=== PATIENT | female | born 1950 | race Caucasian/White ===

== ENCOUNTER → 2018-08-25 11:15 | Outpatient (CLI) | payer MEDICARE, MEDICAID, SELFPAY ==
--- NOTE | 2018-08-25 11:25 | US_ITS ---
STUDY: RENAL ULTRASOUND - COMPLETE REASON FOR EXAM: Female, 67 years old. UTI TECHNIQUE: Ultrasound evaluation of the kidneys was performed with real-time and static king-scale imaging. COMPARISON: None. FINDINGS: RIGHT KIDNEY: Normal location of the right kidney, which is normal in size. The right kidney measures 10.0 x 5.4 x 5.1 cm. There is thinning cortex of the right kidney. The renal cortex measures 1.0 cm. Multiple cysts are noted up to 3.6 cm with one possibly septated. There are no right renal calculi. There is right hydronephrosis which resolved after voiding. DISTAL RIGHT URETER: There is non-visualization of the distal right ureter. There is no demonstrated right ureterovesical junction calculus. There is a visualized right ureteral jet. LEFT KIDNEY: Normal location of the left kidney, which is normal in size. The left kidney measures 11.7 x 4.5 x 4.9 cm. There is a normal cortex of the left kidney. The renal cortex measures 1.6 cm. There is no left renal mass or cyst. There are no left renal calculi. There is left hydronephrosis which resolved after voiding. DISTAL LEFT URETER: There is non-visualization of the distal left ureter. There is no demonstrated left ureterovesical junction calculus. There is a visualized left ureteral jet. BLADDER: The distended urinary bladder has a volume of 5:30 ml. The post void urinary bladder has a volume of 286 ml. Wall thickness is 4 mm.. There is no demonstrated mass within the urinary bladder. There are no demonstrated bladder calculi. US/Kidney and Bladder IMPRESSION: Hydronephrosis of the kidneys which resolved after voiding. Significant residual after voiding is noted of the urinary bladder. Minimally thickened wall of the urinary bladder. Multiple right renal cystic lesions. Electronically Signed: Morris Leon DO at 23:57 EDT Tel [phone], Service support ,
== END ==
PROVIDERS: Family Provider Family Medicine; PCP Family Medicine; Referring Provider Urology; Visit Provider Urology
DX: N39.0 Urinary tract infection, site not specified (principal)
CPT/HCPCS: 76770

== ENCOUNTER 2018-11-14 05:54 | Day surgery (SDC) | payer MEDICARE, MEDICAID, SELFPAY ==
[2017-01-18 14:58] VITALS: BMI 43.7
[2018-11-14] VITALS (7 sets, daily range): BP systolic 97–173; BP diastolic 58–83; PULSE 65–88; RESP 16–18; TEMP 36.3–36.6; O2SAT 92–98; BMI 42.8
[2018-11-14] MEDS: Vancomycin IV 1,000 MG/200 ML BAG 200 MG IV (06:35)
--- NOTE | 2018-11-14 07:30 | RAD_ITS ---
STUDY: X-RAY - PELVIS REASON FOR EXAM: Female, 68 years old. InterStim therapy. TECHNIQUE: One view of the pelvis was obtained. COMPARISON: None. FINDINGS: Intraoperative fluoroscopic services provided for InterStim therapy. RAD/Pelvis 1 or 2 Views IMPRESSION: Fluoroscopic services provided for InterStim therapy. Electronically Signed: Jose Soto MD at 13:06 EST Tel [phone], Service support ,
--- NOTE | 2018-11-14 09:02 | OP.PCM_ITS ---
Problem List (1) Urinary retention Status: Acute (2) Neurogenic bladder Status: Acute (3) Urinary tract infection Status: Resolved Report of Operation Date of Procedure: 11/14/18 Pre-Operative Diagnosis: urinary retention, neurogenic bladder, recurrent urinary tract infections Post-Operative Diagnosis: same Surgery/Procedure Performed:: Interstim Stage 1 Description of Surgical Findings:: good samuel response on all 4 leads. Unit placed on her right side. fixture repairer fabricator: Sylvia Olson Type of Anesthesia:: MAC Estimated Blood Loss (mL): 5cc Description of Procedure: The patient is a 68-year-old female having recurrent urinary tract infections. On further evaluation it was determined that she was not emptying her bladder well. She underwent urodynamics which revealed hypoactive detrusor contractions with no evidence of detrusor sphincter dyssynergia. After discussing all risk benefits and alternatives, she agreed to proceed with a stage I InterStim trial. The patient was taken to the operating room and placed in a prone position on the operating room table. All dependent portions of her body were appropriately padded and she was secured to the table. Anesthesia monitored the head, neck, airway, IV access, vital signs throughout the case. Once anesthesia was appropriately administered and the patient was comfortable, she was prepped and draped in usual sterile fashion. Using fluoroscopic visualization the sacrum was identified and mapped onto the patient's skin. The area of insertion over the right S3 foramen was identified and injected with lidocaine for appropriate pain control. At this time the needle was inserted through the S3 foramen and on testing had good samuel response without toe. The obturator was removed and the guidewire was passed. The skin was incised and the dilator was inserted and visualized under fluoroscopy. At this time the obturator was removed and the lead was inserted in a turning fashion. Upon testing there was samuel response in all 4 leads. The sheath was removed and a site for the boot was determined. This area was anesthetized with lidocaine. An incision was made. Cautery and pressure were used to obtain hemostasis. At this time the lead was tunneled into the pocket site. The lead was cleaned and dried and the boot was applied. At this time the lead extension was connected and the boot was tied into lo cation using Prolene. The lead extension was brought out in a cephalad position. The incision was closed with 3-0 Vicryl interrupted suture. Skin was closed with 4-0 subcuticular closure. This time an OpSite was placed with the temporary battery secured in position to the patient's back. Cloth tape was used to secure everything in position. The patient was awakened and taken to the recovery room in good condition. There were no complications during this procedure Grafts/Implants Used: Interstim - Complications none - Admit VTE Documentation VTE Present on Admission: No VTE Mechan Device Prophylaxis: None VTE Pharm Prophylaxis ordered?: No Reason prophylaxis not ordered:: Treatment Not Indicated
--- NOTE | 2018-11-14 09:03 | PCM.DC.URO ---
Discharge Diet: No Restrictions Discharge Activity: May not drive while taking narcotic pain medications., May Not Shower Call your doctor if your incision/area has: Continuous Slow Oozing, Sudden Increased Bleeding, Increased Redness, Foul Smelling Discharge Call your doctor if you observe: Fever of 101 or Higher, Inability to urinate, Inability to have a bowel movement, Shortness of breath, Chest pain, Calf discomfort, Uncontrolled pain Allergies/Adverse Reactions: Allergies adhesive tape Adverse Reaction (Verified 11/07/18 11:52) Rash Medications to take at Discharge Aspirin [Daniels Aspirin] 81 mg PO DAILY 12/28/13 Ca/D3/Mag Ox/Zinc/Drilling Superintendent/Asad/Bor [Calcium 600-D3 Plus Caplet] 1 each PO DAILY 12/28/13 Lactobacillus Acidophilus [Acidophilus] 1 each PO DAILY 12/28/13 Lisinopril [Zestril] 5 mg PO DAILY 12/28/13 Loratadine [Claritin] 10 mg PO DAILY PRN 12/28/13 Naproxen [Naprosyn] 500 mg PO DAILY PRN PRN 12/28/13 Potassium Chloride [Klor-Con 10] 10 meq PO DAILY 12/28/13 Ranitidine [Zantac] 300 mg PO QHS 12/28/13 Sertraline HCl [Zoloft] 100 mg PO BID 12/28/13 Timolol Maleate 1 drop EACH EYE BID 01/18/17 Ascorbic Acid [Vitamin C] 240 mg PO DAILY 11/07/18 Cephalexin [Keflex] 250 mg PO DAILY 11/07/18 Cholecalciferol (Vitamin D3) [Vitamin D3] 2,000 unit PO DAILY 11/07/18 Cranberry 500 mg PO DAILY 11/07/18 Hydrochlorothiazide [Hctz] 37.5 mg PO DAILY 11/07/18 Inulin [Fiber Gummies] 1 gm PO DAILY 11/07/18 Latanoprost 0.005% [Xalatan Opthalmic] 1 drop EACH EYE QHS 11/07/18 Cephalexin [Keflex] 500 mg PO Q12 3 Days #6 cap 11/14/18 Hydrocodone Bitart/Apap 5-325 [[place] 5MG-325MG] 1 tab PO Q4H PRN PRN 7 Days #20 tab 11/14/18 The following prescriptions were given: Hydrocodone Bitart/Apap 5-325 [[place] 5MG-325MG] 1 tab PO Q4H PRN PRN 7 Days #20 tab PRN Reason: Pain Cephalexin [Keflex] 500 mg PO Q12 3 Days #6 cap Primary Care Physician: Frank Ratliff MD [Primary Care Provider] - Test Results: Test results from this visit will be discussed in further detail at your follow-up appointment, if applicable. Please Follow Up With: Sylvia Olson MD When: 1 week, call for appt. Proposed Discharge Date: 11/14/18
--- OUTSIDE RECORDS SUMMARY | 2019-01-16 06:44 | XMS RPT_ITS ---
:1950 Author Organization OHIP Care Team Providers Name Role Phone ELLIOT ARCHIBALD (BEATA) Referring Unavailable ZAHRAA JACOBSON Referring Unavailable ZAHRAA JACOBSON Attending Unavailable ZAHRAA JACOBSON Referring Unavailable COOPERRIDER BRUCE, JACOBY Cordero Attending Unavailable COOPERRIDER BRUCE, JACOBY Cordero Attending Unavailable ZAHRAA JACOBSON Attending Unavailable ZAHRAA JACOBSON Referring Unavailable ZAHRAA JACOBSON Referring Unavailable COOPERRIDER II, JACOBY H Attending Unavailable KEY ESTES (TRAIN CLERK) Attending Unavailable KEY ESTES (TRAIN CLERK) Referring Unavailable ELLIOT ARCHIBALD (TRAIN CLERK) Referring Unavailable ELLIOT ARCHIBALD (TRAIN CLERK) Attending Unavailable ZAHRAA JACOBSON Referring Unavailable COOPERRIDER II, JACOBY Gil Attending Unavailable TERI FLOWER (PA) Attending Unavailable ELLIOT ARCHIBALD (TRAIN CLERK) Referring Unavailable ELLIOT ARCHIBALD (TRAIN CLERK) Referring Unavailable CAMILLE CARTAGENA Admitting Unavailable CMAILLE CARTAGENA Attending Unavailable DOLORES SOLIS Referring Unavailable ZAHRAA JACOBSON Referring Unavailable ELLIOT ARCHIBALD (TRAIN CLERK) Attending Unavailable Sylvia Olson Attending Unavailable Sylvia Olson Referring Unavailable Zahraa Jacobson Primary Care Unavailable Sylvia Olson Attending Unavailable Sylvia Olson Referring Unavailable Zahraa Jacobson Primary Care Unavailable PROBLEMS PROBLEMS DATE TYPE CONDITION / CODE ATTENDING STATUS SOURCE 11/14/2018 Unknown R33.9 - Retention Sylvia Olson Active [place] of urine, Community unspecified / Hospital R33.9(ICD-10) Repository 09/15/2018 Active Personal history CAMILLE CARTAGENA Active [facility] of colonic polyps [facility] / Z86.010(ICD-10) Repository 08/22/2018 Active Biliuria / NA Active [facility] R82.2(ICD-10) [facility] [place] Repository 08/18/2018 Active Urinary tract NA Active [facility] infection, site [facility] [place] not specified / Repository N39.0(ICD-10) 08/18/2018 Active Hematuria, NA Active [facility] unspecified / [facility] [place] R31.9(ICD-10) Repository 08/18/2018 Active Gross hematuria / NA Active [facility] R31.0(ICD-10) [facility] [place] Repository 08/11/2018 Active Unknown / MEERA KEY Active [facility] UNK(Unknown) (TRAIN CLERK) [facility] [place] Repository 12/13/2017 Active Hyperlipidemia, NA Active [facility] unspecified / [facility] [place] E78.5(ICD-10) Repository 08/29/2006 Active Essential NA Active [facility] (primary) [facility] [place] hypertension / Repository I10(ICD-10) 12/07/2017 Active Other chcf NA Active [facility] (current) drug [facility] [place] therapy / Repository Z79.899(ICD-10) 11/29/2017 Active Encounter for NA Active [facility] screening [facility] [place] mammogram for Repository malignant neoplasm of breast / Z12.31(ICD-10) PROCEDURES PROCEDURES No Procedure Records FoundRESULTS RESULTS DISCHARGE INSTRUCTION Observed: 11/14/2018 Status: F Source: [place] 9:04 AM [facility] REPOSITORY [facility] Medical Records Department [address] [place] [address] Instructions for Home/Discharge Instructions 11/14/18 0903 MR#: [id number] Acct: [id number] Name: VIANCA PEREZ Rep #: [id number] : 1950 68 From: Sylvia Olson MD PCP: Zahraa Jacobson MD Status: REG SDC Discharge Diet: No Restrictions Discharge Activity: May not drive while taking narcotic pain medications., May Not Shower Call your doctor if your incision/area has: Continuous Slow Oozing, Sudden Increased Bleeding, Increased Redness, Foul Smelling Discharge Call your doctor if you observe: Fever of 101 or Higher, Inability to urinate, Inability to have a bowel movement, Shortness of breath, Chest pain, Calf discomfort, Uncontrolled pain Allergies/Adverse Reactions: Allergies adhesive tape Adverse Reaction (Verified 11/07/18 11:52) Rash Medications to take at Discharge Aspirin [Mora Aspirin] 81 mg PO DAILY 12/28/13 Ca/D3/Mag Ox/Zinc/Operations Manager/Coordinator/Asad/Bor [Calcium 600-D3 Plus Caplet] 1 each PO DAILY 12/28/13 Lactobacillus Acidophilus [Acidophilus] 1 each PO DAILY 12/28/13 Lisinopril [Zestril] 5 mg PO DAILY 12/28/13 Loratadine [Claritin] 10 mg PO DAILY PRN 12/28/13 Naproxen [Naprosyn] 500 mg PO DAILY PRN PRN 12/28/13 Potassium Chloride [Klor-Con 10] 10 meq PO DAILY 12/28/13 Ranitidine [Zantac] 300 mg PO QHS 12/28/13 Sertraline HCl [Zoloft] 100 mg PO BID 12/28/13 Timolol Maleate 1 drop EACH EYE BID 01/18/17 Ascorbic Acid [Vitamin C] 240 mg PO DAILY 11/07/18 Cephalexin [Keflex] 250 mg PO DAILY 11/07/18 Cholecalciferol (Vitamin D3) [Vitamin D3] 2,000 unit PO DAILY 11/07/18 Cranberry 500 mg PO DAILY 11/07/18 Hydrochlorothiazide [Hctz] 37.5 mg PO DAILY 11/07/18 Inulin [Fiber Gummies] 1 gm PO DAILY 11/07/18 Latanoprost 0.005% [Xalatan Opthalmic] 1 drop EACH EYE QHS 11/07/18 Cephalexin [Keflex] 500 mg PO Q12 3 Days #6 cap 11/14/18 Hydrocodone Bitart/Apap 5-325 [[place] 5MG-325MG] 1 tab PO Q4H PRN PRN 7 Days #20 tab 11/14/18 The following prescriptions were given: Hydrocodone Bitart/Apap 5-325 [[place] 5MG-325MG] 1 tab PO Q4H PRN PRN 7 Days #20 tab PRN Reason: Pain Cephalexin [Keflex] 500 mg PO Q12 3 Days #6 cap Primary Care Physician: Zahraa Jacobson MD [Primary Care Provider] - Test Results: Test results from this visit will be discussed in further detail at your follow-up appointment, if applicable. Please Follow Up With: Sylvia Olson MD When: 1 week, call for appt. Proposed Discharge Date: 11/14/18 11/14/18903 <Electronically signed by Sylvia Olson MD> Date Sylvia Olson MD CC: Zahraa Jacobson MD Signed OPERATIVE REPORT Observed: 11/14/2018 Status: F Source: [place] 9:03 AM [facility] REPOSITORY [facility] Medical Records Department [address] [place] [address] Operative Report 11/14/18 0856 MR#: [id number] Acct: [id number] Name: VIANCA PEREZ Rep #: [id number] : 1950 68 From: Sylvia Olson MD PCP: Zahraa Jacobson MD Status: [facility] Y Location: [place] [address] Problem List (1) Urinary retention Status: Acute (2) Neurogenic bladder Status: Acute (3) Urinary tract infection Status: Resolved Report of Operation Date of Procedure: 11/14/18 Pre-Operative Diagnosis: urinary retention, neurogenic bladder, recurrent urinary tract infections Post-Operative Diagnosis: same Surgery/Procedure Performed:: Interstim Stage 1 Description of Surgical Findings:: good samuel response on all 4 leads. Unit placed on her right side. sports teacher: Sylvia Olson Type of Anesthesia:: MAC Estimated Blood Loss (mL): 5cc Description of Procedure: The patient is a 68-year-old female having recurrent urinary tract infections. On further evaluation it was determined that she was not emptying her bladder well. She underwent urodynamics which revealed hypoactive detrusor contractions with no evidence of detrusor sphincter dyssynergia. After discussing all risk benefits and alternatives, she agreed to proceed with a stage I InterStim trial. The patient was taken to the operating room and placed in a prone position on the operating room table. All dependent portions of her body were appropriately padded and she was secured to the table. Anesthesia monitored the head, neck, airway, IV access, vital signs throughout the case. Once anesthesia was appropriately administered and the patient was comfortable, she was prepped and draped in usual sterile fashion. Using fluoroscopic visualization the sacrum was identified and mapped onto the patient's skin. The area of insertion over the right S3 foramen was identified and injected with lidocaine for appropriate pain control. At this time the needle was inserted through the S3 foramen and on testing had good samuel response without toe. The obturator was removed and the guidewire was passed. The skin was incised and the dilator was inserted and visualized under fluoroscopy. At this time the obturator was removed and the lead was inserted in a turning fashion. Upon testing there was samuel response in all 4 leads. The sheath was removed and a site for the boot was determined. This area was anesthetized with lidocaine. An incision was made. Cautery and pressure were used to obtain hemostasis. At this time the lead was tunneled into the pocket site. The lead was cleaned and dried and the boot was applied. At this time the lead extension was connected and the boot was tied into location using Prolene. The lead extension was brought out in a cephalad position. The incision was closed with 3-0 Vicryl interrupted suture. Skin was closed with 4-0 subcuticular closure. This time an OpSite was placed with the temporary battery secured in position to the patient's back. Cloth tape was used to secure everything in position. The patient was awakened and taken to the recovery room in good condition. There were no complications during this procedure Grafts/Implants Used: Interstim - Complications none - Admit VTE Documentation VTE Present on Admission: No VTE Mechan Device Prophylaxis: None VTE Pharm Prophylaxis ordered?: No Reason prophylaxis not ordered:: Treatment Not Indicated 11/14/18902 <Electronically signed by Sylvia Olson MD> Date Sylvia Olson MD CC: Sylvia Olson MD; Zahraa Jacobson MD Signed PELVIS 1 OR 2 VIEWS Observed: 11/14/2018 Status: F Source: [place] 12:08 AM [facility] REPOSITORY [facility] Imaging Services [address] [place] [address] Pelvis 1 or 2 Views MR#: [id number] Acct: [id number] Name: VIANCA PEREZ Rep #: [id number] : 1950 F 68 From: Jose Soto MD PCP: Zahraa Jacobson MD Status: [facility] Study: Pelvis 1 or 2 Views Date of Exam: 11/14/18 Exam# [id number] Ordering Dr: Sylvia Olson MD STUDY: X-RAY - PELVIS REASON FOR EXAM: Female, 68 years old. InterStim therapy. TECHNIQUE: One view of the pelvis was obtained. COMPARISON: None. FINDINGS: Intraoperative fluoroscopic services provided for InterStim therapy. RAD/Pelvis 1 or 2 Views IMPRESSION: Fluoroscopic services provided for InterStim therapy. Electronically Signed: Jose Soto MD at 13:06 EST Tel [phone], Service support , CC: Sylvia Olson MD; Zahraa Jacobson MD Leaf Sorter: Signed PROGRESS Observed: 10/20/2018 Status: COMPLETED Source: [place] 1:03 PM [facility] REPOSITORY HNO ID: [id number] Author: Elliot Archibald Service: (none) Author Type: Nurse Practitioner Type: Progress Notes Filed: 10/20/2018 1:32 PM Note Text: Chief Complaint Patient presents with: Pre-Op Exam HPI Vianca Perez is a 68 year old female who presents here today for Above Complaints. Patient presents today for urological surgical clearance. She will be having a a placement of a InterStim for bladder clearance. She has been having post-void residual. She has had a recent cystoscopy. Scheduled with Dr. Codey Olson in October. Does have updated labs within the last month. Recently had a colonoscopy outpatient without any problems. She denies any current unintended weight loss, fevers, dyspnea, wheezing, edema, chest pain, claudication. She denies any history of FL, atrial fibrillation, COPD, thyroid disorder, recurrent bronchitis, anemia, arrhythmia, diabetes, artificial heart valve, sickle cell disease, coronary artery disease, DVT, PE, asthma, PE, cirrhosis, or CVA. No previous problems with anesthesia. No personal or family history of blood clotting disorders. She does have a stage 3 kidney disease. Last GFR was 44. She is on currently 81 mg of aspirin daily. Does have hypertension. She is requesting a referral to nephrology to discuss her CKD. Is able to walk up her stairs without having shortness of breath, chest pain or lightheadedness (5.5 METS). Past medical history, appointments, medications, allergies reviewed. Previous Medical History PAST MEDICAL HISTORY Diagnosis Date - Acute gastritis without mention of hemorrhage - Benign neoplasm of colon - Depressive disorder, not elsewhere classified - Essential hypertension, benign - Glaucoma - Iron deficiency anemia, unspecified - Malignant neoplasm of colon, unspecified site - Obesity, unspecified - Skin rash - Snoring - Stress headaches - Tobacco use disorder - Unspecified glaucoma(365.9) Glaucoma - UTI (urinary tract infection) Previous Surgical History PAST SURGICAL HISTORY Procedure Laterality Date - APPENDECTOMY 1962 - DELIVERY ONLY , low cervical - COLONOS W/REM POLYP SNARE 01/22/09 - COLONOSCOP W/ OR W/O [facility] SPEC 09/27/2018 Colonoscopy - COLONOSCOPY 09/12/15 Repeat 3-5 years - EGD 01/22/09 - LAP COLECTMY W/ILEUM/ILEOCOL 02/19/09 RIGHT - LASER SURGERY OF EYE 2004 Glaucoma both eyes - REMOVAL GALLBLADDER 1977 Cholecystectomy - REMOVAL OF OMENTUM 03-08-09 - REMOVAL OF OVARY/TUBE(S) 1998 Salpingo-oophorectomy, bilat. - REMOVE TONSILS/ADENOIDS,<12 Y/O 1955 T/A (under age 11 years) - REVISE MEDIAN N/CARPAL TUNNEL SURG 1982 Carpal tunnel decomp Right - SELECTIVE LASER TRABECULOPLASTY (SLT) OS (LEFT EYE) 05/30/2017 - SPINAL FUSION,ANT,EA ADNL LEVEL 1983 C1-C2 - TOTAL ABDOM HYSTERECTOMY 1998 Hysterectomy, EMILY Family History FAMILY HISTORY Problem Relation Age of Onset - Diabetes Father - Diabetes Brother CABG 12/27 - Diabetes Maternal Grandmother - Diabetes Other cousin - Coronary Artery Disease Maternal Grandfather Patient Allergies ALLERGIES Allergen Reactions - Bee Sting Swelling Very red and swollen Current Medications Current Outpatient Prescriptions on File Prior to Visit: aspirin(ECOTRIN LOW STRENGTH 81 MG TAB) Take one(1) tablet daily. calcium carbonate 600 mg-cholecalciferol 200 units (CALCIUM 600 WITH VITAMIN D3) 600 mg(1,500mg) -200 unit tab Take 1 tablet by mouth once daily. cephalexin (KEFLEX ORAL) Take by mouth. Chlorhexidine Gluconate (PERIDEX) 0.12 % solution Use 15 mL as instructed twice daily. COMPOUNDED PRESCRIPTION vitamin D3 1,000mg tab take one daily dorzolamide-timolol (COSOPT) 22.3-6.8 mg/mL ophthalmic solution Use 1 Drop in both eyes twice daily. lactobacillus acidophilus (ACIDOPHILUS) ORAL Cap Take one(1) tablet daily. latanoprost (XALATAN) 0.005 % ophthalmic solution Use 1 Drop in both eyes daily at bedtime. lisinopril (PRINIVIL) 5 mg tablet Take 1 tablet by mouth once daily. loratadine(CLARITIN 10 MG TAB) TAKE PRESCRIBED naproxen (NAPROSYN) 500 mg tablet Take 1 tablet by mouth twice daily as needed (pain/inflammation, take with food.). potassium chloride ER (K-DUR, KLOR-CON) 10 mEq tablet Take 1 tablet by mouth once daily. Ranitidine HCl (ZANTAC) 300 mg tablet Take 1 tablet by mouth daily at bedtime. sertraline (ZOLOFT) 100 mg tablet Take 1 tablet by mouth twice daily. triamcinolone acetonide (KENALOG) 0.1 % ointment Apply 1 application to affected area twice daily. triamterene-hydrochlorothiazide (MAXZIDE-25) 37.5-25 mg per tablet Take 1 tablet by mouth once daily. No current facility-administered medications on file prior to visit. Social History Social History Marital status: Single Spouse name: Years of education: HS + MANAGING PARTNER Number of children: Occupational History Occupation Employer Comment nursing supervisor painting* [employer] * Social History Main Topics Smoking status: Former Smoker Packs/day: 1.00 Years: 30.00 Types: Cigarettes, Pipe, Cigars Quit date: 05/24/2008 Smokeless tobacco: Never Used Alcohol use: Yes Comment: socially Drug use: No Sexual activity: No Comment: Not asked Review of Symptoms REVIEW OF SYSTEMS PAIN ASSESSMENT: Negative for pain, history of chronic pain, or current treatment for a chronic pain condition. GENERAL: No weight loss, malaise or fevers HEENT: Negative for frequent or significant headaches, No changes in hearing or vision, no nose bleeds or other nasal problems NECK: Negative for lumps, goiter, pain and significant neck swelling RESPIRATORY: Negative for cough, hemoptysis, wheezing, COPD, dyspnea or shortness of breath CARDIOVASCULAR: Negative for chest pain, leg swelling, hypertension, CHF or palpitations GI: No nausea, vomiting, or diarrhea : See HPI MUSCULOSKELETAL: Negative for joint pain or swelling, back pain or muscle pain HEMATOLOGY/LYMPHOLOGY: Negative for prolonged bleeding, bruising easily or swollen nodes ENDOCRINE: Negative for cold or heat intolerance, polyuria, polydipsia and goiter NEURO: No history of headaches, syncope, paralysis, seizures or tremors EXAM: BP 131/84 (BP Site: Left Arm) Pulse 72 Temp 36.8 ?C (98.3 ?F) (Tympanic) Wt 106.6 kg (235 lb) BMI 41.63 kg/m? General Appearance: Well appearing, alert, in no acute distress, well-hydrated, well nourished. and Obese. Head: Normocephalic, no masses, lesions, tenderness or abnormalities. Eyes: Anicteric sclera. Pupils are equally round and reactive to light. Extraocular movements are intact. . Ears: External ears normal, canals clear. Nose/Sinuses: Nares normal, septum midline, mucosa normal, no drainage or sinus tenderness. Oropharynx: Lips, mucosa, and tongue normal, teeth and gums normal, oropharynx normal. Neck: Supple, no adenopathy; thyroid symmetric, normal size, no bruits. Lungs: lungs clear to auscultation. No wheezing, rhonchi, rales. Heart: RRR without murmur, gallop, or rubs. No ectopy. Abdomen: Normal abdominal exam, Abdomen soft, non-tender. Bowel sounds normal. No masses, organomegaly. Extremities: No deformities, edema. Neurologic: Gait normal. +2/4 patellar reflexes normal and symmetric. Sensation grossly intact.. Lymph Nodes: No cervical lymphadenopathy, No supraclavicular lymphadenopathy. Health Maintenance List BP CONTROLLED (<130/80) due on 1967 HEPATITIS C SCREENING due on 1993 LUNG CANCER SCREENING due on 2004 INFLUENZA(1) due on 06/24/2018 MAMMOGRAM due on 11/29/2018 ANNUAL PCP TEAM CHRONIC DISEASE VISIT due on 09/06/2019 DIABETES SCREEN due on 10/18/2021 LIPID SCREEN due on 09/18/2023 COLORECTAL CANCER SCREENING,SEE MODIFIER due on 09/27/2023 DTAP,TDAP,TD(2 - Td) due on 09/08/2026 BONE DENSITY Completed ADULT PREVNAR-13 Completed PNEUMOVAX AGE 65 AND OVER WITH 5YR LOOKBACK Completed Data reviewed Component Latest Ref Rng AND Units 09/18/2018 10/18/2018 Glucose 74 - 99 mg/dL 84 BUN 7 - 21 mg/dL 23 (H) Creatinine 0.58 - 0.96 mg/dL 1.21 (H) Sodium 136 - 144 mmol/L 142 Potassium 3.7 - 5.1 mmol/L 4.2 Chloride 97 - 105 mmol/L 101 CO2 22 - 30 mmol/L 28 Anion Gap 9 - 18 mmol/L 13 Calcium 8.5 - 10.2 mg/dL 9.8 eGFR- 53 eGFR-All Other Races . 44 Cholesterol, Total <200 mg/dL 193 Triglyceride <150 mg/dL 185 (H) HDL Cholesterol >39 mg/dL 29 (L) LDL Cholesterol <100 mg/dL 127 (H) Non HDL Cholesterol <130 mg/dL 164 (H) Fasting Time hrs 10 VLDL Cholesterol <30 mg/dL 37 (H) TC:HDL Ratio <5.10 6.66 (H) LDL:HDL Ratio <2.54 4.38 (H) Hemoglobin A1C 4.3 - 5.6 % 5.3 Estimated Average Glucose mg/dL 105 ASSESSMENT/PLAN: 1. Pre-op examination - ICD9: V72.84, ICD10: Z01.818 (primary diagnosis) - Patient is cleared for surgery/procedure. We will send a letter and labs to urology. - considered a low risk for seizure/surgery by the ACC/AHA classification. Patient has functional capacity of greater than 5.5 METS 2. CKD (chronic kidney disease) stage 3, GFR 30-59 ml/min ([facility]) - ICD9: 585.3, ICD10: N18.3 - kidney function is stable when compared to the past 2 years. She will continue her NICOLAS inhibitor as prescribed. She is requesting a referral to nephrology for further evaluation. - CONSULT TO NEPHROLOGY 3. Essential hypertension, benign - ICD9: 401.1, ICD10: I10 - good control - Continue current medication(s) - Recommended regular aerobic exercise. - Recommend home blood pressure monitoring, to bring results in on next visit - Goal of BP <130/80 Elliot Archibald APRN.CNP CNOV Observed: 10/20/2018 Status: COMPLETED Source: [place] 1:00 PM [facility] REPOSITORY Office Visit (FAMPWS) VIANCA PEREZ ([id number]) 1950 F NFR Date Time Provider Department 10/20/18 1:00 PM ELLIOT ARCHIBALD (BEATA) FAMPWS During your visit today, we recorded the following information about you: Temperature Pulse Blood pressure Weight 98.3 degrees 72/minute 131/84 106.6 kg Elliot Archibald APRN.CNP 10/20/2018 1:32 PM Signed Chief Complaint Patient presents with: Pre-Op Exam HPI Vianca Perez is a 68 year old female who presents here today for Above Complaints. Patient presents today for urological surgical clearance. She will be having a a placement of a InterStim for bladder clearance. She has been having post-void residual. She has had a recent cystoscopy. Scheduled with Dr. Codey Olson in October. Does have updated labs within the last month. Recently had a colonoscopy outpatient without any problems. She denies any current unintended weight loss, fevers, dyspnea, wheezing, edema, chest pain, claudication. She denies any history of FL, atrial fibrillation, COPD, thyroid disorder, recurrent bronchitis, anemia, arrhythmia, diabetes, artificial heart valve, sickle cell disease, coronary artery disease, DVT, PE, asthma, PE, cirrhosis, or CVA. No previous problems with anesthesia. No personal or family history of blood clotting disorders. She does have a stage 3 kidney disease. Last GFR was 44. She is on currently 81 mg of aspirin daily. Does have hypertension. She is requesting a referral to nephrology to discuss her CKD. Is able to walk up her stairs without having shortness of breath, chest pain or lightheadedness (5.5 METS). Past medical history, appointments, medications, allergies reviewed. Previous Medical History PAST MEDICAL HISTORY Diagnosis Date - Acute gastritis without mention of hemorrhage - Benign neoplasm of colon - Depressive disorder, not elsewhere classified - Essential hypertension, benign - Glaucoma - Iron deficiency anemia, unspecified - Malignant neoplasm of colon, unspecified site - Obesity, unspecified - Skin rash - Snoring - Stress headaches - Tobacco use disorder - Unspecified glaucoma(365.9) Glaucoma - UTI (urinary tract infection) Previous Surgical History PAST SURGICAL HISTORY Procedure Laterality Date - APPENDECTOMY 1962 - DELIVERY ONLY , low cervical - COLONOS W/REM POLYP SNARE 01/22/09 - COLONOSCOP W/ OR W/O [facility] SPEC 09/27/2018 Colonoscopy - COLONOSCOPY 09/12/15 Repeat 3-5 years - EGD 01/22/09 - LAP COLECTMY W/ILEUM/ILEOCOL 02/19/09 RIGHT - LASER SURGERY OF EYE 2004 Glaucoma both eyes - REMOVAL GALLBLADDER 1977 Cholecystectomy - REMOVAL OF OMENTUM 03-08-09 - REMOVAL OF OVARY/TUBE(S) 1998 Salpingo-oophorectomy, bilat. - REMOVE TONSILS/ADENOIDS,<12 Y/O 1955 T/A (under age 11 years) - REVISE MEDIAN N/CARPAL TUNNEL SURG 1982 Carpal tunnel decomp Right - SELECTIVE LASER TRABECULOPLASTY (SLT) OS (LEFT EYE) 05/30/2017 - SPINAL FUSION,ANT,EA ADNL LEVEL 1982 C1-C2 - TOTAL ABDOM HYSTERECTOMY 1998 Hysterectomy, EMILY Family History FAMILY HISTORY Problem Relation Age of Onset - Diabetes Father - Diabetes Brother CABG 12/27 - Diabetes Maternal Grandmother - Diabetes Other cousin - Coronary Artery Disease Maternal Grandfather Patient Allergies ALLERGIES Allergen Reactions - Bee Sting Swelling Very red and swollen Current Medications Current Outpatient Prescriptions on File Prior to Visit: aspirin(ECOTRIN LOW STRENGTH 81 MG TAB) Take one(1) tablet daily. calcium carbonate 600 mg-cholecalciferol 200 units (CALCIUM 600 WITH VITAMIN D3) 600 mg(1,500mg) -200 unit tab Take 1 tablet by mouth once daily. cephalexin (KEFLEX ORAL) Take by mouth. Chlorhexidine Gluconate (PERIDEX) 0.12 % solution Use 15 mL as instructed twice daily. COMPOUNDED PRESCRIPTION vitamin D3 1,000mg tab take one daily dorzolamide-timolol (COSOPT) 22.3-6.8 mg/mL ophthalmic solution Use 1 Drop in both eyes twice daily. lactobacillus acidophilus (ACIDOPHILUS) ORAL Cap Take one(1) tablet daily. latanoprost (XALATAN) 0.005 % ophthalmic solution Use 1 Drop in both eyes daily at bedtime. lisinopril (PRINIVIL) 5 mg tablet Take 1 tablet by mouth once daily. loratadine(CLARITIN 10 MG TAB) TAKE PRESCRIBED naproxen (NAPROSYN) 500 mg tablet Take 1 tablet by mouth twice daily as needed (pain/inflammation, take with food.). potassium chloride ER (K-DUR, KLOR-CON) 10 mEq tablet Take 1 tablet by mouth once daily. Ranitidine HCl (ZANTAC) 300 mg tablet Take 1 tablet by mouth daily at bedtime. sertraline (ZOLOFT) 100 mg tablet Take 1 tablet by mouth twice daily. triamcinolone acetonide (KENALOG) 0.1 % ointment Apply 1 application to affected area twice daily. triamterene-hydrochlorothiazide (MAXZIDE-25) 37.5-25 mg per tablet Take 1 tablet by mouth once daily. No current facility-administered medications on file prior to visit. Social History Social History Marital status: Single Spouse name: Years of education: HS + MANAGING PARTNER Number of children: Occupational History Occupation Employer Comment nursing supervisor painting* [employer] * Social History Main Topics Smoking status: Former Smoker Packs/day: 1.00 Years: 30.00 Types: Cigarettes, Pipe, Cigars Quit date: 05/24/2008 Smokeless tobacco: Never Used Alcohol use: Yes Comment: socially Drug use: No Sexual activity: No Comment: Not asked Review of Symptoms REVIEW OF SYSTEMS PAIN ASSESSMENT: Negative for pain, history of chronic pain, or current treatment for a chronic pain condition. GENERAL: No weight loss, malaise or fevers HEENT: Negative for frequent or significant headaches, No changes in hearing or vision, no nose bleeds or other nasal problems NECK: Negative for lumps, goiter, pain and significant neck swelling RESPIRATORY: Negative for cough, hemoptysis, wheezing, COPD, dyspnea or shortness of breath CARDIOVASCULAR: Negative for chest pain, leg swelling, hypertension, CHF or palpitations GI: No nausea, vomiting, or diarrhea : See HPI MUSCULOSKELETAL: Negative for joint pain or swelling, back pain or muscle pain HEMATOLOGY/LYMPHOLOGY: Negative for prolonged bleeding, bruising easily or swollen nodes ENDOCRINE: Negative for cold or heat intolerance, polyuria, polydipsia and goiter NEURO: No history of headaches, syncope, paralysis, seizures or tremors EXAM: BP 131/84 (BP Site: Left Arm) Pulse 72 Temp 36.8 ?C (98.3 ?F) (Tympanic) Wt 106.6 kg (235 lb) BMI 41.63 kg/m? General Appearance: Well appearing, alert, in no acute distress, well-hydrated, well nourished. and Obese. Head: Normocephalic, no masses, lesions, tenderness or abnormalities. Eyes: Anicteric sclera. Pupils are equally round and reactive to light. Extraocular movements are intact. . Ears: External ears normal, canals clear. Nose/Sinuses: Nares normal, septum midline, mucosa normal, no drainage or sinus tenderness. Oropharynx: Lips, mucosa, and tongue normal, teeth and gums normal, oropharynx normal. Neck: Supple, no adenopathy; thyroid symmetric, normal size, no bruits. Lungs: lungs clear to auscultation. No wheezing, rhonchi, rales. Heart: RRR without murmur, gallop, or rubs. No ectopy. Abdomen: Normal abdominal exam, Abdomen soft, non-tender. Bowel sounds normal. No masses, organomegaly. Extremities: No deformities, edema. Neurologic: Gait normal. +2/4 patellar reflexes normal and symmetric. Sensation grossly intact.. Lymph Nodes: No cervical lymphadenopathy, No supraclavicular lymphadenopathy. Health Maintenance List BP CONTROLLED (<130/80) due on 1967 HEPATITIS C SCREENING due on 1993 LUNG CANCER SCREENING due on 2004 INFLUENZA(1) due on 06/24/2018 MAMMOGRAM due on 11/29/2018 ANNUAL PCP TEAM CHRONIC DISEASE VISIT due on 09/06/2019 DIABETES SCREEN due on 10/18/2021 LIPID SCREEN due on 09/18/2023 COLORECTAL CANCER SCREENING,SEE MODIFIER due on 09/27/2023 DTAP,TDAP,TD(2 - Td) due on 09/08/2026 BONE DENSITY Completed ADULT PREVNAR-13 Completed PNEUMOVAX AGE 65 AND OVER WITH 5YR LOOKBACK Completed Data reviewed Component Latest Ref Rng AND Units 09/18/2018 10/18/2018 Glucose 74 - 99 mg/dL 84 BUN 7 - 21 mg/dL 23 (H) Creatinine 0.58 - 0.96 mg/dL 1.21 (H) Sodium 136 - 144 mmol/L 142 Potassium 3.7 - 5.1 mmol/L 4.2 Chloride 97 - 105 mmol/L 101 CO2 22 - 30 mmol/L 28 Anion Gap 9 - 18 mmol/L 13 Calcium 8.5 - 10.2 mg/dL 9.8 eGFR- 53 eGFR-All Other Races . 44 Cholesterol, Total <200 mg/dL 193 Triglyceride <150 mg/dL 185 (H) HDL Cholesterol >39 mg/dL 29 (L) LDL Cholesterol <100 mg/dL 127 (H) Non HDL Cholesterol <130 mg/dL 164 (H) Fasting Time hrs 10 VLDL Cholesterol <30 mg/dL 37 (H) TC:HDL Ratio <5.10 6.66 (H) LDL:HDL Ratio <2.54 4.38 (H) Hemoglobin A1C 4.3 - 5.6 % 5.3 Estimated Average Glucose mg/dL 105 ASSESSMENT/PLAN: 1. Pre-op examination - ICD9: V72.84, ICD10: Z01.818 (primary diagnosis) - Patient is cleared for surgery/procedure. We will send a letter and labs to urology. - considered a low risk for seizure/surgery by the ACC/AHA classification. Patient has functional capacity of greater than 5.5 METS 2. CKD (chronic kidney disease) stage 3, GFR 30-59 ml/min (HCC) - ICD9: 585.3, ICD10: N18.3 - kidney function is stable when compared to the past 2 years. She will continue her NICOLAS inhibitor as prescribed. She is requesting a referral to nephrology for further evaluation. - CONSULT TO NEPHROLOGY 3. Essential hypertension, benign - ICD9: 401.1, ICD10: I10 - good control - Continue current medication(s) - Recommended regular aerobic exercise. - Recommend home blood pressure monitoring, to bring results in on next visit - Goal of BP <130/80 Elliot Archibald APRN.TRAIN CLERK Referring Provider: SELF [[id number]] Allergies As of Date: 10/20/2018 Noted Allergy Reaction BEE STING 07/01/2014 7 - Swelling Comments: Very red and swollen Date Reviewed: 10/20/2018 Reviewed by: Mai [employer] Analyst - Fully Assessed Reason for Visit: Pre-Op Exam [87] Primary Visit Diagnosis:Pre-op examination [Z01.818] Other Visit Diagnoses:CKD (chronic kidney disease) stage 3, GFR 30-59 ml/min (HCC) [N18.3] Essential hypertension, benign [I10] Order(s):CONSULT TO NEPHROLOGY [9018] Order #: [id number]: 1 Prescriptions as of 10/20/2018 Sig: * ECOTRIN LOW STRENGTH 81 MG TA* Take one(1) tablet daily. CALCIUM CARBONATE 600 MG (1,5* Take 1 tablet by mouth once d* KEFLEX ORAL Take by mouth. CHLORHEXIDINE GLUCONATE 0.12 * Use 15 mL as instructed twice* * COMPOUNDED PRESCRIPTION vitamin D3 1,000mg tab take o* DORZOLAMIDE 22.3 MG-TIMOLOL 6* Use 1 Drop in both eyes twice* * LACTOBACILLUS ACIDOPHILUS CAP* Take one(1) tablet daily. LATANOPROST 0.005 % EYE DROPS Use 1 Drop in both eyes daily* LISINOPRIL 5 MG TABLET Take 1 tablet by mouth once d* * CLARITIN 10 MG TABLET TAKE PRESCRIBED NAPROXEN 500 MG TABLET Take 1 tablet by mouth twice * POTASSIUM CHLORIDE ER 10 MEQ * Take 1 tablet by mouth once d* RANITIDINE 300 MG TABLET Take 1 tablet by mouth daily * SERTRALINE 100 MG TABLET Take 1 tablet by mouth twice * TRIAMCINOLONE ACETONIDE 0.1 %* Apply 1 application to affect* TRIAMTERENE 37.5 MG-HYDROCHLO* Take 1 tablet by mouth once d* Problem List As Of Date 10/20/2018 Noted Resolved BENIGN HYPERTENSION [I10] INVALID FOR* Morbid (severe) obesity due to excess calories *INVALID FOR* More... TOBACCO USE DISORDER [F17.200] INVALID FOR* Recurrent major depressive disorder (HCC) [F33.*INVALID FOR* SKIN LESION [L98.9] INVALID FOR*04/03/2007 HYPOPOTASSEMIA [E87.6] INVALID FOR* More... IRON DEFIC ANEMIA NOS [D50.9] INVALID FOR* Malignant neoplasm of colon (HCC) [C18.9] INVALID FOR* Benign neoplasm of colon [D12.6] INVALID FOR*10/13/2010 Vitamin D Deficiency [E55.9] INVALID FOR* Rectal bleeding [K62.5] INVALID FOR* Benign neoplasm of rectum and anal canal [D12.8*INVALID FOR* Benign neoplasm of colon [D12.6] INVALID FOR*06/09/2017 History of malignant neoplasm of large intestin*INVALID FOR* Psoriasis [L40.9] INVALID FOR* Personal history of colon cancer [Z85.038] INVALID FOR* History of colonic polyps [Z86.010] INVALID FOR* Age-related nuclear cataract, bilateral [H25.13]INVALID FOR* Vitreous floaters of both eyes [H43.393] INVALID FOR* Presbyopia [H52.4] INVALID FOR* Myopia [H52.10] INVALID FOR* Regular astigmatism [H52.229] INVALID FOR* Dermatochalasis of both upper eyelids [H02.831,*INVALID FOR* Primary open-angle glaucoma, bilateral, mild st*INVALID FOR* Optic disc cupping [H47.239] INVALID FOR* Hyperlipidemia [E78.5] INVALID FOR* History of colon polyps [Z86.010] INVALID FOR* More... CKD (chronic kidney disease) stage 3, GFR 30-59*INVALID FOR* Disposition: Return if symptoms worsen or fail to improve. Follow-up and Disposition History Recorded Letter Text Elliot Archibald APRN.TRAIN CLERK [address] [place], [place] [address] 10/20/2018 TO WHOM IT MAY CONCERN: This is to confirm that Vianca Perez had an appointment and was seen at the [facility] in the Department of Family Medicine by Elliot Archibald CNP on 10/20/2018 or preop clearance. Based on my exam and most recent lab results, the patient is cleared for surgery/procedure of placement of InterStim and other procedures related. Please do not hesitate to contact me if you have any questions or concerns at Sincerely yours, Elliot BEATA Archibald Encounter Status:Closed by ELLIOT ARCHIBALD CNP on 10/20/18 HEMOGLOBIN A1C Collected: 10/18/2018 Status: F Source: [place] 12:14 PM [facility] REPOSITORY TYPE CODE TESTS RESULT OUT OF REFERENCE UNITS RANGE LAB HGBA1C 4.3-5.6 % Hemoglobin A1c 5.3 Result Comment: [place] [employer] guidelines indicate that patients with HgbA1c in the range 5.7-6.4% are at increased risk for development of diabetes, and intervention by lifestyle modification may be beneficial. HgbA1c greater or equal to 6.5% is considered diagnostic of diabetes. LAB HBA0 mg/dL Est. Average Glucose 105 Result Comment: eAG: (Estimated average glucose) is a calculated value from HgbA1c and is customer service representative of the average blood glucose level in the last 2-3 month period. Performed By: #### HBA1C #### [facility] [address] [place] [id number] RAVINDRAUTRNIRMAL Observed: 10/03/2018 Status: COMPLETED Source: [place] 12:00 AM [facility] REPOSITORY Patient Outreach (FAMPST) VIANCA PEREZ ([id number]) 1950 F NFR Date Time Provider Department 10/03/18 ZAHRAA JACOBSON FAMPST During your visit today, we recorded the following information about you: Allergies As of Date: 10/03/2018 Noted Allergy Reaction BEE STING 07/01/2014 7 - Swelling Comments: Very red and swollen Date Reviewed: 09/27/2018 Reviewed by: Lisy (RnFloyd Quintana RN - Fully Assessed Visit Diagnosis:Medication management [Z79.899] Order(s):HGB A1C [DQBWX8L] Order #: [id number] FUTURE Prescriptions as of 10/03/2018 Sig: * ECOTRIN LOW STRENGTH 81 MG TA* Take one(1) tablet daily. CALCIUM CARBONATE 600 MG (1,5* Take 1 tablet by mouth once d* KEFLEX ORAL Take by mouth. CHLORHEXIDINE GLUCONATE 0.12 * Use 15 mL as instructed twice* * COMPOUNDED PRESCRIPTION vitamin D3 1,000mg tab take o* DORZOLAMIDE 22.3 MG-TIMOLOL 6* Use 1 Drop in both eyes twice* * LACTOBACILLUS ACIDOPHILUS CAP* Take one(1) tablet daily. LATANOPROST 0.005 % EYE DROPS Use 1 Drop in both eyes daily* LISINOPRIL 5 MG TABLET Take 1 tablet by mouth once d* * CLARITIN 10 MG TABLET TAKE PRESCRIBED NAPROXEN 500 MG TABLET Take 1 tablet by mouth twice * POTASSIUM CHLORIDE ER 10 MEQ * Take 1 tablet by mouth once d* RANITIDINE 300 MG TABLET Take 1 tablet by mouth daily * SERTRALINE 100 MG TABLET Take 1 tablet by mouth twice * TRIAMCINOLONE ACETONIDE 0.1 %* Apply 1 application to affect* TRIAMTERENE 37.5 MG-HYDROCHLO* Take 1 tablet by mouth once d* Problem List As Of Date 10/03/2018 Noted Resolved BENIGN HYPERTENSION [I10] INVALID FOR* Morbid (severe) obesity due to excess calories *INVALID FOR* More... TOBACCO USE DISORDER [F17.200] INVALID FOR* Recurrent major depressive disorder (HCC) [F33.*INVALID FOR* SKIN LESION [L98.9] INVALID FOR*04/03/2007 HYPOPOTASSEMIA [E87.6] INVALID FOR* More... IRON DEFIC ANEMIA NOS [D50.9] INVALID FOR* Malignant neoplasm of colon (HCC) [C18.9] INVALID FOR* Benign neoplasm of colon [D12.6] INVALID FOR*10/13/2010 Vitamin D Deficiency [E55.9] INVALID FOR* Rectal bleeding [K62.5] INVALID FOR* Benign neoplasm of rectum and anal canal [D12.8*INVALID FOR* Benign neoplasm of colon [D12.6] INVALID FOR*06/09/2017 History of malignant neoplasm of large intestin*INVALID FOR* Psoriasis [L40.9] INVALID FOR* Personal history of colon cancer [Z85.038] INVALID FOR* History of colonic polyps [Z86.010] INVALID FOR* Age-related nuclear cataract, bilateral [H25.13]INVALID FOR* Vitreous floaters of both eyes [H43.393] INVALID FOR* Presbyopia [H52.4] INVALID FOR* Myopia [H52.10] INVALID FOR* Regular astigmatism [H52.229] INVALID FOR* Dermatochalasis of both upper eyelids [H02.831,*INVALID FOR* Primary open-angle glaucoma, bilateral, mild st*INVALID FOR* Optic disc cupping [H47.239] INVALID FOR* Hyperlipidemia [E78.5] INVALID FOR* History of colon polyps [Z86.010] INVALID FOR* More... Encounter Status:Closed by MIKE PRODUSER on 10/19/18 NURSING PROG Observed: 09/27/2018 Status: COMPLETED Source: [place] 12:45 PM [facility] REPOSITORY HNO ID: [id number] Author: Lisy Quintana RN Service: (none) Author Type: Registered Nurse Type: Nursing Progress Note Filed: 09/27/2018 1:02 PM Note Text: Patient did not experience a fall prior to discharge. Patient did not experience a burn prior to discharge. Lisy Quintana RN PT ED Observed: 09/27/2018 Status: COMPLETED Source: [place] 12:30 PM [facility] REPOSITORY HNO ID: [id number] Author: Lisy Quintana RN Service: (none) Author Type: Registered Nurse Type: Patient Education Filed: 09/27/2018 1:08 PM Note Text: POST OP LEARNING RESPONSE INSTRUCTION PROVIDED TO: Patient and friend/other METHOD OF INSTRUCTION: Individual instruction Written instruction - handouts Verbal instruction PATIENT / FAMILY RESPONSE: Verbalizes understanding of: MEDICAL REGIMEN-Importance of following prescribed medical regimen POST-PROCEDURE INSTRUCTIONS-Correct actions to take to reduce post procedure complications WORSENING CONDITION-Signs and symptoms of a worsening condition that warrant a call to the physician FOLLOW-UP PLAN: Patient instructed to call with any further issues Follow up phone call. Contact information given. SUPPLEMENTAL MATERIAL: Procedure discharge instructions REFERRAL (RECOMMENDATION): None Electronically Signed By: Lisy Quintana RN In Department: AMBULATORY SURGERY NURSING PROG Observed: 09/27/2018 Status: COMPLETED Source: [place] 12:25 PM [facility] REPOSITORY HNO ID: [id number] Author: Lisy SparksRnFloyd Quintana RN Service: (none) Author Type: Registered Nurse Type: Nursing Progress Note Filed: 09/27/2018 1:03 PM Note Text: Pt sitting up in bed tolerating snack and drink. Denies pain or nausea. Abd soft and nondistended. No complaints. Pt told that colonoscopy was negative and to return in 5 years. Lisy Quintana RN NURSING PROG Observed: 09/27/2018 Status: COMPLETED Source: [place] 11:37 AM [facility] REPOSITORY HNO ID: [id number] Author: Lisy Quintana RN Service: (none) Author Type: Registered Nurse Type: Nursing Progress Note Filed: 09/27/2018 11:38 AM Note Text: Dr. Cartagena stopped by. Prior to going back to procedure, pt stated she only wanted Kunal to come back when she was ready to go. She did not want her to speak with Dr. Cartagena. Dr. Cartagena states found nothing and pt to return in 5 years. Lisy Quintana RN NURSING PROG Observed: 09/27/2018 Status: COMPLETED Source: [place] 11:23 AM [facility] REPOSITORY HNO ID: [id number] Author: Ijeoma Krishnamurthy RN Service: Nursing Author Type: Registered Nurse Type: Nursing Progress Note Filed: 09/27/2018 11:23 AM Note Text: Patient did not experience a fall within the Intraoperative area. Patient did not experience a burn within the Intraoperative area. Ijeoma Krishnamurthy RN NURSING PROG Observed: 09/27/2018 Status: COMPLETED Source: [place] 11:00 AM [facility] REPOSITORY HNO ID: [id number] Author: Lisy Quintana RN Service: (none) Author Type: Registered Nurse Type: Nursing Progress Note Filed: 09/27/2018 11:33 AM Note Text: [facility] PRE-OP NURSING HAND OFF NOTE SBAR Hand off given to Ijeoma Krishnamurthy RN. Hand off was communicated verbally and at the patient's bedside and all questions were answered. FALLS/ADKINS Patient did not experience a fall within the Preoperative area. Patient did not experience a burn within the Preoperative area. Lisy Quintana RN PT ED Observed: 09/27/2018 Status: COMPLETED Source: [place] 10:19 AM [facility] REPOSITORY HNO ID: [id number] Author: Lisy SparksRnFloyd Quintana RN Service: (none) Author Type: Registered Nurse Type: Patient Education Filed: 09/27/2018 10:20 AM Note Text: PRE OP LEARNING ASSESSMENT PROCEDURE/SURGERY: GI PROCEDURES: Colonoscopy READINESS TO LEARN COGNITIVE ABILITY: Alert and oriented MOTIVATION TO LEARN: Eager FAMILY SUPPORT: High - Very involved in pt care PATIENT LEARNS BEST BY: Multiple Methods FACTORS AFFECTING LEARNING: None PHYSICAL LIMITATIONS AFFECTING LEARNING: None Electronically Signed By: Lisy Quintana RN In Department: AMBULATORY SURGERY HISTORY PHYSICAL Observed: 09/26/2018 Status: COMPLETED Source: [place] 5:47 PM [facility] REPOSITORY HNO ID: [id number] Author: Camille Cartagena Service: (none) Author Type: Physician Type: HANDP Filed: 09/26/2018 5:49 PM Note Text: HISTORY AND PHYSICAL Vianca Toussaint Abelino 1950 REFERRING PHYSICIAN: Elliot Archibald ([facility]), APR* CHIEF COMPLAINT: Consult (Consult Colonoscopy) HPI: The patient is a 68 year old female referred for endoscopy. Vianca notes a personal history of colon cancer diagnosed in 2008 for which she underwent surgical resection. She has had colon polyps removed during subsequent endoscopies. Most recent colonoscopy was 09/12/[address] Gold Mares, that note has been reviewed. She returns for 3-year follow-up. She denies any change in bowel habits, weight changes, blood in stools, black tarry stools or abdominal pain. The patient notes no upper GI complaints currently. Patient's past medical history in addition to the history of colon cancer is significant for hypertension, hyperlipidemia, recurrent urinary tract infections, obesity and glaucoma. She denies any cardiac or pulmonary issues. Denies chest pain, shortness of breath or recent hospitalizations. Denies problems with sedation in the past. PAST MEDICAL HISTORY - Acute gastritis without mention of hemorrhage - Benign neoplasm of colon - Depressive disorder, not elsewhere classified - Essential hypertension, benign - Glaucoma - Iron deficiency anemia, unspecified - Malignant neoplasm of colon, unspecified site - Obesity, unspecified - Skin rash - Snoring - Stress headaches - Tobacco use disorder - Unspecified glaucoma(365.9) Glaucoma - UTI (urinary tract infection) PAST SURGICAL HISTORY - APPENDECTOMY 1962 - DELIVERY ONLY , low cervical - COLONOS W/REM POLYP SNARE 01/22/09 - COLONOSCOPY 09/12/15 Repeat 3-5 years - EGD 01/22/09 - LAP COLECTMY W/ILEUM/ILEOCOL 02/19/09 RIGHT - LASER SURGERY OF EYE 2004 Glaucoma both eyes - REMOVAL GALLBLADDER 1977 Cholecystectomy - REMOVAL OF OMENTUM 03-08-09 - REMOVAL OF OVARY/TUBE(S) 1998 Salpingo-oophorectomy, bilat. - REMOVE TONSILS/ADENOIDS,<12 Y/O 1955 T/A (under age 11 years) - REVISE MEDIAN N/CARPAL TUNNEL SURG 1982 Carpal tunnel decomp Right - SELECTIVE LASER TRABECULOPLASTY (SLT) OS (LEFT EYE) 05/30/2017 - SPINAL FUSION,ANT,EA ADNL LEVEL 1982 C1-C2 - TOTAL ABDOM HYSTERECTOMY 1998 Hysterectomy, EMILY CURRENT MEDICATIONS cephalexin (KEFLEX ORAL) Take by mouth. latanoprost (XALATAN) 0.005 % ophthalmic solution Use 1 Drop in both eyes daily at bedtime. dorzolamide-timolol (COSOPT) 22.3-6.8 mg/mL ophthalmic solution Use 1 Drop in both eyes twice daily. potassium chloride ER (K-DUR, KLOR-CON) 10 mEq tablet Take 1 tablet by mouth once daily. Ranitidine HCl (ZANTAC) 300 mg tablet Take 1 tablet by mouth daily at bedtime. lisinopril (PRINIVIL) 5 mg tablet Take 1 tablet by mouth once daily. triamterene-hydrochlorothiazide (MAXZIDE-25) 37.5-25 mg per tablet Take 1 tablet by mouth once daily. calcium carbonate 600 mg-cholecalciferol 200 units (CALCIUM 600 WITH VITAMIN D3) 600 mg(1,500mg) -200 unit tab Take 1 tablet by mouth once daily. sertraline (ZOLOFT) 100 mg tablet Take 1 tablet by mouth twice daily. triamcinolone acetonide (KENALOG) 0.1 % ointment Apply 1 application to affected area twice daily. Chlorhexidine Gluconate (PERIDEX) 0.12 % solution Use 15 mL as instructed twice daily. naproxen (NAPROSYN) 500 mg tablet Take 1 tablet by mouth twice daily as needed (pain/inflammation, take with food.). lactobacillus acidophilus (ACIDOPHILUS) ORAL Cap Take one(1) tablet daily. COMPOUNDED PRESCRIPTION vitamin D3 1,000mg tab take one daily aspirin(ECOTRIN LOW STRENGTH 81 MG TAB) Take one(1) tablet daily. loratadine(CLARITIN 10 MG TAB) TAKE PRESCRIBED ALLERGIES: Bee Sting SOCIAL HISTORY Social History Marital status: Single Spouse name: Years of education: HS + MANAGING PARTNER Number of children: Occupational History Occupation Employer Comment nursing supervisor painting* [employer] * Social History Main Topics Smoking status: Former Smoker Packs/day: 1.00 Years: 30.00 Types: Cigarettes, Pipe, Cigars Quit date: 05/24/2008 Smokeless tobacco: Never Used Alcohol use: Yes Comment: socially Drug use: No Sexual activity: No Comment: Not asked FAMILY HISTORY - Diabetes Father - Diabetes Brother CABG 12/27 - Diabetes Maternal Grandmother - Diabetes Other cousin - Coronary Artery Disease Maternal Grandfather REVIEW OF SYSTEMS: General: The patient denies fatigue, denies weight loss, denies weight gain, denies feeling hot, and denies feelings of cold. Eyes: The patient NOTES glaucoma, NOTES eye injury/surgery, wears glasses or contacts. Ear/Nose/Throat: The patient NOTES allergies, denies hayfever, denies ear infections, and denies bloody noses. Cardiovascular: The patient denies chest pain, denies heart disease, NOTES high blood pressure,denies cardiac stent, denies prior heart attack, denies irregular heart beat, NOTES high cholesterol, denies poor circulation, denies heart failure, other cardiac issues, denies claudication, denies cold feet, denies peripheral arterial stent. Respiratory: The patient NOTES tuberculosis, denies pneumonia, denies frequent cough, denies pulmonary embolism, denies shortness of breath, and denies coughing up blood. Gastrointestinal: The patient denies difficulty swallowing, NOTES acid reflux, denies ulcers, denies vomiting, NOTES jaundice/hepatitis, NOTES gallbladder problems, denies black or tarry stools, NOTES hemorrhoids, denies bleeding from rectum, NOTES diverticulitis, NOTES constipation, NOTES diarrhea, denies loss of stool control, and denies hernias. Kidney/Bladder: The patient denies kidney stones, NOTES urine infections, and NOTES bloody urine. Skin: The patient denies a history of skin cancer, denies bleeding/changing moles, and denies a history of skin rash. Neurologic: The patient denies a history of epilepsy/convulsions, NOTES headaches, NOTES head/spinal injuries, and denies stroke/TIA. Psychiatric: The patient denies psychiatric medications, NOTES depression, and denies voices, denies substance abuse. Endocrine: The patient denies thyroid disorders, denies diabetes, and NOTES hormonal problems. Hematologic: The patient denies a history of bruising, NOTES bleeding, and NOTES anemia, denies blood clots. Infections: The patient NOTES a history of measles and mumps, denies rheumatic fever, and denies sexually transmitted diseases. Musculoskeletal: The patient NOTES back pain/injury, NOTES back problems, NOTES sciatica, denies knee/foot trouble, denies arthritis, or denies gout. PHYSICAL EXAMINATION: General: The patient is 68 year old female, well nourished, well hydrated in no acute distress. The patient is oriented to time, place, and person. VITALS: Blood pressure 138/82, pulse 68. There is no height or weight on file to calculate BMI. HEENT: Normal cephalic, ataumatic, pupils are equally round, sclera are anicteric, mucous membranes are moist, oropharynx is clear. Neck has no masses, asymmetry or lymphadenopathy. Respiratory: Clear to auscultation and percussion. Normal respiratory excursion and pattern. Cardiac: Examination is regular rate and rhythm. Abdominal exam: Soft, nontender, with no palpable masses. No hepatosplenomegaly. No palpable hernias. Rectal exam: exam deferred Extremities: no clubbing, cyanosis or edema. No adenopathy. IMPRESSION: encounter for high-risk surveillance colonoscopy, personal history of colon cancer and colonic polyps PLAN: We will plan for colonoscopy. We discussed the risks and benefits of the planned endoscopy. I have informed the patient that complications can occur including failure to complete the endoscopy and perforation. The patient had the opportunity to ask questions concerning the planned endoscopy. My staff has also explained the procedure to the patient in understandable terms and has given the patient printed material concerning the procedure. The patient freely consents to surgery. I plan to use Miralax bowel preparation for endoscopy in addition to 2 full days of clear liquid diet Patient will continue her routine medications for the procedure Diagnoses: (Z85.038) Personal history of colon cancer (primary encounter diagnosis) (Z12.11) Encounter for screening for malignant neoplasm of colon (Z86.010) Personal history of colonic polyps My findings have been communicated to Dr. Archibald via shared medical record. This note will be forwarded to Dr. Zahraa Jacobson MD. Patient verbalized understanding of all above and agreed with the plan Teri Flower PA-C BASIC METABOLIC PANL Collected: 09/18/2018 Status: F Source: [place] 10:28 AM [facility] REPOSITORY TYPE CODE TESTS RESULT OUT OF REFERENCE UNITS RANGE LAB GLU 74-99 mg/dL Glucose 84 Result Comment: The [place] Diabetes Association (ADA) provides guidance for cutoff values for fasting glucose and random glucose. The ADA defines fasting as no caloric intake for at least 8 hours. Fas ting plasma glucose results between 100 to 125 mg/dL indicate increased risk for diabetes (prediabetes). Fasting plasma glucose results greater than or equal to 126 mg/dL meet the criteria for diagnosis of diabetes. In the absence of unequivocal hyperglycemia, results should be confirmed by repeat testing. In a patient with classic symptoms of hyperglycemia or hyperglycemic crisis, random plasma glucose results greater than or equal to 200 mg/dL meet the criteria for diagnosis of diabetes. Reference: Standards of Medical Care in Diabetes 2016, [place] [employer] Association. Diabetes Care. 2016.39(Suppl 1). LAB BUN 7-21 mg/dL BUN High 23 LAB CRET 0.58-0.96 mg/dL Creatinine High 1.21 LAB NA 136-144 mmol/L Sodium 142 LAB K 3.7-5.1 mmol/L Potassium 4.2 LAB CL 97-105 mmol/L Chloride 101 LAB CO2 22-30 mmol/L CO2 28 LAB AGAP 9-18 mmol/L Anion Gap 13 LAB CA 8.5-10.2 mg/dL Calcium, Total 9.8 LAB GFRAA eGFR- Amer. 53 LAB GFRNAA . eGFR-All Other Races 44 Result Comment: eGFR (Estimated GFR) Units of measure: mL/min/1.73 meters squared eGFR is derived from the reexpressed MDRD Study equation using the following parameters: serum creatinine, age, gender and race. The creatinine assay has been calibrated to be traceable to IDMS. An eGFR <60 mL/min/1.73m2 for >3 months is consistent with chronic kidney disease. Refer to KDOQI guidelines for clinical interpretation. In patients with unstable renal function, e.g. those with acute kidney injury, the eGFR may not accurately reflect actual GFR. Performed By: #### BMP, LIPB #### [facility] [address] [place], [place] [address] LIPID PANEL, BASIC Collected: 09/18/2018 Status: F Source: [place] 10:28 AM [facility] REPOSITORY TYPE CODE TESTS RESULT OUT OF REFERENCE UNITS RANGE LAB CHOL <200 mg/dL Cholesterol 193 Result Comment: <200 mg/dL, Desirable 200-239 mg/dL, Borderline high >239 mg/dL, High LAB TRIGLY <150 mg/dL Triglyceride High 185 Result Comment: <150 mg/dL, Normal 150-199 mg/dL, Borderline high 200-499 mg/dL, High >499 mg/dL, Very high LAB HDL >39 mg/dL HDL-Cholesterol Low 29 Result Comment: 40-59 mg/dL, Acceptable >59 mg/dL, High: Negative risk factor for coronary heart disease <40 mg/dL, Low: Positive risk factor for coronary heart disease LAB LDL <100 mg/dL LDL-Cholesterol High 127 Result Comment: <100 mg/dL, Optimal 100-129 mg/dL, Near optimal/above optimal 130-159 mg/dL, Borderline high 160-189 mg/dL, High >189 mg/dL, Very high Secondary prevention optimal LDL Cholesterol levels are recommended to be < 70 mg/dL LAB NONHDL <130 mg/dL Non HDL High Cholesterol 164 Result Comment: <130 mg/dL, Optimal 130-159 mg/dL, Near optimal/above optimal 160-189 mg/dL, Borderline high 190-219 mg/dL, High >219 mg/dL, Very high Secondary prevention optimal non HDL Cholesterol levels are recommended to be < 100 mg/dL LAB FT hrs Fasting Time 10 LAB VLDL <30 mg/dL High VLDL Cholesterol 37 LAB TCHDL <5.10 High TC:HDL Ratio 6.66 LAB LDLHDL <2.54 High LDL:HDL Ratio 4.38 Result Comment: Reference: 1. National Cholesterol Education Program ATP III Guideline At-A-Glance Quick Desk Reference: National Heart, Lung, and Blood [place]. National Institutes of Health. 2001: NIH Publication No. 01-3305. 2. An International Atherosclerosis Society position paper: global recommendations for the management of dyslipidemia: executive summary, Atherosclerosis. 2014: 232(2):410-413. Performed By: #### BMP, LIPB #### [facility] [address] [place], [place] [address] PROGRESS Observed: 09/15/2018 Status: COMPLETED Source: [place] 9:24 AM [facility] REPOSITORY HNO ID: [id number] Author: Teri Flower (Pa) Service: (none) Author Type: Physician Banquet Cook Type: Progress Notes Filed: 09/20/2018 5:54 PM Note Text: HISTORY AND PHYSICAL Vianca Toussaint Abelino 1950 REFERRING PHYSICIAN: Elliot Archibald ([facility]), APR* CHIEF COMPLAINT: Consult (Consult Colonoscopy) HPI: The patient is a 68 year old female referred for endoscopy. Vianca notes a personal history of colon cancer diagnosed in 2008 for which she underwent surgical resection. She has had colon polyps removed during subsequent endoscopies. Most recent colonoscopy was 09/12/[address] Gold Mares, that note has been reviewed. She returns for 3-year follow-up. She denies any change in bowel habits, weight changes, blood in stools, black tarry stools or abdominal pain. The patient notes no upper GI complaints currently. Patient's past medical history in addition to the history of colon cancer is significant for hypertension, hyperlipidemia, recurrent urinary tract infections, obesity and glaucoma. She denies any cardiac or pulmonary issues. Denies chest pain, shortness of breath or recent hospitalizations. Denies problems with sedation in the past. PAST MEDICAL HISTORY Diagnosis Date - Acute gastritis without mention of hemorrhage - Benign neoplasm of colon - Depressive disorder, not elsewhere classified - Essential hypertension, benign - Glaucoma - Iron deficiency anemia, unspecified - Malignant neoplasm of colon, unspecified site - Obesity, unspecified - Skin rash - Snoring - Stress headaches - Tobacco use disorder - Unspecified glaucoma(365.9) Glaucoma - UTI (urinary tract infection) PAST SURGICAL HISTORY Procedure Laterality Date - APPENDECTOMY 1962 - DELIVERY ONLY , low cervical - COLONOS W/REM POLYP SNARE 01/22/09 - COLONOSCOPY 09/12/15 Repeat 3-5 years - EGD 01/22/09 - LAP COLECTMY W/ILEUM/ILEOCOL 02/19/09 RIGHT - LASER SURGERY OF EYE 2004 Glaucoma both eyes - REMOVAL GALLBLADDER 1977 Cholecystectomy - REMOVAL OF OMENTUM 03-08-09 - REMOVAL OF OVARY/TUBE(S) 1998 Salpingo-oophorectomy, bilat. - REMOVE TONSILS/ADENOIDS,<12 Y/O 1955 T/A (under age 11 years) - REVISE MEDIAN N/CARPAL TUNNEL SURG 1982 Carpal tunnel decomp Right - SELECTIVE LASER TRABECULOPLASTY (SLT) OS (LEFT EYE) 05/30/2017 - SPINAL FUSION,ANT,EA ADNL LEVEL 1982 C1-C2 - TOTAL ABDOM HYSTERECTOMY 1998 Hysterectomy, EMILY Current Outpatient Prescriptions: cephalexin (KEFLEX ORAL) Take by mouth. latanoprost (XALATAN) 0.005 % ophthalmic solution Use 1 Drop in both eyes daily at bedtime. dorzolamide-timolol (COSOPT) 22.3-6.8 mg/mL ophthalmic solution Use 1 Drop in both eyes twice daily. potassium chloride ER (K-DUR, KLOR-CON) 10 mEq tablet Take 1 tablet by mouth once daily. Ranitidine HCl (ZANTAC) 300 mg tablet Take 1 tablet by mouth daily at bedtime. lisinopril (PRINIVIL) 5 mg tablet Take 1 tablet by mouth once daily. triamterene-hydrochlorothiazide (MAXZIDE-25) 37.5-25 mg per tablet Take 1 tablet by mouth once daily. calcium carbonate 600 mg-cholecalciferol 200 units (CALCIUM 600 WITH VITAMIN D3) 600 mg(1,500mg) -200 unit tab Take 1 tablet by mouth once daily. sertraline (ZOLOFT) 100 mg tablet Take 1 tablet by mouth twice daily. triamcinolone acetonide (KENALOG) 0.1 % ointment Apply 1 application to affected area twice daily. Chlorhexidine Gluconate (PERIDEX) 0.12 % solution Use 15 mL as instructed twice daily. naproxen (NAPROSYN) 500 mg tablet Take 1 tablet by mouth twice daily as needed (pain/inflammation, take with food.). lactobacillus acidophilus (ACIDOPHILUS) ORAL Cap Take one(1) tablet daily. COMPOUNDED PRESCRIPTION vitamin D3 1,000mg tab take one daily aspirin(ECOTRIN LOW STRENGTH 81 MG TAB) Take one(1) tablet daily. loratadine(CLARITIN 10 MG TAB) TAKE PRESCRIBED No current facility-administered medications for this visit. ALLERGIES: Bee Sting PERSONAL HISTORY: Social History Marital status: Single Spouse name: Years of education: HS + MANAGING PARTNER Number of children: Occupational History Occupation Employer Comment nursing supervisor painting* [employer] * Social History Main Topics Smoking status: Former Smoker Packs/day: 1.00 Years: 30.00 Types: Cigarettes, Pipe, Cigars Quit date: 05/24/2008 Smokeless tobacco: Never Used Alcohol use: Yes Comment: socially Drug use: No Sexual activity: No Comment: Not asked FAMILY HISTORY: FAMILY HISTORY Problem Relation Age of Onset - Diabetes Father - Diabetes Brother CABG 12/27 - Diabetes Maternal Grandmother - Diabetes Other cousin - Coronary Artery Disease Maternal Grandfather REVIEW OF SYMPTOMS: The review of systems data was entered by the nurse and reviewed by [place] Nursing Notes: Mikey Kay LPN 09/15/2018 9:31 AM Signed REVIEW OF SYSTEMS: General: The patient denies fatigue, denies weight loss, denies weight gain, denies feeling hot, and denies feelings of cold. Eyes: The patient NOTES glaucoma, NOTES eye injury/surgery, wears glasses or contacts. Ear/Nose/Throat: The patient NOTES allergies, denies hayfever, denies ear infections, and denies bloody noses. Cardiovascular: The patient denies chest pain, denies heart disease, NOTES high blood pressure,denies cardiac stent, denies prior heart attack, denies irregular heart beat, NOTES high cholesterol, denies poor circulation, denies heart failure, other cardiac issues, denies claudication, denies cold feet, denies peripheral arterial stent. Respiratory: The patient NOTES tuberculosis, denies pneumonia, denies frequent cough, denies pulmonary embolism, denies shortness of breath, and denies coughing up blood. Gastrointestinal: The patient denies difficulty swallowing, NOTES acid reflux, denies ulcers, denies vomiting, NOTES jaundice/hepatitis, NOTES gallbladder problems, denies black or tarry stools, NOTES hemorrhoids, denies bleeding from rectum, NOTES diverticulitis, NOTES constipation, NOTES diarrhea, denies loss of stool control, and denies hernias. Kidney/Bladder: The patient denies kidney stones, NOTES urine infections, and NOTES bloody urine. Skin: The patient denies a history of skin cancer, denies bleeding/changing moles, and denies a history of skin rash. Neurologic: The patient denies a history of epilepsy/convulsions, NOTES headaches, NOTES head/spinal injuries, and denies stroke/TIA. Psychiatric: The patient denies psychiatric medications, NOTES depression, and denies voices, denies substance abuse. Endocrine: The patient denies thyroid disorders, denies diabetes, and NOTES hormonal problems. Hematologic: The patient denies a history of bruising, NOTES bleeding, and NOTES anemia, denies blood clots. Infections: The patient NOTES a history of measles and mumps, denies rheumatic fever, and denies sexually transmitted diseases. Musculoskeletal: The patient NOTES back pain/injury, NOTES back problems, NOTES sciatica, denies knee/foot trouble, denies arthritis, or denies gout. When was patient's last Mammogram screening? 2017 Last Colonoscopy: 2014 Mikey Kay LPN I have confirmed and edited as necessary, the PFSH and ROS obtained by others. PHYSICAL EXAMINATION: General: The patient is 68 year old female, well nourished, well hydrated in no acute distress. The patient is oriented to time, place, and person. VITALS: Blood pressure 138/82, pulse 68. There is no height or weight on file to calculate BMI. HEENT: Normal cephalic, ataumatic, pupils are equally round, sclera are anicteric, mucous membranes are moist, oropharynx is clear. Neck has no masses, asymmetry or lymphadenopathy. Respiratory: Clear to auscultation and percussion. Normal respiratory excursion and pattern. Cardiac: Examination is regular rate and rhythm. Abdominal exam: Soft, nontender, with no palpable masses. No hepatosplenomegaly. No palpable hernias. Rectal exam: exam deferred Extremities: no clubbing, cyanosis or edema. No adenopathy. Other: LABORATORY VALUES: As Noted RADIOLOGIC STUDIES: As Noted Assessment IMPRESSION: encounter for high-risk surveillance colonoscopy, personal history of colon cancer and colonic polyps PLAN: We will plan for colonoscopy. We discussed the risks and benefits of the planned endoscopy. I have informed the patient that complications can occur including failure to complete the endoscopy and perforation. The patient had the opportunity to ask questions concerning the planned endoscopy. My staff has also explained the procedure to the patient in understandable terms and has given the patient printed material concerning the procedure. The patient freely consents to surgery. I plan to use Miralax bowel preparation for endoscopy in addition to 2 full days of clear liquid diet Patient will continue her routine medications for the procedure Diagnoses: (Z85.038) Personal history of colon cancer (primary encounter diagnosis) (Z12.11) Encounter for screening for malignant neoplasm of colon (Z86.010) Personal history of colonic polyps My findings have been communicated to Dr. Archibald via shared medical record. This note will be forwarded to Dr. Zahraa Jacobson MD. Patient verbalized understanding of all above and agreed with the plan Teri Flower PA-C CNOV Observed: 09/15/2018 Status: COMPLETED Source: [place] 9:00 AM [facility] REPOSITORY Office Visit (GENSWS) VIANCA PEREZ ([id number]) 1950 F NFR Date Time Provider Department 09/15/18 9:00 AM TERI FLOWER (PA) During your visit today, we recorded the following information about you: Pulse Blood pressure 68/minute 138/82 Teri Flower PA-C 09/20/2018 5:54 PM Signed HISTORY AND PHYSICAL Vianca Norbert Perez 1950 REFERRING PHYSICIAN: Elliot Archibald ([facility]), APR* CHIEF COMPLAINT: Consult (Consult Colonoscopy) HPI: The patient is a 68 year old female referred for endoscopy. Vianca notes a personal history of colon cancer diagnosed in 2008 for which she underwent surgical resection. She has had colon polyps removed during subsequent endoscopies. Most recent colonoscopy was 09/12/[address] Gold Mares, that note has been reviewed. She returns for 3-year follow-up. She denies any change in bowel habits, weight changes, blood in stools, black tarry stools or abdominal pain. The patient notes no upper GI complaints currently. Patient's past medical history in addition to the history of colon cancer is significant for hypertension, hyperlipidemia, recurrent urinary tract infections, obesity and glaucoma. She denies any cardiac or pulmonary issues. Denies chest pain, shortness of breath or recent hospitalizations. Denies problems with sedation in the past. PAST MEDICAL HISTORY Diagnosis Date - Acute gastritis without mention of hemorrhage - Benign neoplasm of colon - Depressive disorder, not elsewhere classified - Essential hypertension, benign - Glaucoma - Iron deficiency anemia, unspecified - Malignant neoplasm of colon, unspecified site - Obesity, unspecified - Skin rash - Snoring - Stress headaches - Tobacco use disorder - Unspecified glaucoma(365.9) Glaucoma - UTI (urinary tract infection) PAST SURGICAL HISTORY Procedure Laterality Date - APPENDECTOMY 1962 - DELIVERY ONLY , low cervical - COLONOS W/REM POLYP SNARE 01/22/09 - COLONOSCOPY 09/12/15 Repeat 3-5 years - EGD 01/22/09 - LAP COLECTMY W/ILEUM/ILEOCOL 02/19/09 RIGHT - LASER SURGERY OF EYE 2004 Glaucoma both eyes - REMOVAL GALLBLADDER 1977 Cholecystectomy - REMOVAL OF OMENTUM 03-08-09 - REMOVAL OF OVARY/TUBE(S) 1998 Salpingo-oophorectomy, bilat. - REMOVE TONSILS/ADENOIDS,<12 Y/O 1955 T/A (under age 11 years) - REVISE MEDIAN N/CARPAL TUNNEL SURG 1982 Carpal tunnel decomp Right - SELECTIVE LASER TRABECULOPLASTY (SLT) OS (LEFT EYE) 05/30/2017 - SPINAL FUSION,ANT,EA ADNL LEVEL 1982 C1-C2 - TOTAL ABDOM HYSTERECTOMY 1998 Hysterectomy, EMILY Current Outpatient Prescriptions: cephalexin (KEFLEX ORAL) Take by mouth. latanoprost (XALATAN) 0.005 % ophthalmic solution Use 1 Drop in both eyes daily at bedtime. dorzolamide-timolol (COSOPT) 22.3-6.8 mg/mL ophthalmic solution Use 1 Drop in both eyes twice daily. potassium chloride ER (K-DUR, KLOR-CON) 10 mEq tablet Take 1 tablet by mouth once daily. Ranitidine HCl (ZANTAC) 300 mg tablet Take 1 tablet by mouth daily at bedtime. lisinopril (PRINIVIL) 5 mg tablet Take 1 tablet by mouth once daily. triamterene-hydrochlorothiazide (MAXZIDE-25) 37.5-25 mg per tablet Take 1 tablet by mouth once daily. calcium carbonate 600 mg-cholecalciferol 200 units (CALCIUM 600 WITH VITAMIN D3) 600 mg(1,500mg) -200 unit tab Take 1 tablet by mouth once daily. sertraline (ZOLOFT) 100 mg tablet Take 1 tablet by mouth twice daily. triamcinolone acetonide (KENALOG) 0.1 % ointment Apply 1 application to affected area twice daily. Chlorhexidine Gluconate (PERIDEX) 0.12 % solution Use 15 mL as instructed twice daily. naproxen (NAPROSYN) 500 mg tablet Take 1 tablet by mouth twice daily as needed (pain/inflammation, take with food.). lactobacillus acidophilus (ACIDOPHILUS) ORAL Cap Take one(1) tablet daily. COMPOUNDED PRESCRIPTION vitamin D3 1,000mg tab take one daily aspirin(ECOTRIN LOW STRENGTH 81 MG TAB) Take one(1) tablet daily. loratadine(CLARITIN 10 MG TAB) TAKE PRESCRIBED No current facility-administered medications for this visit. ALLERGIES: Bee Sting PERSONAL HISTORY: Social History Marital status: Single Spouse name: Years of education: HS + MANAGING PARTNER Number of children: Occupational History Occupation Employer Comment nursing supervisor painting* [employer] * Social History Main Topics Smoking status: Former Smoker Packs/day: 1.00 Years: 30.00 Types: Cigarettes, Pipe, Cigars Quit date: 05/24/2008 Smokeless tobacco: Never Used Alcohol use: Yes Comment: socially Drug use: No Sexual activity: No Comment: Not asked FAMILY HISTORY: FAMILY HISTORY Problem Relation Age of Onset - Diabetes Father - Diabetes Brother CABG 12/27 - Diabetes Maternal Grandmother - Diabetes Other cousin - Coronary Artery Disease Maternal Grandfather REVIEW OF SYMPTOMS: The review of systems data was entered by the nurse and reviewed by [place] Nursing Notes: Mikey Kay LPN 09/15/2018 9:31 AM Signed REVIEW OF SYSTEMS: General: The patient denies fatigue, denies weight loss, denies weight gain, denies feeling hot, and denies feelings of cold. Eyes: The patient NOTES glaucoma, NOTES eye injury/surgery, wears glasses or contacts. Ear/Nose/Throat: The patient NOTES allergies, denies hayfever, denies ear infections, and denies bloody noses. Cardiovascular: The patient denies chest pain, denies heart disease, NOTES high blood pressure,denies cardiac stent, denies prior heart attack, denies irregular heart beat, NOTES high cholesterol, denies poor circulation, denies heart failure, other cardiac issues, denies claudication, denies cold feet, denies peripheral arterial stent. Respiratory: The patient NOTES tuberculosis, denies pneumonia, denies frequent cough, denies pulmonary embolism, denies shortness of breath, and denies coughing up blood. Gastrointestinal: The patient denies difficulty swallowing, NOTES acid reflux, denies ulcers, denies vomiting, NOTES jaundice/hepatitis, NOTES gallbladder problems, denies black or tarry stools, NOTES hemorrhoids, denies bleeding from rectum, NOTES diverticulitis, NOTES constipation, NOTES diarrhea, denies loss of stool control, and denies hernias. Kidney/Bladder: The patient denies kidney stones, NOTES urine infections, and NOTES bloody urine. Skin: The patient denies a history of skin cancer, denies bleeding/changing moles, and denies a history of skin rash. Neurologic: The patient denies a history of epilepsy/convulsions, NOTES headaches, NOTES head/spinal injuries, and denies stroke/TIA. Psychiatric: The patient denies psychiatric medications, NOTES depression, and denies voices, denies substance abuse. Endocrine: The patient denies thyroid disorders, denies diabetes, and NOTES hormonal problems. Hematologic: The patient denies a history of bruising, NOTES bleeding, and NOTES anemia, denies blood clots. Infections: The patient NOTES a history of measles and mumps, denies rheumatic fever, and denies sexually transmitted diseases. Musculoskeletal: The patient NOTES back pain/injury, NOTES back problems, NOTES sciatica, denies knee/foot trouble, denies arthritis, or denies gout. When was patient's last Mammogram screening? 2017 Last Colonoscopy: 2014 Mikey Kay LPN I have confirmed and edited as necessary, the PFSH and ROS obtained by others. PHYSICAL EXAMINATION: General: The patient is 68 year old female, well nourished, well hydrated in no acute distress. The patient is oriented to time, place, and person. VITALS: Blood pressure 138/82, pulse 68. There is no height or weight on file to calculate BMI. HEENT: Normal cephalic, ataumatic, pupils are equally round, sclera are anicteric, mucous membranes are moist, oropharynx is clear. Neck has no masses, asymmetry or lymphadenopathy. Respiratory: Clear to auscultation and percussion. Normal respiratory excursion and pattern. Cardiac: Examination is regular rate and rhythm. Abdominal exam: Soft, nontender, with no palpable masses. No hepatosplenomegaly. No palpable hernias. Rectal exam: exam deferred Extremities: no clubbing, cyanosis or edema. No adenopathy. Other: LABORATORY VALUES: As Noted RADIOLOGIC STUDIES: As Noted Assessment IMPRESSION: encounter for high-risk surveillance colonoscopy, personal history of colon cancer and colonic polyps PLAN: We will plan for colonoscopy. We discussed the risks and benefits of the planned endoscopy. I have informed the patient that complications can occur including failure to complete the endoscopy and perforation. The patient had the opportunity to ask questions concerning the planned endoscopy. My staff has also explained the procedure to the patient in understandable terms and has given the patient printed material concerning the procedure. The patient freely consents to surgery. I plan to use Miralax bowel preparation for endoscopy in addition to 2 full days of clear liquid diet Patient will continue her routine medications for the procedure Diagnoses: (Z85.038) Personal history of colon cancer (primary encounter diagnosis) (Z12.11) Encounter for screening for malignant neoplasm of colon (Z86.010) Personal history of colonic polyps My findings have been communicated to Dr. Archibald via shared medical record. This note will be forwarded to Dr. Zahraa Jacobson MD. Patient verbalized understanding of all above and agreed with the plan RAINE Craven LPN 09/15/2018 9:31 AM Signed REVIEW OF SYSTEMS: General: The patient denies fatigue, denies weight loss, denies weight gain, denies feeling hot, and denies feelings of cold. Eyes: The patient NOTES glaucoma, NOTES eye injury/surgery, wears glasses or contacts. Ear/Nose/Throat: The patient NOTES allergies, denies hayfever, denies ear infections, and denies bloody noses. Cardiovascular: The patient denies chest pain, denies heart disease, NOTES high blood pressure,denies cardiac stent, denies prior heart attack, denies irregular heart beat, NOTES high cholesterol, denies poor circulation, denies heart failure, other cardiac issues, denies claudication, denies cold feet, denies peripheral arterial stent. Respiratory: The patient NOTES tuberculosis, denies pneumonia, denies frequent cough, denies pulmonary embolism, denies shortness of breath, and denies coughing up blood. Gastrointestinal: The patient denies difficulty swallowing, NOTES acid reflux, denies ulcers, denies vomiting, NOTES jaundice/hepatitis, NOTES gallbladder problems, denies black or tarry stools, NOTES hemorrhoids, denies bleeding from rectum, NOTES diverticulitis, NOTES constipation, NOTES diarrhea, denies loss of stool control, and denies hernias. Kidney/Bladder: The patient denies kidney stones, NOTES urine infections, and NOTES bloody urine. Skin: The patient denies a history of skin cancer, denies bleeding/changing moles, and denies a history of skin rash. Neurologic: The patient denies a history of epilepsy/convulsions, NOTES headaches, NOTES head/spinal injuries, and denies stroke/TIA. Psychiatric: The patient denies psychiatric medications, NOTES depression, and denies voices, denies substance abuse. Endocrine: The patient denies thyroid disorders, denies diabetes, and NOTES hormonal problems. Hematologic: The patient denies a history of bruising, NOTES bleeding, and NOTES anemia, denies blood clots. Infections: The patient NOTES a history of measles and mumps, denies rheumatic fever, and denies sexually transmitted diseases. Musculoskeletal: The patient NOTES back pain/injury, NOTES back problems, NOTES sciatica, denies knee/foot trouble, denies arthritis, or denies gout. When was patient's last Mammogram screening? 2017 Last Colonoscopy: 2014 Mikey Kay LPN Referring Provider: ELLIOT ARCHIBALD ([facility]) [[id number]] Allergies As of Date: 09/15/2018 Noted Allergy Reaction BEE STING 07/01/2014 7 - Swelling Comments: Very red and swollen Date Reviewed: 09/15/2018 Reviewed by: Teri Beal) - Fully Assessed Reason for Visit: Consult [173] Cmt: Consult Colonoscopy Primary Visit Diagnosis:Personal history of colon cancer [Z85.038] Other Visit Diagnoses:Encounter for screening for malignant neoplasm of colon [Z12.11] Personal history of colonic polyps [Z86.010] Order(s):SURGICAL REQUEST - ELECTIVE [[id number]] Order #: [id number]: 1 Prescriptions as of 09/15/2018 Sig: KEFLEX ORAL Take by mouth. LATANOPROST 0.005 % EYE DROPS Use 1 Drop in both eyes daily* DORZOLAMIDE 22.3 MG-TIMOLOL 6* Use 1 Drop in both eyes twice* POTASSIUM CHLORIDE ER 10 MEQ * Take 1 tablet by mouth once d* RANITIDINE 300 MG TABLET Take 1 tablet by mouth daily * LISINOPRIL 5 MG TABLET Take 1 tablet by mouth once d* TRIAMTERENE 37.5 MG-HYDROCHLO* Take 1 tablet by mouth once d* CALCIUM CARBONATE 600 MG (1,5* Take 1 tablet by mouth once d* SERTRALINE 100 MG TABLET Take 1 tablet by mouth twice * TRIAMCINOLONE ACETONIDE 0.1 %* Apply 1 application to affect* CHLORHEXIDINE GLUCONATE 0.12 * Use 15 mL as instructed twice* NAPROXEN 500 MG TABLET Take 1 tablet by mouth twice * * LACTOBACILLUS ACIDOPHILUS CAP* Take one(1) tablet daily. * COMPOUNDED PRESCRIPTION vitamin D3 1,000mg tab take o* * ECOTRIN LOW STRENGTH 81 MG TA* Take one(1) tablet daily. * CLARITIN 10 MG TABLET TAKE PRESCRIBED Problem List As Of Date 09/15/2018 Noted Resolved BENIGN HYPERTENSION [I10] INVALID FOR* Morbid (severe) obesity due to excess calories *INVALID FOR* More... TOBACCO USE DISORDER [F17.200] INVALID FOR* Recurrent major depressive disorder (HCC) [F33.*INVALID FOR* SKIN LESION [L98.9] INVALID FOR*04/03/2007 HYPOPOTASSEMIA [E87.6] INVALID FOR* More... IRON DEFIC ANEMIA NOS [D50.9] INVALID FOR* Malignant neoplasm of colon (HCC) [C18.9] INVALID FOR* Benign neoplasm of colon [D12.6] INVALID FOR*10/13/2010 Vitamin D Deficiency [E55.9] INVALID FOR* Rectal bleeding [K62.5] INVALID FOR* Benign neoplasm of rectum and anal canal [D12.8*INVALID FOR* Benign neoplasm of colon [D12.6] INVALID FOR*06/09/2017 History of malignant neoplasm of large intestin*INVALID FOR* Psoriasis [L40.9] INVALID FOR* Personal history of colon cancer [Z85.038] INVALID FOR* History of colonic polyps [Z86.010] INVALID FOR* Age-related nuclear cataract, bilateral [H25.13]INVALID FOR* Vitreous floaters of both eyes [H43.393] INVALID FOR* Presbyopia [H52.4] INVALID FOR* Myopia [H52.10] INVALID FOR* Regular astigmatism [H52.229] INVALID FOR* Dermatochalasis of both upper eyelids [H02.831,*INVALID FOR* Primary open-angle glaucoma, bilateral, mild st*INVALID FOR* Optic disc cupping [H47.239] INVALID FOR* Hyperlipidemia [E78.5] INVALID FOR* History of colon polyps [Z86.010] INVALID FOR* More... Visit Notes: >> Mikey Eliza CARRILLO TueSep 15, 2018 9:28 AM Status: Signed REVIEW OF SYSTEMS: General: The patient denies fatigue, denies weight loss, denies weight gain, denies feeling hot, and denies feelings of cold. Eyes: The patient NOTES glaucoma, NOTES eye injury/surgery, wears glasses or contacts. Ear/Nose/Throat: The patient NOTES allergies, denies hayfever, denies ear infections, and denies bloody noses. Cardiovascular: The patient denies chest pain, denies heart disease, NOTES high blood pressure,denies cardiac stent, denies prior heart attack, denies irregular heart beat, NOTES high cholesterol, denies poor circulation, denies heart failure, other cardiac issues, denies claudication, denies cold feet, denies peripheral arterial stent. Respiratory: The patient NOTES tuberculosis, denies pneumonia, denies frequent cough, denies pulmonary embolism, denies shortness of breath, and denies coughing up blood. Gastrointestinal: The patient denies difficulty swallowing, NOTES acid reflux, denies ulcers, denies vomiting, NOTES jaundice/hepatitis, NOTES gallbladder problems, denies black or tarry stools, NOTES hemorrhoids, denies bleeding from rectum, NOTES diverticulitis, NOTES constipation, NOTES diarrhea, denies loss of stool control, and denies hernias. Kidney/Bladder: The patient denies kidney stones, NOTES urine infections, and NOTES bloody urine. Skin: The patient denies a history of skin cancer, denies bleeding/changing moles, and denies a history of skin rash. Neurologic: The patient denies a history of epilepsy/convulsions, NOTES headaches, NOTES head/spinal injuries, and denies stroke/TIA. Psychiatric: The patient denies psychiatric medications, NOTES depression, and denies voices, denies substance abuse. Endocrine: The patient denies thyroid disorders, denies diabetes, and NOTES hormonal problems. Hematologic: The patient denies a history of bruising, NOTES bleeding, and NOTES anemia, denies blood clots. Infections: The patient NOTES a history of measles and mumps, denies rheumatic fever, and denies sexually transmitted diseases. Musculoskeletal: The patient NOTES back pain/injury, NOTES back problems, NOTES sciatica, denies knee/foot trouble, denies arthritis, or denies gout. When was patient's last Mammogram screening? 2017 Last Colonoscopy: 2014 Mikey Kay LPN Follow-up and Disposition History Recorded Encounter Status:Closed by TERI FLOWER PA-C on 09/20/18 HOSP Observed: 09/15/2018 Status: COMPLETED Source: [place] 12:00 AM [facility] REPOSITORY Patient:Vianca Perez MRN: <[id number]> Height:5' 3(1.6 m) Weight:No patient weight recorded within the last 30 days. Outpatient Medications as of 09/27/18: cephalexin (KEFLEX ORAL) latanoprost (XALATAN) 0.005 % ophthalmic solution dorzolamide-timolol (COSOPT) 22.3-6.8 mg/mL ophthalmic solution potassium chloride ER (K-DUR, KLOR-CON) 10 mEq tablet Ranitidine HCl (ZANTAC) 300 mg tablet lisinopril (PRINIVIL) 5 mg tablet triamterene-hydrochlorothiazide (MAXZIDE-25) 37.5-25 mg per tablet calcium carbonate 600 mg-cholecalciferol 200 units (CALCIUM 600 WITH VITAMIN D3) 600 mg(1,500mg) -200 unit tab sertraline (ZOLOFT) 100 mg tablet triamcinolone acetonide (KENALOG) 0.1 % ointment Chlorhexidine Gluconate (PERIDEX) 0.12 % solution naproxen (NAPROSYN) 500 mg tablet lactobacillus acidophilus (ACIDOPHILUS) ORAL Cap COMPOUNDED PRESCRIPTION aspirin(ECOTRIN LOW STRENGTH 81 MG TAB) loratadine(CLARITIN 10 MG TAB) Admission/Clinic Administered Medications as of 09/27/18: lactated ringers infusion Problem List: Essential hypertension, benign [I10] Morbid (severe) obesity due to excess calories (HCC) [E66.01] Tobacco use disorder [F17.200] Recurrent major depressive disorder (HCC) [F33.9] Hypopotassemia [E87.6] Iron deficiency anemia, unspecified [D50.9] Malignant neoplasm of colon (HCC) [C18.9] Vitamin D deficiency [E55.9] Rectal bleeding [K62.5] Benign neoplasm of rectum and anal canal [D12.8, D12.9] History of malignant neoplasm of large intestine [Z85.038] Psoriasis [L40.9] Personal history of colon cancer [Z85.038] History of colonic polyps [Z86.010] Age-related nuclear cataract, bilateral [H25.13] Vitreous floaters of both eyes [H43.393] Presbyopia [H52.4] Myopia [H52.10] Regular astigmatism [H52.229] Dermatochalasis of both upper eyelids [H02.831, H02.834] Primary open-angle glaucoma, bilateral, mild stage [H40.1131] Optic disc cupping [H47.239] Hyperlipidemia [E78.5] History of colon polyps [Z86.010] Allergies: Bee Sting Date Verified: 09/27/18 Lab Values Lab Value Units Date High Low POTA* 4.2 mmol/L 09/18/2018 5.1 3.7 Progress Notes ([facility]): Lupillo Harvey RN 09/18/2018 10:[address] Codey Olson, urology office, phoned and scheduled appt for patient for a surgery clearance. Scheduled 10-20-18. Hoping to do the surgery (Interstim surgery of bladder) in Oct. They do not have a form for provider to fill out, hoping provider can fax a clearance letter to fax # [phone] Elliot Archibald APRN.CNP 09/18/2018 10:37 AM Signed Noted, will send a clearance letter to Dr. Olson after 10/20/2018 appt. Elliot Archibald APRN.CNP Progress Notes ([facility]): Teri Flower PA-C 09/20/2018 5:54 PM Signed HISTORY AND PHYSICAL Vianca Ortegab 1950 REFERRING PHYSICIAN: Elliot Archibald ([facility]), APR* CHIEF COMPLAINT: Consult (Consult Colonoscopy) HPI: The patient is a 68 year old female referred for endoscopy. Vianca notes a personal history of colon cancer diagnosed in 2008 for which she underwent surgical resection. She has had colon polyps removed during subsequent endoscopies. Most recent colonoscopy was 09/12/[address] Gold Mares, that note has been reviewed. She returns for 3-year follow-up. She denies any change in bowel habits, weight changes, blood in stools, black tarry stools or abdominal pain. The patient notes no upper GI complaints currently. Patient's past medical history in addition to the history of colon cancer is significant for hypertension, hyperlipidemia, recurrent urinary tract infections, obesity and glaucoma. She denies any cardiac or pulmonary issues. Denies chest pain, shortness of breath or recent hospitalizations. Denies problems with sedation in the past. PAST MEDICAL HISTORY Diagnosis Date - Acute gastritis without mention of hemorrhage - Benign neoplasm of colon - Depressive disorder, not elsewhere classified - Essential hypertension, benign - Glaucoma - Iron deficiency anemia, unspecified - Malignant neoplasm of colon, unspecified site - Obesity, unspecified - Skin rash - Snoring - Stress headaches - Tobacco use disorder - Unspecified glaucoma(365.9) Glaucoma - UTI (urinary tract infection) PAST SURGICAL HISTORY Procedure Laterality Date - APPENDECTOMY 1962 - DELIVERY ONLY , low cervical - COLONOS W/REM POLYP SNARE 01/22/09 - COLONOSCOPY 09/12/15 Repeat 3-5 years - EGD 01/22/09 - LAP COLECTMY W/ILEUM/ILEOCOL 02/19/09 RIGHT - LASER SURGERY OF EYE 2004 Glaucoma both eyes - REMOVAL GALLBLADDER 1977 Cholecystectomy - REMOVAL OF OMENTUM 03-08-09 - REMOVAL OF OVARY/TUBE(S) 1998 Salpingo-oophorectomy, bilat. - REMOVE TONSILS/ADENOIDS,<12 Y/O 1955 T/A (under age 11 years) - REVISE MEDIAN N/CARPAL TUNNEL SURG 1982 Carpal tunnel decomp Right - SELECTIVE LASER TRABECULOPLASTY (SLT) OS (LEFT EYE) 05/30/2017 - SPINAL FUSION,ANT,EA ADNL LEVEL 1982 C1-C2 - TOTAL ABDOM HYSTERECTOMY 1998 Hysterectomy, EMILY Current Outpatient Prescriptions: cephalexin (KEFLEX ORAL) Take by mouth. latanoprost (XALATAN) 0.005 % ophthalmic solution Use 1 Drop in both eyes daily at bedtime. dorzolamide-timolol (COSOPT) 22.3-6.8 mg/mL ophthalmic solution Use 1 Drop in both eyes twice daily. potassium chloride ER (K-DUR, KLOR-CON) 10 mEq tablet Take 1 tablet by mouth once daily. Ranitidine HCl (ZANTAC) 300 mg tablet Take 1 tablet by mouth daily at bedtime. lisinopril (PRINIVIL) 5 mg tablet Take 1 tablet by mouth once daily. triamterene-hydrochlorothiazide (MAXZIDE-25) 37.5-25 mg per tablet Take 1 tablet by mouth once daily. calcium carbonate 600 mg-cholecalciferol 200 units (CALCIUM 600 WITH VITAMIN D3) 600 mg(1,500mg) -200 unit tab Take 1 tablet by mouth once daily. sertraline (ZOLOFT) 100 mg tablet Take 1 tablet by mouth twice daily. triamcinolone acetonide (KENALOG) 0.1 % ointment Apply 1 application to affected area twice daily. Chlorhexidine Gluconate (PERIDEX) 0.12 % solution Use 15 mL as instructed twice daily. naproxen (NAPROSYN) 500 mg tablet Take 1 tablet by mouth twice daily as needed (pain/inflammation, take with food.). lactobacillus acidophilus (ACIDOPHILUS) ORAL Cap Take one(1) tablet daily. COMPOUNDED PRESCRIPTION vitamin D3 1,000mg tab take one daily aspirin(ECOTRIN LOW STRENGTH 81 MG TAB) Take one(1) tablet daily. loratadine(CLARITIN 10 MG TAB) TAKE PRESCRIBED No current facility-administered medications for this visit. ALLERGIES: Bee Sting PERSONAL HISTORY: Social History Marital status: Single Spouse name: Years of education: HS + MANAGING PARTNER Number of children: Occupational History Occupation Employer Comment nursing supervisor painting* [employer] * Social History Main Topics Smoking status: Former Smoker Packs/day: 1.00 Years: 30.00 Types: Cigarettes, Pipe, Cigars Quit date: 05/24/2008 Smokeless tobacco: Never Used Alcohol use: Yes Comment: socially Drug use: No Sexual activity: No Comment: Not asked FAMILY HISTORY: FAMILY HISTORY Problem Relation Age of Onset - Diabetes Father - Diabetes Brother CABG 12/27 - Diabetes Maternal Grandmother - Diabetes Other cousin - Coronary Artery Disease Maternal Grandfather REVIEW OF SYMPTOMS: The review of systems data was entered by the nurse and reviewed by me Nursing Notes: Mikey Kay GERARDO 09/15/2018 9:31 AM Signed REVIEW OF SYSTEMS: General: The patient denies fatigue, denies weight loss, denies weight gain, denies feeling hot, and denies feelings of cold. Eyes: The patient NOTES glaucoma, NOTES eye injury/surgery, wears glasses or contacts. Ear/Nose/Throat: The patient NOTES allergies, denies hayfever, denies ear infections, and denies bloody noses. Cardiovascular: The patient denies chest pain, denies heart disease, NOTES high blood pressure,denies cardiac stent, denies prior heart attack, denies irregular heart beat, NOTES high cholesterol, denies poor circulation, denies heart failure, other cardiac issues, denies claudication, denies cold feet, denies peripheral arterial stent. Respiratory: The patient NOTES tuberculosis, denies pneumonia, denies frequent cough, denies pulmonary embolism, denies shortness of breath, and denies coughing up blood. Gastrointestinal: The patient denies difficulty swallowing, NOTES acid reflux, denies ulcers, denies vomiting, NOTES jaundice/hepatitis, NOTES gallbladder problems, denies black or tarry stools, NOTES hemorrhoids, denies bleeding from rectum, NOTES diverticulitis, NOTES constipation, NOTES diarrhea, denies loss of stool control, and denies hernias. Kidney/Bladder: The patient denies kidney stones, NOTES urine infections, and NOTES bloody urine. Skin: The patient denies a history of skin cancer, denies bleeding/changing moles, and denies a history of skin rash. Neurologic: The patient denies a history of epilepsy/convulsions, NOTES headaches, NOTES head/spinal injuries, and denies stroke/TIA. Psychiatric: The patient denies psychiatric medications, NOTES depression, and denies voices, denies substance abuse. Endocrine: The patient denies thyroid disorders, denies diabetes, and NOTES hormonal problems. Hematologic: The patient denies a history of bruising, NOTES bleeding, and NOTES anemia, denies blood clots. Infections: The patient NOTES a history of measles and mumps, denies rheumatic fever, and denies sexually transmitted diseases. Musculoskeletal: The patient NOTES back pain/injury, NOTES back problems, NOTES sciatica, denies knee/foot trouble, denies arthritis, or denies gout. When was patient's last Mammogram screening? 2017 Last Colonoscopy: 2014 Mikey Kay LPN I have confirmed and edited as necessary, the PFSH and ROS obtained by others. PHYSICAL EXAMINATION: General: The patient is 68 year old female, well nourished, well hydrated in no acute distress. The patient is oriented to time, place, and person. VITALS: Blood pressure 138/82, pulse 68. There is no height or weight on file to calculate BMI. HEENT: Normal cephalic, ataumatic, pupils are equally round, sclera are anicteric, mucous membranes are moist, oropharynx is clear. Neck has no masses, asymmetry or lymphadenopathy. Respiratory: Clear to auscultation and percussion. Normal respiratory excursion and pattern. Cardiac: Examination is regular rate and rhythm. Abdominal exam: Soft, nontender, with no palpable masses. No hepatosplenomegaly. No palpable hernias. Rectal exam: exam deferred Extremities: no clubbing, cyanosis or edema. No adenopathy. Other: LABORATORY VALUES: As Noted RADIOLOGIC STUDIES: As Noted Assessment IMPRESSION: encounter for high-risk surveillance colonoscopy, personal history of colon cancer and colonic polyps PLAN: We will plan for colonoscopy. We discussed the risks and benefits of the planned endoscopy. I have informed the patient that complications can occur including failure to complete the endoscopy and perforation. The patient had the opportunity to ask questions concerning the planned endoscopy. My staff has also explained the procedure to the patient in understandable terms and has given the patient printed material concerning the procedure. The patient freely consents to surgery. I plan to use Miralax bowel preparation for endoscopy in addition to 2 full days of clear liquid diet Patient will continue her routine medications for the procedure Diagnoses: (Z85.038) Personal history of colon cancer (primary encounter diagnosis) (Z12.11) Encounter for screening for malignant neoplasm of colon (Z86.010) Personal history of colonic polyps My findings have been communicated to Dr. Archibald via shared medical record. This note will be forwarded to Dr. Zahraa Jacobson MD. Patient verbalized understanding of all above and agreed with the plan RAINE Craven LPN 09/15/2018 9:31 AM Signed REVIEW OF SYSTEMS: General: The patient denies fatigue, denies weight loss, denies weight gain, denies feeling hot, and denies feelings of cold. Eyes: The patient NOTES glaucoma, NOTES eye injury/surgery, wears glasses or contacts. Ear/Nose/Throat: The patient NOTES allergies, denies hayfever, denies ear infections, and denies bloody noses. Cardiovascular: The patient denies chest pain, denies heart disease, NOTES high blood pressure,denies cardiac stent, denies prior heart attack, denies irregular heart beat, NOTES high cholesterol, denies poor circulation, denies heart failure, other cardiac issues, denies claudication, denies cold feet, denies peripheral arterial stent. Respiratory: The patient NOTES tuberculosis, denies pneumonia, denies frequent cough, denies pulmonary embolism, denies shortness of breath, and denies coughing up blood. Gastrointestinal: The patient denies difficulty swallowing, NOTES acid reflux, denies ulcers, denies vomiting, NOTES jaundice/hepatitis, NOTES gallbladder problems, denies black or tarry stools, NOTES hemorrhoids, denies bleeding from rectum, NOTES diverticulitis, NOTES constipation, NOTES diarrhea, denies loss of stool control, and denies hernias. Kidney/Bladder: The patient denies kidney stones, NOTES urine infections, and NOTES bloody urine. Skin: The patient denies a history of skin cancer, denies bleeding/changing moles, and denies a history of skin rash. Neurologic: The patient denies a history of epilepsy/convulsions, NOTES headaches, NOTES head/spinal injuries, and denies stroke/TIA. Psychiatric: The patient denies psychiatric medications, NOTES depression, and denies voices, denies substance abuse. Endocrine: The patient denies thyroid disorders, denies diabetes, and NOTES hormonal problems. Hematologic: The patient denies a history of bruising, NOTES bleeding, and NOTES anemia, denies blood clots. Infections: The patient NOTES a history of measles and mumps, denies rheumatic fever, and denies sexually transmitted diseases. Musculoskeletal: The patient NOTES back pain/injury, NOTES back problems, NOTES sciatica, denies knee/foot trouble, denies arthritis, or denies gout. When was patient's last Mammogram screening? 2017 Last Colonoscopy: 2014 Mikey Kay LPN PROGRESS Observed: 09/12/2018 Status: COMPLETED Source: [place] 4:45 PM [facility] REPOSITORY HNO ID: [id number] Author: Jacoby Taveras II Service: (none) Author Type: COLLEGE RECRUITER Type: Progress Notes Filed: 09/12/2018 5:14 PM Note Text: Assessment and Plan H40.1131 Primary open-angle glaucoma, bilateral, mild stage (primary encounter diagnosis) Comment: Intraocular pressures appear stable with current treatment. Advise patient as to the risks of blindness with glaucoma. Advise patient as to status of condition and necessity of close monitoring as directed. Continue use of Latanoprost 0.005% 1 gt both eyes qhs. Return to use of Cosopt 1 gt both eyes twice a day. Discontinue use of Brimonidine and Timolol drops. Recheck glaucoma control in 4 months. H02.831, H02.834 Dermatochalasis of both upper eyelids Comment: Patient to tolerate for now. Monitor for progression. H25.13 Age-related nuclear cataract, bilateral Comment: Mild cataract in both eyes. Well tolerated at this time. Discussed possible future affect on daily activities to watch for. Monitor as instructed. H43.393 Vitreous floaters of both eyes Comment: Vitreal floaters stable both eyes. Retinas flat and intact with no apparent retinal tear or traction. Monitor yearly. H52.13 Myopia of both eyes H52.4 Presbyopia H52.223 Regular astigmatism of both eyes Comment: Improved glasses power demonstrated to patient. Update glasses as desired. I have confirmed and edited as necessary the relevant ophthalmic history, ROS, and the neuro exam findings as obtained by others. I have seen and examined Vianca Norbert Perez. I have discussed the case and the management of this patient's care with the Resident/Fellow, if applicable. I also have reviewed and agree with the assessment and plan as stated above and agree with all of its relevant components. Jacoby Taveras II, OD CNCO Observed: 09/11/2018 Status: COMPLETED Source: [place] 12:00 AM [facility] REPOSITORY Letter Text Vianca Perez [address] [id number] 09/11/2018 [facility] #: [id number] Dear , Due to a change in the provider's schedule it has been necessary to reschedule your Appointment. Your original appointment was scheduled for 03/06/19 with Zahraa Jacobson MD. Please contact our office at [phone]. Thank you for choosing the [facility] as your Healthcare Provider . Sincerely, Family Medicine Appointment Office PROGRESS Observed: 09/06/2018 Status: COMPLETED Source: [place] 12:31 PM [facility] REPOSITORY HNO ID: [id number] Author: Elliot (Beata) Billy Service: (none) Author Type: Nurse Practitioner Type: Progress Notes Filed: 09/06/2018 1:16 PM Note Text: Vianca Perez is a 68 year old female who presents in follow up of HTN and was last seen 6 months ago. Also following with urology for finding of recurrent UTI, hematuria. Scheduled for a cystoscopy. Did have voiding testing, showing that she is not voiding entirely. GERD: Prescribed 300 mg daily. Denies any breakthrough. Depression: Prescribe Zoloft 100 mg twice daily. Doing okay at this time. States that she does not have depression at this time. Some times will get anxiety. HTN: Ms. Perez indicates that she is feeling well and denies any symptoms referable to elevated blood pressure. Specifically denies headache, chest pain, palpitations, dyspnea and peripheral edema. Patient denies any side effects of her medication(s) and is compliant with their regimen. She does check BP's away from this office with average BP's in the 112/60 range. Vianca denies regular aerobic exercise. She watches her diet for sodium, low fat and low cholesterol most of the time. Last 3 Encounter BP Readings: Date: BP: 09/06/2018 128/70 08/11/2018 122/76 08/08/2018 110/80 05/15/2018 130/80 Past Medical, Surgical, Family and Social Histories reviewed and updated today in the History tab of [facility]. Current Medications and allergies reviewed. PAST MEDICAL HISTORY Diagnosis Date - Acute gastritis without mention of hemorrhage - Benign neoplasm of colon - Depressive disorder, not elsewhere classified - Essential hypertension, benign - Glaucoma - Iron deficiency anemia, unspecified - Malignant neoplasm of colon, unspecified site - Obesity, unspecified - Skin rash - Snoring - Stress headaches - Tobacco use disorder - Unspecified glaucoma(365.9) Glaucoma PAST SURGICAL HISTORY Procedure Laterality Date - APPENDECTOMY 1962 - DELIVERY ONLY , low cervical - COLONOS W/REM POLYP SNARE 01/22/09 - COLONOSCOPY 09/12/15 Repeat 3-5 years - EGD 01/22/09 - LAP COLECTMY W/ILEUM/ILEOCOL 02/19/09 RIGHT - LASER SURGERY OF EYE 2005 Glaucoma both eyes - REMOVAL GALLBLADDER 1977 Cholecystectomy - REMOVAL OF OMENTUM 03-08-09 - REMOVAL OF OVARY/TUBE(S) 1998 Salpingo-oophorectomy, bilat. 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 Ranitidine HCl (ZANTAC) 300 mg tablet Take 1 tablet by mouth daily at bedtime. lisinopril (PRINIVIL) 5 mg tablet Take 1 tablet by mouth once daily. triamterene-hydrochlorothiazide (MAXZIDE-25) 37.5-25 mg per tablet Take 1 tablet by mouth once daily. calcium carbonate 600 mg-cholecalciferol 200 units (CALCIUM 600 WITH VITAMIN D3) 600 mg(1,500mg) -200 unit tab Take 1 tablet by mouth once daily. timolol maleate (TIMOPTIC) 0.5 % ophthalmic solution Use 1 Drop in both eyes twice daily. brimonidine (ALPHAGAN) 0.2 % ophthalmic solution Use 1 Drop in both eyes twice daily. latanoprost (XALATAN) 0.005 % ophthalmic solution Use 1 Drop in both eyes daily at bedtime. sertraline (ZOLOFT) 100 mg tablet Take 1 tablet by mouth twice daily. triamcinolone acetonide (KENALOG) 0.1 % ointment Apply 1 application to affected area twice daily. Chlorhexidine Gluconate (PERIDEX) 0.12 % solution Use 15 mL as instructed twice daily. naproxen (NAPROSYN) 500 mg tablet Take 1 tablet by mouth twice daily as needed (pain/inflammation, take with food.). lactobacillus acidophilus (ACIDOPHILUS) ORAL Cap Take one(1) tablet daily. COMPOUNDED PRESCRIPTION vitamin D3 1,000mg tab take one daily aspirin(ECOTRIN LOW STRENGTH 81 MG TAB) Take one(1) tablet daily. loratadine(CLARITIN 10 MG TAB) TAKE PRESCRIBED No current facility-administered medications for this visit. FAMILY HISTORY Problem Relation Age of Onset - Diabetes Father - Diabetes Brother CABG 12/27 - Diabetes Maternal Grandmother - Diabetes Other cousin - Coronary Artery Disease Maternal Grandfather Social History Marital status: Single Spouse name: Years of education: HS + MANAGING PARTNER Number of children: Occupational History Occupation Employer Comment nursing supervisor painting* [employer] * Social History Main Topics Smoking status: Former Smoker Packs/day: 1.00 Years: 30.00 Types: Cigarettes, Pipe, Cigars Quit date: 05/24/2008 Smokeless tobacco: Never Used Alcohol use: Yes Comment: socially Drug use: No Sexual activity: No PHYSICAL EXAM: BP 128/70 Pulse 68 General appearance: Alert, cooperative, pleasant, in no acute distress, obese Head: Normocephalic, atraumatic Eyes: normal, conjunctiva/corneas normal, PERRL Oropharynx: moist without lesions, teeth in good repair Neck: supple and no JVD Heart: regular rate and rhythm, without murmur Lungs: clear to auscultation, without rales or wheeze, good air exchange Abdomen:soft, nondistended, nontender, no hepatosplenomegaly or masses Ext: no edema in LE bilaterally, good distal pulses Component Latest Ref Rng AND Units 03/15/2018 08/18/2018 08/22/2018 Color Yellow Kimmy (A) Clarity Clear Cloudy (A) Glucose, Urine Negative mg/dL Negative Bilirubin, Urine Negative 2+ (A) Ketones, Urine Negative Negative Specific [place], Ur 1.005 - 1.030 1.014 Hemoglobin/Blood,Ur Negative Negative pH, Urine 4.5 - 8.0 8.0 Protein, Urine Negative mg/dL >=300 (A) Urobilinogen Normal Normal Nitrites Negative Negative Leukest Negative 2+ (A) Comments SEE COMMENT U[place] Comment SEE COMMENT WBC, Urine 0 - 5 /HPF 6-10 (A) RBC, Urine 0 - 3 /HPF 0-3 Epithelial Cells /HPF SEE COMMENT Crystal 0 /HPF SEE COMMENT (A) Protein, Total 6.3 - 8.0 g/dL 7.1 Albumin 3.9 - 4.9 g/dL 4.4 Calcium 8.5 - 10.2 mg/dL 9.6 Bilirubin, Total 0.2 - 1.3 mg/dL 0.3 Alkaline Phosphatase 34 - 123 U/L 71 AST 13 - 35 U/L 16 Glucose 74 - 99 mg/dL 86 BUN 7 - 21 mg/dL 25 (H) Creatinine 0.58 - 0.96 mg/dL 1.26 (H) Sodium 136 - 144 mmol/L 141 Potassium 3.7 - 5.1 mmol/L 4.1 Chloride 97 - 105 mmol/L 99 CO2 22 - 30 mmol/L 28 Anion Gap 9 - 18 mmol/L 14 ALT 7 - 38 U/L 13 eGFR- 51 eGFR-All Other Races . 42 Cholesterol, Total <200 mg/dL 196 Triglyceride <150 mg/dL 193 (H) HDL Cholesterol >39 mg/dL 28 (L) LDL Cholesterol <100 mg/dL 129 (H) Non HDL Cholesterol <130 mg/dL 168 (H) Fasting Time hrs 8 VLDL Cholesterol <30 mg/dL 39 (H) TC:HDL Ratio <5.10 7.00 (H) LDL:HDL Ratio <2.54 4.61 (H) Specimen Request Best Practice Alert: To ensure optimal transport conditions and accurate culture . . . Culture >=100,000 CFU/ml (A) . . . ASSESSMENT/PLAN: 1. Essential hypertension, benign - ICD9: 401.1, ICD10: I10 (primary diagnosis) - good control - Continue current medication(s) - Recommended regular aerobic exercise. - Recommend home blood pressure monitoring, to bring results in on next visit - Goal of BP <130/80 - BASIC METABOLIC PNL 2. Morbid (severe) obesity due to excess calories (HCC) - ICD9: 278.01, ICD10: E66.01 - LIPID PANEL, NONFASTING 3. Recurrent major depressive disorder, in full remission (HCC) - ICD9: 296.36, ICD10: F33.42 - Stable, continue with Zoloft as prescribed. 4. Hyperlipidemia, unspecified hyperlipidemia type - ICD9: 272.4, ICD10: E78.5 - LIPID PANEL, NONFASTING 5. Screening for colon cancer - ICD9: V76.51, ICD10: Z12.11 - CONSULT TO GENERAL SURGERY Get labs completed, follow up in 6 months. Elliot Archibald APRN.CNP CNOV Observed: 09/06/2018 Status: COMPLETED Source: [place] 12:20 PM [facility] REPOSITORY Office Visit (FAMPWS) VIANCA PEREZ ([id number]) 1950 F NFR Date Time Provider Department 09/06/18 12:20 PM ELLIOT ARCHIBALD (BEATA) FAMPWS During your visit today, we recorded the following information about you: Pulse Blood pressure 68/minute 128/70 Elliot Archibald APRN.CNP 09/06/2018 1:16 PM Signed Viancaaman Perez is a 68 year old female who presents in follow up of HTN and was last seen 6 months ago. Also following with urology for finding of recurrent UTI, hematuria. Scheduled for a cystoscopy. Did have voiding testing, showing that she is not voiding entirely. GERD: Prescribed 300 mg daily. Denies any breakthrough. Depression: Prescribe Zoloft 100 mg twice daily. Doing okay at this time. States that she does not have depression at this time. Some times will get anxiety. HTN: Ms. Perez indicates that she is feeling well and denies any symptoms referable to elevated blood pressure. Specifically denies headache, chest pain, palpitations, dyspnea and peripheral edema. Patient denies any side effects of her medication(s) and is compliant with their regimen. She does check BP's away from this office with average BP's in the 112/60 range. Vianca denies regular aerobic exercise. She watches her diet for sodium, low fat and low cholesterol most of the time. Last 3 Encounter BP Readings: Date: BP: 09/06/2018 128/70 08/11/2018 122/76 08/08/2018 110/80 05/15/2018 130/80 Past Medical, Surgical, Family and Social Histories reviewed and updated today in the History tab of Nour[facility]. Current Medications and allergies reviewed. PAST MEDICAL HISTORY Diagnosis Date - Acute gastritis without mention of hemorrhage - Benign neoplasm of colon - Depressive disorder, not elsewhere classified - Essential hypertension, benign - Glaucoma - Iron deficiency anemia, unspecified - Malignant neoplasm of colon, unspecified site - Obesity, unspecified - Skin rash - Snoring - Stress headaches - Tobacco use disorder - Unspecified glaucoma(365.9) Glaucoma PAST SURGICAL HISTORY Procedure Laterality Date - APPENDECTOMY 1962 - DELIVERY ONLY , low cervical - COLONOS W/REM POLYP SNARE 01/22/09 - COLONOSCOPY 09/12/15 Repeat 3-5 years - EGD 01/22/09 - LAP COLECTMY W/ILEUM/ILEOCOL 02/19/09 RIGHT - LASER SURGERY OF EYE 2004 Glaucoma both eyes - REMOVAL GALLBLADDER 1977 Cholecystectomy - REMOVAL OF OMENTUM 03-08-09 - REMOVAL OF OVARY/TUBE(S) 1998 Salpingo-oophorectomy, bilat. 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 Ranitidine HCl (ZANTAC) 300 mg tablet Take 1 tablet by mouth daily at bedtime. lisinopril (PRINIVIL) 5 mg tablet Take 1 tablet by mouth once daily. triamterene-hydrochlorothiazide (MAXZIDE-25) 37.5-25 mg per tablet Take 1 tablet by mouth once daily. calcium carbonate 600 mg-cholecalciferol 200 units (CALCIUM 600 WITH VITAMIN D3) 600 mg(1,500mg) -200 unit tab Take 1 tablet by mouth once daily. timolol maleate (TIMOPTIC) 0.5 % ophthalmic solution Use 1 Drop in both eyes twice daily. brimonidine (ALPHAGAN) 0.2 % ophthalmic solution Use 1 Drop in both eyes twice daily. latanoprost (XALATAN) 0.005 % ophthalmic solution Use 1 Drop in both eyes daily at bedtime. sertraline (ZOLOFT) 100 mg tablet Take 1 tablet by mouth twice daily. triamcinolone acetonide (KENALOG) 0.1 % ointment Apply 1 application to affected area twice daily. Chlorhexidine Gluconate (PERIDEX) 0.12 % solution Use 15 mL as instructed twice daily. naproxen (NAPROSYN) 500 mg tablet Take 1 tablet by mouth twice daily as needed (pain/inflammation, take with food.). lactobacillus acidophilus (ACIDOPHILUS) ORAL Cap Take one(1) tablet daily. COMPOUNDED PRESCRIPTION vitamin D3 1,000mg tab take one daily aspirin(ECOTRIN LOW STRENGTH 81 MG TAB) Take one(1) tablet daily. loratadine(CLARITIN 10 MG TAB) TAKE PRESCRIBED No current facility-administered medications for this visit. FAMILY HISTORY Problem Relation Age of Onset - Diabetes Father - Diabetes Brother CABG 12/27 - Diabetes Maternal Grandmother - Diabetes Other cousin - Coronary Artery Disease Maternal Grandfather Social History Marital status: Single Spouse name: Years of education: HS + MANAGING PARTNER Number of children: Occupational History Occupation Employer Comment nursing supervisor painting* [employer] * Social History Main Topics Smoking status: Former Smoker Packs/day: 1.00 Years: 30.00 Types: Cigarettes, Pipe, Cigars Quit date: 05/24/2008 Smokeless tobacco: Never Used Alcohol use: Yes Comment: socially Drug use: No Sexual activity: No PHYSICAL EXAM: BP 128/70 Pulse 68 General appearance: Alert, cooperative, pleasant, in no acute distress, obese Head: Normocephalic, atraumatic Eyes: normal, conjunctiva/corneas normal, PERRL Oropharynx: moist without lesions, teeth in good repair Neck: supple and no JVD Heart: regular rate and rhythm, without murmur Lungs: clear to auscultation, without rales or wheeze, good air exchange Abdomen:soft, nondistended, nontender, no hepatosplenomegaly or masses Ext: no edema in LE bilaterally, good distal pulses Component Latest Ref Rng AND Units 03/15/2018 08/18/2018 08/22/2018 Color Yellow Kimmy (A) Clarity Clear Cloudy (A) Glucose, Urine Negative mg/dL Negative Bilirubin, Urine Negative 2+ (A) Ketones, Urine Negative Negative Specific [place], Ur 1.005 - 1.030 1.014 Hemoglobin/Blood,Ur Negative Negative pH, Urine 4.5 - 8.0 8.0 Protein, Urine Negative mg/dL >=300 (A) Urobilinogen Normal Normal Nitrites Negative Negative Leukest Negative 2+ (A) Comments SEE COMMENT U[place] Comment SEE COMMENT WBC, Urine 0 - 5 /HPF 6-10 (A) RBC, Urine 0 - 3 /HPF 0-3 Epithelial Cells /HPF SEE COMMENT Crystal 0 /HPF SEE COMMENT (A) Protein, Total 6.3 - 8.0 g/dL 7.1 Albumin 3.9 - 4.9 g/dL 4.4 Calcium 8.5 - 10.2 mg/dL 9.6 Bilirubin, Total 0.2 - 1.3 mg/dL 0.3 Alkaline Phosphatase 34 - 123 U/L 71 AST 13 - 35 U/L 16 Glucose 74 - 99 mg/dL 86 BUN 7 - 21 mg/dL 25 (H) Creatinine 0.58 - 0.96 mg/dL 1.26 (H) Sodium 136 - 144 mmol/L 141 Potassium 3.7 - 5.1 mmol/L 4.1 Chloride 97 - 105 mmol/L 99 CO2 22 - 30 mmol/L 28 Anion Gap 9 - 18 mmol/L 14 ALT 7 - 38 U/L 13 eGFR- 51 eGFR-All Other Races . 42 Cholesterol, Total <200 mg/dL 196 Triglyceride <150 mg/dL 193 (H) HDL Cholesterol >39 mg/dL 28 (L) LDL Cholesterol <100 mg/dL 129 (H) Non HDL Cholesterol <130 mg/dL 168 (H) Fasting Time hrs 8 VLDL Cholesterol <30 mg/dL 39 (H) TC:HDL Ratio <5.10 7.00 (H) LDL:HDL Ratio <2.54 4.61 (H) Specimen Request Best Practice Alert: To ensure optimal transport conditions and accurate culture . . . Culture >=100,000 CFU/ml (A) . . . ASSESSMENT/PLAN: 1. Essential hypertension, benign - ICD9: 401.1, ICD10: I10 (primary diagnosis) - good control - Continue current medication(s) - Recommended regular aerobic exercise. - Recommend home blood pressure monitoring, to bring results in on next visit - Goal of BP <130/80 - BASIC METABOLIC PNL 2. Morbid (severe) obesity due to excess calories (HCC) - ICD9: 278.01, ICD10: E66.01 - LIPID PANEL, NONFASTING 3. Recurrent major depressive disorder, in full remission (HCC) - ICD9: 296.36, ICD10: F33.42 - Stable, continue with Zoloft as prescribed. 4. Hyperlipidemia, unspecified hyperlipidemia type - ICD9: 272.4, ICD10: E78.5 - LIPID PANEL, NONFASTING 5. Screening for colon cancer - ICD9: V76.51, ICD10: Z12.11 - CONSULT TO GENERAL SURGERY Get labs completed, follow up in 6 months. Elliot Archibald APRN.TRAIN CLERK Referring Provider: ZAHRAA JACOBSON [[id number]] Allergies As of Date: 09/06/2018 Noted Allergy Reaction BEE STING 07/01/2014 7 - Swelling Comments: Very red and swollen Date Reviewed: 09/06/2018 Reviewed by: Mai Wolf [facility] - Fully Assessed Reason for Visit: F/U 6 months [9597] Primary Visit Diagnosis:Essential hypertension, benign [I10] Other Visit Diagnoses:Morbid (severe) obesity due to excess calories (HCC) [E66.01] Recurrent major depressive disorder, in full remission (HCC) [F33.42] Hyperlipidemia, unspecified hyperlipidemia type [E78.5] Screening for colon cancer [Z12.11] Order(s):BASIC METABOLIC PNL [SQBMP] Order #: [id number] FUTURE LIPID PANEL, NONFASTING [SQLIPNF] Order #: [id number] FUTURE CONSULT TO GENERAL SURGERY [9011] Order #: [id number]: 1 Prescriptions as of 09/06/2018 Sig: POTASSIUM CHLORIDE ER 10 MEQ * Take 1 tablet by mouth once d* RANITIDINE 300 MG TABLET Take 1 tablet by mouth daily * LISINOPRIL 5 MG TABLET Take 1 tablet by mouth once d* TRIAMTERENE 37.5 MG-HYDROCHLO* Take 1 tablet by mouth once d* CALCIUM CARBONATE 600 MG (1,5* Take 1 tablet by mouth once d* TIMOLOL MALEATE 0.5 % EYE DONITA* Use 1 Drop in both eyes twice* BRIMONIDINE 0.2 % EYE DROPS Use 1 Drop in both eyes twice* LATANOPROST 0.005 % EYE DROPS Use 1 Drop in both eyes daily* SERTRALINE 100 MG TABLET Take 1 tablet by mouth twice * TRIAMCINOLONE ACETONIDE 0.1 %* Apply 1 application to affect* CHLORHEXIDINE GLUCONATE 0.12 * Use 15 mL as instructed twice* NAPROXEN 500 MG TABLET Take 1 tablet by mouth twice * * LACTOBACILLUS ACIDOPHILUS CAP* Take one(1) tablet daily. * COMPOUNDED PRESCRIPTION vitamin D3 1,000mg tab take o* * ECOTRIN LOW STRENGTH 81 MG TA* Take one(1) tablet daily. * CLARITIN 10 MG TABLET TAKE PRESCRIBED Problem List As Of Date 09/06/2018 Noted Resolved BENIGN HYPERTENSION [I10] INVALID FOR* Morbid (severe) obesity due to excess calories *INVALID FOR* More... TOBACCO USE DISORDER [F17.200] INVALID FOR* Recurrent major depressive disorder (HCC) [F33.*INVALID FOR* SKIN LESION [L98.9] INVALID FOR*04/03/2007 HYPOPOTASSEMIA [E87.6] INVALID FOR* More... IRON DEFIC ANEMIA NOS [D50.9] INVALID FOR* Malignant neoplasm of colon (HCC) [C18.9] INVALID FOR* Benign neoplasm of colon [D12.6] INVALID FOR*10/13/2010 Vitamin D Deficiency [E55.9] INVALID FOR* Rectal bleeding [K62.5] INVALID FOR* Benign neoplasm of rectum and anal canal [D12.8*INVALID FOR* Benign neoplasm of colon [D12.6] INVALID FOR*06/09/2017 History of malignant neoplasm of large intestin*INVALID FOR* Psoriasis [L40.9] INVALID FOR* Personal history of colon cancer [Z85.038] INVALID FOR* History of colonic polyps [Z86.010] INVALID FOR* Age-related nuclear cataract, bilateral [H25.13]INVALID FOR* Vitreous floaters of both eyes [H43.393] INVALID FOR* Presbyopia [H52.4] INVALID FOR* Myopia [H52.10] INVALID FOR* Regular astigmatism [H52.229] INVALID FOR* Dermatochalasis of both upper eyelids [H02.831,*INVALID FOR* Primary open-angle glaucoma, bilateral, mild st*INVALID FOR* Optic disc cupping [H47.239] INVALID FOR* Hyperlipidemia [E78.5] INVALID FOR* Disposition: Return in about 6 months (around 03/06/2019) for HTN, Depression, GERD f/u. Follow-up and Disposition History Recorded Encounter Status:Closed by ELLIOT ARCHIBALD CNP on 09/06/18 KIDNEY AND BLADDER Observed: 08/25/2018 Status: F Source: [place] 11:25 AM [facility] REPOSITORY [facility] Imaging Services [address] [place] [id number] Kidney and Bladder MR#: [id number] Acct: [id number] Name: VIANCA PEREZ Rep #: [id number] : 1950 F 67 From: Morris Leon DO PCP: Evy VANESSA,Zahraa Status: REG CLI Study: Kidney and Bladder Date of Exam: 08/25/18 Exam# [id number] Ordering Dr: Sylvia Olson MD STUDY: RENAL ULTRASOUND - COMPLETE REASON FOR EXAM: Female, 67 years old. UTI TECHNIQUE: Ultrasound evaluation of the kidneys was performed with real-time and static king-scale imaging. COMPARISON: None. FINDINGS: RIGHT KIDNEY: Normal location of the right kidney, which is normal in size. The right kidney measures 10.0 x 5.4 x 5.1 cm. There is thinning cortex of the right kidney. The renal cortex measures 1.0 cm. Multiple cysts are noted up to 3.6 cm with one possibly septated. There are no right renal calculi. There is right hydronephrosis which resolved after voiding. DISTAL RIGHT URETER: There is non-visualization of the distal right ureter. There is no demonstrated right ureterovesical junction calculus. There is a visualized right ureteral jet. LEFT KIDNEY: Normal location of the left kidney, which is normal in size. The left kidney measures 11.7 x 4.5 x 4.9 cm. There is a normal cortex of the left kidney. The renal cortex measures 1.6 cm. There is no left renal mass or cyst. There are no left renal calculi. There is left hydronephrosis which resolved after voiding. DISTAL LEFT URETER: There is non-visualization of the distal left ureter. There is no demonstrated left ureterovesical junction calculus. There is a visualized left ureteral jet. BLADDER: The distended urinary bladder has a volume of 5:30 ml. The post void urinary bladder has a volume of 286 ml. Wall thickness is 4 mm.. There is no demonstrated mass within the urinary bladder. There are no demonstrated bladder calculi. US/Kidney and Bladder IMPRESSION: Hydronephrosis of the kidneys which resolved after voiding. Significant residual after voiding is noted of the urinary bladder. Minimally thickened wall of the urinary bladder. Multiple right renal cystic lesions. Electronically Signed: Morris Leon DO at 23:57 EDT Tel [phone], Service support , CC: Sylvia Olson MD; Zahraa Jacobson MD Leaf Sorter: Signed COMP METABOLIC PANEL Collected: 08/22/2018 Status: F Source: [place] 3:25 PM [facility] REPOSITORY TYPE CODE TESTS RESULT OUT OF REFERENCE UNITS RANGE LAB TP 6.3-8.0 g/dL Protein, Total 7.1 LAB ALB 3.9-4.9 g/dL Albumin 4.4 LAB CA 8.5-10.2 mg/dL Calcium, Total 9.6 LAB TBIL 0.2-1.3 mg/dL Bilirubin, Total 0.3 LAB ALKP 34-123 U/L Alkaline Phosphatase 71 LAB AST 13-35 U/L AST 16 LAB GLU 74-99 mg/dL Glucose 86 Result Comment: The [place] [employer] (ADA) provides guidance for cutoff values for fasting glucose and random glucose. The ADA defines fasting as no caloric intake for at least 8 hours. Fas ting plasma glucose results between 100 to 125 mg/dL indicate increased risk for diabetes (prediabetes). Fasting plasma glucose results greater than or equal to 126 mg/dL meet the criteria for diagnosis of diabetes. In the absence of unequivocal hyperglycemia, results should be confirmed by repeat testing. In a patient with classic symptoms of hyperglycemia or hyperglycemic crisis, random plasma glucose results greater than or equal to 200 mg/dL meet the criteria for diagnosis of diabetes. Reference: Standards of Medical Care in Diabetes 2016, [place] [employer]. Diabetes Care. 2016.39(Suppl 1). LAB BUN 7-21 mg/dL BUN High 25 LAB CRET 0.58-0.96 mg/dL Creatinine High 1.26 LAB NA 136-144 mmol/L Sodium 141 LAB K 3.7-5.1 mmol/L Potassium 4.1 LAB CL 97-105 mmol/L Chloride 99 LAB CO2 22-30 mmol/L CO2 28 LAB AGAP 9-18 mmol/L Anion Gap 14 LAB ALT 7-38 U/L ALT 13 LAB GFRAA eGFR- Amer. 51 LAB GFRNAA . eGFR-All Other Races 42 Result Comment: eGFR (Estimated GFR) Units of measure: mL/min/1.73 meters squared eGFR is derived from the reexpressed MDRD Study equation using the following parameters: serum creatinine, age, gender and race. The creatinine assay has been calibrated to be traceable to IDMS. An eGFR <60 mL/min/1.73m2 for >3 months is consistent with chronic kidney disease. Refer to KDOQI guidelines for clinical interpretation. In patients with unstable renal function, e.g. those with acute kidney injury, the eGFR may not accurately reflect actual GFR. Performed By: #### CMP #### [facility] [address] [place], [place] [address] CNPN Observed: 08/21/2018 Status: COMPLETED Source: [place] 12:00 AM [facility] REPOSITORY Telephone (FAMPWS) VIANCA PEREZ ([id number]) 1950 F NFR Date Time Provider Department 08/21/18 KEY ESTES (BEATA) [employer] [facility] [employer] During your visit today, we recorded the following information about you: Key Estes APRN.CNP 08/21/2018 8:55 AM Addendum Urine culture still shows infection. I will order a new antibiotic to extend the course. UA also shows bilirubin, so I would like to check blood work to see if there is a concern. Please see if we can get a sooner appointment with urology. Telephone on 08/21/18 -COMP METABOLIC PANEL The following approved medication requests have been transmitted electronically. Signed Prescriptions Disp Refills ciprofloxacin HCl (CIPRO) 500 mg tablet 20 tablet 0 Sig: Take 1 tablet by mouth twice daily for 10 days. Authorizing Provider: KEY ESTES (BEATA) NEWTON Parikh MA, MA 08/21/2018 10:01 AM Signed Unable to reach patient . Left Vm to return call to office. Please read below and advise. ELVIA Gaines RN 08/22/2018 11:48 AM Signed Patient notified of results and provider's instructions. Patient verbalizes understanding. Transferred to urology nurse to see if appointment can be moved up. Jeremias Kay LPN 08/22/2018 12:11 PM Signed Recieved call transferred to this office requesting earlier appt. Advised pt that Zayda Coleoney out of the office recovering from surgery and that is not an option in this office. Advised pt that if needed may be seen by a different provider at another location. Pt declined that option and stated she will need to keep her existing appt. Key Estes APRN.CNP 08/22/2018 12:48 PM Signed Reviewed. Please encourage follow up with Elliot as planned or to be seen sooner with any worsening symptoms. Key Estes APRN.TRAIN CLERK Allergies As of Date: 08/21/2018 Noted Allergy Reaction BEE STING 07/01/2014 7 - Swelling Comments: Very red and swollen Date Reviewed: 08/11/2018 Reviewed by: Vivian (Elvia) ELVIA Pederson - Fully Assessed Reason for Visit: Results [95] Primary Visit Diagnosis:Bilirubin in urine [R82.2] Other Visit Diagnosis:Recurrent UTI (urinary tract infection) [N39.0] Order(s):COMP METABOLIC PANEL [SQCMP] Order #: [id number] FUTURE ciprofloxacin HCl (CIPRO) 500 mg tabletTake 1 tablet by mouth twice daily for 10 days.Disp: 20 tabletRfl: 0 Prescriptions as of 08/21/2018 Sig: CIPROFLOXACIN 500 MG TABLET Take 1 tablet by mouth twice * POTASSIUM CHLORIDE ER 10 MEQ * Take 1 tablet by mouth once d* RANITIDINE 300 MG TABLET Take 1 tablet by mouth daily * LISINOPRIL 5 MG TABLET Take 1 tablet by mouth once d* TRIAMTERENE 37.5 MG-HYDROCHLO* Take 1 tablet by mouth once d* CALCIUM CARBONATE 600 MG (1,5* Take 1 tablet by mouth once d* TIMOLOL MALEATE 0.5 % EYE DONITA* Use 1 Drop in both eyes twice* BRIMONIDINE 0.2 % EYE DROPS Use 1 Drop in both eyes twice* LATANOPROST 0.005 % EYE DROPS Use 1 Drop in both eyes daily* SERTRALINE 100 MG TABLET Take 1 tablet by mouth twice * TRIAMCINOLONE ACETONIDE 0.1 %* Apply 1 application to affect* CHLORHEXIDINE GLUCONATE 0.12 * Use 15 mL as instructed twice* NAPROXEN 500 MG TABLET Take 1 tablet by mouth twice * * LACTOBACILLUS ACIDOPHILUS CAP* Take one(1) tablet daily. * COMPOUNDED PRESCRIPTION vitamin D3 1,000mg tab take o* * ECOTRIN LOW STRENGTH 81 MG TA* Take one(1) tablet daily. * CLARITIN 10 MG TABLET TAKE PRESCRIBED Problem List As Of Date 08/21/2018 Noted Resolved BENIGN HYPERTENSION [I10] INVALID FOR* Morbid (severe) obesity due to excess calories *INVALID FOR* More... TOBACCO USE DISORDER [F17.200] INVALID FOR* Recurrent major depressive disorder (HCC) [F33.*INVALID FOR* SKIN LESION [L98.9] INVALID FOR*04/03/2007 HYPOPOTASSEMIA [E87.6] INVALID FOR* More... IRON DEFIC ANEMIA NOS [D50.9] INVALID FOR* Malignant neoplasm of colon (HCC) [C18.9] INVALID FOR* Benign neoplasm of colon [D12.6] INVALID FOR*10/13/2010 Vitamin D Deficiency [E55.9] INVALID FOR* Rectal bleeding [K62.5] INVALID FOR* Benign neoplasm of rectum and anal canal [D12.8*INVALID FOR* Benign neoplasm of colon [D12.6] INVALID FOR*06/09/2017 History of malignant neoplasm of large intestin*INVALID FOR* Psoriasis [L40.9] INVALID FOR* Personal history of colon cancer [Z85.038] INVALID FOR* History of colonic polyps [Z86.010] INVALID FOR* Age-related nuclear cataract, bilateral [H25.13]INVALID FOR* Vitreous floaters of both eyes [H43.393] INVALID FOR* Presbyopia [H52.4] INVALID FOR* Myopia [H52.10] INVALID FOR* Regular astigmatism [H52.229] INVALID FOR* Dermatochalasis of both upper eyelids [H02.831,*INVALID FOR* Primary open-angle glaucoma, bilateral, mild st*INVALID FOR* Optic disc cupping [H47.239] INVALID FOR* Hyperlipidemia [E78.5] INVALID FOR* Prescriptions ordered this encounter Disp Refills Start End CIPROFLOXACIN 500 MG TABLET 20 t* 0 08/21/2018 08/31/2018 Route: ORAL Sig: Take 1 tablet by mouth twice daily for 10 days. Encounter Status:Closed by JEREMIAS SHER RN on 08/22/18 Observed: 08/18/2018 Status: F Source: [place] URINE CULTURE 12:26 PM [facility] REPOSITORY Sp. Request/Comment: - Best Practice Alert: To ensure optimal transport conditions and accurate culture results transfer urine specimens to monsalve top C and S preservative tube. Culture Result - >=100,000 CFU/ml Escherichia coli --> ABNORMAL ALERT ORGANISM: Escherichia coli METHOD: Minimum inhibitory concentration(Vitek) Antibiotic Interp SPRING Status Ampicillin SUSCEPTIBLE 4 F Gentamicin SUSCEPTIBLE <=1 F Trimeth sulfameth SUSCEPTIBLE <=20 F Cefazolin SUSCEPTIBLE <=4 F CLSI breakpoints for therapy of uncomplicated UTI's due to E.coli, K.pneumoniae, and P.mirabilis were applied and may be used to predict the activity of oral agents(cefaclor, cefdinir, cefpodoxime, cefp rozil, cefuroxime, cephalexin, loracarbef). Ciprofloxacin SUSCEPTIBLE <=0.25 F Nitrofurantoin SUSCEPTIBLE 32 F Cefepime SUSCEPTIBLE <=1 F Piperacillin/Tazobac SUSCEPTIBLE <=4 F Ampicillin Sulbact SUSCEPTIBLE <=2 F Ceftriaxone SUSCEPTIBLE <=1 F Meropenem SUSCEPTIBLE <=0.25 F Ertapenem SUSCEPTIBLE <=0.5 F Performed By: #### URCUL #### [facility] [address] [place], [place] [address] URINALYSIS WITH Collected: 08/18/2018 Status: F Source: [facility] 12:17 PM [facility] REPOSITORY TYPE CODE TESTS RESULT OUT OF RANGE REFERENCE UNITS LAB UCOL Yellow Abnormal Color Kimmy Alert LAB [facility] Clear Abnormal Clarity Cloudy Alert LAB UGLUC Negative mg/dL Glucose, Negative Urine LAB UBIL Negative 2+ Abnormal Bilirubin, Alert Urine Result Comment: Suggest correlation with clinical findings and serum bilirubin if clinically indicated. LAB UKET Negative Ketones, Urine Negative LAB USPG 1.005-1.030 Specific [place], Ur 1.014 LAB UHGB Negative Hemoglobin/Blood,U Negative r LAB UPH 4.5-8.0 pH 8.0 LAB UPROT Negative mg/dL Abnormal Protein, Urine Alert >=300 LAB UUROB Normal Urobilinogen Normal LAB UNITR Negative Nitrites Negative LAB ULKEST Negative Abnormal Leukest 2+ Alert LAB UCOM Comments SEE COMMENT Result Comment: N/A LAB UMCOM Urine SEE [place] Comment COMMENT Result Comment: N/A LAB UWBC 0-5 /HPF Abnormal WBC Alert 6-10 LAB URBC 0-3 /HPF RBC 0-3 LAB UEPI /HPF Epithelial Cells SEE COMMENT Result Comment: Few Squamous Epithelial Cells LAB UCRYS 0 /HPF Abnormal Alert Crystals SEE COMMENT Result Comment: Few Triple Phosphate Crystal Performed By: #### UAWMIC #### [facility] [address] [place], [place] [address] PROGRESS Observed: 08/11/2018 Status: COMPLETED Source: [place] 3:16 PM [facility] [place] REPOSITORY HNO ID: [id number] Author: Key Estes Service: (none) Author Type: Nurse Practitioner Type: Progress Notes Filed: 08/11/2018 3:21 PM Note Text: 08/11/2018 Patient presents with: UTI SUBJECTIVE: This is a 67 year old that is here today for gross hematuria. She states that she was seen in earlier this week and diagnosed with UTI, but at that time, she was not having any blood in her urine. She states that she continues to take the Macrobid and pyridium. Still having burning, urgency and frequency. She states that she is concerned that she is having frequent UTIs and would like to see a specialist. She denies fever or chills. PAST MEDICAL HISTORY Diagnosis Date - Acute gastritis without mention of hemorrhage - Benign neoplasm of colon - Depressive disorder, not elsewhere classified - Essential hypertension, benign - Glaucoma - Iron deficiency anemia, unspecified - Malignant neoplasm of colon, unspecified site - Obesity, unspecified - Skin rash - Snoring - Stress headaches - Tobacco use disorder - Unspecified glaucoma(365.9) Glaucoma ALLERGIES Bee Sting MEDICATIONS Current Outpatient Prescriptions: nitrofurantoin monohydrate and macrocrystal (MACROBID) 100 mg capsule Take 1 capsule by mouth twice daily with meals for 7 days. potassium chloride ER (K-DUR, KLOR-CON) 10 mEq tablet Take 1 tablet by mouth once daily. Ranitidine HCl (ZANTAC) 300 mg tablet Take 1 tablet by mouth daily at bedtime. lisinopril (PRINIVIL) 5 mg tablet Take 1 tablet by mouth once daily. triamterene-hydrochlorothiazide (MAXZIDE-25) 37.5-25 mg per tablet Take 1 tablet by mouth once daily. calcium carbonate 600 mg-cholecalciferol 200 units (CALCIUM 600 WITH VITAMIN D3) 600 mg(1,500mg) -200 unit tab Take 1 tablet by mouth once daily. timolol maleate (TIMOPTIC) 0.5 % ophthalmic solution Use 1 Drop in both eyes twice daily. brimonidine (ALPHAGAN) 0.2 % ophthalmic solution Use 1 Drop in both eyes twice daily. latanoprost (XALATAN) 0.005 % ophthalmic solution Use 1 Drop in both eyes daily at bedtime. sertraline (ZOLOFT) 100 mg tablet Take 1 tablet by mouth twice daily. triamcinolone acetonide (KENALOG) 0.1 % ointment Apply 1 application to affected area twice daily. Chlorhexidine Gluconate (PERIDEX) 0.12 % solution Use 15 mL as instructed twice daily. naproxen (NAPROSYN) 500 mg tablet Take 1 tablet by mouth twice daily as needed (pain/inflammation, take with food.). lactobacillus acidophilus (ACIDOPHILUS) ORAL Cap Take one(1) tablet daily. COMPOUNDED PRESCRIPTION vitamin D3 1,000mg tab take one daily aspirin(ECOTRIN LOW STRENGTH 81 MG TAB) Take one(1) tablet daily. loratadine(CLARITIN 10 MG TAB) TAKE PRESCRIBED No current facility-administered medications for this visit. Medications and allergies reviewed by this provider. SOCIAL HISTORY Social History Marital status: Single Spouse name: Years of education: HS + MANAGING PARTNER Number of children: Occupational History Occupation Employer Comment nursing supervisor painting* [employer] * Social History Main Topics Smoking status: Former Smoker Packs/day: 1.00 Years: 30.00 Types: Cigarettes, Pipe, Cigars Quit date: 05/24/2008 Smokeless tobacco: Never Used Alcohol use: Yes Comment: socially Drug use: No Sexual activity: No REVIEW OF SYSTEMS see HPI OBJECTIVE: BP 122/76 Pulse 89 Resp 20 Wt 106.1 kg (234 lb) SpO2 94% BMI 41.45 kg/m? . Vital signs reviewed by this provider. PHYSICAL EXAMINATION: General appearance: Well appearing, alert, in no acute distress, well-hydrated, well nourished. Obese. Skin: Skin color, texture, turgor normal, no suspicious rashes or lesions Lungs: Lungs clear to auscultation. No wheezing, rhonchi, rales Heart: RRR without murmur, gallop, or rubs. No ectopy Abdomen: Abdomen soft, non-tender. Bowel sounds normal. No masses, organomegaly, Positive findings: tenderness mild suprapubic Extremities: No deformities, edema, skin discoloration, clubbing or cyanosis. Good capillary refill. , Pulses: 2+ ASSESSMENT/PLAN: 1. Urinary tract infection with hematuria, site unspecified - ICD9: 599.0, 599.70, ICD10: N39.0, R31.9 (primary diagnosis) recurrent - UA positive for mario esterase, hematuria, proteinuria and nitrates - continue macrobid and pyridium - Patient education for prevention given - will order repeat culture and UA for after course of antibiotics is complete - URINE CULTURE - URINALYSIS WITH MICROSCOPIC 2. Gross hematuria - ICD9: 599.71, ICD10: R31.0 - see above - UA DIP, URINE (POC) - URINE CULTURE - URINALYSIS WITH MICROSCOPIC 3. History of recurrent UTIs - ICD9: V13.02, ICD10: Z87.440 - CONSULT TO UROLOGY Key Estes APRN.CNP CNOV Observed: 08/11/2018 Status: COMPLETED Source: [place] 2:40 PM [facility] REPOSITORY Office Visit (FAMPWS) VIANCA PEREZ ([id number]) 1950 F NFR Date Time Provider Department 08/11/18 2:40 PM KEY ESTES (BEATA) FAMPWS During your visit today, we recorded the following information about you: Pulse Respiration Blood pressure Weight 89/minute 20/minute 122/76 106.1 kg Key Estes APRN.CNP 08/11/2018 3:21 PM Signed 08/11/2018 Patient presents with: UTI SUBJECTIVE: This is a 67 year old that is here today for gross hematuria. She states that she was seen in earlier this week and diagnosed with UTI, but at that time, she was not having any blood in her urine. She states that she continues to take the Macrobid and pyridium. Still having burning, urgency and frequency. She states that she is concerned that she is having frequent UTIs and would like to see a specialist. She denies fever or chills. PAST MEDICAL HISTORY Diagnosis Date - Acute gastritis without mention of hemorrhage - Benign neoplasm of colon - Depressive disorder, not elsewhere classified - Essential hypertension, benign - Glaucoma - Iron deficiency anemia, unspecified - Malignant neoplasm of colon, unspecified site - Obesity, unspecified - Skin rash - Snoring - Stress headaches - Tobacco use disorder - Unspecified glaucoma(365.9) Glaucoma ALLERGIES Bee Sting MEDICATIONS Current Outpatient Prescriptions: nitrofurantoin monohydrate and macrocrystal (MACROBID) 100 mg capsule Take 1 capsule by mouth twice daily with meals for 7 days. potassium chloride ER (K-DUR, KLOR-CON) 10 mEq tablet Take 1 tablet by mouth once daily. Ranitidine HCl (ZANTAC) 300 mg tablet Take 1 tablet by mouth daily at bedtime. lisinopril (PRINIVIL) 5 mg tablet Take 1 tablet by mouth once daily. triamterene-hydrochlorothiazide (MAXZIDE-25) 37.5-25 mg per tablet Take 1 tablet by mouth once daily. calcium carbonate 600 mg-cholecalciferol 200 units (CALCIUM 600 WITH VITAMIN D3) 600 mg(1,500mg) -200 unit tab Take 1 tablet by mouth once daily. timolol maleate (TIMOPTIC) 0.5 % ophthalmic solution Use 1 Drop in both eyes twice daily. brimonidine (ALPHAGAN) 0.2 % ophthalmic solution Use 1 Drop in both eyes twice daily. latanoprost (XALATAN) 0.005 % ophthalmic solution Use 1 Drop in both eyes daily at bedtime. sertraline (ZOLOFT) 100 mg tablet Take 1 tablet by mouth twice daily. triamcinolone acetonide (KENALOG) 0.1 % ointment Apply 1 application to affected area twice daily. Chlorhexidine Gluconate (PERIDEX) 0.12 % solution Use 15 mL as instructed twice daily. naproxen (NAPROSYN) 500 mg tablet Take 1 tablet by mouth twice daily as needed (pain/inflammation, take with food.). lactobacillus acidophilus (ACIDOPHILUS) ORAL Cap Take one(1) tablet daily. COMPOUNDED PRESCRIPTION vitamin D3 1,000mg tab take one daily aspirin(ECOTRIN LOW STRENGTH 81 MG TAB) Take one(1) tablet daily. loratadine(CLARITIN 10 MG TAB) TAKE PRESCRIBED No current facility-administered medications for this visit. Medications and allergies reviewed by this provider. SOCIAL HISTORY Social History Marital status: Single Spouse name: Years of education: HS + MANAGING PARTNER Number of children: Occupational History Occupation Employer Comment nursing supervisor painting* [employer] * Social History Main Topics Smoking status: Former Smoker Packs/day: 1.00 Years: 30.00 Types: Cigarettes, Pipe, Cigars Quit date: 05/24/2008 Smokeless tobacco: Never Used Alcohol use: Yes Comment: socially Drug use: No Sexual activity: No REVIEW OF SYSTEMS see HPI OBJECTIVE: BP 122/76 Pulse 89 Resp 20 Wt 106.1 kg (234 lb) SpO2 94% BMI 41.45 kg/m? . Vital signs reviewed by this provider. PHYSICAL EXAMINATION: General appearance: Well appearing, alert, in no acute distress, well-hydrated, well nourished. Obese. Skin: Skin color, texture, turgor normal, no suspicious rashes or lesions Lungs: Lungs clear to auscultation. No wheezing, rhonchi, rales Heart: RRR without murmur, gallop, or rubs. No ectopy Abdomen: Abdomen soft, non-tender. Bowel sounds normal. No masses, organomegaly, Positive findings: tenderness mild suprapubic Extremities: No deformities, edema, skin discoloration, clubbing or cyanosis. Good capillary refill. , Pulses: 2+ ASSESSMENT/PLAN: 1. Urinary tract infection with hematuria, site unspecified - ICD9: 599.0, 599.70, ICD10: N39.0, R31.9 (primary diagnosis) recurrent - UA positive for mario esterase, hematuria, proteinuria and nitrates - continue macrobid and pyridium - Patient education for prevention given - will order repeat culture and UA for after course of antibiotics is complete - URINE CULTURE - URINALYSIS WITH MICROSCOPIC 2. Gross hematuria - ICD9: 599.71, ICD10: R31.0 - see above - UA DIP, URINE (POC) - URINE CULTURE - URINALYSIS WITH MICROSCOPIC 3. History of recurrent UTIs - ICD9: V13.02, ICD10: Z87.440 - CONSULT TO UROLOGY Key Estes APRN.TRAIN CLERK Referring Provider: SELF [200] Allergies As of Date: 08/11/2018 Noted Allergy Reaction BEE STING 07/01/2014 7 - Swelling Comments: Very red and swollen Date Reviewed: 08/11/2018 Reviewed by: Vivian Pederson MA - Fully Assessed Reason for Visit: UTI [116] Primary Visit Diagnosis:Urinary tract infection with hematuria, site unspecified [N39.0, R31.9] Other Visit Diagnoses:Gross hematuria [R31.0] History of recurrent UTIs [Z87.440] Order(s):UA DIP, URINE (POC) [1285263] Order #: [id number]. #:[id number] URINE CULTURE [SQURCUL] Order #: [id number] URINALYSIS WITH MICROSCOPIC [SQUAWMIC] Order #: [id number] FUTURE CONSULT TO UROLOGY [9096] Order #: [id number]: 1 Prescriptions as of 08/11/2018 Sig: NITROFURANTOIN MONOHYDRATE AND * Take 1 capsule by mouth twice* POTASSIUM CHLORIDE ER 10 MEQ * Take 1 tablet by mouth once d* RANITIDINE 300 MG TABLET Take 1 tablet by mouth daily * LISINOPRIL 5 MG TABLET Take 1 tablet by mouth once d* TRIAMTERENE 37.5 MG-HYDROCHLO* Take 1 tablet by mouth once d* CALCIUM CARBONATE 600 MG (1,5* Take 1 tablet by mouth once d* TIMOLOL MALEATE 0.5 % EYE DONITA* Use 1 Drop in both eyes twice* BRIMONIDINE 0.2 % EYE DROPS Use 1 Drop in both eyes twice* LATANOPROST 0.005 % EYE DROPS Use 1 Drop in both eyes daily* SERTRALINE 100 MG TABLET Take 1 tablet by mouth twice * TRIAMCINOLONE ACETONIDE 0.1 %* Apply 1 application to affect* CHLORHEXIDINE GLUCONATE 0.12 * Use 15 mL as instructed twice* NAPROXEN 500 MG TABLET Take 1 tablet by mouth twice * * LACTOBACILLUS ACIDOPHILUS CAP* Take one(1) tablet daily. * COMPOUNDED PRESCRIPTION vitamin D3 1,000mg tab take o* * ECOTRIN LOW STRENGTH 81 MG TA* Take one(1) tablet daily. * CLARITIN 10 MG TABLET TAKE PRESCRIBED Problem List As Of Date 08/11/2018 Noted Resolved BENIGN HYPERTENSION [I10] INVALID FOR* Morbid (severe) obesity due to excess calories *INVALID FOR* More... TOBACCO USE DISORDER [F17.200] INVALID FOR* Recurrent major depressive disorder (HCC) [F33.*INVALID FOR* SKIN LESION [L98.9] INVALID FOR*04/03/2007 HYPOPOTASSEMIA [E87.6] INVALID FOR* More... IRON DEFIC ANEMIA NOS [D50.9] INVALID FOR* Malignant neoplasm of colon (HCC) [C18.9] INVALID FOR* Benign neoplasm of colon [D12.6] INVALID FOR*10/13/2010 Vitamin D Deficiency [E55.9] INVALID FOR* Rectal bleeding [K62.5] INVALID FOR* Benign neoplasm of rectum and anal canal [D12.8*INVALID FOR* Benign neoplasm of colon [D12.6] INVALID FOR*06/09/2017 History of malignant neoplasm of large intestin*INVALID FOR* Psoriasis [L40.9] INVALID FOR* Personal history of colon cancer [Z85.038] INVALID FOR* History of colonic polyps [Z86.010] INVALID FOR* Age-related nuclear cataract, bilateral [H25.13]INVALID FOR* Vitreous floaters of both eyes [H43.393] INVALID FOR* Presbyopia [H52.4] INVALID FOR* Myopia [H52.10] INVALID FOR* Regular astigmatism [H52.229] INVALID FOR* Dermatochalasis of both upper eyelids [H02.831,*INVALID FOR* Primary open-angle glaucoma, bilateral, mild st*INVALID FOR* Optic disc cupping [H47.239] INVALID FOR* Hyperlipidemia [E78.5] INVALID FOR* Encounter Status:Closed by KEY ESTES on 08/11/18 Observed: 08/08/2018 Status: F Source: [place] URINE CULTURE 12:00 PM [facility] REPOSITORY Sp. Request/Comment: - Specimen received in preservative Culture Result - >=100,000 CFU/ml Escherichia coli --> ABNORMAL ALERT ORGANISM: Escherichia coli METHOD: Minimum inhibitory concentration(Vitek) Antibiotic Interp SPRING Status Ampicillin SUSCEPTIBLE 4 F Gentamicin SUSCEPTIBLE <=1 F Trimeth sulfameth SUSCEPTIBLE <=20 F Cefazolin SUSCEPTIBLE <=4 F CLSI breakpoints for therapy of uncomplicated UTI's due to E.coli, K.pneumoniae, and P.mirabilis were applied and may be used to predict the activity of oral agents(cefaclor, cefdinir, cefpodoxime, cefp rozil, cefuroxime, cephalexin, loracarbef). Ciprofloxacin SUSCEPTIBLE <=0.25 F Nitrofurantoin SUSCEPTIBLE <=16 F Cefepime SUSCEPTIBLE <=1 F Piperacillin/Tazobac SUSCEPTIBLE <=4 F Ampicillin Sulbact SUSCEPTIBLE <=2 F Ceftriaxone SUSCEPTIBLE <=1 F Meropenem SUSCEPTIBLE <=0.25 F Ertapenem SUSCEPTIBLE <=0.5 F Performed By: #### URCUL #### [facility] [address] [place], [place] [address] PROGRESS Observed: 08/08/2018 Status: COMPLETED Source: [place] 11:42 AM [facility] REPOSITORY HNO ID: [id number] Author: Luisa Beverly Service: (none) Author Type: Nurse Practitioner Type: Progress Notes Filed: 08/08/2018 11:45 AM Note Text: Subjective HPI Pt presents with c/o urinary frequency, urgency and dysuria x 1.5 days. Denies fever, chills, abd/back/flank pain. Review of Systems Constitutional: Negative for chills and fever. Gastrointestinal: Negative for abdominal pain, constipation, diarrhea, nausea and vomiting. Genitourinary: Positive for dysuria, frequency and urgency. Negative for flank pain and hematuria. Musculoskeletal: Negative for back pain and myalgias. Objective Physical Exam Constitutional: She is oriented to person, place, and time and well-developed, well-nourished, and in no distress. No distress. Abdominal: There is no CVA tenderness. Neurological: She is alert and oriented to person, place, and time. Skin: Skin is warm and dry. She is not diaphoretic. BP 110/80 Pulse 64 Temp 36.4 ?C (97.5 ?F) (Tympanic) Resp 16 Wt 107.1 kg (236 lb 3.2 oz) BMI 41.84 kg/m? .Patient presents with: UTI: burning, urgency and frequency x 1 day PAST MEDICAL HISTORY Diagnosis Date - Acute gastritis without mention of hemorrhage - Benign neoplasm of colon - Depressive disorder, not elsewhere classified - Essential hypertension, benign - Glaucoma - Iron deficiency anemia, unspecified - Malignant neoplasm of colon, unspecified site - Obesity, unspecified - Skin rash - Snoring - Stress headaches - Tobacco use disorder - Unspecified glaucoma(365.9) Glaucoma PAST SURGICAL HISTORY Procedure Laterality Date - APPENDECTOMY 1962 - DELIVERY ONLY , low cervical - COLONOS W/REM POLYP SNARE 01/22/09 - COLONOSCOPY 09/12/15 Repeat 3-5 years - EGD 01/22/09 - LAP COLECTMY W/ILEUM/ILEOCOL 4/29/09 RIGHT - LASER SURGERY OF EYE 2004 Glaucoma both eyes - REMOVAL GALLBLADDER 1977 Cholecystectomy - REMOVAL OF OMENTUM 03-08-09 - REMOVAL OF OVARY/TUBE(S) 1998 Salpingo-oophorectomy, bilat. - REMOVE TONSILS/ADENOIDS,<12 Y/O 1955 T/A (under age 12 years) - REVISE MEDIAN N/CARPAL TUNNEL SURG 1982 Carpal tunnel decomp Right - SELECTIVE LASER TRABECULOPLASTY (SLT) OS (LEFT EYE) 05/30/2017 - SPINAL FUSION,ANT,EA ADNL LEVEL 1982 C1-C2 - TOTAL ABDOM HYSTERECTOMY 1998 Hysterectomy, EMILY ALLERGIES Bee Sting MEDICATIONS potassium chloride ER (K-DUR, KLOR-CON) 10 mEq tablet Take 1 tablet by mouth once daily. Ranitidine HCl (ZANTAC) 300 mg tablet Take 1 tablet by mouth daily at bedtime. lisinopril (PRINIVIL) 5 mg tablet Take 1 tablet by mouth once daily. triamterene-hydrochlorothiazide (MAXZIDE-25) 37.5-25 mg per tablet Take 1 tablet by mouth once daily. calcium carbonate 600 mg-cholecalciferol 200 units (CALCIUM 600 WITH VITAMIN D3) 600 mg(1,500mg) -200 unit tab Take 1 tablet by mouth once daily. timolol maleate (TIMOPTIC) 0.5 % ophthalmic solution Use 1 Drop in both eyes twice daily. brimonidine (ALPHAGAN) 0.2 % ophthalmic solution Use 1 Drop in both eyes twice daily. latanoprost (XALATAN) 0.005 % ophthalmic solution Use 1 Drop in both eyes daily at bedtime. sertraline (ZOLOFT) 100 mg tablet Take 1 tablet by mouth twice daily. triamcinolone acetonide (KENALOG) 0.1 % ointment Apply 1 application to affected area twice daily. Chlorhexidine Gluconate (PERIDEX) 0.12 % solution Use 15 mL as instructed twice daily. naproxen (NAPROSYN) 500 mg tablet Take 1 tablet by mouth twice daily as needed (pain/inflammation, take with food.). lactobacillus acidophilus (ACIDOPHILUS) ORAL Cap Take one(1) tablet daily. COMPOUNDED PRESCRIPTION vitamin D3 1,000mg tab take one daily aspirin(ECOTRIN LOW STRENGTH 81 MG TAB) Take one(1) tablet daily. loratadine(CLARITIN 10 MG TAB) TAKE PRESCRIBED nitrofurantoin monohydrate and macrocrystal (MACROBID) 100 mg capsule Take 1 capsule by mouth twice daily with meals for 7 days. phenazopyridine (PYRIDIUM) 100 mg tablet Take 1 tablet by mouth three times daily as needed for up to 2 days. FAMILY HISTORY Problem Relation Age of Onset - Diabetes Father - Diabetes Brother CABG 12/27 - Diabetes Maternal Grandmother - Diabetes Other cousin - Coronary Artery Disease Maternal Grandfather Social History Substance Use Topics - Smoking status: Former Smoker Packs/day: 1.00 Years: 30.00 Types: Cigarettes, Pipe, Cigars Quit date: 05/24/2008 - Smokeless tobacco: Never Used - Alcohol use Yes Comment: socially ASSESSMENT/PLAN: 1. Dysuria - ICD9: 788.1, ICD10: R30.0 acute - UA positive for mario esterase, hematuria and proteinuria - Send urine for culture - Patient education for prevention given - UA DIP, URINE (POC) - URINE CULTURE - NITROFURANTOIN MONOHYDRATE AND MACROCRYSTAL 100 MG ORAL CAP - PHENAZOPYRIDINE 100 MG TABLET The patient is instructed to return or seek emergency treatment if symptoms become worse or with any acute change in condition. The patient verbalizes understanding and is in agreement with plan of care. Luisa Beverly CNP CNOV Observed: 08/08/2018 Status: COMPLETED Source: [place] 11:15 AM [facility] REPOSITORY Office Visit (WSTR) VIANCA PEREZ ([id number]) 1950 F NFR Date Time Provider Department 08/08/18 11:15 AM [facility] During your visit today, we recorded the following information about you: Temperature Pulse Respiration Blood pressure 97.5 degrees 64/minute 16/minute 110/80 Weight 107.1 kg Luisa Beverly APRN.CNP 08/08/2018 11:30 AM Signed Patient Education for Adult Female Urinary Tract Infections Possible complications: Pyelonephritis Renal abscess Expected course/prognosis: * Symptoms resolve within 2-3 days after starting treatment in almost all patients * One-fourth of women with simple UTI experience a second UTI within 6 months, and half at some time during lifetime. * Women with frequent or intercourse-related UTI should empty bladder immediately before and following intercourse. Instructions: * Maintain good hydration * Avoid sexual intercourse when symptoms present *Take antibiotic as directed * Return if symptoms not resolved or markedly improved within 48 hours * If taking prophylactic antibiotics, take at bedtime * Take showers instead of tub baths * Avoid feminine hygiene sprays and scented douches * Wipe urethra from front to back *Go to the Emergency room if fever, chills, or flank pain develop Please call your PCP if you are not feeling better in 3-5 days. You can try taking OTC Uristat (pyridium) if needed for burning. *Beware that it will turn your urine orange/red. *Avoid wearing contacts if taking pyridium it could discolor the lenses. Luisa Beverly APRN.[facility] 08/08/2018 11:45 AM Signed Subjective HPI Pt presents with c/o urinary frequency, urgency and dysuria x 1.5 days. Denies fever, chills, abd/back/flank pain. Review of Systems Constitutional: Negative for chills and fever. Gastrointestinal: Negative for abdominal pain, constipation, diarrhea, nausea and vomiting. Genitourinary: Positive for dysuria, frequency and urgency. Negative for flank pain and hematuria. Musculoskeletal: Negative for back pain and myalgias. Objective Physical Exam Constitutional: She is oriented to person, place, and time and well-developed, well-nourished, and in no distress. No distress. Abdominal: There is no CVA tenderness. Neurological: She is alert and oriented to person, place, and time. Skin: Skin is warm and dry. She is not diaphoretic. BP 110/80 Pulse 64 Temp 36.4 ?C (97.5 ?F) (Tympanic) Resp 16 Wt 107.1 kg (236 lb 3.2 oz) BMI 41.84 kg/m? .Patient presents with: UTI: burning, urgency and frequency x 1 day PAST MEDICAL HISTORY Diagnosis Date - Acute gastritis without mention of hemorrhage - Benign neoplasm of colon - Depressive disorder, not elsewhere classified - Essential hypertension, benign - Glaucoma - Iron deficiency anemia, unspecified - Malignant neoplasm of colon, unspecified site - Obesity, unspecified - Skin rash - Snoring - Stress headaches - Tobacco use disorder - Unspecified glaucoma(365.9) Glaucoma PAST SURGICAL HISTORY Procedure Laterality Date - APPENDECTOMY 1962 - DELIVERY ONLY , low cervical - COLONOS W/REM POLYP SNARE 01/22/09 - COLONOSCOPY 09/12/15 Repeat 3-5 years - EGD 01/22/09 - LAP COLECTMY W/ILEUM/ILEOCOL 02/19/09 RIGHT - LASER SURGERY OF EYE 2004 Glaucoma both eyes - REMOVAL GALLBLADDER 1977 Cholecystectomy - REMOVAL OF OMENTUM 03-08-09 - REMOVAL OF OVARY/TUBE(S) 1998 Salpingo-oophorectomy, bilat. - REMOVE TONSILS/ADENOIDS,<12 Y/O 1955 T/A (under age 11 years) - REVISE MEDIAN N/CARPAL TUNNEL SURG 1982 Carpal tunnel decomp Right - SELECTIVE LASER TRABECULOPLASTY (SLT) OS (LEFT EYE) 05/30/2017 - SPINAL FUSION,ANT,EA ADNL LEVEL 1982 C1-C2 - TOTAL ABDOM HYSTERECTOMY 1998 Hysterectomy, EMILY ALLERGIES Bee Sting MEDICATIONS potassium chloride ER (K-DUR, KLOR-CON) 10 mEq tablet Take 1 tablet by mouth once daily. Ranitidine HCl (ZANTAC) 300 mg tablet Take 1 tablet by mouth daily at bedtime. lisinopril (PRINIVIL) 5 mg tablet Take 1 tablet by mouth once daily. triamterene-hydrochlorothiazide (MAXZIDE-25) 37.5-25 mg per tablet Take 1 tablet by mouth once daily. calcium carbonate 600 mg-cholecalciferol 200 units (CALCIUM 600 WITH VITAMIN D3) 600 mg(1,500mg) -200 unit tab Take 1 tablet by mouth once daily. timolol maleate (TIMOPTIC) 0.5 % ophthalmic solution Use 1 Drop in both eyes twice daily. brimonidine (ALPHAGAN) 0.2 % ophthalmic solution Use 1 Drop in both eyes twice daily. latanoprost (XALATAN) 0.005 % ophthalmic solution Use 1 Drop in both eyes daily at bedtime. sertraline (ZOLOFT) 100 mg tablet Take 1 tablet by mouth twice daily. triamcinolone acetonide (KENALOG) 0.1 % ointment Apply 1 application to affected area twice daily. Chlorhexidine Gluconate (PERIDEX) 0.12 % solution Use 15 mL as instructed twice daily. naproxen (NAPROSYN) 500 mg tablet Take 1 tablet by mouth twice daily as needed (pain/inflammation, take with food.). lactobacillus acidophilus (ACIDOPHILUS) ORAL Cap Take one(1) tablet daily. COMPOUNDED PRESCRIPTION vitamin D3 1,000mg tab take one daily aspirin(ECOTRIN LOW STRENGTH 81 MG TAB) Take one(1) tablet daily. loratadine(CLARITIN 10 MG TAB) TAKE PRESCRIBED nitrofurantoin monohydrate and macrocrystal (MACROBID) 100 mg capsule Take 1 capsule by mouth twice daily with meals for 7 days. phenazopyridine (PYRIDIUM) 100 mg tablet Take 1 tablet by mouth three times daily as needed for up to 2 days. FAMILY HISTORY Problem Relation Age of Onset - Diabetes Father - Diabetes Brother CABG 12/27 - Diabetes Maternal Grandmother - Diabetes Other cousin - Coronary Artery Disease Maternal Grandfather Social History Substance Use Topics - Smoking status: Former Smoker Packs/day: 1.00 Years: 30.00 Types: Cigarettes, Pipe, Cigars Quit date: 05/24/2008 - Smokeless tobacco: Never Used - Alcohol use Yes Comment: socially ASSESSMENT/PLAN: 1. Dysuria - ICD9: 788.1, ICD10: R30.0 acute - UA positive for mario esterase, hematuria and proteinuria - Send urine for culture - Patient education for prevention given - UA DIP, URINE (POC) - URINE CULTURE - NITROFURANTOIN MONOHYDRATE AND MACROCRYSTAL 100 MG ORAL CAP - PHENAZOPYRIDINE 100 MG TABLET The patient is instructed to return or seek emergency treatment if symptoms become worse or with any acute change in condition. The patient verbalizes understanding and is in agreement with plan of care. Luisa Beverly CNP Referring Provider: SELF [200] Allergies As of Date: 08/08/2018 Noted Allergy Reaction BEE STING 07/01/2014 7 - Swelling Comments: Very red and swollen Date Reviewed: 08/08/2018 Reviewed by: Jennifer Greene LPN - Fully Assessed Reason for Visit: UTI [116] Cmt: burning, urgency and frequency x 1 day Primary Visit Diagnosis:Dysuria [R30.0] Order(s):UA DIP, URINE (POC) [1085844] Order #: [id number]. #:[id number] URINE CULTURE [SQURCUL] Order #: [id number] nitrofurantoin monohydrate and macrocrystal (MACROBID) 100 mg capsuleTake 1 capsule by mouth twice daily with meals for 7 days.Disp: 14 capsuleRfl: 0 phenazopyridine (PYRIDIUM) 100 mg tabletTake 1 tablet by mouth three times daily as needed for up to 2 days.Disp: 6 tabletRfl: 0 Prescriptions as of 08/08/2018 Sig: POTASSIUM CHLORIDE ER 10 MEQ * Take 1 tablet by mouth once d* RANITIDINE 300 MG TABLET Take 1 tablet by mouth daily * LISINOPRIL 5 MG TABLET Take 1 tablet by mouth once d* TRIAMTERENE 37.5 MG-HYDROCHLO* Take 1 tablet by mouth once d* CALCIUM CARBONATE 600 MG (1,5* Take 1 tablet by mouth once d* TIMOLOL MALEATE 0.5 % EYE DONITA* Use 1 Drop in both eyes twice* BRIMONIDINE 0.2 % EYE DROPS Use 1 Drop in both eyes twice* LATANOPROST 0.005 % EYE DROPS Use 1 Drop in both eyes daily* SERTRALINE 100 MG TABLET Take 1 tablet by mouth twice * TRIAMCINOLONE ACETONIDE 0.1 %* Apply 1 application to affect* CHLORHEXIDINE GLUCONATE 0.12 * Use 15 mL as instructed twice* NAPROXEN 500 MG TABLET Take 1 tablet by mouth twice * * LACTOBACILLUS ACIDOPHILUS CAP* Take one(1) tablet daily. * COMPOUNDED PRESCRIPTION vitamin D3 1,000mg tab take o* * ECOTRIN LOW STRENGTH 81 MG TA* Take one(1) tablet daily. * CLARITIN 10 MG TABLET TAKE PRESCRIBED NITROFURANTOIN MONOHYDRATE AND * Take 1 capsule by mouth twice* PHENAZOPYRIDINE 100 MG TABLET Take 1 tablet by mouth three * Problem List As Of Date 08/08/2018 Noted Resolved BENIGN HYPERTENSION [I10] INVALID FOR* Morbid (severe) obesity due to excess calories *INVALID FOR* More... TOBACCO USE DISORDER [F17.200] INVALID FOR* Recurrent major depressive disorder (HCC) [F33.*INVALID FOR* SKIN LESION [L98.9] INVALID FOR*04/03/2007 HYPOPOTASSEMIA [E87.6] INVALID FOR* More... IRON DEFIC ANEMIA NOS [D50.9] INVALID FOR* Malignant neoplasm of colon (HCC) [C18.9] INVALID FOR* Benign neoplasm of colon [D12.6] INVALID FOR*10/13/2010 Vitamin D Deficiency [E55.9] INVALID FOR* Rectal bleeding [K62.5] INVALID FOR* Benign neoplasm of rectum and anal canal [D12.8*INVALID FOR* Benign neoplasm of colon [D12.6] INVALID FOR*06/09/2017 History of malignant neoplasm of large intestin*INVALID FOR* Psoriasis [L40.9] INVALID FOR* Personal history of colon cancer [Z85.038] INVALID FOR* History of colonic polyps [Z86.010] INVALID FOR* Age-related nuclear cataract, bilateral [H25.13]INVALID FOR* Vitreous floaters of both eyes [H43.393] INVALID FOR* Presbyopia [H52.4] INVALID FOR* Myopia [H52.10] INVALID FOR* Regular astigmatism [H52.229] INVALID FOR* Dermatochalasis of both upper eyelids [H02.831,*INVALID FOR* Primary open-angle glaucoma, bilateral, mild st*INVALID FOR* Optic disc cupping [H47.239] INVALID FOR* Hyperlipidemia [E78.5] INVALID FOR* Other instructions from your clinician: Patient Education for Adult Female Urinary Tract Infections Possible complications: Pyelonephritis Renal abscess Expected course/prognosis: * Symptoms resolve within 2-3 days after starting treatment in almost all patients * One-fourth of women with simple UTI experience a second UTI within 6 months, and half at some time during lifetime. * Women with frequent or intercourse-related UTI should empty bladder immediately before and following intercourse. Instructions: * Maintain good hydration * Avoid sexual intercourse when symptoms present *Take antibiotic as directed * Return if symptoms not resolved or markedly improved within 48 hours * If taking prophylactic antibiotics, take at bedtime * Take showers instead of tub baths * Avoid feminine hygiene sprays and scented douches * Wipe urethra from front to back *Go to the Emergency room if fever, chills, or flank pain develop Please call your PCP if you are not feeling better in 3-5 days. You can try taking OTC Uristat (pyridium) if needed for burning. *Beware that it will turn your urine orange/red. *Avoid wearing contacts if taking pyridium it could discolor the lenses. Prescriptions ordered this encounter Disp Refills Start End NITROFURANTOIN MONOHYDRATE AND MACROCR* 14 c* 0 08/08/2018 08/15/2018 Route: ORAL Sig: Take 1 capsule by mouth twice daily with meals for 7 days. PHENAZOPYRIDINE 100 MG TABLET 6 ta* 0 08/08/2018 08/10/2018 Route: ORAL Sig: Take 1 tablet by mouth three times daily as needed for up to 2 days. Encounter Status:Closed by LUISA BEVERLY CNP on 08/08/18 CNCO Observed: 07/11/2018 Status: COMPLETED Source: [place] 12:00 AM [facility] [place] REPOSITORY Letter Text Vianca Perez [address] [facility] [address] 07/11/2018 [facility] #: [id number] Dear Abelino, Due to a change in the provider's schedule it has been necessary to reschedule your Appointment. Your original appointment was scheduled for 09/05 at 10:20 AM with Zahraa Jacobson MD. Your new appointment is now scheduled on 09/06 at 12:20 PM with Zahraa Jacobson MD. If this new appointment is not convenient for you, please contact our office at [phone]. Thank you for choosing the [facility] as your Healthcare Provider . Sincerely, Family Medicine Appointment Office Observed: 05/15/2018 Status: F Source: [place] URINE CULTURE 12:21 PM [facility] REPOSITORY Sp. Request/Comment: - Specimen received in preservative Culture Result - >=100,000 CFU/ml Escherichia coli --> ABNORMAL ALERT ORGANISM: Escherichia coli METHOD: Minimum inhibitory concentration(Vitek) Antibiotic Interp SPRING Status Ampicillin SUSCEPTIBLE 4 F Gentamicin SUSCEPTIBLE <=1 F Trimeth sulfameth SUSCEPTIBLE <=20 F Cefazolin SUSCEPTIBLE <=4 F CLSI breakpoints for therapy of uncomplicated UTI's due to E.coli, K.pneumoniae, and P.mirabilis were applied and may be used to predict the activity of oral agents(cefaclor, cefdinir, cefpodoxime, cefp rozil, cefuroxime, cephalexin, loracarbef). Ciprofloxacin SUSCEPTIBLE <=0.25 F Nitrofurantoin SUSCEPTIBLE <=16 F Cefepime SUSCEPTIBLE <=1 F Piperacillin/Tazobac SUSCEPTIBLE <=4 F Ampicillin Sulbact SUSCEPTIBLE <=2 F Ceftriaxone SUSCEPTIBLE <=1 F Meropenem SUSCEPTIBLE <=0.25 F Ertapenem SUSCEPTIBLE <=0.5 F Performed By: #### URCUL #### [facility] [address] [place], [place] [address] PROGRESS Observed: 05/15/2018 Status: COMPLETED Source: [place] 12:15 PM [facility] REPOSITORY HNO ID: [id number] Author: Keegan Talbot Service: (none) Author Type: Physician Type: Progress Notes Filed: 05/15/2018 12:26 PM Note Text: Patient presents with: Urinary Frequency HPI: Symptoms for 2 days. Dysuria: Yes Frequency: Yes Hematuria: No Nausea: No Fever or chills: No Back pain: No Abdominal pain: No Prior UTI: Yes-multiple this spring. Says they never seem to clear up. MEDICATIONS: Current Outpatient Prescriptions: calcium carbonate 600 mg-cholecalciferol 200 units (CALCIUM 600 WITH VITAMIN D3) 600 mg(1,500mg) -200 unit tab Take 1 tablet by mouth once daily. timolol maleate (TIMOPTIC) 0.5 % ophthalmic solution Use 1 Drop in both eyes twice daily. brimonidine (ALPHAGAN) 0.2 % ophthalmic solution Use 1 Drop in both eyes twice daily. latanoprost (XALATAN) 0.005 % ophthalmic solution Use 1 Drop in both eyes daily at bedtime. sertraline (ZOLOFT) 100 mg tablet Take 1 tablet by mouth twice daily. triamcinolone acetonide (KENALOG) 0.1 % ointment Apply 1 application to affected area twice daily. Chlorhexidine Gluconate (PERIDEX) 0.12 % solution Use 15 mL as instructed twice daily. potassium chloride ER (K-DUR, KLOR-CON) 10 mEq tablet Take 1 tablet by mouth once daily. Ranitidine HCl (ZANTAC) 300 mg tablet Take 1 tablet by mouth daily at bedtime. lisinopril (PRINIVIL) 5 mg tablet Take 1 tablet by mouth once daily. triamterene-hydrochlorothiazide (MAXZIDE-25) 37.5-25 mg per tablet Take 1 tablet by mouth once daily. naproxen (NAPROSYN) 500 mg tablet Take 1 tablet by mouth twice daily as needed (pain/inflammation, take with food.). lactobacillus acidophilus (ACIDOPHILUS) ORAL Cap Take one(1) tablet daily. COMPOUNDED PRESCRIPTION vitamin D3 1,000mg tab take one daily aspirin(ECOTRIN LOW STRENGTH 81 MG TAB) Take one(1) tablet daily. loratadine(CLARITIN 10 MG TAB) TAKE PRESCRIBED No current facility-administered medications for this visit. ALLERGIES: ALLERGIES Allergen Reactions - Bee Sting Swelling Very red and swollen VITALS: BP 130/80 Pulse 76 Temp 36.6 ?C (97.8 ?F) (Left Tympanic) Resp 18 Wt 109.8 kg (242 lb) BMI 42.87 kg/m? PHYSICAL EXAM: GEN: NAD HEENT: EOMI, conjunctiva clear, moist mucous membranes HEART: regular rate and rhythm, no murmurs LUNGS: clear to auscultation, no wheezes or crackles, no increased WOB ABDOMEN: Soft, nondistended, no masses, + suprapubic tenderness BACK: No CVA tenderness ASSESSMENT/PLAN: 1. Urinary frequency - ICD9: 788.41, ICD10: R35.0 - UA positive for mario esterase, hematuria and nitrates - UA DIP B/O - URINE CULTURE - CEPHALEXIN 500 MG CAPSULE Consider Urology follow up if continues to have recurrent UTIs. Keegan Talbot MD CNOV Observed: 05/15/2018 Status: COMPLETED Source: [place] 12:00 PM [facility] REPOSITORY Office Visit (WSTR) VIANCA PEREZ ([id number]) 1950 F NFR Date Time Provider Department 05/15/18 12:00 PM KEEGAN TALBOT During your visit today, we recorded the following information about you: Temperature Pulse Respiration Blood pressure 97.8 degrees 76/minute 18/minute 130/80 Weight 109.8 kg Keegan Talbot MD 05/15/2018 12:26 PM Signed Patient presents with: Urinary Frequency HPI: Symptoms for 2 days. Dysuria: Yes Frequency: Yes Hematuria: No Nausea: No Fever or chills: No Back pain: No Abdominal pain: No Prior UTI: Yes-multiple this spring. Says they never seem to clear up. MEDICATIONS: Current Outpatient Prescriptions: calcium carbonate 600 mg-cholecalciferol 200 units (CALCIUM 600 WITH VITAMIN D3) 600 mg(1,500mg) -200 unit tab Take 1 tablet by mouth once daily. timolol maleate (TIMOPTIC) 0.5 % ophthalmic solution Use 1 Drop in both eyes twice daily. brimonidine (ALPHAGAN) 0.2 % ophthalmic solution Use 1 Drop in both eyes twice daily. latanoprost (XALATAN) 0.005 % ophthalmic solution Use 1 Drop in both eyes daily at bedtime. sertraline (ZOLOFT) 100 mg tablet Take 1 tablet by mouth twice daily. triamcinolone acetonide (KENALOG) 0.1 % ointment Apply 1 application to affected area twice daily. Chlorhexidine Gluconate (PERIDEX) 0.12 % solution Use 15 mL as instructed twice daily. potassium chloride ER (K-DUR, KLOR-CON) 10 mEq tablet Take 1 tablet by mouth once daily. Ranitidine HCl (ZANTAC) 300 mg tablet Take 1 tablet by mouth daily at bedtime. lisinopril (PRINIVIL) 5 mg tablet Take 1 tablet by mouth once daily. triamterene-hydrochlorothiazide (MAXZIDE-25) 37.5-25 mg per tablet Take 1 tablet by mouth once daily. naproxen (NAPROSYN) 500 mg tablet Take 1 tablet by mouth twice daily as needed (pain/inflammation, take with food.). lactobacillus acidophilus (ACIDOPHILUS) ORAL Cap Take one(1) tablet daily. COMPOUNDED PRESCRIPTION vitamin D3 1,000mg tab take one daily aspirin(ECOTRIN LOW STRENGTH 81 MG TAB) Take one(1) tablet daily. loratadine(CLARITIN 10 MG TAB) TAKE PRESCRIBED No current facility-administered medications for this visit. ALLERGIES: ALLERGIES Allergen Reactions - Bee Sting Swelling Very red and swollen VITALS: BP 130/80 Pulse 76 Temp 36.6 ?C (97.8 ?F) (Left Tympanic) Resp 18 Wt 109.8 kg (242 lb) BMI 42.87 kg/m? PHYSICAL EXAM: GEN: NAD HEENT: EOMI, conjunctiva clear, moist mucous membranes HEART: regular rate and rhythm, no murmurs LUNGS: clear to auscultation, no wheezes or crackles, no increased WOB ABDOMEN: Soft, nondistended, no masses, + suprapubic tenderness BACK: No CVA tenderness ASSESSMENT/PLAN: 1. Urinary frequency - ICD9: 788.41, ICD10: R35.0 - UA positive for mario esterase, hematuria and nitrates - UA DIP B/O - URINE CULTURE - CEPHALEXIN 500 MG CAPSULE Consider Urology follow up if continues to have recurrent UTIs. Keegan Talbot MD Referring Provider: SELF [200] Allergies As of Date: 05/15/2018 Noted Allergy Reaction BEE STING 07/01/2014 7 - Swelling Comments: Very red and swollen Date Reviewed: 05/15/2018 Reviewed by: Matilde Castellano Ma - Fully Assessed Reason for Visit: Urinary Frequency [1086] Primary Visit Diagnosis:Urinary frequency [R35.0] Order(s):UA DIP B/O [[id number]] Order #: [id number] URINE CULTURE [SQURCUL] Order #: [id number] cephALEXin (KEFLEX) 500 mg capsuleTake 1 capsule by mouth twice daily for 7 days.Disp: 14 capsuleRfl: 0 Prescriptions as of 05/15/2018 Sig: CALCIUM CARBONATE 600 MG (1,5* Take 1 tablet by mouth once d* TIMOLOL MALEATE 0.5 % EYE DONITA* Use 1 Drop in both eyes twice* BRIMONIDINE 0.2 % EYE DROPS Use 1 Drop in both eyes twice* LATANOPROST 0.005 % EYE DROPS Use 1 Drop in both eyes daily* SERTRALINE 100 MG TABLET Take 1 tablet by mouth twice * TRIAMCINOLONE ACETONIDE 0.1 %* Apply 1 application to affect* CHLORHEXIDINE GLUCONATE 0.12 * Use 15 mL as instructed twice* POTASSIUM CHLORIDE ER 10 MEQ * Take 1 tablet by mouth once d* RANITIDINE 300 MG TABLET Take 1 tablet by mouth daily * LISINOPRIL 5 MG TABLET Take 1 tablet by mouth once d* TRIAMTERENE 37.5 MG-HYDROCHLO* Take 1 tablet by mouth once d* NAPROXEN 500 MG TABLET Take 1 tablet by mouth twice * * LACTOBACILLUS ACIDOPHILUS CAP* Take one(1) tablet daily. * COMPOUNDED PRESCRIPTION vitamin D3 1,000mg tab take o* * ECOTRIN LOW STRENGTH 81 MG TA* Take one(1) tablet daily. * CLARITIN 10 MG TABLET TAKE PRESCRIBED CEPHALEXIN 500 MG CAPSULE Take 1 capsule by mouth twice* Problem List As Of Date 05/15/2018 Noted Resolved BENIGN HYPERTENSION [I10] INVALID FOR* Morbid (severe) obesity due to excess calories *INVALID FOR* More... TOBACCO USE DISORDER [F17.200] INVALID FOR* Recurrent major depressive disorder (HCC) [F33.*INVALID FOR* SKIN LESION [L98.9] INVALID FOR*04/03/2007 HYPOPOTASSEMIA [E87.6] INVALID FOR* More... IRON DEFIC ANEMIA NOS [D50.9] INVALID FOR* Malignant neoplasm of colon (HCC) [C18.9] INVALID FOR* Benign neoplasm of colon [D12.6] INVALID FOR*10/13/2010 Vitamin D Deficiency [E55.9] INVALID FOR* Rectal bleeding [K62.5] INVALID FOR* Benign neoplasm of rectum and anal canal [D12.8*INVALID FOR* Benign neoplasm of colon [D12.6] INVALID FOR*06/09/2017 History of malignant neoplasm of large intestin*INVALID FOR* Psoriasis [L40.9] INVALID FOR* Personal history of colon cancer [Z85.038] INVALID FOR* History of colonic polyps [Z86.010] INVALID FOR* Age-related nuclear cataract, bilateral [H25.13]INVALID FOR* Vitreous floaters of both eyes [H43.393] INVALID FOR* Presbyopia [H52.4] INVALID FOR* Myopia [H52.10] INVALID FOR* Regular astigmatism [H52.229] INVALID FOR* Dermatochalasis of both upper eyelids [H02.831,*INVALID FOR* Primary open-angle glaucoma, bilateral, mild st*INVALID FOR* Optic disc cupping [H47.239] INVALID FOR* Hyperlipidemia [E78.5] INVALID FOR* Prescriptions ordered this encounter Disp Refills Start End CEPHALEXIN 500 MG CAPSULE 14 c* 0 05/15/2018 05/22/2018 Route: ORAL Sig: Take 1 capsule by mouth twice daily for 7 days. Encounter Status:Closed by KEEGAN TALBOT MD on 05/15/18 PROGRESS Observed: 05/11/2018 Status: COMPLETED Source: [place] 10:38 AM [facility] REPOSITORY HNO ID: [id number] Author: Jacoby Taveras II Service: (none) Author Type: COLLEGE RECRUITER Type: Progress Notes Filed: 05/11/2018 10:41 AM Note Text: ASSESSMENT/PLAN: 1. Primary open-angle glaucoma, bilateral, mild stage - ICD9: 365.11, 365.71, ICD10: H40.1131 (primary diagnosis) Continue use of Latanoprost 0.005% 1 gt both eyes qhs, Timolol Maleate 0.5% 1 gt both eyes twice a day, and Brimonidine 0.2% 1 gt both eyes bid. Recheck pressure control in 4 months at Dilated fundus exam with update of OCT NFA and threshold packer. 2. Vitreous floaters of both eyes - ICD9: 379.24, ICD10: H43.393 Vitreal floaters stable both eyes. Retinas flat and intact with no apparent retinal tear or traction. Discussed symptoms of retinal tear/detachment and if seen patient will return to clinic without delay. I have confirmed and edited as necessary the relevant ophthalmic history, review of systems, surgical history, and ophthalmological examination findings as obtained by the ophthalmic technical staff. I have seen and examined Vianca Perez. I have discussed the examination findings, diagnosis, and treatment options with the patient and/or the patient's family. I have also reviewed and agree with the assessment and plan as stated above and agree with all its relevant components. I gave the patient the opportunity to ask questions about the findings, diagnosis, and treatment options. Jacoby Taveras, BRUCE, OD COMP METABOLIC PANEL Collected: 03/15/2018 Status: F Source: [place] 8:08 AM [facility] REPOSITORY TYPE CODE TESTS RESULT OUT OF REFERENCE UNITS RANGE LAB TP 6.3-8.0 g/dL Protein, Total 7.3 LAB ALB 3.9-4.9 g/dL Albumin 4.3 LAB CA 8.5-10.2 mg/dL Calcium, Total 9.5 LAB TBIL 0.2-1.3 mg/dL Bilirubin, Total 0.3 LAB ALKP 32-117 U/L Alkaline Phosphatase 68 LAB AST 13-35 U/L AST 19 LAB GLU 74-99 mg/dL Glucose 96 Result Comment: The [place] Diabetes Association (ADA) provides guidance for cutoff values for fasting glucose and random glucose. The ADA defines fasting as no caloric intake for at least 8 hours. Fas ting plasma glucose results between 100 to 125 mg/dL indicate increased risk for diabetes (prediabetes). Fasting plasma glucose results greater than or equal to 126 mg/dL meet the criteria for diagnosis of diabetes. In the absence of unequivocal hyperglycemia, results should be confirmed by repeat testing. In a patient with classic symptoms of hyperglycemia or hyperglycemic crisis, random plasma glucose results greater than or equal to 200 mg/dL meet the criteria for diagnosis of diabetes. Reference: Standards of Medical Care in Diabetes 2016, [place] Diabetes Association. Diabetes Care. 2016.39(Suppl 1). LAB BUN 7-21 mg/dL BUN 15 LAB CRET 0.58-0.96 mg/dL Creatinine High 1.04 LAB NA 136-144 mmol/L Sodium 141 LAB K 3.7-5.1 mmol/L Potassium 3.9 LAB CL 97-105 mmol/L Chloride 99 LAB CO2 22-30 mmol/L CO2 30 LAB AGAP 9-18 mmol/L Anion Gap 12 LAB ALT 7-38 U/L ALT 15 LAB GFRAA eGFR- Amer. >60 LAB GFRNAA . eGFR-All Other Races 53 Result Comment: eGFR (Estimated GFR) Units of measure: mL/min/1.73 meters squared eGFR is derived from the reexpressed MDRD Study equation using the following parameters: serum creatinine, age, gender and race. The creatinine assay has been calibrated to be traceable to IDMS. An eGFR <60 mL/min/1.73m2 for >3 months is consistent with chronic kidney disease. Refer to KDOQI guidelines for clinical interpretation. In patients with unstable renal function, e.g. those with acute kidney injury, the eGFR may not accurately reflect actual GFR. Performed By: #### CMP, LIPB #### [facility] [address] [place], [place] [address] LIPID PANEL, BASIC Collected: 03/15/2018 Status: F Source: [place] 8:08 AM [facility] REPOSITORY TYPE CODE TESTS RESULT OUT OF REFERENCE UNITS RANGE LAB CHOL <200 mg/dL Cholesterol 196 Result Comment: <200 mg/dL, Desirable 200-239 mg/dL, Borderline high >239 mg/dL, High LAB TRIGLY <150 mg/dL Triglyceride High 193 Result Comment: <150 mg/dL, Normal 150-199 mg/dL, Borderline high 200-499 mg/dL, High >499 mg/dL, Very high LAB HDL >39 mg/dL HDL-Cholesterol Low 28 Result Comment: 40-59 mg/dL, Acceptable >59 mg/dL, High: Negative risk factor for coronary heart disease <40 mg/dL, Low: Positive risk factor for coronary heart disease LAB LDL <100 mg/dL LDL-Cholesterol High 129 Result Comment: <100 mg/dL, Optimal 100-129 mg/dL, Near optimal/above optimal 130-159 mg/dL, Borderline high 160-189 mg/dL, High >189 mg/dL, Very high Secondary prevention optimal LDL Cholesterol levels are recommended to be < 70 mg/dL LAB NONHDL <130 mg/dL Non HDL High Cholesterol 168 Result Comment: <130 mg/dL, Optimal 130-159 mg/dL, Near optimal/above optimal 160-189 mg/dL, Borderline high 190-219 mg/dL, High >219 mg/dL, Very high Secondary prevention optimal non HDL Cholesterol levels are recommended to be < 100 mg/dL LAB FT hrs Fasting Time 8 LAB VLDL <30 mg/dL High VLDL Cholesterol 39 LAB TCHDL <5.10 High TC:HDL Ratio 7.00 LAB LDLHDL <2.54 High LDL:HDL Ratio 4.61 Result Comment: Reference: 1. National Cholesterol Education Program ATP III Guideline At-A-Glance Quick Desk Reference: National Heart, Lung, and Blood [place]. National Institutes of Health. 2001: NIH Publication No. 01-3305. 2. An International Atherosclerosis Society position paper: global recommendations for the management of dyslipidemia: executive summary, Atherosclerosis. 2014: 232(2):410-413. Performed By: #### CMP, LIPB #### [facility] [address] [place] [address] Observed: 03/14/2018 Status: F Source: [place] URINE CULTURE 10:37 AM [facility] REPOSITORY Sp. Request/Comment: - Specimen received in preservative Culture Result - <10,000 CFU/ml Lactose positive gram negative bacilli --> ABNORMAL ALERT Insignificant colony count. No further workup. --> ABNORMAL ALERT <10,000 CFU/ml Normal urogenital vinay Performed By: #### URCUL #### [facility] [address] [place], [place] [address] PROGRESS Observed: 03/14/2018 Status: COMPLETED Source: [place] 10:09 AM [facility] [place] REPOSITORY HNO ID: [id number] Author: Zahraa Jacobson Service: (none) Author Type: Physician Type: Progress Notes Filed: 03/15/2018 2:22 PM Note Text: Chief Complaint Patient presents with: F/U 3 Month: DM, HTN and Depression HPI Vianca Perez is a 67 year old female who presents here today for a 3 mo f/u. HTN - Checks BP occasionally with BP ranging around the 113/60's. Denies any chest pain, sob or dizziness. Currently taking Lisinopril 5 mg 1 tab po once daily and Maxzide 37.5-25 mg 1 tab po once daily. Denies any SE or issues with medication. Depression - States that she is doing alright. Currently taking 2 tabs po at bedtime. Notes that her sleeping is not as well without the use of Nortriptyline but is ok due to her urine being back to normal. GERD - With medication, symptoms are controlled. Currently taking Ranitidine 300 mg 1 tab po once daily and daily Probiotic. XIE - No longer has headaches and has been d/c from Neurology. Notes that while being on Nortriptyline 25 mg 3 tabs once daily she did sleep well, but had a foul odor in urine when taking the medication. She was tapered off the dosage after talking with Neurology and odor disappeared. Does miss sleeping well, but sleep good enough. UTI - Has had 2 recurrent UTI's in the last couple week and was evaluated in Urgent Care. Was started on Macrobid then returned to and placed on Keflex. Notes symptoms have improved but does have RLQ tenderness. Completed Keflex yesterday. Past medical history, appointments, medications, allergies reviewed. Previous Medical History PAST MEDICAL HISTORY Diagnosis Date - Acute gastritis without mention of hemorrhage - Benign neoplasm of colon - Depressive disorder, not elsewhere classified - Essential hypertension, benign - Glaucoma - Iron deficiency anemia, unspecified - Malignant neoplasm of colon, unspecified site - Obesity, unspecified - Skin rash - Snoring - Stress headaches - Tobacco use disorder - Unspecified glaucoma(365.9) Glaucoma Previous Surgical History PAST SURGICAL HISTORY Procedure Laterality Date - APPENDECTOMY 1962 - DELIVERY ONLY , low cervical - COLONOS W/REM POLYP SNARE 01/22/09 - COLONOSCOPY 09/12/15 Repeat 3-5 years - EGD 01/22/09 - LAP COLECTMY W/ILEUM/ILEOCOL 02/19/09 RIGHT - LASER SURGERY OF EYE 2004 Glaucoma both eyes - REMOVAL GALLBLADDER 1977 Cholecystectomy - REMOVAL OF OMENTUM 03-08-09 - REMOVAL OF OVARY/TUBE(S) 1998 Salpingo-oophorectomy, bilat. - REMOVE TONSILS/ADENOIDS,<12 Y/O 1955 T/A (under age 11 years) - REVISE MEDIAN N/CARPAL TUNNEL SURG 1982 Carpal tunnel decomp Right - SELECTIVE LASER TRABECULOPLASTY (SLT) OS (LEFT EYE) 05/30/2017 - SPINAL FUSION,ANT,EA ADNL LEVEL 1982 C1-C2 - TOTAL ABDOM HYSTERECTOMY 1998 Hysterectomy, EMILY Family History FAMILY HISTORY Problem Relation Age of Onset - Diabetes Father - Diabetes Brother CABG 12/27 - Diabetes Maternal Grandmother - Diabetes Other cousin - Coronary Artery Disease Maternal Grandfather Patient Allergies ALLERGIES Allergen Reactions - Bee Sting Swelling Very red and swollen Current Medications Current Outpatient Prescriptions on File Prior to Visit: timolol maleate (TIMOPTIC) 0.5 % ophthalmic solution Use 1 Drop in both eyes twice daily. brimonidine (ALPHAGAN) 0.2 % ophthalmic solution Use 1 Drop in both eyes twice daily. latanoprost (XALATAN) 0.005 % ophthalmic solution Use 1 Drop in both eyes daily at bedtime. sertraline (ZOLOFT) 100 mg tablet Take 1 tablet by mouth twice daily. triamcinolone acetonide (KENALOG) 0.1 % ointment Apply 1 application to affected area twice daily. Chlorhexidine Gluconate (PERIDEX) 0.12 % solution Use 15 mL as instructed twice daily. potassium chloride ER (K-DUR, KLOR-CON) 10 mEq tablet Take 1 tablet by mouth once daily. Ranitidine HCl (ZANTAC) 300 mg tablet Take 1 tablet by mouth daily at bedtime. lisinopril (PRINIVIL) 5 mg tablet Take 1 tablet by mouth once daily. triamterene-hydrochlorothiazide (MAXZIDE-25) 37.5-25 mg per tablet Take 1 tablet by mouth once daily. naproxen (NAPROSYN) 500 mg tablet Take 1 tablet by mouth twice daily as needed (pain/inflammation, take with food.). lactobacillus acidophilus (ACIDOPHILUS) ORAL Cap Take one(1) tablet daily. COMPOUNDED PRESCRIPTION vitamin D3 1,000mg tab take one daily aspirin(ECOTRIN LOW STRENGTH 81 MG TAB) Take one(1) tablet daily. loratadine(CLARITIN 10 MG TAB) TAKE PRESCRIBED No current facility-administered medications on file prior to visit. Social History Social History Marital status: Single Spouse name: Years of education: HS + MANAGING PARTNER Number of children: Occupational History Occupation Employer Comment nursing supervisor painting* [employer] * Social History Main Topics Smoking status: Former Smoker Packs/day: 1.00 Years: 30.00 Types: Cigarettes, Pipe, Cigars Quit date: 05/24/2008 Smokeless tobacco: Never Used Alcohol use: Yes Comment: socially Drug use: No Sexual activity: No EXAM: BP 118/76 (BP Site: Left Arm, BP Position: Sitting, BP Cuff Size: Large Adult) Pulse 80 Resp 20 Wt 109.1 kg (240 lb 9.6 oz) BMI 42.62 kg/m? General Appearance: Well appearing, alert, in no acute distress, well-hydrated, well nourished., Obese. Lungs: Lungs clear to auscultation. No wheezing, rhonchi, rales. Heart: RRR without murmur, gallop, or rubs. No ectopy. Abdomen: Normal abdominal exam, Abdomen soft, minimal tenderness in RLQ. Bowel sounds normal. No masses, organomegaly. Health Maintenance List HEPATITIS C SCREENING due on 1993 COLORECTAL CANCER SCREENING,SEE MODIFIER due on 09/12/2018 MAMMOGRAM due on 11/29/2018 DIABETES SCREEN due on 12/07/2020 LIPID SCREEN due on 09/08/2021 DTAP,TDAP,TD(2 - Td) due on 09/08/2026 BONE DENSITY Completed ADULT PREVNAR-13 Completed INFLUENZA Completed PNEUMOVAX AGE 65 AND OVER WITH 5YR LOOKBACK Completed Data reviewed Office Visit on 03/04/2018 Component Date Value - Glucose, Urine 03/04/2018 neg - Bilirubin, Urine 03/04/2018 neg - Ketones, Urine 03/04/2018 neg - Specific [place], Ur 03/04/2018 1.010 - Hemoglobin/Blood,Ur 03/04/2018 non-hem trace - pH, Urine 03/04/2018 8.5* - Protein, Urine 03/04/2018 30 - Urobilinogen, Urine 03/04/2018 0.2 - Nitrites 03/04/2018 positive - Leukocytes 03/04/2018 moderate - Color/Appearance 03/04/2018 kimmy / cloudy - Quality Check 03/04/2018 Yes - Specimen Request 03/04/2018 Specimen received in preservative - Culture 03/04/2018 * Value:>=100,000 CFU/ml Escherichia coli Office Visit on 02/25/2018 Component Date Value - Glucose, Urine 02/25/2018 neg - Bilirubin, Urine 02/25/2018 neg - Ketones, Urine 02/25/2018 neg - Specific [place], Ur 02/25/2018 1.010 - Hemoglobin/Blood,Ur 02/25/2018 non-hem moderate - pH, Urine 02/25/2018 6.5 - Protein, Urine 02/25/2018 100 - Urobilinogen, Urine 02/25/2018 0.2 - Nitrites 02/25/2018 positive - Leukocytes 02/25/2018 moderate - Color/Appearance 02/25/2018 yellow / cloudy - Quality Check 02/25/2018 Yes - Specimen Request 02/25/2018 Specimen received in preservative - Culture 02/25/2018 * Value:>=100,000 CFU/ml Escherichia coli ASSESSMENT/PLAN: 1. Essential hypertension, benign - ICD9: 401.1, ICD10: I10 (primary diagnosis) - good control - Continue current medication(s) - Recommended regular aerobic exercise. - Recommend home blood pressure monitoring, to bring results in on next visit - Goal of BP <130/80 2. Recurrent major depressive disorder, in full remission (HCC) - ICD9: 296.36, ICD10: F33.42 Continue current medication regimen. 3. RLQ abdominal pain - ICD9: 789.03, ICD10: R10.31 - With current use of 2 abx may have irritated bowels. Monitor. 4. Urinary incontinence, unspecified type - ICD9: 788.30, ICD10: R32 - UA B/O and Culture 5. History of recurrent UTIs - ICD9: V13.02, ICD10: Z87.440 - UA B/O and Culture 6. Psoriasis - ICD9: 696.1, ICD10: L40.9 - Use of PRN Cream Follow up in 6 months. Zahraa Jacobson MD The documentation for this note was completed by Zaira Augustine Ma acting as scribe for Zahraa Jacobson MD. March 14, 2018 10:10 AM. CNOV Observed: 03/14/2018 Status: COMPLETED Source: [place] 10:00 AM [facility] REPOSITORY Office Visit (FAMPWS) VIANCA PEREZ ([id number]) 1950 F NFR Date Time Provider Department 03/14/18 10:00 AM [facility] During your visit today, we recorded the following information about you: Pulse Respiration Blood pressure Weight 80/minute 20/minute 118/76 109.1 kg Zahraa Jacobson MD 03/15/2018 2:22 PM Signed Chief Complaint Patient presents with: F/U 3 Month: DM, HTN and Depression HPI Vianca Perez is a 67 year old female who presents here today for a 3 mo f/u. HTN - Checks BP occasionally with BP ranging around the 113/60's. Denies any chest pain, sob or dizziness. Currently taking Lisinopril 5 mg 1 tab po once daily and Maxzide 37.5-25 mg 1 tab po once daily. Denies any SE or issues with medication. Depression - States that she is doing alright. Currently taking 2 tabs po at bedtime. Notes that her sleeping is not as well without the use of Nortriptyline but is ok due to her urine being back to normal. GERD - With medication, symptoms are controlled. Currently taking Ranitidine 300 mg 1 tab po once daily and daily Probiotic. XIE - No longer has headaches and has been d/c from Neurology. Notes that while being on Nortriptyline 25 mg 3 tabs once daily she did sleep well, but had a foul odor in urine when taking the medication. She was tapered off the dosage after talking with Neurology and odor disappeared. Does miss sleeping well, but sleep good enough. UTI - Has had 2 recurrent UTI's in the last couple week and was evaluated in Urgent Care. Was started on Macrobid then returned to and placed on Keflex. Notes symptoms have improved but does have RLQ tenderness. Completed Keflex yesterday. Past medical history, appointments, medications, allergies reviewed. Previous Medical History PAST MEDICAL HISTORY Diagnosis Date - Acute gastritis without mention of hemorrhage - Benign neoplasm of colon - Depressive disorder, not elsewhere classified - Essential hypertension, benign - Glaucoma - Iron deficiency anemia, unspecified - Malignant neoplasm of colon, unspecified site - Obesity, unspecified - Skin rash - Snoring - Stress headaches - Tobacco use disorder - Unspecified glaucoma(365.9) Glaucoma Previous Surgical History PAST SURGICAL HISTORY Procedure Laterality Date - APPENDECTOMY 1962 - DELIVERY ONLY , low cervical - COLONOS W/REM POLYP SNARE 01/22/09 - COLONOSCOPY 09/12/15 Repeat 3-5 years - EGD 01/22/09 - LAP COLECTMY W/ILEUM/ILEOCOL 02/19/09 RIGHT - LASER SURGERY OF EYE 2004 Glaucoma both eyes - REMOVAL GALLBLADDER 1977 Cholecystectomy - REMOVAL OF OMENTUM 03-08-09 - REMOVAL OF OVARY/TUBE(S) 1998 Salpingo-oophorectomy, bilat. - REMOVE TONSILS/ADENOIDS,<12 Y/O 1955 T/A (under age 11 years) - REVISE MEDIAN N/CARPAL TUNNEL SURG 1982 Carpal tunnel decomp Right - SELECTIVE LASER TRABECULOPLASTY (SLT) OS (LEFT EYE) 05/30/2017 - SPINAL FUSION,ANT,EA ADNL LEVEL 1982 C1-C2 - TOTAL ABDOM HYSTERECTOMY 1998 Hysterectomy, EMILY Family History FAMILY HISTORY Problem Relation Age of Onset - Diabetes Father - Diabetes Brother CABG 12/27 - Diabetes Maternal Grandmother - Diabetes Other cousin - Coronary Artery Disease Maternal Grandfather Patient Allergies ALLERGIES Allergen Reactions - Bee Sting Swelling Very red and swollen Current Medications Current Outpatient Prescriptions on File Prior to Visit: timolol maleate (TIMOPTIC) 0.5 % ophthalmic solution Use 1 Drop in both eyes twice daily. brimonidine (ALPHAGAN) 0.2 % ophthalmic solution Use 1 Drop in both eyes twice daily. latanoprost (XALATAN) 0.005 % ophthalmic solution Use 1 Drop in both eyes daily at bedtime. sertraline (ZOLOFT) 100 mg tablet Take 1 tablet by mouth twice daily. triamcinolone acetonide (KENALOG) 0.1 % ointment Apply 1 application to affected area twice daily. Chlorhexidine Gluconate (PERIDEX) 0.12 % solution Use 15 mL as instructed twice daily. potassium chloride ER (K-DUR, KLOR-CON) 10 mEq tablet Take 1 tablet by mouth once daily. Ranitidine HCl (ZANTAC) 300 mg tablet Take 1 tablet by mouth daily at bedtime. lisinopril (PRINIVIL) 5 mg tablet Take 1 tablet by mouth once daily. triamterene-hydrochlorothiazide (MAXZIDE-25) 37.5-25 mg per tablet Take 1 tablet by mouth once daily. naproxen (NAPROSYN) 500 mg tablet Take 1 tablet by mouth twice daily as needed (pain/inflammation, take with food.). lactobacillus acidophilus (ACIDOPHILUS) ORAL Cap Take one(1) tablet daily. COMPOUNDED PRESCRIPTION vitamin D3 1,000mg tab take one daily aspirin(ECOTRIN LOW STRENGTH 81 MG TAB) Take one(1) tablet daily. loratadine(CLARITIN 10 MG TAB) TAKE PRESCRIBED No current facility-administered medications on file prior to visit. Social History Social History Marital status: Single Spouse name: Years of education: HS + MANAGING PARTNER Number of children: Occupational History Occupation Employer Comment nursing supervisor painting* [employer] * Social History Main Topics Smoking status: Former Smoker Packs/day: 1.00 Years: 30.00 Types: Cigarettes, Pipe, Cigars Quit date: 05/24/2008 Smokeless tobacco: Never Used Alcohol use: Yes Comment: socially Drug use: No Sexual activity: No EXAM: BP 118/76 (BP Site: Left Arm, BP Position: Sitting, BP Cuff Size: Large Adult) Pulse 80 Resp 20 Wt 109.1 kg (240 lb 9.6 oz) BMI 42.62 kg/m? General Appearance: Well appearing, alert, in no acute distress, well-hydrated, well nourished., Obese. Lungs: Lungs clear to auscultation. No wheezing, rhonchi, rales. Heart: RRR without murmur, gallop, or rubs. No ectopy. Abdomen: Normal abdominal exam, Abdomen soft, minimal tenderness in RLQ. Bowel sounds normal. No masses, organomegaly. Health Maintenance List HEPATITIS C SCREENING due on 1993 COLORECTAL CANCER SCREENING,SEE MODIFIER due on 09/12/2018 MAMMOGRAM due on 11/29/2018 DIABETES SCREEN due on 12/07/2020 LIPID SCREEN due on 09/08/2021 DTAP,TDAP,TD(2 - Td) due on 09/08/2026 BONE DENSITY Completed ADULT PREVNAR-13 Completed INFLUENZA Completed PNEUMOVAX AGE 65 AND OVER WITH 5YR LOOKBACK Completed Data reviewed Office Visit on 03/04/2018 Component Date Value - Glucose, Urine 03/04/2018 neg - Bilirubin, Urine 03/04/2018 neg - Ketones, Urine 03/04/2018 neg - Specific [place], Ur 03/04/2018 1.010 - Hemoglobin/Blood,Ur 03/04/2018 non-hem trace - pH, Urine 03/04/2018 8.5* - Protein, Urine 03/04/2018 30 - Urobilinogen, Urine 03/04/2018 0.2 - Nitrites 03/04/2018 positive - Leukocytes 03/04/2018 moderate - Color/Appearance 03/04/2018 kimmy / cloudy - Quality Check 03/04/2018 Yes - Specimen Request 03/04/2018 Specimen received in preservative - Culture 03/04/2018 * Value:>=100,000 CFU/ml Escherichia coli Office Visit on 02/25/2018 Component Date Value - Glucose, Urine 02/25/2018 neg - Bilirubin, Urine 02/25/2018 neg - Ketones, Urine 02/25/2018 neg - Specific [place], Ur 02/25/2018 1.010 - Hemoglobin/Blood,Ur 02/25/2018 non-hem moderate - pH, Urine 02/25/2018 6.5 - Protein, Urine 02/25/2018 100 - Urobilinogen, Urine 02/25/2018 0.2 - Nitrites 02/25/2018 positive - Leukocytes 02/25/2018 moderate - Color/Appearance 02/25/2018 yellow / cloudy - Quality Check 02/25/2018 Yes - Specimen Request 02/25/2018 Specimen received in preservative - Culture 02/25/2018 * Value:>=100,000 CFU/ml Escherichia coli ASSESSMENT/PLAN: 1. Essential hypertension, benign - ICD9: 401.1, ICD10: I10 (primary diagnosis) - good control - Continue current medication(s) - Recommended regular aerobic exercise. - Recommend home blood pressure monitoring, to bring results in on next visit - Goal of BP <130/80 2. Recurrent major depressive disorder, in full remission (HCC) - ICD9: 296.36, ICD10: F33.42 Continue current medication regimen. 3. RLQ abdominal pain - ICD9: 789.03, ICD10: R10.31 - With current use of 2 abx may have irritated bowels. Monitor. 4. Urinary incontinence, unspecified type - ICD9: 788.30, ICD10: R32 - UA B/O and Culture 5. History of recurrent UTIs - ICD9: V13.02, ICD10: Z87.440 - UA B/O and Culture 6. Psoriasis - ICD9: 696.1, ICD10: L40.9 - Use of PRN Cream Follow up in 6 months. Zahraa Jacobson MD The documentation for this note was completed by Zaira Augustine Ma acting as scribe for Zahraa Jacobson MD. March 14, 2018 10:10 AM. Referring Provider: ZAHRAA JACOBSON [[id number]] Allergies As of Date: 03/14/2018 Noted Allergy Reaction BEE STING 07/01/2014 7 - Swelling Comments: Very red and swollen Date Reviewed: 03/14/2018 Reviewed by: Zaira Augustine Ma - Fully Assessed Reason for Visit: F/U 3 Month [443] Cmt: HTN and Depression Reason For Visit History Recorded Primary Visit Diagnosis:Essential hypertension, benign [I10] Other Visit Diagnoses:Recurrent major depressive disorder, in full remission (HCC) [F33.42] RLQ abdominal pain [R10.31] Urinary incontinence, unspecified type [R32] History of recurrent UTIs [Z87.440] Psoriasis [L40.9] Hyperlipidemia, unspecified hyperlipidemia type [E78.5] Order(s):calcium carbonate 600 mg-cholecalciferol 200 units (CALCIUM 600 WITH VITAMIN D3) 600 mg(1,500mg) -200 unit tabTake 1 tablet by mouth once daily.Disp: Rfl: URINE CULTURE [SQURCUL] Order #: [id number]. #:[id number] UA DIP B/O [[id number]] Order #: [id number] COMP METABOLIC PANEL [SQCMP] Order #: [id number] FUTURE LIPID PANEL BASIC [SQLIPB] Order #: [id number] FUTURE Prescriptions as of 03/14/2018 Sig: CALCIUM CARBONATE 600 MG (1,5* Take 1 tablet by mouth once d* TIMOLOL MALEATE 0.5 % EYE DONITA* Use 1 Drop in both eyes twice* BRIMONIDINE 0.2 % EYE DROPS Use 1 Drop in both eyes twice* LATANOPROST 0.005 % EYE DROPS Use 1 Drop in both eyes daily* SERTRALINE 100 MG TABLET Take 1 tablet by mouth twice * TRIAMCINOLONE ACETONIDE 0.1 %* Apply 1 application to affect* CHLORHEXIDINE GLUCONATE 0.12 * Use 15 mL as instructed twice* POTASSIUM CHLORIDE ER 10 MEQ * Take 1 tablet by mouth once d* RANITIDINE 300 MG TABLET Take 1 tablet by mouth daily * LISINOPRIL 5 MG TABLET Take 1 tablet by mouth once d* TRIAMTERENE 37.5 MG-HYDROCHLO* Take 1 tablet by mouth once d* NAPROXEN 500 MG TABLET Take 1 tablet by mouth twice * * LACTOBACILLUS ACIDOPHILUS CAP* Take one(1) tablet daily. * COMPOUNDED PRESCRIPTION vitamin D3 1,000mg tab take o* * ECOTRIN LOW STRENGTH 81 MG TA* Take one(1) tablet daily. * CLARITIN 10 MG TABLET TAKE PRESCRIBED Problem List As Of Date 03/14/2018 Noted Resolved BENIGN HYPERTENSION [I10] INVALID FOR* Morbid (severe) obesity due to excess calories *INVALID FOR* More... TOBACCO USE DISORDER [F17.200] INVALID FOR* Recurrent major depressive disorder (HCC) [F33.*INVALID FOR* SKIN LESION [L98.9] INVALID FOR*04/03/2007 HYPOPOTASSEMIA [E87.6] INVALID FOR* More... IRON DEFIC ANEMIA NOS [D50.9] INVALID FOR* Malignant neoplasm of colon (HCC) [C18.9] INVALID FOR* Benign neoplasm of colon [D12.6] INVALID FOR*10/13/2010 Vitamin D Deficiency [E55.9] INVALID FOR* Rectal bleeding [K62.5] INVALID FOR* Benign neoplasm of rectum and anal canal [D12.8*INVALID FOR* Benign neoplasm of colon [D12.6] INVALID FOR*06/09/2017 History of malignant neoplasm of large intestin*INVALID FOR* Psoriasis [L40.9] INVALID FOR* Personal history of colon cancer [Z85.038] INVALID FOR* History of colonic polyps [Z86.010] INVALID FOR* Age-related nuclear cataract, bilateral [H25.13]INVALID FOR* Vitreous floaters of both eyes [H43.393] INVALID FOR* Presbyopia [H52.4] INVALID FOR* Myopia [H52.10] INVALID FOR* Regular astigmatism [H52.229] INVALID FOR* Dermatochalasis of both upper eyelids [H02.831,*INVALID FOR* Primary open-angle glaucoma, bilateral, mild st*INVALID FOR* Optic disc cupping [H47.239] INVALID FOR* Hyperlipidemia [E78.5] INVALID FOR* Prescriptions ordered this encounter Disp Refills Start End CALCIUM CARBONATE 600 MG (1,500 MG)-* 03/14/2018 Class: Med Update Route: ORAL Sig: Take 1 tablet by mouth once daily. Cosign accepted by ZAHRAA JACOBSON MD[[id number]] on 03/14/2018 11:15 AM Medications Discontinued During This Encounter cephALEXin (KEFLEX) 500 mg capsule 20 c* 0 03/04/2018 03/14/2018 Route: ORAL Sig: Take 1 capsule by mouth twice daily for 10 days. Disc: Course of therapy completed calcium carbonate/vitamin d3(CALCIUM* 0 0 04/09/2008 03/14/2018 Route: ORAL Sig: Take one(1) tablet twice daily. Disc: Reason for discontinue is not on file. Disposition: Return in about 6 months (around 09/14/2018). Follow-up and Disposition History Recorded Encounter Status:Closed by ZAHRAA JACOBSON MD on 03/15/18 Observed: 03/04/2018 Status: F Source: [place] URINE CULTURE 10:38 AM [facility] REPOSITORY Sp. Request/Comment: - Specimen received in preservative Culture Result - >=100,000 CFU/ml Escherichia coli --> ABNORMAL ALERT ORGANISM: Escherichia coli METHOD: Minimum inhibitory concentration(Vitek) Antibiotic Interp SPRING Status Ampicillin SUSCEPTIBLE 4 F Gentamicin SUSCEPTIBLE <=1 F Trimeth sulfameth SUSCEPTIBLE <=20 F Cefazolin SUSCEPTIBLE <=4 F CLSI breakpoints for therapy of uncomplicated UTI's due to E.coli, K.pneumoniae, and P.mirabilis were applied and may be used to predict the activity of oral agents(cefaclor, cefdinir, cefpodoxime, cefp rozil, cefuroxime, cephalexin, loracarbef). Ciprofloxacin SUSCEPTIBLE <=0.25 F Nitrofurantoin INTERMEDIATE 64 F Cefepime SUSCEPTIBLE <=1 F Piperacillin/Tazobac SUSCEPTIBLE <=4 F Ampicillin Sulbact SUSCEPTIBLE <=2 F Ceftriaxone SUSCEPTIBLE <=1 F Meropenem SUSCEPTIBLE <=0.25 F Ertapenem SUSCEPTIBLE <=0.5 F Performed By: #### URCUL #### [facility] [address] [place] [id number] PROGRESS Observed: 03/04/2018 Status: COMPLETED Source: [place] 10:30 AM [facility] [place] REPOSITORY HNO ID: [id number] Author: Catherine Perez (Clinical Sciences Professor) Service: (none) Author Type: Nurse Practitioner Type: Progress Notes Filed: 03/04/2018 11:13 AM Note Text: Subjective HPI Vianca Perez is a 67 year old female who presents with dysuria, urgency, and frequency, she was seen here on February 25 and treated for UTI with Macrobid. She felt better for a few days but near the end of the antibiotic started feeling symptomatic. She denies back pain or abdominal pain. No fever. Review of Systems Constitutional: Positive for malaise/fatigue. Negative for chills and fever. Gastrointestinal: Positive for nausea. Negative for abdominal pain and vomiting. Genitourinary: Positive for dysuria, frequency and urgency. Negative for flank pain and hematuria. Musculoskeletal: Negative for back pain. Neurological: Negative for headaches. BP 130/84 Pulse 80 Temp 36.6 ?C (97.9 ?F) (Tympanic) Resp 18 Wt 110 kg (242 lb 6.4 oz) BMI 42.94 kg/m? PAST MEDICAL HISTORY Diagnosis Date - Acute gastritis without mention of hemorrhage - Benign neoplasm of colon - Depressive disorder, not elsewhere classified - Essential hypertension, benign - Glaucoma - Iron deficiency anemia, unspecified - Malignant neoplasm of colon, unspecified site - Obesity, unspecified - Skin rash - Snoring - Stress headaches - Tobacco use disorder - Unspecified glaucoma(365.9) Glaucoma PAST SURGICAL HISTORY Procedure Laterality Date - APPENDECTOMY 1962 - DELIVERY ONLY , low cervical - COLONOS W/REM POLYP SNARE 01/22/09 - COLONOSCOPY 09/12/15 Repeat 3-5 years - EGD 01/22/09 - LAP COLECTMY W/ILEUM/ILEOCOL 02/19/09 RIGHT - LASER SURGERY OF EYE 2004 Glaucoma both eyes - REMOVAL GALLBLADDER 1977 Cholecystectomy - REMOVAL OF OMENTUM 03-08-09 - REMOVAL OF OVARY/TUBE(S) 1998 Salpingo-oophorectomy, bilat. - REMOVE TONSILS/ADENOIDS,<12 Y/O 1955 T/A (under age 11 years) - REVISE MEDIAN N/CARPAL TUNNEL SURG 1982 Carpal tunnel decomp Right - SELECTIVE LASER TRABECULOPLASTY (SLT) OS (LEFT EYE) 05/30/2017 - SPINAL FUSION,ANT,EA ADNL LEVEL 1982 C1-C2 - TOTAL ABDOM HYSTERECTOMY 1998 Hysterectomy, EMILY ALLERGIES Bee Sting MEDICATIONS nitrofurantoin monohydrate and macrocrystal (MACROBID) 100 mg capsule Take 1 capsule by mouth twice daily with meals for 7 days. timolol maleate (TIMOPTIC) 0.5 % ophthalmic solution Use 1 Drop in both eyes twice daily. brimonidine (ALPHAGAN) 0.2 % ophthalmic solution Use 1 Drop in both eyes twice daily. latanoprost (XALATAN) 0.005 % ophthalmic solution Use 1 Drop in both eyes daily at bedtime. sertraline (ZOLOFT) 100 mg tablet Take 1 tablet by mouth twice daily. triamcinolone acetonide (KENALOG) 0.1 % ointment Apply 1 application to affected area twice daily. Chlorhexidine Gluconate (PERIDEX) 0.12 % solution Use 15 mL as instructed twice daily. potassium chloride ER (K-DUR, KLOR-CON) 10 mEq tablet Take 1 tablet by mouth once daily. Ranitidine HCl (ZANTAC) 300 mg tablet Take 1 tablet by mouth daily at bedtime. lisinopril (PRINIVIL) 5 mg tablet Take 1 tablet by mouth once daily. triamterene-hydrochlorothiazide (MAXZIDE-25) 37.5-25 mg per tablet Take 1 tablet by mouth once daily. naproxen (NAPROSYN) 500 mg tablet Take 1 tablet by mouth twice daily as needed (pain/inflammation, take with food.). lactobacillus acidophilus (ACIDOPHILUS) ORAL Cap Take one(1) tablet daily. COMPOUNDED PRESCRIPTION vitamin D3 1,000mg tab take one daily aspirin(ECOTRIN LOW STRENGTH 81 MG TAB) Take one(1) tablet daily. loratadine(CLARITIN 10 MG TAB) TAKE PRESCRIBED calcium carbonate/vitamin d3(CALCIUM 600 WITH VITAMIN D3 600 MG (1,500)-200 UNIT TAB) Take one(1) tablet twice daily. FAMILY HISTORY Problem Relation Age of Onset - Diabetes Father - Diabetes Brother CABG 12/27 - Diabetes Maternal Grandmother - Diabetes Other cousin - Coronary Artery Disease Maternal Grandfather Social History Substance Use Topics - Smoking status: Former Smoker Packs/day: 1.00 Years: 30.00 Types: Cigarettes, Pipe, Cigars Quit date: 05/24/2008 - Smokeless tobacco: Never Used - Alcohol use Yes Comment: socially Objective Physical Exam Constitutional: She is well-developed, well-nourished, and in no distress. Cardiovascular: Normal rate. Pulmonary/Chest: Effort normal. Abdominal: Complains of suprapubic tenderness Nursing note and vitals reviewed. ASSESSMENT/PLAN: 1. Burning with urination - ICD9: 788.1, ICD10: R30.0 (primary diagnosis) recurrent - UA positive for mario esterase, hematuria, proteinuria and nitrates - Send urine for culture - Begin treatment with cephalexin for 10 days - Patient education for prevention given - UA DIP B/O - URINE CULTURE 2. Acute cystitis with hematuria - ICD9: 595.0, ICD10: N30.01 - CEPHALEXIN 500 MG CAPSULE - Follow-up with your PCP in 3-5 days if symptoms have not improved or sooner if symptoms worsen - Discussed red flags and need for immediate medical evaluation if any occur. - Discussed supportive care treatment with fluids, rest and analgesia. - Discussed expected course of illness Catherine Perez APRN.[facility] Observed: 03/04/2018 Status: COMPLETED Source: [place] 10:15 AM [facility] REPOSITORY Office Visit ([facility]STR) VIANCA PREEZ ([id number]) 1950 F NFR Date Time Provider Department 03/04/18 10:15 AM CATHERINE PEREZ ([facility]) [facility] During your visit today, we recorded the following information about you: Temperature Pulse Respiration Blood pressure 97.9 degrees 80/minute 18/minute 130/84 Weight 110 kg Catherine Perez (Clinical Sciences Professor) 03/04/2018 11:13 AM Signed Subjective HPI Vianca Perez is a 67 year old female who presents with dysuria, urgency, and frequency, she was seen here on February 25 and treated for UTI with Macrobid. She felt better for a few days but near the end of the antibiotic started feeling symptomatic. She denies back pain or abdominal pain. No fever. Review of Systems Constitutional: Positive for malaise/fatigue. Negative for chills and fever. Gastrointestinal: Positive for nausea. Negative for abdominal pain and vomiting. Genitourinary: Positive for dysuria, frequency and urgency. Negative for flank pain and hematuria. Musculoskeletal: Negative for back pain. Neurological: Negative for headaches. BP 130/84 Pulse 80 Temp 36.6 ?C (97.9 ?F) (Tympanic) Resp 18 Wt 110 kg (242 lb 6.4 oz) BMI 42.94 kg/m? PAST MEDICAL HISTORY Diagnosis Date - Acute gastritis without mention of hemorrhage - Benign neoplasm of colon - Depressive disorder, not elsewhere classified - Essential hypertension, benign - Glaucoma - Iron deficiency anemia, unspecified - Malignant neoplasm of colon, unspecified site - Obesity, unspecified - Skin rash - Snoring - Stress headaches - Tobacco use disorder - Unspecified glaucoma(365.9) Glaucoma PAST SURGICAL HISTORY Procedure Laterality Date - APPENDECTOMY 1962 - DELIVERY ONLY , low cervical - COLONOS W/REM POLYP SNARE 01/22/09 - COLONOSCOPY 09/12/15 Repeat 3-5 years - EGD 01/22/09 - LAP COLECTMY W/ILEUM/ILEOCOL 02/19/09 RIGHT - LASER SURGERY OF EYE 2004 Glaucoma both eyes - REMOVAL GALLBLADDER 1977 Cholecystectomy - REMOVAL OF OMENTUM 03-08-09 - REMOVAL OF OVARY/TUBE(S) 1998 Salpingo-oophorectomy, bilat. - REMOVE TONSILS/ADENOIDS,<11 Y/O 1955 T/A (under age 11 years) - REVISE MEDIAN N/CARPAL TUNNEL SURG 1982 Carpal tunnel decomp Right - SELECTIVE LASER TRABECULOPLASTY (SLT) OS (LEFT EYE) 05/30/2017 - SPINAL FUSION,ANT,EA ADNL LEVEL 1982 C1-C2 - TOTAL ABDOM HYSTERECTOMY 1998 Hysterectomy, EMILY ALLERGIES Bee Sting MEDICATIONS nitrofurantoin monohydrate and macrocrystal (MACROBID) 100 mg capsule Take 1 capsule by mouth twice daily with meals for 7 days. timolol maleate (TIMOPTIC) 0.5 % ophthalmic solution Use 1 Drop in both eyes twice daily. brimonidine (ALPHAGAN) 0.2 % ophthalmic solution Use 1 Drop in both eyes twice daily. latanoprost (XALATAN) 0.005 % ophthalmic solution Use 1 Drop in both eyes daily at bedtime. sertraline (ZOLOFT) 100 mg tablet Take 1 tablet by mouth twice daily. triamcinolone acetonide (KENALOG) 0.1 % ointment Apply 1 application to affected area twice daily. Chlorhexidine Gluconate (PERIDEX) 0.12 % solution Use 15 mL as instructed twice daily. potassium chloride ER (K-DUR, KLOR-CON) 10 mEq tablet Take 1 tablet by mouth once daily. Ranitidine HCl (ZANTAC) 300 mg tablet Take 1 tablet by mouth daily at bedtime. lisinopril (PRINIVIL) 5 mg tablet Take 1 tablet by mouth once daily. triamterene-hydrochlorothiazide (MAXZIDE-25) 37.5-25 mg per tablet Take 1 tablet by mouth once daily. naproxen (NAPROSYN) 500 mg tablet Take 1 tablet by mouth twice daily as needed (pain/inflammation, take with food.). lactobacillus acidophilus (ACIDOPHILUS) ORAL Cap Take one(1) tablet daily. COMPOUNDED PRESCRIPTION vitamin D3 1,000mg tab take one daily aspirin(ECOTRIN LOW STRENGTH 81 MG TAB) Take one(1) tablet daily. loratadine(CLARITIN 10 MG TAB) TAKE PRESCRIBED calcium carbonate/vitamin d3(CALCIUM 600 WITH VITAMIN D3 600 MG (1,500)-200 UNIT TAB) Take one(1) tablet twice daily. FAMILY HISTORY Problem Relation Age of Onset - Diabetes Father - Diabetes Brother CABG 12/27 - Diabetes Maternal Grandmother - Diabetes Other cousin - Coronary Artery Disease Maternal Grandfather Social History Substance Use Topics - Smoking status: Former Smoker Packs/day: 1.00 Years: 30.00 Types: Cigarettes, Pipe, Cigars Quit date: 05/24/2008 - Smokeless tobacco: Never Used - Alcohol use Yes Comment: socially Objective Physical Exam Constitutional: She is well-developed, well-nourished, and in no distress. Cardiovascular: Normal rate. Pulmonary/Chest: Effort normal. Abdominal: Complains of suprapubic tenderness Nursing note and vitals reviewed. ASSESSMENT/PLAN: 1. Burning with urination - ICD9: 788.1, ICD10: R30.0 (primary diagnosis) recurrent - UA positive for mario esterase, hematuria, proteinuria and nitrates - Send urine for culture - Begin treatment with cephalexin for 10 days - Patient education for prevention given - UA DIP B/O - URINE CULTURE 2. Acute cystitis with hematuria - ICD9: 595.0, ICD10: N30.01 - CEPHALEXIN 500 MG CAPSULE - Follow-up with your PCP in 3-5 days if symptoms have not improved or sooner if symptoms worsen - Discussed red flags and need for immediate medical evaluation if any occur. - Discussed supportive care treatment with fluids, rest and analgesia. - Discussed expected course of illness Catherine Perez APRN.[facility] Catherine Perez ([facility]) 03/04/2018 10:39 AM Signed [facility] PATIENT INFO BLADDER INFECTION OVERVIEW Bladder infections are one of the most common infections, causing symptoms of burning with urination and needing to urinate frequently. A bladder infection is a type of urinary tract infection (UTI). Bladder infections are more common is women than men. Most women have an uncomplicated bladder infection that is easily treated with a short course of antibiotics. In men, bladder infections may also affect the prostate gland, and a longer course of treatment may be needed. BLADDER INFECTION CAUSES The urinary tract includes the kidneys (which filter urine), ureters (the tube that carries urine from the kidneys to the bladder), the bladder (which stores urine), and urethra (the tube that carries urine out of the bladder). Bacteria do not normally live in these areas. However, bacteria normally live close to the urethra in women and men who are not circumcised. Bladder infections occur when bacteria travel up the urethra into the bladder. Factors that increase the risk of developing a bladder infection include: ? Vaginal sex ? Use of spermicides ? History of past bladder infections ? Diabetes In men, not being circumcised or having anal sex increase the risk of bladder infections. BLADDER INFECTION SYMPTOMS The typical symptoms of a bladder infection include: ? Pain or burning when urinating ? Frequent need to urinate ? Urgent need to urinate ? Blood in the urine Fever, back pain, nausea, or vomiting are not common symptoms of a bladder infection, but can occur in people with a kidney infection (pyelonephritis). If you have these symptoms, you should call your doctor or nurse immediately. Is it a bladder infection or something else? ? Burning with urination can also occur in people with vaginitis (eg, yeast infection) or urethritis (inflammation of the urethra). For this reason, it is important to call your healthcare provider before assuming you have a bladder infection. BLADDER INFECTION DIAGNOSIS Simple bladder infections are usually diagnosed based upon your symptoms alone. However, most patients, especially those who have bladder infection symptoms for the first time, should see a healthcare provider for urine testing. Urine culture ? A urine culture is a test that uses a sample of urine to try and grow bacteria in a laboratory. It usually requires about 48 hours to get results. However, a urine culture is not always required to diagnose a bladder infection. Urine culture is often recommended if: ? You have never had a bladder infection before ? You have symptoms that are not typical for bladder infection ? You have had resistant bladder infections before ? You have frequent bladder infections ? You do not begin to feel better within 24 to 48 hours after starting antibiotics ? You are BLADDER INFECTION TREATMENT Bladder infection ? In young, healthy adolescents and adults with a bladder infection, the usual treatment includes a three to seven day course of antibiotics. The typical drugs chosen are: trimethoprim-sulfamethoxazole (Bactrim?), nitrofurantoin (Macrobid?), ciprofloxacin (Cipro?) or levofloxacin (Levaquin?). In men, the infection may involve your prostate gland and treatment is usually given for at least 7 days. Your symptoms should begin to resolve within one day after starting treatment. It is important to take the full course of antibiotics to completely eliminate the infection. If your symptoms persist for more than two or three days after starting treatment, call your healthcare provider. If needed, you can take a prescription medication that numbs the bladder and urethra (phenazopyridine [Pyridium?]) to reduce the burning pain of some UTIs. A similar medication is available without a prescription (eg, Uristat). Both medications change the color of the urine (usually blue or orange) and can interfere with laboratory testing. You should not take these medications for more than 48 hours due to the risk of side effects. These medications do not treat the infection and must be taken along with an antibiotic. Some providers recommend drinking more fluids while treating bladder infections to help flush bacteria from the bladder. Others believe that drinking more fluids may dilute the antibiotic in the bladder and make the medication less effective. No studies have been performed to address this issue. There are also no good studies on the effectiveness of cranberry juice for treating a bladder infection; we do not recommend using cranberry juice to treat bladder infections. Follow-up care ? Follow-up testing is not needed in healthy, young men or women with a bladder infection if symptoms resolve. women are usually asked to have a repeat urine culture one to two weeks after treatment has ended to make sure the bacteria are no longer in the urine. RECURRENT BLADDER INFECTIONS Bladder infections versus other causes ? Some adults, especially women, develop bladder infections frequently. In this case, it is important to confirm that your symptoms (eg, pain or burning, frequency, and urgency) are caused by a bladder infection. Symptoms are usually similar from one infection to another. The best way to confirm an infection is to have a urine culture. If your urine culture is negative for infection, other causes of pain, burning, and frequency should be investigated. There is no reason to take antibiotics if your urine culture is negative. Need for further testing ? If you continue to develop bladder infections, you may require further testing. If you continue to notice blood in your urine after your bladder infection has cleared, you should have further testing. Preventing recurrent UTIs ? Women with recurrent urinary tract infections may be advised to take steps to prevent bladder infections, including one or more of the following: Changes in control ? Women who develop frequent bladder infections and use spermicides, particularly those who also use a diaphragm, may be encouraged to use an alternate method of control. Cranberry products ? Taking cranberry juice or cranberry tablets has been promoted as one way to help prevent frequent bladder infections. However, this has not been proven. Drinking more fluid and urinating after intercourse ? Although studies have not proven that drinking more fluids or urinating soon after intercourse can prevent infection, some healthcare providers recommend these measures since they are not harmful. Drinking more fluid may help to wash out bacteria that enter the bladder. Postmenopausal women ? Postmenopausal women who develop recurrent bladder infections may benefit from using vaginal estrogen. Vaginal estrogen is available in a flexible ring that is worn in the vagina for three months (eg, Estring?), a small tablet (Vagifem?), or a cream (eg, Premarin? or Estrace?). Vaginal estrogen is discussed in more detail in a separate topic review. Antibiotics ? A preventive antibiotic treatment may be recommended if you repeatedly develop bladder infections and have not responded to other preventive measures. Antibiotics are highly effective in preventing recurrent bladder infections and can be taken in several different ways. ? Preventive antibiotic ? You can take a low dose of an antibiotic once per day or three times per week for six months to several years. ? Antibiotics following intercourse ? In women who develop urinary tract infections after sex, taking a single low dose antibiotic after intercourse can help to prevent bladder infections. ? Self-treatment ? A plan to begin antibiotics at the first sign of a bladder infection may be recommended in some situations. Before starting this regimen, it is important that you have had testing (urine cultures) to confirm that your symptoms are caused by a bladder infection; some people have symptoms of a bladder infection but do not actually have an infection. Referring Provider: SELF [[id number]] Allergies As of Date: 03/04/2018 Noted Allergy Reaction BEE STING 07/01/2014 7 - Swelling Comments: Very red and swollen Date Reviewed: 03/04/2018 Reviewed by: Catherine Perez ([facility]) - Fully Assessed Reason for Visit: burning, urgency and frequency with urination [Other] Cmt: x 2 weeks-started getting better and now symptoms are returning and bladder feels tender Primary Visit Diagnosis:Burning with urination [R30.0] Other Visit Diagnosis:Acute cystitis with hematuria [N30.01] Order(s):UA DIP B/O [[id number]] Order #: [id number] URINE CULTURE [SQURCUL] Order #: [id number] cephALEXin (KEFLEX) 500 mg capsuleTake 1 capsule by mouth twice daily for 10 days.Disp: 20 capsuleRfl: 0 Prescriptions as of 03/04/2018 Sig: TIMOLOL MALEATE 0.5 % EYE DONITA* Use 1 Drop in both eyes twice* BRIMONIDINE 0.2 % EYE DROPS Use 1 Drop in both eyes twice* LATANOPROST 0.005 % EYE DROPS Use 1 Drop in both eyes daily* SERTRALINE 100 MG TABLET Take 1 tablet by mouth twice * TRIAMCINOLONE ACETONIDE 0.1 %* Apply 1 application to affect* CHLORHEXIDINE GLUCONATE 0.12 * Use 15 mL as instructed twice* POTASSIUM CHLORIDE ER 10 MEQ * Take 1 tablet by mouth once d* RANITIDINE 300 MG TABLET Take 1 tablet by mouth daily * LISINOPRIL 5 MG TABLET Take 1 tablet by mouth once d* TRIAMTERENE 37.5 MG-HYDROCHLO* Take 1 tablet by mouth once d* NAPROXEN 500 MG TABLET Take 1 tablet by mouth twice * * LACTOBACILLUS ACIDOPHILUS CAP* Take one(1) tablet daily. * COMPOUNDED PRESCRIPTION vitamin D3 1,000mg tab take o* * ECOTRIN LOW STRENGTH 81 MG TA* Take one(1) tablet daily. * CLARITIN 10 MG TABLET TAKE PRESCRIBED * CALCIUM 600 WITH VITAMIN D3 6* Take one(1) tablet twice clifton* CEPHALEXIN 500 MG CAPSULE Take 1 capsule by mouth twice* Problem List As Of Date 03/04/2018 Noted Resolved BENIGN HYPERTENSION [I10] INVALID FOR* Morbid (severe) obesity due to excess calories *INVALID FOR* More... TOBACCO USE DISORDER [F17.200] INVALID FOR* Recurrent major depressive disorder (HCC) [F33.*INVALID FOR* SKIN LESION [L98.9] INVALID FOR*04/03/2007 HYPOPOTASSEMIA [E87.6] INVALID FOR* More... IRON DEFIC ANEMIA NOS [D50.9] INVALID FOR* Malignant neoplasm of colon (HCC) [C18.9] INVALID FOR* Benign neoplasm of colon [D12.6] INVALID FOR*10/13/2010 Vitamin D Deficiency [E55.9] INVALID FOR* Rectal bleeding [K62.5] INVALID FOR* Benign neoplasm of rectum and anal canal [D12.8*INVALID FOR* Benign neoplasm of colon [D12.6] INVALID FOR*06/09/2017 History of malignant neoplasm of large intestin*INVALID FOR* Psoriasis [L40.9] INVALID FOR* Personal history of colon cancer [Z85.038] INVALID FOR* History of colonic polyps [Z86.010] INVALID FOR* Age-related nuclear cataract, bilateral [H25.13]INVALID FOR* Vitreous floaters of both eyes [H43.393] INVALID FOR* Presbyopia [H52.4] INVALID FOR* Myopia [H52.10] INVALID FOR* Regular astigmatism [H52.229] INVALID FOR* Dermatochalasis of both upper eyelids [H02.831,*INVALID FOR* Primary open-angle glaucoma, bilateral, mild st*INVALID FOR* Optic disc cupping [H47.239] INVALID FOR* Hyperlipidemia [E78.5] INVALID FOR* Other instructions from your clinician: EXPRESS CARE PATIENT INFO BLADDER INFECTION OVERVIEW Bladder infections are one of the most common infections, causing symptoms of burning with urination and needing to urinate frequently. A bladder infection is a type of urinary tract infection (UTI). Bladder infections are more common is women than men. Most women have an uncomplicated bladder infection that is easily treated with a short course of antibiotics. In men, bladder infections may also affect the prostate gland, and a longer course of treatment may be needed. BLADDER INFECTION CAUSES The urinary tract includes the kidneys (which filter urine), ureters (the tube that carries urine from the kidneys to the bladder), the bladder (which stores urine), and urethra (the tube that carries urine out of the bladder). Bacteria do not normally live in these areas. However, bacteria normally live close to the urethra in women and men who are not circumcised. Bladder infections occur when bacteria travel up the urethra into the bladder. Factors that increase the risk of developing a bladder infection include: ? Vaginal sex ? Use of spermicides ? History of past bladder infections ? Diabetes In men, not being circumcised or having anal sex increase the risk of bladder infections. BLADDER INFECTION SYMPTOMS The typical symptoms of a bladder infection include: ? Pain or burning when urinating ? Frequent need to urinate ? Urgent need to urinate ? Blood in the urine Fever, back pain, nausea, or vomiting are not common symptoms of a bladder infection, but can occur in people with a kidney infection (pyelonephritis). If you have these symptoms, you should call your doctor or nurse immediately. Is it a bladder infection or something else? ? Burning with urination can also occur in people with vaginitis (eg, yeast infection) or urethritis (inflammation of the urethra). For this reason, it is important to call your healthcare provider before assuming you have a bladder infection. BLADDER INFECTION DIAGNOSIS Simple bladder infections are usually diagnosed based upon your symptoms alone. However, most patients, especially those who have bladder infection symptoms for the first time, should see a healthcare provider for urine testing. Urine culture ? A urine culture is a test that uses a sample of urine to try and grow bacteria in a laboratory. It usually requires about 48 hours to get results. However, a urine culture is not always required to diagnose a bladder infection. Urine culture is often recommended if: ? You have never had a bladder infection before ? You have symptoms that are not typical for bladder infection ? You have had resistant bladder infections before ? You have frequent bladder infections ? You do not begin to feel better within 24 to 48 hours after starting antibiotics ? You are BLADDER INFECTION TREATMENT Bladder infection ? In young, healthy adolescents and adults with a bladder infection, the usual treatment includes a three to seven day course of antibiotics. The typical drugs chosen are: trimethoprim-sulfamethoxazole (Bactrim?), nitrofurantoin (Macrobid?), ciprofloxacin (Cipro?) or levofloxacin (Levaquin?). In men, the infection may involve your prostate gland and treatment is usually given for at least 7 days. Your symptoms should begin to resolve within one day after starting treatment. It is important to take the full course of antibiotics to completely eliminate the infection. If your symptoms persist for more than two or three days after starting treatment, call your healthcare provider. If needed, you can take a prescription medication that numbs the bladder and urethra (phenazopyridine [Pyridium?]) to reduce the burning pain of some UTIs. A similar medication is available without a prescription (eg, Uristat). Both medications change the color of the urine (usually blue or orange) and can interfere with laboratory testing. You should not take these medications for more than 48 hours due to the risk of side effects. These medications do not treat the infection and must be taken along with an antibiotic. Some providers recommend drinking more fluids while treating bladder infections to help flush bacteria from the bladder. Others believe that drinking more fluids may dilute the antibiotic in the bladder and make the medication less effective. No studies have been performed to address this issue. There are also no good studies on the effectiveness of cranberry juice for treating a bladder infection; we do not recommend using cranberry juice to treat bladder infections. Follow-up care ? Follow-up testing is not needed in healthy, young men or women with a bladder infection if symptoms resolve. women are usually asked to have a repeat urine culture one to two weeks after treatment has ended to make sure the bacteria are no longer in the urine. RECURRENT BLADDER INFECTIONS Bladder infections versus other causes ? Some adults, especially women, develop bladder infections frequently. In this case, it is important to confirm that your symptoms (eg, pain or burning, frequency, and urgency) are caused by a bladder infection. Symptoms are usually similar from one infection to another. The best way to confirm an infection is to have a urine culture. If your urine culture is negative for infection, other causes of pain, burning, and frequency should be investigated. There is no reason to take antibiotics if your urine culture is negative. Need for further testing ? If you continue to develop bladder infections, you may require further testing. If you continue to notice blood in your urine after your bladder infection has cleared, you should have further testing. Preventing recurrent UTIs ? Women with recurrent urinary tract infections may be advised to take steps to prevent bladder infections, including one or more of the following: Changes in control ? Women who develop frequent bladder infections and use spermicides, particularly those who also use a diaphragm, may be encouraged to use an alternate method of control. Cranberry products ? Taking cranberry juice or cranberry tablets has been promoted as one way to help prevent frequent bladder infections. However, this has not been proven. Drinking more fluid and urinating after intercourse ? Although studies have not proven that drinking more fluids or urinating soon after intercourse can prevent infection, some healthcare providers recommend these measures since they are not harmful. Drinking more fluid may help to wash out bacteria that enter the bladder. Postmenopausal women ? Postmenopausal women who develop recurrent bladder infections may benefit from using vaginal estrogen. Vaginal estrogen is available in a flexible ring that is worn in the vagina for three months (eg, Estring?), a small tablet (Vagifem?), or a cream (eg, Premarin? or Estrace?). Vaginal estrogen is discussed in more detail in a separate topic review. Antibiotics ? A preventive antibiotic treatment may be recommended if you repeatedly develop bladder infections and have not responded to other preventive measures. Antibiotics are highly effective in preventing recurrent bladder infections and can be taken in several different ways. ? Preventive antibiotic ? You can take a low dose of an antibiotic once per day or three times per week for six months to several years. ? Antibiotics following intercourse ? In women who develop urinary tract infections after sex, taking a single low dose antibiotic after intercourse can help to prevent bladder infections. ? Self-treatment ? A plan to begin antibiotics at the first sign of a bladder infection may be recommended in some situations. Before starting this regimen, it is important that you have had testing (urine cultures) to confirm that your symptoms are caused by a bladder infection; some people have symptoms of a bladder infection but do not actually have an infection. Prescriptions ordered this encounter Disp Refills Start End CEPHALEXIN 500 MG CAPSULE 20 c* 0 03/04/2018 03/14/2018 Route: ORAL Sig: Take 1 capsule by mouth twice daily for 10 days. Medications Discontinued During This Encounter nitrofurantoin monohydrate and macro* 14 c* 0 02/25/2018 03/04/2018 Route: ORAL Sig: Take 1 capsule by mouth twice daily with meals for 7 days. Disc: Reason for discontinue is not on file. Encounter Status:Closed by CATHERINE PEREZ on 03/04/18 PROGRESS Observed: 02/25/2018 Status: COMPLETED Source: [place] 12:34 PM [facility] [place] REPOSITORY O ID: [id number] Author: Luisa Beverly Service: (none) Author Type: Nurse Practitioner Type: Progress Notes Filed: 02/25/2018 12:36 PM Note Text: Subjective HPI Pt presents with c/o urinary frequency, urgency and dysuria x 6-7 days. Denies fever, chills, abd/flank/back pain. Review of Systems Constitutional: Negative for chills and fever. Gastrointestinal: Negative for abdominal pain, constipation, diarrhea, nausea and vomiting. Genitourinary: Positive for dysuria, frequency and urgency. Negative for flank pain and hematuria. Musculoskeletal: Negative for back pain and myalgias. Objective Physical Exam Constitutional: She is oriented to person, place, and time and well-developed, well-nourished, and in no distress. No distress. Abdominal: There is no CVA tenderness. Neurological: She is alert and oriented to person, place, and time. Skin: Skin is warm and dry. She is not diaphoretic. BP 126/82 Pulse 76 Temp 36.3 ?C (97.4 ?F) (Tympanic) Resp 18 Wt 108.1 kg (238 lb 6.4 oz) BMI 42.23 kg/m? .Patient presents with: burning, urgency and frequency with urination: x 1 week PAST MEDICAL HISTORY Diagnosis Date - Acute gastritis without mention of hemorrhage - Benign neoplasm of colon - Depressive disorder, not elsewhere classified - Essential hypertension, benign - Glaucoma - Iron deficiency anemia, unspecified - Malignant neoplasm of colon, unspecified site - Obesity, unspecified - Skin rash - Snoring - Stress headaches - Tobacco use disorder - Unspecified glaucoma(365.9) Glaucoma PAST SURGICAL HISTORY Procedure Laterality Date - APPENDECTOMY 1962 - DELIVERY ONLY , low cervical - COLONOS W/REM POLYP SNARE 01/22/09 - COLONOSCOPY 09/12/15 Repeat 3-5 years - EGD 01/22/09 - LAP COLECTMY W/ILEUM/ILEOCOL 02/19/09 RIGHT - LASER SURGERY OF EYE 2004 Glaucoma both eyes - REMOVAL GALLBLADDER 1977 Cholecystectomy - REMOVAL OF OMENTUM 03-08-09 - REMOVAL OF OVARY/TUBE(S) 1998 Salpingo-oophorectomy, bilat. - REMOVE TONSILS/ADENOIDS,<11 Y/O 1955 T/A (under age 11 years) - REVISE MEDIAN N/CARPAL TUNNEL SURG 1982 Carpal tunnel decomp Right - SELECTIVE LASER TRABECULOPLASTY (SLT) OS (LEFT EYE) 05/30/2017 - SPINAL FUSION,ANT,EA ADNL LEVEL 1982 C1-C2 - TOTAL ABDOM HYSTERECTOMY 1998 Hysterectomy, EMILY ALLERGIES Bee Sting MEDICATIONS timolol maleate (TIMOPTIC) 0.5 % ophthalmic solution Use 1 Drop in both eyes twice daily. brimonidine (ALPHAGAN) 0.2 % ophthalmic solution Use 1 Drop in both eyes twice daily. latanoprost (XALATAN) 0.005 % ophthalmic solution Use 1 Drop in both eyes daily at bedtime. sertraline (ZOLOFT) 100 mg tablet Take 1 tablet by mouth twice daily. triamcinolone acetonide (KENALOG) 0.1 % ointment Apply 1 application to affected area twice daily. Chlorhexidine Gluconate (PERIDEX) 0.12 % solution Use 15 mL as instructed twice daily. potassium chloride ER (K-DUR, KLOR-CON) 10 mEq tablet Take 1 tablet by mouth once daily. Ranitidine HCl (ZANTAC) 300 mg tablet Take 1 tablet by mouth daily at bedtime. lisinopril (PRINIVIL) 5 mg tablet Take 1 tablet by mouth once daily. triamterene-hydrochlorothiazide (MAXZIDE-25) 37.5-25 mg per tablet Take 1 tablet by mouth once daily. naproxen (NAPROSYN) 500 mg tablet Take 1 tablet by mouth twice daily as needed (pain/inflammation, take with food.). lactobacillus acidophilus (ACIDOPHILUS) ORAL Cap Take one(1) tablet daily. COMPOUNDED PRESCRIPTION vitamin D3 1,000mg tab take one daily aspirin(ECOTRIN LOW STRENGTH 81 MG TAB) Take one(1) tablet daily. loratadine(CLARITIN 10 MG TAB) TAKE PRESCRIBED calcium carbonate/vitamin d3(CALCIUM 600 WITH VITAMIN D3 600 MG (1,500)-200 UNIT TAB) Take one(1) tablet twice daily. nitrofurantoin monohydrate and macrocrystal (MACROBID) 100 mg capsule Take 1 capsule by mouth twice daily with meals for 7 days. phenazopyridine (PYRIDIUM) 100 mg tablet Take 1 tablet by mouth three times daily as needed for up to 2 days. FAMILY HISTORY Problem Relation Age of Onset - Diabetes Father - Diabetes Brother CABG 12/27 - Diabetes Maternal Grandmother - Diabetes Other cousin - Coronary Artery Disease Maternal Grandfather Social History Substance Use Topics - Smoking status: Former Smoker Packs/day: 1.00 Years: 30.00 Types: Cigarettes, Pipe, Cigars Quit date: 05/24/2008 - Smokeless tobacco: Never Used - Alcohol use Yes Comment: socially ASSESSMENT/PLAN: 1. Acute cystitis with hematuria - ICD9: 595.0, ICD10: N30.01 (primary diagnosis) 2. Burning with urination - ICD9: 788.1, ICD10: R30.0 acute - UA positive for mario esterase, hematuria and nitrates - Send urine for culture - Patient education for prevention given - UA DIP B/O - URINE CULTURE The patient is instructed to return or seek emergency treatment if symptoms become worse or with any acute change in condition. The patient verbalizes understanding and is in agreement with plan of care. Luisa Beverly CNP Observed: 02/25/2018 Status: F Source: [place] URINE CULTURE 12:22 PM [facility] RE[facility] Sp. Request/Comment: - Specimen received in preservative Culture Result - >=100,000 CFU/ml Escherichia coli --> ABNORMAL ALERT ORGANISM: Escherichia coli METHOD: Minimum inhibitory concentration(Vitek) Antibiotic Interp SPRING Status Ampicillin SUSCEPTIBLE 4 F Gentamicin SUSCEPTIBLE <=1 F Trimeth sulfameth SUSCEPTIBLE <=20 F Cefazolin SUSCEPTIBLE <=4 F CLSI breakpoints for therapy of uncomplicated UTI's due to E.coli, K.pneumoniae, and P.mirabilis were applied and may be used to predict the activity of oral agents(cefaclor, cefdinir, cefpodoxime, cefp rozil, cefuroxime, cephalexin, loracarbef). Ciprofloxacin SUSCEPTIBLE <=0.25 F Nitrofurantoin SUSCEPTIBLE <=16 F Cefepime SUSCEPTIBLE <=1 F Piperacillin/Tazobac SUSCEPTIBLE <=4 F Ampicillin Sulbact SUSCEPTIBLE <=2 F Ceftriaxone SUSCEPTIBLE <=1 F Meropenem SUSCEPTIBLE <=0.25 F Ertapenem SUSCEPTIBLE <=0.5 F Performed By: #### URREY #### [facility] [address] [place], [place] [address] CNOV Observed: 02/25/2018 Status: COMPLETED Source: [place] 11:15 AM [facility] REPOSITORY Office Visit ([facility]) VIANCA PEREZ ([id number]) 1950 F NFR Date Time Provider Department 02/25/18 11:15 AM LUISA BEVERLY [facility] During your visit today, we recorded the following information about you: Temperature Pulse Respiration Blood pressure 97.4 degrees 76/minute 18/minute 126/82 Weight 108.1 kg Luisa Beverly 02/25/2018 12:22 PM Signed Patient Education for Female Urinary Tract Infections Possible complications: Pyelonehritis Renal abscess Expected course/prognosis: * symptoms resolve within 2-3 days after starting treatment in almost all patients * one-fourth of women with simple UTI experience a second UTI within 6 months, and half at some time during lifetime. * patients with multiple recurrent UTI and no underlying urinary tract abnormality may receive long-term prophylactic antibioitic treatment. Trimethoprim-sulfamethoxazole and nitrofurantoin common used. * women with frequent or intercourse-related UTI should empty bladder immediately before and following intercourse and consider postcoital antibiotic treament Instructions: * Maintain good hydration * Avoid sexual intercourse when symptoms present *Take antibiotic as directed * Return if symptoms not resolved or markedly improved within 48 hours * Return if fever, chills, or flank pain develop * If taking prophylactic antiobiotics, take at bedtime * Take showers instead of tub baths * Avoid feminine hygiene sprays and scented douches * Wipe urethra from front to back Please call or return to the office if you are not feeling better in 5-7 days. You can try taking OTC Uristat (pyridium) if needed for burning. Beware that it will turn your urine orange/red. Luisa Beverly 02/25/2018 12:36 PM Signed Subjective HPI Pt presents with c/o urinary frequency, urgency and dysuria x 6-7 days. Denies fever, chills, abd/flank/back pain. Review of Systems Constitutional: Negative for chills and fever. Gastrointestinal: Negative for abdominal pain, constipation, diarrhea, nausea and vomiting. Genitourinary: Positive for dysuria, frequency and urgency. Negative for flank pain and hematuria. Musculoskeletal: Negative for back pain and myalgias. Objective Physical Exam Constitutional: She is oriented to person, place, and time and well-developed, well-nourished, and in no distress. No distress. Abdominal: There is no CVA tenderness. Neurological: She is alert and oriented to person, place, and time. Skin: Skin is warm and dry. She is not diaphoretic. BP 126/82 Pulse 76 Temp 36.3 ?C (97.4 ?F) (Tympanic) Resp 18 Wt 108.1 kg (238 lb 6.4 oz) BMI 42.23 kg/m? .Patient presents with: burning, urgency and frequency with urination: x 1 week PAST MEDICAL HISTORY Diagnosis Date - Acute gastritis without mention of hemorrhage - Benign neoplasm of colon - Depressive disorder, not elsewhere classified - Essential hypertension, benign - Glaucoma - Iron deficiency anemia, unspecified - Malignant neoplasm of colon, unspecified site - Obesity, unspecified - Skin rash - Snoring - Stress headaches - Tobacco use disorder - Unspecified glaucoma(365.9) Glaucoma PAST SURGICAL HISTORY Procedure Laterality Date - APPENDECTOMY 1962 - DELIVERY ONLY , low cervical - COLONOS W/REM POLYP SNARE 01/22/09 - COLONOSCOPY 09/12/15 Repeat 3-5 years - EGD 01/22/09 - LAP COLECTMY W/ILEUM/ILEOCOL 02/19/09 RIGHT - LASER SURGERY OF EYE 2004 Glaucoma both eyes - REMOVAL GALLBLADDER 1977 Cholecystectomy - REMOVAL OF OMENTUM 03-08-09 - REMOVAL OF OVARY/TUBE(S) 1998 Salpingo-oophorectomy, bilat. - REMOVE TONSILS/ADENOIDS,<11 Y/O 1955 T/A (under age 11 years) - REVISE MEDIAN N/CARPAL TUNNEL SURG 1982 Carpal tunnel decomp Right - SELECTIVE LASER TRABECULOPLASTY (SLT) OS (LEFT EYE) 05/30/2017 - SPINAL FUSION,ANT,EA ADNL LEVEL 1982 C1-C2 - TOTAL ABDOM HYSTERECTOMY 1998 Hysterectomy, EMILY ALLERGIES Bee Sting MEDICATIONS timolol maleate (TIMOPTIC) 0.5 % ophthalmic solution Use 1 Drop in both eyes twice daily. brimonidine (ALPHAGAN) 0.2 % ophthalmic solution Use 1 Drop in both eyes twice daily. latanoprost (XALATAN) 0.005 % ophthalmic solution Use 1 Drop in both eyes daily at bedtime. sertraline (ZOLOFT) 100 mg tablet Take 1 tablet by mouth twice daily. triamcinolone acetonide (KENALOG) 0.1 % ointment Apply 1 application to affected area twice daily. Chlorhexidine Gluconate (PERIDEX) 0.12 % solution Use 15 mL as instructed twice daily. potassium chloride ER (K-DUR, KLOR-CON) 10 mEq tablet Take 1 tablet by mouth once daily. Ranitidine HCl (ZANTAC) 300 mg tablet Take 1 tablet by mouth daily at bedtime. lisinopril (PRINIVIL) 5 mg tablet Take 1 tablet by mouth once daily. triamterene-hydrochlorothiazide (MAXZIDE-25) 37.5-25 mg per tablet Take 1 tablet by mouth once daily. naproxen (NAPROSYN) 500 mg tablet Take 1 tablet by mouth twice daily as needed (pain/inflammation, take with food.). lactobacillus acidophilus (ACIDOPHILUS) ORAL Cap Take one(1) tablet daily. COMPOUNDED PRESCRIPTION vitamin D3 1,000mg tab take one daily aspirin(ECOTRIN LOW STRENGTH 81 MG TAB) Take one(1) tablet daily. loratadine(CLARITIN 10 MG TAB) TAKE PRESCRIBED calcium carbonate/vitamin d3(CALCIUM 600 WITH VITAMIN D3 600 MG (1,500)-200 UNIT TAB) Take one(1) tablet twice daily. nitrofurantoin monohydrate and macrocrystal (MACROBID) 100 mg capsule Take 1 capsule by mouth twice daily with meals for 7 days. phenazopyridine (PYRIDIUM) 100 mg tablet Take 1 tablet by mouth three times daily as needed for up to 2 days. FAMILY HISTORY Problem Relation Age of Onset - Diabetes Father - Diabetes Brother CABG 12/27 - Diabetes Maternal Grandmother - Diabetes Other cousin - Coronary Artery Disease Maternal Grandfather Social History Substance Use Topics - Smoking status: Former Smoker Packs/day: 1.00 Years: 30.00 Types: Cigarettes, Pipe, Cigars Quit date: 05/24/2008 - Smokeless tobacco: Never Used - Alcohol use Yes Comment: socially ASSESSMENT/PLAN: 1. Acute cystitis with hematuria - ICD9: 595.0, ICD10: N30.01 (primary diagnosis) 2. Burning with urination - ICD9: 788.1, ICD10: R30.0 acute - UA positive for mario esterase, hematuria and nitrates - Send urine for culture - Patient education for prevention given - UA DIP B/O - URINE CULTURE The patient is instructed to return or seek emergency treatment if symptoms become worse or with any acute change in condition. The patient verbalizes understanding and is in agreement with plan of care. Luisa Beverly CNP Referring Provider: SELF [[id number]] Allergies As of Date: 02/25/2018 Noted Allergy Reaction BEE STING 07/01/2014 7 - Swelling Comments: Very red and swollen Date Reviewed: 02/25/2018 Reviewed by: Jennifer Greene LPN - Fully Assessed Reason for Visit: burning, urgency and frequency with urination [Other] Cmt: x 1 week Primary Visit Diagnosis:Acute cystitis with hematuria [N30.01] Other Visit Diagnosis:Burning with urination [R30.0] Order(s):UA DIP B/O [[id number]] Order #: [id number] URINE CULTURE [SQURCUL] Order #: [id number] nitrofurantoin monohydrate and macrocrystal (MACROBID) 100 mg capsuleTake 1 capsule by mouth twice daily with meals for 7 days.Disp: 14 capsuleRfl: 0 phenazopyridine (PYRIDIUM) 100 mg tabletTake 1 tablet by mouth three times daily as needed for up to 2 days.Disp: 6 tabletRfl: 0 Prescriptions as of 02/25/2018 Sig: TIMOLOL MALEATE 0.5 % EYE DONITA* Use 1 Drop in both eyes twice* BRIMONIDINE 0.2 % EYE DROPS Use 1 Drop in both eyes twice* LATANOPROST 0.005 % EYE DROPS Use 1 Drop in both eyes daily* SERTRALINE 100 MG TABLET Take 1 tablet by mouth twice * TRIAMCINOLONE ACETONIDE 0.1 %* Apply 1 application to affect* CHLORHEXIDINE GLUCONATE 0.12 * Use 15 mL as instructed twice* POTASSIUM CHLORIDE ER 10 MEQ * Take 1 tablet by mouth once d* RANITIDINE 300 MG TABLET Take 1 tablet by mouth daily * LISINOPRIL 5 MG TABLET Take 1 tablet by mouth once d* TRIAMTERENE 37.5 MG-HYDROCHLO* Take 1 tablet by mouth once d* NAPROXEN 500 MG TABLET Take 1 tablet by mouth twice * * LACTOBACILLUS ACIDOPHILUS CAP* Take one(1) tablet daily. * COMPOUNDED PRESCRIPTION vitamin D3 1,000mg tab take o* * ECOTRIN LOW STRENGTH 81 MG TA* Take one(1) tablet daily. * CLARITIN 10 MG TABLET TAKE PRESCRIBED * CALCIUM 600 WITH VITAMIN D3 6* Take one(1) tablet twice clifton* NITROFURANTOIN MONOHYDRATE AND * Take 1 capsule by mouth twice* PHENAZOPYRIDINE 100 MG TABLET Take 1 tablet by mouth three * Problem List As Of Date 02/25/2018 Noted Resolved BENIGN HYPERTENSION [I10] INVALID FOR* Morbid (severe) obesity due to excess calories *INVALID FOR* More... TOBACCO USE DISORDER [F17.200] INVALID FOR* Recurrent major depressive disorder (HCC) [F33.*INVALID FOR* SKIN LESION [L98.9] INVALID FOR*04/03/2007 HYPOPOTASSEMIA [E87.6] INVALID FOR* More... IRON DEFIC ANEMIA NOS [D50.9] INVALID FOR* Malignant neoplasm of colon (HCC) [C18.9] INVALID FOR* Benign neoplasm of colon [D12.6] INVALID FOR*10/13/2010 Vitamin D Deficiency [E55.9] INVALID FOR* Rectal bleeding [K62.5] INVALID FOR* Benign neoplasm of rectum and anal canal [D12.8*INVALID FOR* Benign neoplasm of colon [D12.6] INVALID FOR*06/09/2017 History of malignant neoplasm of large intestin*INVALID FOR* Psoriasis [L40.9] INVALID FOR* Personal history of colon cancer [Z85.038] INVALID FOR* History of colonic polyps [Z86.010] INVALID FOR* Age-related nuclear cataract, bilateral [H25.13]INVALID FOR* Vitreous floaters of both eyes [H43.393] INVALID FOR* Presbyopia [H52.4] INVALID FOR* Myopia [H52.10] INVALID FOR* Regular astigmatism [H52.229] INVALID FOR* Dermatochalasis of both upper eyelids [H02.831,*INVALID FOR* Primary open-angle glaucoma, bilateral, mild st*INVALID FOR* Optic disc cupping [H47.239] INVALID FOR* Hyperlipidemia [E78.5] INVALID FOR* Other instructions from your clinician: Patient Education for Female Urinary Tract Infections Possible complications: Pyelonehritis Renal abscess Expected course/prognosis: * symptoms resolve within 2-3 days after starting treatment in almost all patients * one-fourth of women with simple UTI experience a second UTI within 6 months, and half at some time during lifetime. * patients with multiple recurrent UTI and no underlying urinary tract abnormality may receive long-term prophylactic antibioitic treatment. Trimethoprim-sulfamethoxazole and nitrofurantoin common used. * women with frequent or intercourse-related UTI should empty bladder immediately before and following intercourse and consider postcoital antibiotic treament Instructions: * Maintain good hydration * Avoid sexual intercourse when symptoms present *Take antibiotic as directed * Return if symptoms not resolved or markedly improved within 48 hours * Return if fever, chills, or flank pain develop * If taking prophylactic antiobiotics, take at bedtime * Take showers instead of tub baths * Avoid feminine hygiene sprays and scented douches * Wipe urethra from front to back Please call or return to the office if you are not feeling better in 5-7 days. You can try taking OTC Uristat (pyridium) if needed for burning. Beware that it will turn your urine orange/red. Prescriptions ordered this encounter Disp Refills Start End NITROFURANTOIN MONOHYDRATE AND MACROCR* 14 c* 0 02/25/2018 03/04/2018 Route: ORAL Sig: Take 1 capsule by mouth twice daily with meals for 7 days. PHENAZOPYRIDINE 100 MG TABLET 6 ta* 0 02/25/2018 02/27/2018 Route: ORAL Sig: Take 1 tablet by mouth three times daily as needed for up to 2 days. Encounter Status:Closed by LUISA BEVERLY CNP on 02/25/18 PROGRESS Observed: 02/09/2018 Status: COMPLETED Source: [place] 10:22 AM [facility] REPOSITORY HNO ID: [id number] Author: Jacoby Taveras II Service: (none) Author Type: COLLEGE RECRUITER Type: Progress Notes Filed: 02/09/2018 10:26 AM Note Text: ASSESSMENT/PLAN: 1. Primary open-angle glaucoma, bilateral, mild stage - ICD9: 365.11, 365.71, ICD10: H40.1131 Better intraocular pressure control with new regimen. Continue use of Latanoprost 0.005% 1 gt both eyes qhs, Timolol Maleate 0.5% 1 gt both eyes twice a day, and Brimonidine 0.2% 1 gt both eyes bid. Recheck pressure control in 3 months. I have confirmed and edited as necessary the relevant ophthalmic history, review of systems, surgical history, and ophthalmological examination findings as obtained by the ophthalmic technical staff. I have seen and examined Vianca Perez. I have discussed the examination findings, diagnosis, and treatment options with the patient and/or the patient's family. I have also reviewed and agree with the assessment and plan as stated above and agree with all its relevant components. I gave the patient the opportunity to ask questions about the findings, diagnosis, and treatment options. Jacoby Taveras II, OD PROGRESS Observed: 01/19/2018 Status: COMPLETED Source: [place] 10:28 AM [facility] REPOSITORY HNO ID: [id number] Author: Jacoby Taveras II Service: (none) Author Type: COLLEGE RECRUITER Type: Progress Notes Filed: 01/19/2018 10:30 AM Note Text: ASSESSMENT/PLAN: 1. Primary open-angle glaucoma, bilateral, mild stage - ICD9: 365.11, 365.71, ICD10: H40.1131 Intraocular pressure inadequately controlled with use of Latanoprost 1 gt both eyes qhs and Timolol Maleate 0.5% 1 gt both eyes twice a day. Add Brimonidine 0.2% 1 gt both eyes twice a day to regimen. Recheck Intraocular pressure in 2-3 weeks. I have confirmed and edited as necessary the relevant ophthalmic history, review of systems, surgical history, and ophthalmological examination findings as obtained by the ophthalmic technical staff. I have seen and examined Vianca Perez. I have discussed the examination findings, diagnosis, and treatment options with the patient and/or the patient's family. I have also reviewed and agree with the assessment and plan as stated above and agree with all its relevant components. I gave the patient the opportunity to ask questions about the findings, diagnosis, and treatment options. Jacoby Taveras, II, OD PROGRESS Observed: 12/13/2017 Status: COMPLETED Source: [place] 10:02 AM [facility] REPOSITORY HNO ID: [id number] Author: Zahraa Jacobson Service: (none) Author Type: Physician Type: Progress Notes Filed: 12/13/2017 10:26 AM Note Text: Chief Complaint Patient presents with: F/U 6 Month: HTN HPI Vianca Perez is a 67 year old female who presents here today for a 6 mo f/u. Hypertension - Checks once a month and BP ranges in the 120's/60-80's. Denies any chest pain or sob. Has occasional dizziness when standing. Currently taking Lisinopril 5 mg once daily, Maxzide 37.5- 25 mg once daily and Potassium 10 mg once daily. Tolerating medications well. GERD - Stable with taking Zantac 300 mg once daily and Probiotic. Able to tolerate spicy foods well. Depression/Anxiety - Could be improved a little, but not a major issue. Would like to increase to bid daily of medication to replace how she was feeling on the Nortriptyline. Currently taking Zoloft 100 mg 1.5 tabs daily. Since being d/c off of Nortriptyline 25 mg TID since her sleep isn't as good. Urine - Still has chemical smell with cloudiness and occasional flank pain. Was seen in UC over the summer and given two different rounds of antibiotics with no real help. [place] that her urine issues may be related to taking the Nortriptyline, but has continued some since being off the medication. XIE - Improved and doing well. No longer following with Neurology. Past medical history, appointments, medications, allergies reviewed. Previous Medical History PAST MEDICAL HISTORY Diagnosis Date - Acute gastritis without mention of hemorrhage - Benign neoplasm of colon - Depressive disorder, not elsewhere classified - Essential hypertension, benign - Glaucoma - Iron deficiency anemia, unspecified - Malignant neoplasm of colon, unspecified site - Obesity, unspecified - Skin rash - Snoring - Stress headaches - Tobacco use disorder - Unspecified glaucoma(365.9) Glaucoma Previous Surgical History PAST SURGICAL HISTORY Procedure Laterality Date - APPENDECTOMY 1962 - DELIVERY ONLY , low cervical - COLONOS W/REM POLYP SNARE 01/22/09 - COLONOSCOPY 09/12/15 Repeat 3-5 years - EGD 01/22/09 - LAP COLECTMY W/ILEUM/ILEOCOL 02/19/09 RIGHT - LASER SURGERY OF EYE 2004 Glaucoma both eyes - REMOVAL GALLBLADDER 1977 Cholecystectomy - REMOVAL OF OMENTUM 03-08-09 - REMOVAL OF OVARY/TUBE(S) 1998 Salpingo-oophorectomy, bilat. - REMOVE TONSILS/ADENOIDS,<12 Y/O 1955 T/A (under age 11 years) - REVISE MEDIAN N/CARPAL TUNNEL SURG 1982 Carpal tunnel decomp Right - SELECTIVE LASER TRABECULOPLASTY (SLT) OS (LEFT EYE) 05/30/2017 - SPINAL FUSION,ANT,EA ADNL LEVEL 1982 C1-C2 - TOTAL ABDOM HYSTERECTOMY 1998 Hysterectomy, EMILY Family History FAMILY HISTORY Problem Relation Age of Onset - Diabetes Father - Diabetes Brother CABG 12/27 - Diabetes Maternal Grandmother - Diabetes Other cousin - Coronary Artery Disease Maternal Grandfather Patient Allergies ALLERGIES Allergen Reactions - Bee Sting Swelling Very red and swollen Current Medications Current Outpatient Prescriptions on File Prior to Visit: triamcinolone acetonide (KENALOG) 0.1 % ointment Apply 1 application to affected area twice daily. Chlorhexidine Gluconate (PERIDEX) 0.12 % solution Use 15 mL as instructed twice daily. potassium chloride ER (K-DUR, KLOR-CON) 10 mEq tablet Take 1 tablet by mouth once daily. Ranitidine HCl (ZANTAC) 300 mg tablet Take 1 tablet by mouth daily at bedtime. lisinopril (PRINIVIL) 5 mg tablet Take 1 tablet by mouth once daily. sertraline (ZOLOFT) 100 mg tablet Take 1.5 tablets by mouth once daily. triamterene-hydrochlorothiazide (MAXZIDE-25) 37.5-25 mg per tablet Take 1 tablet by mouth once daily. dorzolamide-timolol (COSOPT) 22.3-6.8 mg/mL ophthalmic solution Use 1 Drop in both eyes twice daily. latanoprost (XALATAN) 0.005 % ophthalmic solution Use 1 Drop in both eyes daily at bedtime. lactobacillus acidophilus (ACIDOPHILUS) ORAL Cap Take one(1) tablet daily. COMPOUNDED PRESCRIPTION vitamin D3 1,000mg tab take one daily aspirin(ECOTRIN LOW STRENGTH 81 MG TAB) Take one(1) tablet daily. loratadine(CLARITIN 10 MG TAB) TAKE PRESCRIBED calcium carbonate/vitamin d3(CALCIUM 600 WITH VITAMIN D3 600 MG (1,500)-200 UNIT TAB) Take one(1) tablet twice daily. naproxen (NAPROSYN) 500 mg tablet Take 1 tablet by mouth twice daily as needed (pain/inflammation, take with food.). No current facility-administered medications on file prior to visit. Social History Social History Marital status: Single Spouse name: Years of education: HS + MANAGING PARTNER Number of children: Occupational History Occupation Employer Comment nursing supervisor painting* [employer] * Social History Main Topics Smoking status: Former Smoker Packs/day: 1.00 Years: 30.00 Types: Cigarettes, Pipe, Cigars Quit date: 05/24/2008 Smokeless status: Never Used Alcohol use: Yes Comment: socially Drug use: No Sexual activity: No EXAM: BP 124/82 (BP Site: Left Arm, BP Position: Sitting, BP Cuff Size: Large Adult) Pulse 72 Resp 16 Wt 109.4 kg (241 lb 3.2 oz) BMI 42.73 kg/m2 General Appearance: Well appearing, alert, in no acute distress, well-hydrated, well nourished., Obese. Lungs: Lungs clear to auscultation. No wheezing, rhonchi, rales. Heart: RRR without murmur, gallop, or rubs. No ectopy. Health Maintenance List HEPATITIS C SCREENING due on 1993 COLORECTAL CANCER SCREENING,SEE MODIFIER due on 09/12/2018 MAMMOGRAM due on 11/29/2018 DIABETES SCREEN due on 12/07/2020 LIPID SCREEN due on 09/08/2021 TETANUS due on 09/08/2026 BONE DENSITY Completed ADULT PREVNAR-13 Completed INFLUENZA Completed PNEUMOVAX AGE 65 AND OVER WITH 5YR LOOKBACK Completed Data reviewed Appointment on 12/07/2017 Glucose Value: 88(mg/dL) Date: 12/07/2017 BUN Value: 18(mg/dL) Date: 12/07/2017 Creatinine Value: 1.25(mg/dL)* Date: 12/07/2017 Sodium Value: 141(mmol/L) Date: 12/07/2017 Potassium Value: 3.8(mmol/L) Date: 12/07/2017 Chloride Value: 98(mmol/L) Date: 12/07/2017 CO2 Value: 27(mmol/L) Date: 12/07/2017 Anion Gap Value: 16(mmol/L) Date: 12/07/2017 Calcium Value: 9.9(mg/dL) Date: 12/07/2017 eGFR- Value: 52 Date: 12/07/2017 eGFR-All Other Races Value: 43(.) Date: 12/07/2017 Hemoglobin A1C Value: 5.6(%) Date: 12/07/2017 Estimated Average Glucose Value: 114(mg/dL) Date: 12/07/2017 ASSESSMENT/PLAN: 1. Essential hypertension, benign - ICD9: 401.1, ICD10: I10 (primary diagnosis) - good control - Continue current medication(s) - Recommended regular aerobic exercise. - Recommend home blood pressure monitoring, to bring results in on next visit - Goal of BP <130/80 2. Recurrent major depressive disorder, remission status unspecified (HCC) - ICD9: 296.30, ICD10: F33.9 Increase Zoloft to 1 tab bid; may consider going back on nortriptyline if she does not feel better on this. 3. Hypopotassemia - ICD9: 276.8, ICD10: E87.6 Continue current medication regimen. Follow up in 3 months with labs Zahraa Jacobson MD The documentation for this note was completed by Zaira Augustine Ma acting as scribe for Zahraa Jacobson MD. December 13, 2017 10:02 AM. BASIC METABOLIC PANL Collected: 12/07/2017 Status: F Source: [place] 10:34 AM [facility] REPOSITORY TYPE CODE TESTS RESULT OUT OF REFERENCE UNITS RANGE LAB GLU 74-99 mg/dL Glucose 88 Result Comment: The [place] Diabetes Association (ADA) provides guidance for cutoff values for fasting glucose and random glucose. The ADA defines fasting as no caloric intake for at least 8 hours. Fas ting plasma glucose results between 100 to 125 mg/dL indicate increased risk for diabetes (prediabetes). Fasting plasma glucose results greater than or equal to 126 mg/dL meet the criteria for diagnosis of diabetes. In the absence of unequivocal hyperglycemia, results should be confirmed by repeat testing. In a patient with classic symptoms of hyperglycemia or hyperglycemic crisis, random plasma glucose results greater than or equal to 200 mg/dL meet the criteria for diagnosis of diabetes. Reference: Standards of Medical Care in Diabetes 2016, [place] Diabetes Association. Diabetes Care. 2016.39(Suppl 1). LAB BUN 7-21 mg/dL BUN 18 LAB CRET 0.58-0.96 mg/dL Creatinine High 1.25 LAB NA 136-144 mmol/L Sodium 141 LAB K 3.7-5.1 mmol/L Potassium 3.8 LAB CL 97-105 mmol/L Chloride 98 LAB CO2 22-30 mmol/L CO2 27 LAB AGAP 9-18 mmol/L Anion Gap 16 LAB CA 8.5-10.2 mg/dL Calcium, Total 9.9 LAB GFRAA eGFR- Amer. 52 LAB GFRNAA . eGFR-All Other Races 43 Result Comment: eGFR (Estimated GFR) Units of measure: mL/min/1.73 meters squared eGFR is derived from the reexpressed MDRD Study equation using the following parameters: serum creatinine, age, gender and race. The creatinine assay has been calibrated to be traceable to IDMS. An eGFR <60 mL/min/1.73m2 for >3 months is consistent with chronic kidney disease. Refer to KDOQI guidelines for clinical interpretation. In patients with unstable renal function, e.g. those with acute kidney injury, the eGFR may not accurately reflect actual GFR. Performed By: #### BMP, HBA1C #### [facility] [address] [place], [place] [address] HEMOGLOBIN A1C Collected: 12/07/2017 Status: F Source: [place] 10:34 AM [facility] [place] REPOSITORY TYPE CODE TESTS RESULT OUT OF REFERENCE UNITS RANGE LAB HGBA1C 4.3-5.6 % Hemoglobin A1c 5.6 LAB HBA0 mg/dL Est. Average Glucose 114 Result Comment: eAG: (Estimated average glucose) is a calculated value from HgbA1c and is customer service representative of the average blood glucose level in the last 2-3 month period. Performed By: #### BMP, HBA1C #### [facility] [address] [place], [place] [address] JAMES SCREENING Observed: 11/29/2017 Status: F Source: [place] 2:03 PM [facility] REPOSITORY * * *Final Report* * * DATE OF EXAM: Nov 29 2017 2:03PM [facility] SCREENING / PROCEDURE REASON: Encounter for screening mammogram for malignant neoplasm of breast * * * * Physician Interpretation * * * * RESULT: #[id number] - JAMES SCREENING BILATERAL DIGITAL SCREENING MAMMOGRAM WITH CAD: 11/29/2017 HISTORY: Screening Mammogram - patient reports NO breast symptoms /priors available for comparison. RESULT: TECHNIQUE: The study was acquired using full field digital technology and interpreted from soft copy. Current study was also evaluated with a Computer Aided Detection (CAD). Comparison is made to exams dated: 10/20/2016 mammogram, 08/07/2015 mammogram, 07/25/2014 mammogram, 07/23/2013 mammogram, and 07/20/2012 mammogram - [facility]. There are scattered fibroglandular elements in both breasts. No significant masses, calcifications, or other findings are seen in either breast. There has been no significant interval change. IMPRESSION: NEGATIVE There is no mammographic evidence of malignancy. A 1 year screening mammogram is recommended. The exam was reviewed by a staff physician. Supriya Bah M.D. barbara tracy/carrol:11/29/2017 14:01:21 Extension Supervisor: Tiffanie LAUGHLIN(Mick)([place]), [facility] letter sent: Normal over 40 Mammogram BI-RADS: 1 Negative Leaf Sorter: [place] Transcribe Date/Time: Nov 29 2017 1:18P Dictated by: ZAYDA BAH MD This examination was interpreted and the report reviewed and electronically signed by: SUPRIYA MARION MD on Nov 29 2017 2:01PM EST [id number] Observed: 11/29/2017 Status: COMPLETED Source: [place] 2:01 PM [facility] REPOSITORY HNO ID: [id number] Author: Mammography Coordinator Service: (none) Author Type: Physician Type: Letter Filed: 11/30/2017 11:32 PM Note Text: November 29, 2017 PID: [id number] Vianca Perez [address] [place] [address] Dear Rick Perez, We are pleased to inform you that the results of your recent breast imaging exam on 11/29/2017 are normal. Early detection of cancer is very important. We also understand recommendations regarding breast cancer screening are controversial. Please discuss with your primary care provider which strategy is best for you and whether a mammogram is right for you. Your imaging studies and report will be kept on file at [facility] as part of your permanent medical record and are available for your continuing care. Thank you for allowing us to help in meeting your health care needs. Sincerely, Dr. Marion Interpreting Radiologist [facility] (Normal over 40) PROGRESS Observed: 11/29/2017 Status: COMPLETED Source: [place] 1:16 PM [facility] REPOSITORY HNO ID: [id number] Author: Lisy Laughlin Service: (none) Author Type: (none) Type: Progress Notes Filed: 11/29/2017 1:17 PM Note Text: Radiology Service Progress Note PATIENT NAME: Vianca Perez DATE OF SERVICE: November 29, 2017 TIME: 1:16 PM PATIENT IDENTITY VERIFICATION COMPLETED USING TWO (2) METHODS: Patient confirmed name verbally and Date of . PATIENT GENDER DATA: Female. status: : No status: NO. PATIENT RELEVANT IMPLANT DATA REVIEWED: Not Applicable RADIOLOGY DEPARTMENT: [facility] DATA: Not applicable SIGNED BY: Lisy Laughlin November 29, 2017 1:16 PM CNPTOUTRNIRMAL Observed: 11/29/2017 Status: COMPLETED Source: [place] 12:00 AM [facility] REPOSITORY Patient Outreach (FAMPST) VIANCA PEREZ ([id number]) 1950 F NFR Date Time Provider Department 11/29/17 ZAHRAA JACOBSON FAMPST During your visit today, we recorded the following information about you: Allergies As of Date: 11/29/2017 Noted Allergy Reaction BEE STING 07/01/2014 7 - Swelling Comments: Very red and swollen Date Reviewed: 09/20/2017 Reviewed by: Jacoby Taveras II - Fully Assessed Visit Diagnosis:Medication management [Z79.899] Order(s):BASIC METABOLIC PNL [SQBMP] Order #: [id number] FUTURE HGB A1C [[id number]] Order #: [id number] FUTURE Prescriptions as of 11/29/2017 Sig: METHYLPREDNISOLONE 4 MG TABLE* As Instructed per package NORTRIPTYLINE 25 MG CAPSULE Take 3 capsules by mouth [place]* TRIAMCINOLONE ACETONIDE 0.1 %* Apply 1 application to affect* CHLORHEXIDINE GLUCONATE 0.12 * Use 15 mL as instructed twice* POTASSIUM CHLORIDE ER 10 MEQ * Take 1 tablet by mouth once d* RANITIDINE 300 MG TABLET Take 1 tablet by mouth daily * LISINOPRIL 5 MG TABLET Take 1 tablet by mouth once d* SERTRALINE 100 MG TABLET Take 1.5 tablets by mouth onc* TRIAMTERENE 37.5 MG-HYDROCHLO* Take 1 tablet by mouth once d* DORZOLAMIDE 22.3 MG-TIMOLOL 6* Use 1 Drop in both eyes twice* HYDROXYZINE HCL 25 MG TABLET Take 1 tablet by mouth every * NAPROXEN 500 MG TABLET Take 1 tablet by mouth twice * ACETAMINOPHEN 500 MG TABLET Take 1 tablet by mouth every * LATANOPROST 0.005 % EYE DROPS Use 1 Drop in both eyes daily* * LACTOBACILLUS ACIDOPHILUS CAP* Take one(1) tablet daily. * COMPOUNDED PRESCRIPTION vitamin D3 1,000mg tab take o* * ECOTRIN LOW STRENGTH 81 MG TA* Take one(1) tablet daily. * CLARITIN 10 MG TABLET TAKE PRESCRIBED * CALCIUM 600 WITH VITAMIN D3 6* Take one(1) tablet twice clifton* Problem List As Of Date 11/29/2017 Noted Resolved BENIGN HYPERTENSION [I10] INVALID FOR* Obesity [E66.9] INVALID FOR* More... TOBACCO USE DISORDER [F17.200] INVALID FOR* Recurrent major depressive disorder (HCC) [F33.*INVALID FOR* SKIN LESION [L98.9] INVALID FOR*04/03/2007 HYPOPOTASSEMIA [E87.6] INVALID FOR* More... IRON DEFIC ANEMIA NOS [D50.9] INVALID FOR* Malignant neoplasm of colon (HCC) [C18.9] INVALID FOR* Benign neoplasm of colon [D12.6] INVALID FOR*10/13/2010 Vitamin D Deficiency [E55.9] INVALID FOR* Rectal bleeding [K62.5] INVALID FOR* Benign neoplasm of rectum and anal canal [D12.8*INVALID FOR* Benign neoplasm of colon [D12.6] INVALID FOR*06/09/2017 History of malignant neoplasm of large intestin*INVALID FOR* Psoriasis [L40.9] INVALID FOR* Personal history of colon cancer [Z85.038] INVALID FOR* History of colonic polyps [Z86.010] INVALID FOR* Age-related nuclear cataract, bilateral [H25.13]INVALID FOR* Vitreous floaters of both eyes [H43.393] INVALID FOR* Presbyopia [H52.4] INVALID FOR* Myopia [H52.10] INVALID FOR* Regular astigmatism [H52.229] INVALID FOR* Dermatochalasis of both upper eyelids [H02.831,*INVALID FOR* Primary open-angle glaucoma, bilateral, mild st*INVALID FOR* Optic disc cupping [H47.239] INVALID FOR* Encounter Status:Closed by CLEMENTE MCKEONUSER on 12/11/17 ALLERGIES ALLERGIES DATE TYPE / CODE NAME / CODE REACTION SEVERITY SOURCE 11/07/2018 Drug adhesive Rash Unknown [facility] Allergy/416 tape/[id number] [facility] 099468(SNOM (RXNORM) Repository ED CT) 01/18/2017 Drug No Known Unknown [facility] Allergy/416 Allergies/F0019 Hospital 098195(SNOM 46191(RXNORM) Repository ED CT) 07/01/2014 Environ/420 BEE STING SWELLING [facility] [id number](SNOM [facility] [place] ED CT) Repository ENCOUNTERS ENCOUNTERS ADMIT/DISCHARGE ACCOUNT ADMITTING ENCOUNTER LOCATION SOURCE NUMBER CLASS 11/14/2018/11/14/[id number] ing:SDCRoom: Repository AC08 10/20/2018/10/20/20 [id number] Amb[address] [place] Repository 10/18/2018/10/18/20 [id number] Ambulatory [address] [place] Repository 09/27/2018/09/27/20 [id number] CAMILLE CARTAGENA Ambulatory [address] [place] Repository 09/18/2018/09/18/20 [id number] Ambulatory [address] [place] Repository 09/15/2018/09/21/20 [id number] Ambulatory [address] [place] Repository 09/12/2018/09/18/20 [id number] Ambulatory [address] [place] Repository 09/06/2018/09/07/20 [id number] Ambulatory [address] [place] Repository 08/25/2018 [id number] General acute hospital ing:US Repository 08/22/2018/08/22/20 [id number] Ambulatory [address] [place] Repository 08/18/2018/08/18/20 [id number] Ambulatory [address] [place] Repository 08/11/2018/08/14/20 [id number] Ambulatory [address] [place] Repository 08/08/2018/08/09/20 [id number] Ambulatory [address] [place] Repository 05/15/2018/05/30/20 [id number] Ambulatory [address] [place] Repository 05/11/2018/05/12/20 [id number] Ambulatory [address] [place] Repository 03/15/2018/03/15/20 [id number] Ambulatory [address] [place] Repository 03/14/2018/03/16/20 [id number] Ambulatory [address] [place] Repository 03/04/2018/04/07/20 [id number] Ambulatory [address] [place] Repository 02/25/2018/04/07/20 [id number] Ambulatory [address] Repository 02/09/2018/02/11/20 [id number] Ambulatory [address] Repository 01/19/2018/01/21/20 [id number] Ambulatory [address] Repository 12/13/2017/12/13/19 [id number] Ambulatory [address] Repository 12/07/2017/12/07/19 [id number] Ambulatory [address] Repository 11/29/2017/11/29/19 [id number] Ambulatory [address] Repository PAYERS PAYERS ENCOUNTER GUARANTOR PAYER SUBSCRIBER SOURCE 11/14/2018 VIANCA Toussaint [id number] Primary VIANCA A BABBDOB: [place] [id number] [id number]: Number: Repository [id number] (HP) Date:2018-10-30 11/14/2018 Secondary VIANCA A BABBDOB: Claudia Insurance:MEDICAIDPol [id number] Community icy Number: Hospital [id number] Repository Date:2018-10-30 11/14/2018 Tertiary NOT GIVENUNK [place] Insurance:SELF PAY [facility] Effective Repository Date:2018-10-30 08/25/2018 VIANCA A ANPU342 Primary VIANCA A BABBDOB: Claudia N [place] Insurance:MEDICARE [id number] [facility] [place] [address]Uvc: Number: Repository [id number] (HP) Date:2018-08-24 08/25/2018 Secondary VIANCA A BABBDOB: [place] Insurance:MEDICAIDPol [id number] Community icy Number: Hospital [id number] Repository Date:2018-08-24 08/25/2018 Tertiary NOT GIVENUNK [place] Insurance:SELF PAY [facility]: Effective Repository Date:2018-08-24
== END 2018-11-14 10:15 | disposition home or self-care (01) ==
LOC: SDC 05:55 → AC 05:57
PROVIDERS: Family Provider Family Medicine; PCP Family Medicine; Referring Provider Urology; Visit Provider Urology
DX: R33.9 Retention of urine, unspecified (principal); N31.9 Neuromuscular dysfunction of bladder, unspecified; N39.3 Stress incontinence (female) (male); R39.15 Urgency of urination; R35.1 Nocturia; R39.14 Feeling of incomplete bladder emptying; Z87.440 Personal history of urinary (tract) infections; F41.9 Anxiety disorder, unspecified; F32.9 Major depressive disorder, single episode, unspecified; H40.9 Unspecified glaucoma; N18.3 Chronic kidney disease, stage 3 (moderate); I12.9 Hypertensive chronic kidney disease with stage 1 through stage 4 chronic kidney disease, or unspecified chronic kidney disease; Z85.038 Personal history of other malignant neoplasm of large intestine; Z87.891 Personal history of nicotine dependence
CPT/HCPCS: 00630; 64581; 64590; 72170; 76000; J7120; C1778; J2405

== ENCOUNTER 2018-12-01 10:21 | Day surgery (SDC) | payer MEDICARE, MEDICAID, SELFPAY ==
[2018-11-14 06:14] VITALS: BMI 42.8
[2018-12-01] VITALS (7 sets, daily range): BP systolic 117–146; BP diastolic 72–91; PULSE 62–72; RESP 16–18; TEMP 36.2; O2SAT 92–96; BMI 42.5
[2018-12-01] MEDS: Vancomycin IV 1,000 MG/200 ML BAG 200 MG IV (10:59)
--- NOTE | 2018-12-01 12:44 | PCM.OPRPT ---
Problem List (1) Urinary retention Status: Acute (2) Neurogenic bladder Status: Acute Report of Operation Date of Procedure: 12/01/18 Pre-Operative Diagnosis: urinary retention, neurogenic bladder Post-Operative Diagnosis: same Surgery/Procedure Performed:: Interstim Stage 2 Description of Surgical Findings:: no impedances, no complications Type of Anesthesia:: MAC Estimated Blood Loss (mL): 1cc Description of Procedure: The patient is a 68-year-old female who did well following a stage I trial of InterStim. She is now voiding with a decreased PVR and presents for stage II implant of the IPG. Informed consent was obtained. She was taken to the operating room and placed in a prone position on the operating room table. Dependent portions of her body were appropriately padded and she was secured to the table. Anesthesia monitored the head, neck, airway, IV access and vital signs throughout the case. Once anesthesia was appropriately administered the patient was prepped and draped in usual sterile fashion. The incision was opened using hemostats and Metzenbaums following infiltration with lidocaine. The boot was identified and brought into the field. Using the torque wrench the lead was removed from the boot dried and placed into the IPG. It was secured with a torque wrench. The pocket was opened for placement of the IPG. Hemostasis was obtained. The IPG was placed inside and the unit was tested for impedances. There were none found. The incision was closed using 3-0 interrupted Vicryl followed by 4-0 subcuticular suturing. Dermabond was applied to the incision. The patient was then awakened and taken to the recovery room in good condition. There were no complications during this procedure. Grafts/Implants Used: IPG Interstim - Complications None - Admit VTE Documentation VTE Present on Admission: Yes VTE Mechan Device Prophylaxis: SCD's VTE Pharm Prophylaxis ordered?: No Reason prophylaxis not ordered:: Treatment Not Indicated
--- NOTE | 2018-12-01 12:48 | PCM.DC.URO ---
Discharge Diet: No Restrictions Discharge Activity: May Shower May resume sexual activity in: 1 week Call your doctor if your incision/area has: Continuous Slow Oozing, Sudden Increased Bleeding, Increased Pain/ Swelling, Increased Redness, Foul Smelling Discharge Call your doctor if you observe: Fever of 101 or Higher, Inability to urinate, Shortness of breath, Chest pain, Calf discomfort, Uncontrolled pain Suture Line Care: Avoid Pulling/Pushing, Avoid Pinching/Bending Allergies/Adverse Reactions: Allergies adhesive tape Adverse Reaction (Verified 11/07/18 11:52) Rash Medications to take at Discharge Aspirin [[place] Aspirin] 81 mg PO DAILY 12/28/13 Ca/D3/Mag Ox/Zinc/Commercial Intelligence Manager/Asad/Bor [Calcium 600-D3 Plus Caplet] 1 each PO DAILY 12/28/13 Lactobacillus Acidophilus [Acidophilus] 1 each PO DAILY 12/28/13 Lisinopril [Zestril] 5 mg PO DAILY 12/28/13 Loratadine [Claritin] 10 mg PO DAILY PRN 12/28/13 Naproxen [Naprosyn] 500 mg PO DAILY PRN PRN 12/28/13 Potassium Chloride [Klor-Con 10] 10 meq PO DAILY 12/28/13 Ranitidine [Zantac] 300 mg PO QHS 12/28/13 Sertraline HCl [Zoloft] 100 mg PO BID 12/28/13 Timolol Maleate 1 drop EACH EYE BID 01/18/17 Ascorbic Acid [Vitamin C] 240 mg PO DAILY 11/07/18 Cephalexin [Keflex] 250 mg PO DAILY 11/07/18 Cholecalciferol (Vitamin D3) [Vitamin D3] 2,000 unit PO DAILY 11/07/18 Cranberry 500 mg PO DAILY 11/07/18 Hydrochlorothiazide [Hctz] 37.5 mg PO DAILY 11/07/18 Inulin [Fiber Gummies] 1 gm PO DAILY 11/07/18 Latanoprost 0.005% [Xalatan Opthalmic] 1 drop EACH EYE QHS 11/07/18 Primary Care Physician: Frank Ratliff MD [Primary Care Provider] - Test Results: Test results from this visit will be discussed in further detail at your follow-up appointment, if applicable. Please Follow Up With: Sylvia Olson MD When: 1 week, call office for appt. Proposed Discharge Date: 12/01/18
== END 2018-12-01 13:55 | disposition home or self-care (01) ==
LOC: SDC 10:22 → AC 10:24
PROVIDERS: Family Provider Family Medicine; PCP Family Medicine; Referring Provider Urology; Visit Provider Urology
DX: N31.9 Neuromuscular dysfunction of bladder, unspecified (principal); R33.9 Retention of urine, unspecified; R39.14 Feeling of incomplete bladder emptying; R35.1 Nocturia; N39.3 Stress incontinence (female) (male); R39.15 Urgency of urination; N39.0 Urinary tract infection, site not specified; F32.9 Major depressive disorder, single episode, unspecified; F41.9 Anxiety disorder, unspecified; H40.9 Unspecified glaucoma; K21.9 Gastro-esophageal reflux disease without esophagitis; Z87.891 Personal history of nicotine dependence; D64.9 Anemia, unspecified; I12.9 Hypertensive chronic kidney disease with stage 1 through stage 4 chronic kidney disease, or unspecified chronic kidney disease; N18.3 Chronic kidney disease, stage 3 (moderate); Z85.038 Personal history of other malignant neoplasm of large intestine
CPT/HCPCS: 00400; 64590; J7120; C1767

== ENCOUNTER → 2019-04-17 15:40 | Outpatient (CLI) | payer MEDICARE, MEDICAID, SELFPAY ==
[2018-12-01 10:44] VITALS: BMI 42.5
--- NOTE | 2019-04-17 15:44 | CT_ITS ---
STUDY: CT ABDOMEN AND PELVIS WITH AND WITHOUT CONTRAST REASON FOR EXAM: Female, 68 years old. Gross hematuria. RADIATION DOSAGE (If Supplied By Facility): CTDIvol = ( 17.81 ) mGy, DLP = ( 3661.41 ) mGycm TECHNIQUE: Transaxial images were obtained from the dome of the diaphragm to the symphysis pubis without oral contrast. 100 IV Isovue 300 was administered. Sagittal and coronal images were reconstructed. Individualized dose optimization techniques were used for this CT. COMPARISON: December 29, 2013 FINDINGS: There is a stable well-circumscribed 3.8 low-attenuation subpleural rounded focus within the right lower lobe that contains few curvilinear calcifications. The visualized portions of the heart are within normal limits. Normal liver. There is non-visualization of the gallbladder, which may be secondary to either contraction or a prior cholecystectomy. There is stable mild splenomegaly. There is a stable too small to characterize low-attenuation focus within the pancreatic body that likely reflects intercalated fat. There is stable prominence of the left adrenal gland. There are right renal cysts. Normal left kidney. Normal visualized stomach. Normal small intestine. There is evidence of partial resection of the colon. There are diverticula within the sigmoid colon. There is non-visualization of the appendix. There is diffuse atherosclerotic calcification of the abdominal aorta, without a demonstrated aneurysm. Normal inferior vena cava. Normal retroperitoneum. There is bladder wall thickening. There is a right sided Bartholin's cyst. There is a neurostimulator in place within the right lower back and a lead terminating within the right presacral region. There are diffuse degenerative changes of the visualized lumbar spine. CT/CT Abd/Pelvis W/WO Contrast IMPRESSION: Bladder wall thickening may be secondary to history of cystitis. Colonic diverticulosis. Right sided Bartholin's cyst. Stable splenomegaly. 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 Electronically Signed: Esha Pretty MD at 20:55 EDT Tel , Service support ,
[2019-04-17 16:16] LABS: CREATININE FINGERSTICK 1.2 mg/dL (0.55-1.02)
== END ==
PROVIDERS: Family Provider Family Medicine; PCP Family Medicine; Referring Provider Urology; Visit Provider Urology
DX: R31.0 Gross hematuria (principal)
CPT/HCPCS: 74178; Q9967

== ENCOUNTER → 2021-07-31 15:55 | Outpatient (CLI) | payer MEDICARE, MEDICAID, SELFPAY ==
[2021-07-31 18:14] LABS: Anion Gap 9 (5-15); BUN 49 mg/dL (7-18); BUN/Creat Ratio 34.8 RATIO (10-20); Calcium,Total 9.2 mg/dL (8.5-10.1); Chloride 103 mmol/L (98-107); Creatinine, Serum 1.41 mg/dL (0.55-1.02); EST Glomerular Filtration Rate 39 mL/min (>60); Est Glom Filt Rate - Afr Amer 47 mL/min (>60); Glucose 97 mg/dL (74-106); Potassium 3.4 mmol/L (3.5-5.1); Sodium Level 141 mmol/L (136-145)
== END ==
PROVIDERS: PCP Family Medicine; Referring Provider Urology; Visit Provider Urology
DX: R31.0 Gross hematuria (principal)
CPT/HCPCS: 36415; 80048

== ENCOUNTER → 2021-08-13 13:46 | Outpatient (CLI) | payer MEDICARE, MEDICAID, SELFPAY ==
--- NOTE | 2021-08-13 13:50 | CT_ITS ---
STUDY: CT ABDOMEN AND PELVIS WITHOUT CONTRAST REASON FOR EXAM: Female, 70 years old. GROSS HEMATURIA RADIATION DOSAGE (If Supplied By Facility): CTDIvol = ( 21.49 ) mGy, DLP = ( 1068.60 ) mGycm TECHNIQUE: Transaxial images were obtained from the dome of the diaphragm to the symphysis pubis without oral contrast, and without intravenous contrast. Sagittal and coronal images were reconstructed. Individualized dose optimization techniques were used for this CT. COMPARISON: Comparison is made with prior study dated 04/17/2019. FINDINGS: There is a 2.3 cm x 4 cm nodule in the posterior medial segment of the right lower lobe. A dedicated CT scan of the thorax is recommended for further evaluation. The visualized portions of the heart are within normal limits. Normal liver. The patient is status post cholecystectomy. Normal spleen. Normal pancreas. Stable prominence of the left adrenal gland suggestive of adrenal hyperplasia. Atrophy of the right kidney. There is a 3.5 cm cyst in the mid posterior aspect of the right globe. Moderate to marked degree of bilateral hydronephrosis and hydroureter more prominent on the left side. Normal visualized stomach. Normal small intestine. The patient is status post right hemicolectomy. There is non-visualization of the appendix. There is diffuse atherosclerotic calcification of the abdominal aorta and its major visceral branches, without a demonstrated aneurysm. Normal inferior vena cava. Normal retroperitoneum. Distended urinary bladder. There is absence of the uterus consistent with a prior hysterectomy. Normal abdominal wall. There are degenerative changes of the visualized lumbar spine. A pain stimulator device is once again seen overlying the right buttock. CT/Abdomen/Pelvis without Cont IMPRESSION: Moderate to marked degree of bilateral hydronephrosis and nodular ureter down to the urinary bladder. There is a distended urinary bladder. Electronically Signed: Jose Soto MD at 14:51 EDT , Service support ,
== END ==
PROVIDERS: PCP Family Medicine; Referring Provider Urology; Visit Provider Urology
DX: N13.30 Unspecified hydronephrosis (principal); R31.0 Gross hematuria
CPT/HCPCS: 74176

== ENCOUNTER → 2021-08-26 11:08 | Outpatient (CLI) | payer MEDICARE, MEDICAID, SELFPAY ==
[2021-08-26 12:44] LABS: Anion Gap 5 (5-15); BUN 46 mg/dL (7-18); BUN/Creat Ratio 32.6 RATIO (10-20); Calcium,Total 9.5 mg/dL (8.5-10.1); Chloride 103 mmol/L (98-107); Creatinine, Serum 1.41 mg/dL (0.55-1.02); EST Glomerular Filtration Rate 39 mL/min (>60); Est Glom Filt Rate - Afr Amer 47 mL/min (>60); Glucose 102 mg/dL (74-106); Potassium 3.6 mmol/L (3.5-5.1); Sodium Level 138 mmol/L (136-145)
== END ==
PROVIDERS: PCP Family Medicine; Referring Provider Family Medicine; Visit Provider Urology
DX: N13.30 Unspecified hydronephrosis (principal); R33.9 Retention of urine, unspecified
CPT/HCPCS: 36415; 80048

== ENCOUNTER → 2021-09-09 10:57 | Outpatient (CLI) | payer MEDICARE, MEDICAID, SELFPAY ==
--- NOTE | 2021-09-09 11:04 | US_ITS ---
INDICATION: BILAT HYDRONEPHROSIS EXAMINATION: Ultrasound US Kidney(s) complete (eg, kidneys and bladder) TECHNIQUE: Neff scale and color doppler images were obtained of the kidneys. COMPARISON: 04/17/[address] abdomen and pelvis and CT abdomen and pelvis from July 2021 without contrast. FINDINGS: RIGHT KIDNEY: 8.5 x 3.9 x 4.0 cm. There are areas of cortical thinning, especially in the superior pole. No shadowing calculus, focal lesion or perinephric collection is demonstrated. Anechoic cyst extending into the hilum likely measures 2.5 x 4.5 x 3.0 cm The rest of the right renal hilum is normal in appearance with no distended calyces; interval resolution of previously seen hydronephrosis. LEFT KIDNEY: 10.4 x 4.2 x 4.4 cm. Mild superior pole cortical thinning is demonstrated. No shadowing calculus, focal lesion or perinephric collection is demonstrated. Left kidney shows no caliectasis or cyst. No evidence of hydronephrosis. Color flow is documented in both renal yazan. URINARY BLADDER: No images of the urinary bladder. US/Kidney and Bladder IMPRESSION: Interval resolution of previously seen hydronephrosis. Cortical thinning may be indicative of prior infection. Consider assessment for reflux. Somewhat asymmetric location of the distal ureters and urinary bladder on prior CT suggesting possible ectopic insertion on the left. Right renal cyst. Electronically Signed: Tereso Choudhary DO at 21:47 EST Tel , Service support ,
== END ==
PROVIDERS: PCP Family Medicine; Referring Provider Urology; Visit Provider Urology
DX: N13.2 Hydronephrosis with renal and ureteral calculous obstruction (principal)
CPT/HCPCS: 76770

== ENCOUNTER → 2021-10-08 15:01 | Outpatient (CLI) | payer MEDICARE, MEDICAID, SELFPAY ==
--- NOTE | 2021-10-08 15:11 | US_ITS ---
STUDY: RENAL ULTRASOUND - COMPLETE REASON FOR EXAM: Female, 71 years old. URINARY RETENTION TECHNIQUE: Ultrasound evaluation of the kidneys was performed with real-time and static king-scale imaging. COMPARISON: 09/09/2021 FINDINGS: RIGHT KIDNEY: with mild renal atrophy. The right kidney measures 8.5 x 5 cm. There is a normal cortex of the right kidney. The renal cortex measures 1 cm. Cyst visualized and measures 3 cm. There are no right renal calculi. There is no right hydronephrosis. DISTAL RIGHT URETER: There is non-visualization of the distal right ureter. There is no demonstrated right ureterovesical junction calculus. There is a visualized right ureteral jet. LEFT KIDNEY: Normal location of the left kidney, which is normal in size. The left kidney measures 11.6 x 4.9 cm. There is a normal cortex of the left kidney. The renal cortex measures 1.1 cm. There is no left renal mass or cyst. There are no left renal calculi. There is no left hydronephrosis. DISTAL LEFT URETER: There is non-visualization of the distal left ureter. There is no demonstrated left ureterovesical junction calculus. There is a visualized left ureteral jet. AORTA: There is obscuration of the abdominal aorta by overlying bowel gas I.V.C.: The IVC is obscured. BLADDER: The distended urinary bladder has a volume of 189 ml. There is focal wall thickening of the distended bladder. There is no demonstrated mass within the urinary bladder. There are no demonstrated bladder calculi. US/Kidney and Bladder IMPRESSION: Focal wall thickening of the urinary bladder can suggest cystitis. Simple cyst of the right kidney. No follow-up required. Electronically Signed: Dequan Jeffrey MD at 16:25 EST , Service support ,
== END ==
PROVIDERS: PCP Family Medicine; Referring Provider Urology; Visit Provider Urology
DX: N31.9 Neuromuscular dysfunction of bladder, unspecified (principal); R33.9 Retention of urine, unspecified; N13.30 Unspecified hydronephrosis
CPT/HCPCS: 76770

== ENCOUNTER 2022-02-03 13:09 | Outpatient (CLI) | payer MEDICARE, SELFPAY ==
--- NOTE | 2022-02-03 13:13 | US_ITS ---
STUDY: RENAL ULTRASOUND - COMPLETE REASON FOR EXAM: Female, 71 years old. Neurogenic bladder. Patient self catheterizes. URINARY RETENTION TECHNIQUE: Ultrasound evaluation of the kidneys was performed with real-time and static king-scale imaging. COMPARISON: Comparison is made with prior study dated 10/08/2021. FINDINGS: RIGHT KIDNEY: with mild renal atrophy. The right kidney measures 8.6 cm x 4.9 cm x 5.5 cm. There is a normal cortex of the right kidney. The renal cortex measures 1.6 cm. There is a 3.7 cm x 3.9 cm x 2.7 cm cyst. There are no right renal calculi. There is no right hydronephrosis. DISTAL RIGHT URETER: There is non-visualization of the distal right ureter. There is no demonstrated right ureterovesical junction calculus. There is no demonstrated right ureteral jet. LEFT KIDNEY: Normal location of the left kidney, which is normal in size. The left kidney measures 11.6 cm x 4.7 cm x 4.9 cm. There is a normal cortex of the left kidney. The renal cortex measures 1.3 cm. There is no left renal mass or cyst. There are no left renal calculi. There is mild hydronephrosis of the left kidney. DISTAL LEFT URETER: There is non-visualization of the distal left ureter. There is no demonstrated left ureterovesical junction calculus. There is a visualized left ureteral jet. BLADDER: The distended urinary bladder has a volume of 401 ml. The empty urinary bladder has a volume of 3 ml. Mild thickening of the bladder wall measuring 6 mm. There is no demonstrated mass within the urinary bladder. There are no demonstrated bladder calculi. Incidental note is made of splenomegaly. The spleen measures 15.3 cm x 5.9 cm x 5 cm. US/Kidney and Bladder IMPRESSION: Mild atrophy of the right kidney with a right renal cyst. Mild left hydronephrosis. Splenomegaly. Electronically Signed: Jose Soto MD at 14:18 EDT ,
== END 2022-02-03 23:59 | disposition home or self-care (01) ==
PROVIDERS: PCP Family Medicine; Referring Provider Urology; Visit Provider Urology
DX: R33.9 Retention of urine, unspecified (principal)
CPT/HCPCS: 76770

== ENCOUNTER → 2022-02-24 | Outpatient (CLI) | payer MEDICARE, SELFPAY ==
[2022-02-24 12:19] LABS: Absolute Lymphocyte Count 0.99 X10^3/uL (0.83-4.51); Absolute Neutrophil Count 9.2 X10^3/uL (2.0-7.7); Basophil# 0.09 X10^3/uL; Basophil% 0.8 % (0-1); Eosinophil# 0.21 X10^3/uL; Eosinophils% 1.8 % (0-5); Hematocrit 49.5 % (37-47); Hemoglobin 16.2 g/dL (12.0-15.0); Lymphocyte # 0.99 X10^3/ul (0.83-4.51); Lymphocyte % 8.6 % (19-41); Mean Corp Hgb Conc 32.7 g/dL (32-36); Mean Corpuscular Hgb 29.6 pg (27.0-32.0); Mean Corpuscular Volume 90.3 fL (81-99); Mean Platelet Vol. 10.8 fl (6.2-12.0); Monocyte# 0.99 X10^3/uL; Monocyte% 8.6 % (0-10); NRBC Flagged by Analyzer 0 % (0-5); Neutrophil # 9.21 X10^3/uL (2.7-7.7); Neutrophil % 79.7 % (47-70); Platelet Count 218 K/mm3 (150-450); RBC Distribution Width CV 14.4 % (11.6-14.6); RBC Distribution Width SD 47.5 fl (35.1-43.9); Red Blood Count 5.48 M/mm3 (4.2-5.4); White Blood Count 11.6 K/mm3 (4.4-11.0)
== END | disposition home or self-care (01) ==
LOC: MTLAB 09:57
PROVIDERS: PCP Family Medicine; Referring Provider Urology; Visit Provider Urology
DX: N39.0 Urinary tract infection, site not specified (principal); M54.9 Dorsalgia, unspecified
CPT/HCPCS: 36415; 85025

== ENCOUNTER → 2022-03-18 | Outpatient (CLI) | payer MEDICARE, SELFPAY ==
--- NOTE | 2022-03-18 15:30 | CT_ITS ---
STUDY: CT Abdomen And Pelvis W/O Contrast Injection 03/18/2022 6:18 PM REASON FOR EXAM: Female, 71 years old. Abdominal pain HYDRONEPHROSIS Individualized dose optimization techniques were used for this CT. COMPARISON: 08.13.21 TECHNIQUE: CT Abdomen And Pelvis W/O Contrast Injection FINDINGS: There are atherosclerotic calcifications of visualized coronary arteries. The visualized portions of the heart are within normal limits. There is a 37 x 29 mm mass of the medial right lower lobe. Normal liver. There is non-visualization of the gallbladder, which may be secondary to either contraction or a prior cholecystectomy. Normal spleen. Normal pancreas. Normal bilateral adrenal glands. There are hypodensities in the right kidney. These are consistent for cysts. No follow up required. No acute findings of the left kidney. Normal visualized stomach. Normal small intestine. Right hemicolectomy changes. There is non-visualization of the appendix. There are calcifications of the abdominal aorta. This is consistent for atherosclerotic disease. There is NO abdominal aortic aneurysm. Vascular workup can be obtained based on clinical correlation. Normal inferior vena cava. Subcentimeter mesenteric lymph nodes. Urinary bladder wall has wall thickening. This can be related to a partially contractile state. However, a cystitis is not excluded. Urinalysis should be performed in an effort to exclude cystitis. There is absence of the uterus consistent with a prior hysterectomy.Vacuum disc phenomenon. There is bilateral neural foraminal stenosis at L4-5 and L5-S1. There is an umbilical hernia containing fat. There are diffuse degenerative changes of the visualized lumbar spine. There is a right side sided subcutaneous implanted electronic device with leads extending into the spinal canal. This is likely an SCS (spinal cord stimulator). CT/Abdomen/Pelvis without Cont IMPRESSION: (NOT LISTED IN ORDER OF SIGNIFICANCE) Urinary bladder wall has wall thickening. This can be related to a partially contractile state. However, a cystitis is not excluded. Urinalysis should be performed in an effort to exclude cystitis. Stable 37 x 29 mm mass of the medial right lower lobe. Right hemicolectomy changes. There is bilateral neural foraminal stenosis at L4-5 and L5-S1. Other findings as above. Electronically Signed: Dequan Jeffrey MD at 18:22 EDT ,
== END | disposition home or self-care (01) ==
LOC: CT 15:04
PROVIDERS: PCP Family Medicine; Visit Provider Urology
DX: N13.4 Hydroureter (principal); M54.9 Dorsalgia, unspecified
CPT/HCPCS: 74176

== ENCOUNTER → 2023-02-24 | Outpatient (CLI) | payer MEDICARE, MEDICAID, SELFPAY ==
--- NOTE | 2023-02-24 12:17 | US_ITS ---
STUDY: RENAL ULTRASOUND - COMPLETE REASON FOR EXAM: Female, 72 years old. UTI. Urinary retention. TECHNIQUE: Ultrasound evaluation of the kidneys was performed with real-time and static king-scale imaging. COMPARISON: CT of the abdomen and pelvis, March 18, 2022. FINDINGS: RIGHT KIDNEY: Normal location of the right kidney, which is normal in size. The right kidney measures 10 cm. There is a normal cortex of the right kidney. The renal cortex measures 1.2 cm. There is a 4.2 x 3.7 x 2.5 cm simple cyst in the upper pole. This was seen on the prior CT. There are no right renal calculi. There is no right hydronephrosis. DISTAL RIGHT URETER: There is non-visualization of the distal right ureter. There is no demonstrated right ureterovesical junction calculus. There is a visualized right ureteral jet. LEFT KIDNEY: Normal location of the left kidney, which is normal in size. The left kidney measures 12.0 cm. There is a normal cortex of the left kidney. The renal cortex measures 1.2 cm. There is no left renal mass or cyst. There are no left renal calculi. There is mild hydronephrosis of the left kidney. DISTAL LEFT URETER: There is non-visualization of the distal left ureter. There is no demonstrated left ureterovesical junction calculus. There is a visualized left ureteral jet. BLADDER: The distended urinary bladder has a volume of 633 ml. The empty urinary bladder has a volume of 5 ml after the patient self catheterized herself.. There is a normal wall thickness of the distended urinary bladder. There is no demonstrated mass within the urinary bladder. There are no demonstrated bladder calculi. US/Kidney and Bladder IMPRESSION: 1. Stable right renal cyst. This requires no further follow-up. The right kidney is otherwise unremarkable. 2. Mild left hydronephrosis which resolved post voiding study.. 3. Grossly normal urinary bladder. Electronically Signed: Mason Tapia DO at 20:40 EDT ,
== END | disposition home or self-care (01) ==
PROVIDERS: PCP Family Medicine; Referring Provider Urology; Visit Provider Urology
DX: N39.0 Urinary tract infection, site not specified (principal)
CPT/HCPCS: 76770

== ENCOUNTER → 2024-02-22 | Outpatient (CLI) | payer MEDICARE, MEDICAID, SELFPAY ==
--- NOTE | 2024-02-22 11:51 | US_ITS ---
STUDY: RENAL ULTRASOUND - COMPLETE REASON FOR EXAM: Female, 73 years old. RECURRENT UTI TECHNIQUE: Ultrasound evaluation of the kidneys was performed with real-time and static king-scale imaging. COMPARISON: Comparison is made with prior study dated February 24, 2023. FINDINGS: RIGHT KIDNEY: Normal location of the right kidney, which is normal in size. The right kidney measures 10.2 cm x 5.5 signed by 4.9 cm. There is a normal cortex of the right kidney. The renal cortex measures 1 cm. There is a 3.9 cm x 3.47 x 2.8 cm cyst in the midpole of the right kidney. Questionable to 7 mm x 6 mm x 4 mm nonobstructive calculi in the midpole of the right kidney. There is no right hydronephrosis. DISTAL RIGHT URETER: There is non-visualization of the distal right ureter. There is no demonstrated right ureterovesical junction calculus. There is a visualized right ureteral jet. LEFT KIDNEY: Normal location of the left kidney, which is normal in size. The left kidney measures 11.7 cm x 5.1 cm x 4.8 cm. There is a normal cortex of the left kidney. The renal cortex measures 1.4 cm. There is no left renal mass or cyst. There are no left renal calculi. There is no left hydronephrosis. DISTAL LEFT URETER: There is non-visualization of the distal left ureter. There is no demonstrated left ureterovesical junction calculus. There is a visualized left ureteral jet. BLADDER: The distended urinary bladder has a volume of 118.4 ml. There is a normal wall thickness of the distended urinary bladder. There is no demonstrated mass within the urinary bladder. There are no demonstrated bladder calculi. US/Kidney and Bladder IMPRESSION: Right renal cyst. Questionable 2 nonobstructive right intrarenal calculi. Electronically Signed: Jose Soto MD at 15:49 EDT ,
== END | disposition home or self-care (01) ==
LOC: US 11:49
PROVIDERS: PCP Family Medicine; Referring Provider Urology; Visit Provider Urology
DX: R33.9 Retention of urine, unspecified (principal); N39.0 Urinary tract infection, site not specified
CPT/HCPCS: 76770

== ENCOUNTER → 2024-03-14 | Outpatient (CLI) | payer MEDICARE, MEDICAID, SELFPAY ==
--- NOTE | 2024-03-14 13:48 | CT_ITS ---
STUDY: CT ABDOMEN AND PELVIS WITHOUT CONTRAST REASON FOR EXAM: Female, 73 years old. Right back and flank pain RADIATION DOSAGE (If Supplied By Facility): CTDIvol = ( 28.95 ) mGy, DLP = ( 1489.75 ) mGycm TECHNIQUE: Transaxial images were obtained from the dome of the diaphragm to the symphysis pubis without oral contrast, and without intravenous contrast. Sagittal and coronal images were reconstructed. Individualized dose optimization techniques were used for this CT. COMPARISON: 01/16/2022 FINDINGS: Chronic interstitial changes in the lung bases with stable soft tissue density in the medial aspect of the right lower lobe perhaps a pulmonary sequestration. The visualized portions of the heart are within normal limits. Normal liver. There is non-visualization of the gallbladder, which may be secondary to either contraction or a prior cholecystectomy. Normal spleen. Normal pancreas. Normal bilateral adrenal glands. Stable simple right renal cysts. Stable nonobstructing right renal stones using up to 5 mm. Left kidney is free of obstructive uropathy or suspicious solid lesion. Both ureters are of normal course and caliber. Normal visualized stomach. Nondistended fluid-filled small bowel loops are noted suggesting ileus this may be due to retained stool throughout the colon. There are surgical clips in the region of the appendix consistent with a prior appendectomy. Incidental note is made that the distal ascending and proximal transverse colon are interposed between the anterior edge of the liver and the peritoneal surface. This could cause pain in the right clinical setting. There is diffuse atherosclerotic calcification of the abdominal aorta, without a demonstrated aneurysm. Normal inferior vena cava. Normal retroperitoneum. Normal urinary bladder. There are multiple small fat-containing ventral hernias. There are diffuse degenerative changes of the visualized lumbar spine, and pelvis. A neural catheter in the right flank is free of complication CT/Abdomen/Pelvis without Cont IMPRESSION: Stable benign-appearing well-defined 3.5 x 3 cm mass in the medial right lower lobe, perhaps a pulmonary sequestration. Simple right renal cysts, nonobstructing right nephrolithiasis, no specific follow-up needed. Small bowel ileus, perhaps due to retained stool throughout the colon Small fat-containing ventral hernias Degenerative bony changes Electronically Signed: Pipo Langston MD at 15:28 EDT ,
== END | disposition home or self-care (01) ==
LOC: CT 13:46
PROVIDERS: PCP Family Medicine; Referring Provider Urology; Visit Provider Urology
DX: N20.0 Calculus of kidney (principal); M54.9 Dorsalgia, unspecified
CPT/HCPCS: 74176

== ENCOUNTER → 2024-03-23 | Outpatient (CLI) | payer MEDICARE, MEDICAID, SELFPAY ==
--- NOTE | 2024-03-23 13:04 | RAD_ITS ---
INDICATION: KUB- KIDNEY STONES EXAMINATION/TECHNIQUE: X-RAY - XR Abdomen 1 View: 2 image AP abdomen COMPARISON: March 14, 2024 CT FINDINGS: BOWEL GAS PATTERN: Nonspecific non-obstructive bowel gas pattern. No focal stomach or bowel distention. FREE AIR: Not well assessed on a supine view. ORGANOMEGALY: Not seen. CALCIFICATIONS: Left inferior pelvic phleboliths. 2 mm right renal midpole calculus is suggested, better seen on comparison CT. LOWER CHEST: No acute pathology. BONES AND SOFT TISSUES: Levocurvature of the lumbar spine. Right upper abdominal oval 1.5 x 0.6 cm capsular density, unchanged in location from capsule within small bowel on comparison CT. Right pelvic neurostimulator. RAD/Abdomen Single View IMPRESSION: 2 mm right renal calculus is suggested, better seen on comparison CT. Non-obstructive bowel gas pattern. Electronically Signed: Iam Marshall MD at 17:12 EDT ,
[2024-03-23 15:55] LABS: Hemoglobin 15.4 g/dL (12.0-15.0); Mean Corp Hgb Conc 32.8 g/dL (32-36); Mean Corpuscular Volume 91.6 fL (81-99); Mean Platelet Vol. 10.9 fl (6.2-12.0); Platelet Count 186 K/mm3 (150-450); RBC Distribution Width CV 13.9 % (11.6-14.6); RBC Distribution Width SD 46.5 fl (35.1-43.9); Red Blood Count 5.13 M/mm3 (4.2-5.4)
[2024-03-23 16:06] LABS: Anion Gap 9 (5-15); BUN 45 mg/dL (7-18); BUN/Creat Ratio 39.8 RATIO (10-20); Chloride 104 mmol/L (98-107); Creatinine, Serum 1.13 mg/dL (0.55-1.02); EST Glomerular Filtration Rate 50 mL/min (>60); Est Glom Filt Rate - Afr Amer 60 mL/min (>60); Glucose 95 mg/dL (74-106); Potassium 3.9 mmol/L (3.5-5.1); Sodium Level 137 mmol/L (136-145)
== END | disposition home or self-care (01) ==
LOC: MTLAB 13:02
PROVIDERS: PCP Family Medicine; Referring Provider Urology; Visit Provider Urology
DX: N20.0 Calculus of kidney (principal)
CPT/HCPCS: 36415; 74018; 80048; 85027

== ENCOUNTER → 2025-08-06 | Outpatient (CLI) | payer MEDICARE, MEDICAID, SELFPAY ==
[2025-08-06 18:41] LABS: Hematocrit 42.8 % (37-47); Hemoglobin 14.2 g/dL (12.0-15.0); Immature Granulocytes Count 0.050 X10^3/uL (0.0-0.0); Mean Corp Hgb Conc 33.2 g/dL (32-36); Mean Corpuscular Volume 93.2 fL (81-99); Mean Platelet Vol. 10.7 fl (6.2-12.0); NRBC Flagged by Analyzer 0 % (0-5); Platelet Count 141 K/mm3 (150-450); RBC Distribution Width CV 13.8 % (11.6-14.6); RBC Distribution Width SD 46.6 fl (35.1-43.9); Red Blood Count 4.59 M/mm3 (4.2-5.4); White Blood Count 6.8 K/mm3 (4.4-11.0)
[2025-08-06 19:05] LABS: Anion Gap 13 (5-15); BUN 30 mg/dL (4-19); BUN/Creat Ratio 29.9 RATIO (10-20); Calcium,Total 10.0 mg/dL (7.6-11.0); Carbon Dioxide 25.9 mmol/L (21.0-32.0); Chloride 102 mmol/L (98-108); Glucose 94 mg/dL (70-99); Potassium 4.1 mmol/L (3.3-5.1)
== END | disposition home or self-care (01) ==
LOC: MTLAB 14:48
PROVIDERS: PCP Family Medicine; Referring Provider Urology; Visit Provider Urology
DX: R33.9 Retention of urine, unspecified (principal)
CPT/HCPCS: 36415; 80048; 85025

== ENCOUNTER → 2025-08-09 | Outpatient (CLI) | payer MEDICARE, MEDICAID, SELFPAY ==
--- NOTE | 2025-08-09 14:25 | US_ITS ---
EXAM: US Retroperitoneal Limited, Renal CLINICAL INDICATION: NEUROGENIC BLADDER TECHNIQUE: Real-time limited ultrasound of the retroperitoneum with image documentation. COMPARISON: No relevant prior studies available. FINDINGS: RIGHT KIDNEY: 5 mm calculus of the right renal pelvis without obstruction. 3.9 cm simple right renal cysts. The right kidney measures 8.5 x 4.6 x 4.7 cm. LEFT KIDNEY: 0.6 cm calculus of the left renal pelvis without obstruction. The left kidney measures 11.8 x 4.7 x 4.8 cm. BLADDER: Normal-appearing urinary bladder. OTHER FINDINGS: Fatty infiltration of the liver. US/Kidney and Bladder IMPRESSION: 1. Fatty infiltration of the liver. 2. Bilateral nephrolithiasis without hydronephrosis. Simple right renal cyst. Reading Location: [id number]
--- OUTSIDE RECORDS SUMMARY | 2025-08-09 14:40 | XMS RPT_ITS | CCD ---
Author Organization [facility] Inform ion Partnership [facility] Care Team Providers Care Song And Dance Performer Name Role Phone Jenifer Neal Unavailable Unavailable Jenifer Neal Unavailable Unavailable Zahraa Ratliff Unavailable Unavailable Zahraa Ratliff MD Primary Care Provider Zahraa Ratliff MD Primary Care Provider Zahraa Ratliff MD Primary Care Provider Zahraa Ratliff MD Primary Care Provider Zahraa Ratliff MD Primary Care Provider Isabel SYSTEM DISPATCHER.Kimberli HAYS Unavailable Billy SYSTEM DISPATCHER.Elliot HAYS Unavailable LEONCIO ZARAGOZA Referring Unavailable ZAHRAA RATLIFF Primary Care Unavailable KIMBERLI HALL Referring Unavailabl ZAHRAA Joshi Primary Care Unavailable COOPERMAKAYLA II, JACOBY H Attending Unavailabl e COOPERRIDER II, JACOBY H Referring Unavailabl e ZAHRAA RATLIFF Primary Care Unavailable KIMBERLI HALL Referring Unavailabl e ZAHRAA RATLIFF Primary Care Unavailable COOPERRIDER II, JACOBY Cordero Attending Unavailabl e COOPERRIDER II, JACOBY H Referring Unavailabl e ZAHRAA RATLIFF Primary Care Unavailable ELLIOT ARCHIBALD Attending Unavailable SELF Referring Unavailable ZAHRAA RATLIFF Primary Care Unavailable ELLIOT ARCHIBALD Referring Unavailable ZAHRAA RATLIFF Primary Care Unavailable LEONCIO ZARAGOZA Attending Unavailable ELLIOT ARCHIBALD Referring Unavailable ZAHRAA RATLIFF Primary Care Unavailable Sylvia Olson Attending Unavailable Zahraa Ratliff Primary Care Unavailable Zahraa Ratliff Referring Unavailable Sylvia Olson Attending Unavailable Zahraa Ratliff Primary Care Unavailable Sylvia Olson Attending Unavailable Sylvia Olson Referring Unavailable Zahraa Ratliff Primary Care Unavailable Allergies Allergy Classification Reported Allergen(s) Allergy Type Date of Onset Reaction(s) Facility (1 source) Bee/Wasp/Ant venom; Translations: [Bee Stings] [facility] Adhesive Tape; Translations: [adhesive tape] Propensity to adverse reactions 9 [facility] (14 sources) Adhesive agent; Translations: [ADHESIVE] Drug Allergy 9 [facility] (20 sources) Bee Sting; Translations: [BEE STING] Allergy to substance 4 Swelling [facility] (20 sources) Adhesive agent Drug Allergy 9 [facility] (1 source) bee venom protein (honey bee) Drug allergy (disorder) 5 [facility] Repository Medications Current Medications Medication Drug Class(es) Dates Sig (Normalized) Sig (Original) acetaminophen 500 mg oral tablet (20 sources) Start: 08-24-2022 take 1 tablet by mouth every six hours as needed acetaminophen (TYLENOL EXTRA STRENGTH) 500 mg tablet Take 1 tablet by mouth every 6 hours as needed for pain. 08/24/2022 Active Comment on above: Take 1 tablet by vera every 6 hours as needed for pain. ascorbic acid 250 mg oral tablet (20 sources) Vitamin C Start: 11-07-2018 ascorbic acid, vitamin C, (VITAMIN C) 250 mg tablet DAILY 11/07/2018 Active Start: 11-07-2018 Ascorbic Acid (Vitamin C) (Vitamin C) 250 MG tablet Active 240 MG PO DAILY November 07, 2018 1:00am Comment on above: DAILY aspirin 81 mg chewable tablet (20 sources) Platelet Aggregation Inhibitor, Nonsteroidal Anti-inflammatory Drug Start: 12-28-2013 take 1 tablet by mouth once daily Aspirin ([facility] Mikey Aspirin) 81 MG tablet,chewable Active 81 MG PO DAILY December 28, 2013 1:00am Start: 04-10-2009 aspirin(ECOTRI N LOW STRENGTH 81 MG TAB) Take one(1) tablet daily. 0 04/10/2009 Active Comment on above: Take one(1) tablet d shade. benoxinate hydrochloride 4 mg/ml / fluorescein sodium 3 mg/ml ophthalmic solution (10 sources) Diagnostic Dye Start: 03-27-2025 End: 03-28-2025 fluorescein-benoxi kylie 0.3-0.4 % 1 drop (FLURESS) Start: 03-27-2025 End: 03-28-2025 1 drop, BOTH EYES, DIRECT ED, Starting on Tue03/27/25 at 1600, Until Symone 03/28/25 at 0359, Administer for applanation tonometry. In the event of a Fluress shortage, administer Brina-Fluor 1 drop into both eyes as directed for applanation tonometry Start: 09-19-2024 End: 09-20-2024 fluorescein-benoxinate 0.3-0 .4 % 1 Drop (FLURESS) Start: 09-19-2024 End: 09-20-2024 1 Drop, BOTH EYES, DIRECT ED, Starting on Tue09/19/24 at 1400, Until Symone 09/20/24 at 0159, Administer for applanation tonometry. In the event of a Fluress shortage, administer Brina-Fluor 1 drop into both eyes as directed for applanation tonometry Start: 03-07-2024 End: 03-08-2024 fluorescein-benoxinate 0.3-0 .4 % 1 Drop (FLURESS) Start: 09-07-2023 End: 09-08-2023 fluorescein-benoxinate 0.3-0 .4 % 1 Drop (FLURESS) Start: 05-04-2023 End: 05-05-2023 fluorescein-benoxinate 0.25- 0.4 % 1 Drop (FLURESS) Start: 12-29-2022 End: 12-29-2022 fluorescein-benoxinate 0.25- 0.4 % 1 Drop (FLURESS) Start: 08-31-2022 End: 08-31-2022 fluorescein-benoxinate 0.25- 0.4 % 1 Drop (FLURESS) Ca-D3-Mag Ht-Ogmi-Wiv-Asad-B or (Calcium 600-D3 Plus (Mag-Zinc)) 1 EACH tablet (5 sources) Start: 12-28-2013 Ca-D3-Mag Ox-Z mso-Rfk-Hkwf-Bor (Calcium 600-D3 Plus (Mag-Zinc)) 1 EACH tablet Active 1 EACH PO DAILY December 28, 2013 11:35pm Start: 12-28-2013 Ca-D3-Mag Ox-Z yvr-Vsb-Pbqp-Bor (Calcium 600-D3 Plus (Mag- Zinc)) 1 EACH tablet Active 1 EACH PO DAILY December 28, 2013 1:00am Catheter (DAVENPORT CATHETER) 14 Fr misc (20 sources) Start: 11-23-2023 Catheter (FOLE Y CATHETER) 14 Fr misc Indications: Urinary retention Use as directed 5 x per day 450 Each 11 11/23/2023 Active Start: 08-24-2022 Catheter (FOLE Y CATHETER) 14 Fr misc Indications: Urinary retention Use as directed 5 x per day 0 08/24/2022 Active Comment on above: Use as directed 5 x per day chlorhexidine gluconate 1.2 mg/ml mouthwash (20 sources) Start: 08-24-2022 End: 05-20-2025 Chlorhexidine Gluconate (PERIDEX) 0.12 % solution Use 15 mL as instructed two times a day. 473 mL 3 05/20/2025 Active Start: 08-26-2021 Chlorhexidine Gluconate (PERIDEX) 0.12 % solution Use 15 mL as instructed twice daily. 473 mL 3 08/26/2021 Active Comment on above: Use 15 mL as instruc shavonne twice daily. cholecalciferol 0.05 mg oral capsule (5 sources) Vitamin D Start: 11-07-19 19 take 1 capsule by mouth once daily Cholecalciferol (Vitamin D3) (Vitamin D3) 2,000 UNIT capsule Active 2000 UNIT PO DAILY November 07, 2018 1:00am COMPOUNDED PRESCRIPTION (20 sources) Start: 07-03-20 09 COMPOUNDED PRESCRIPTION vitamin D3 1,000mg tab take one daily 0 07/03/2009 Active Comment on above: vitamin D3 1,000mg t ab take one daily cranberry fruit extract (CRANBERRY CONCENTRATE ORAL) (20 sources) Start: 11-07-19 19 cranberry fruit extract (CRANBERRY CONCENTRATE ORAL) DAILY 11/07/2018 Active Start: 11-07-2018 cranberry frui t extract (CRANBERRY CONCENTRATE ORAL) DAILY 0 11/07/2018 Active Comment on above: DAILY Cranberry (5 sources) Non-Standardized Food Allergenic Extract, Non-Standardized Plant Allergenic Extract Start: 11-07-2018 take 500 mg by mouth once daily Cranberry Active 500 MG PO DAILY November 07, 2018 12:05pm Start: 11-07-2018 take 500 mg by mouth once clifton y Cranberry Active 500 MG PO DAILY November 07, 2018 1:00am Diaper,Brief, Adult,Disposable (PROTECTIVE UNDERWEAR LARGE) (20 sources) Start: 08-10-2022 Diaper,Brief, Adult,Disposable (PROTECTIVE UNDERWEAR LARGE) Indications: Urinary incontinence, unspecified type , Incontinence of feces, unspecified fecal incontinence type Use as directed for urinary incontinence 360 Each 3 08/10/2022 Active Comment on above: Use as directed for urinary incontinence dorzolamide 20 mg/ml / timolol 5 mg/ml ophthalmic solution (20 sources) Carbonic Anhydrase Inhibitor, beta-Adrenergic Marvin Start: 12-29-2022 End: 09-19-2024 take 1 drop(s) into the eye(s) twice daily dorzolamide-timolol (COSOPT) 22.3-6.8 mg/mL ophthalmic solution Use 1 Drop in both eyes two times a day. 20 mL 3 09/19/2024 Active Start: 01-05-2022 End: 12-29-2022 take 1 drop(s) into the eye(s) twice daily dorzolamide-timolol (COSOPT) 22.3-6.8 mg/mL ophthalmic solution Use 1 Drop in both eyes twice daily. 20 mL 3 12/29/2022 Active Comment on above: Use 1 Drop in both e yes twice daily. Use 1 Drop in both e yes two times a day. fluocinonide 0.5 mg/ml topical cream (20 sources) Corticosteroid Start : 08-25 End: 05-22 fluocinonide (LIDEX) 0.05 % cream Indications: Psoriasis Apply to affected area two times a day. 60 g 5 05/20/2025 05/22/2025 Discontinued Comment on above: Apply to affected ar ea two times a day. hydroCHLOROthiazide 25 mg oral tablet (5 sources) Thiazide Diuretic Start : 11-07 take 37.5 mg by mouth once daily Hydrochlorothiazide Active 37.5 MG PO DAILY November 07, 2018 1:00am hydroCHLOROthiazide 25 mg / triamterene 37.5 mg oral tablet (20 sources) Potassium-sparing Diuretic, Thiazide Diuretic Start : 04-18 End: 05-13 take 1 tablet by mouth once daily triamterene-hydroCHLOROt hiazide (MAXZIDE-25) 37.5-25 mg per tablet Indications: Essential hypertension, benign Take 1 tablet by mouth once daily. 90 tablet 3 05/13/2025 Active Start: 06-21-2022 End: 04-15-2023 take 1 tablet by mouth once daily triamterene-hydroCHLOROthiazide (MAXZIDE -25) 37.5-25 mg per tablet Indications: Essential hypertension, benign TAKE 1 TABLET BY MOUTH ONCE DAILY. 60 tablet 3 06/21/2022 04/15/2023 Discontinued Start: 08-26-2021 take 1 tablet by mouth once daily triamterene-hydroCHLOROthiazide (MAXZIDE -25) 37.5-25 mg per tablet Indications: Essential hypertension, benign Take 1 tablet by mouth once daily. 90 tablet 3 08/26/2021 Active Comment on above: Take 1 tablet by vera th once daily. inulin 2000 mg chewable tablet (5 sources) Start: 9 take 1 tablet by mouth once daily Inulin (Fiber Gummies) 2 GM tablet,chewable Active 1 GM PO DAILY November 07, 2018 1:00am lactobacillus acidophilus [id number] unt oral tablet (20 sources) Start: 4 Lactobacillus Acidophilus Active 1 EACH PO DAILY December 28, 2013 1:00am Lactobacillus ac idophilus (BACID) cap Take one(1) tablet daily. 0 Active take 1 tablet by mouth once clifton y lactobacillus acidophilus (ACIDOPHILUS) ORAL Cap Take one(1) tablet daily. 0 Active Comment on above: Take one(1) tablet d aily. latanoprost 0.05 mg/ml ophthalmic solution (20 sources) Prostaglandin Analog Start: 2 End: 3 take 1 drop(s) into the eye(s) once daily at bedtime latanoprost (XALATAN) 0.005 % ophthalmic solution Use 1 Drop in both eyes daily at bedtime. 7.5 mL 3 12/29/2022 Active Start: 11-07-2018 End: 09-19-2024 take 1 drop(s) into the eye(s) once daily at bedtime latanoprost (XALATAN) 0.005 % ophthalmic solution Use 1 Drop in both eyes daily at bedtime. 7.5 mL 3 09/19/2024 Active Comment on above: Use 1 Drop in both e yes daily at bedtime. lisinopril 5 mg oral tablet (20 sources) Angiotensin Converting Enzyme Inhibitor Start: 04-18-2023 End: 05-13-2025 take 1 tablet by mouth once daily lisinopril (ZESTRIL) 5 mg tablet Indications: Essential hypertension, benign Take 1 tablet by mouth once daily. 90 tablet 3 05/13/2025 Active Start: 12-28-2013 End: 04-15-2023 take 1 tablet by mouth once daily lisinopril (ZESTRIL) 5 mg tablet Indications: Essential hypertension, benign Take 1 tablet by mouth once daily. 90 tablet 3 04/18/2023 Active Comment on above: Take 1 tablet by vera th once daily. loratadine 10 mg oral tablet (20 sources) Start: 9 take 1 tablet by mouth once daily Loratadine (Allergy Relief (Loratadine)) 10 MG tablet Active 10 MG PO DAILY December 28, 2013 1:00am Comment on above: TAKE PRESCRIBED naproxen 500 mg oral tablet (20 sources) Nonsteroidal Anti-inflammatory Drug Start: 7 take 1 tablet by mouth every twelve hours as needed naproxen (NAPROSYN) 500 mg tablet Take 1 tablet by mouth twice daily as needed (pain/inflammation, take with food.). 0 01/25/2017 Active Start: 12-28-2013 take 500 mg by mouth once daily as needed Naproxen Active 500 MG PO DAILY NEEDED December 28, 2013 1:00am Comment on above: Take 1 tablet by vera th twice daily as needed (pain/inflammation, take with food.). potassium chloride 10 meq extended release oral tablet (20 sources) Start: 04-18-20 End: 05-15-20 take 1 tablet by mouth once daily potassium chloride (K-TAB) 10 mEq tablet Indications: Essential hypertension, benign Take 1 tablet by mouth once daily. 90 tablet 3 05/16/2025 Active Start: 08-26-2021 take 1 tablet by vera th once daily potassium chloride ER (K-DUR, KLOR-CON) 10 mEq tablet Indications: Essential hypertension, benign Take 1 tablet by mouth once daily. 90 tablet 3 08/26/2021 Active Start: 12-28-2013 End: 04-15-2023 take 1 tablet by mouth once daily potassium chloride (K-TAB) 10 mEq tablet Indications: Essential hypertension, benign Take 1 tablet by mouth once daily. 90 tablet 3 04/18/2023 Active Comment on above: Take 1 tablet by vera th once daily. raNITIdine 300 mg oral capsule (5 sources) Histamine-2 Receptor Antagonist Start: 12-28-2013 take 1 tablet by mouth at bedtime Ranitidine (Zantac) 300 MG tablet Active 300 MG PO AT BEDTIME December 28, 2013 11:35pm Start: 12-28-2013 take 1 tablet by vera th at bedtime Ranitidine (Zantac) 300 MG tablet Active 300 MG PO AT BEDTIME December 28, 2013 1:00am sertraline 100 mg oral tablet (20 sources) Serotonin Reuptake Inhibitor Start: 05-22-2025 take 2 tablets by mouth once daily sertraline (ZOLOFT) 100 mg tablet Indications: Recurrent major depressive disorder, remission status unspecified Take 2 tablets by mouth once daily. 180 tablet 3 05/22/2025 Active Start: 05-20-2025 End: 05-21-2025 take 1 tablet by mouth once daily sertraline (ZOLOFT) 100 mg tablet Indications: Recurrent major depressive disorder, remission status unspecified Take 1 tablet by mouth once daily. 90 tablet 3 05/20/2025 05/21/2025 Discontinued (Erroneous entry) Start: 08-25-2023 End: 05-20-2025 take 1 tablet by mouth twice daily sertraline (ZOLOFT) 100 mg tablet Indications: Recurrent major depressive disorder, remission status unspecified Take 1 tablet by mouth two times a day. 180 tablet 3 08/09/2024 05/20/2025 Discontinued (Adjust Sig - Block E-Cancel) Start: 12-28-2013 End: 04-15-2023 take 1 tablet by mouth twice daily sertraline (ZOLOFT) 100 mg tablet Indications: Recurrent major depressive disorder, remission status unspecified (HCC) Take 1 tablet by mouth twice daily. 120 tablet 3 04/18/2023 Active Comment on above: Take 1 tablet by vera th twice daily. Take 1 tablet by vera th two times a day. preservative-free timolol 5 mg/ml ophthalmic solution (5 sources) beta-Adrenergic Marvin Start: 01-18-2017 Timolol Maleate Active 1 DRP Each Eye TWICE A DAY January 18, 2017 12:00am triamcinolone acetonide 0.005 mg/mg topical ointment (20 sources) Corticosteroid Start: 05-22-2025 End: 05-22-2026 triamcinolone acetonide topical 0.5 % ointment Indications: Psoriasis Apply to affected area two times a day. 30 g 3 05/22/2025 05/22/2026 Active Start: 02-23-2024 End: 02-22-2025 triamcinolone acetonide topi timo 0.5 % ointment Indications: Psoriasis Apply to affected area two times a day. 30 g 3 02/23/2024 02/22/2025 Active Start: 08-24-2022 End: 02-23-2024 triamcinolone acetonide (ROSINA ALOG) 0.1 % ointment Apply 1 application to affected area twice daily. 30 g 3 08/24/2022 02/23/2024 Discontinued Start: 08-26-2021 triamcinolone acetonide (KENALOG) 0.1 % ointment Apply 1 application to affected area twice daily. 30 g 3 08/26/2021 Active Comment on above: Apply 1 application to affected area twice daily. Completed/Discontinued Medications Medication Drug Class(es) Dates Sig (Normalized) Sig (Original) acetaminophen 325 mg / HYDROcodone bitartrate 5 mg oral tablet (5 sources) Opioid Agonist Start: 11-14-2018 End: 11-21-2018 take 1 tablet by mouth every four hours as needed Hydrocodone-Acetami nophen Discontinued 1 TABLET PO EVERY 4 HOURS NEEDED 12 05November 14, 2018 1:00am November 21, 2018 1:08am bifidobacterium bifidum [id number] unt / bifidobacterium longum [id number] unt oral capsule (16 sources) Start: 12-26-2019 take 1 capsule by mouth once daily bifidobacteri bifid.and longum (FLORAJEN BIFIDOBLEND) 460 mg (9-1 bill.cell) cap Indications: Burning with urination Take 1 capsule by mouth once daily. 30 capsule 1 12/26/2019 Active Comment on above: Take 1 capsule by [facility] once daily. Catheter (DAVENPORT CATHETER) 24 Fr misc (3 sources) Start: 08-10-2022 Catheter (DAVENPORT CATHETER) 24 Fr misc Indications: Urinary incontinence, unspecified type , Incontinence of feces, unspecified fecal incontinence type , Urinary retention Use as direct 5 times/day 450 Each 3 08/10/2022 Active Start: 08-10-2022 End: 08-10-2022 Catheter (DAVENPORT CATHETER) 24 Fr misc Indications: Urinary incontinence, unspecified type , Incontinence of feces, unspecified fecal incontinence type , Urinary retention Use as direct 5 times/day 450 Each 3 08/10/2022 08/10/2022 Discontinued Comment on above: Use as direct 5 time s/day cephalexin 500 mg oral capsule (20 sources) Cephalosporin Antibacterial Start: 9 End: 9 take 500 mg by mouth every twelve hours Cephalexin Discontinued 500 MG PO EVERY 12 HOURS 6 3 November 14, 2018 1:00am November 17, 2018 1:10am Start: 11-07-2018 take 1 capsule by [facility] once daily Cephalexin (Keflex) 250 MG capsule Active 250 MG PO DAILY November 07, 2018 1:00am estrogens, conjugated ([facility]) 0.625 mg/ml vaginal cream (20 sources) Estrogen Start: 04-14-2020 End: 05-20-2025 PREMARIN vaginal cream 04/14/2020 05/20/2025 Discontinued (Course of therapy completed) meloxicam 15 mg oral tablet (12 sources) Nonsteroidal Anti-inflammatory Drug Start: 06-26-2021 End: 02-22-2023 take 1 tablet by mouth once daily at mealtime meloxicam (MOBIC) 15 mg tablet Indications: Bursitis of other bursa of left hip Take 1 tablet by mouth once daily. Take with food. 30 tablet 0 06/26/2021 02/22/2023 Discontinued Comment on above: Take 1 tablet by [facility] once daily. Take with food. methenamine hippurate 1000 mg oral tablet (20 sources) Start: 04-14-2020 End: 05-20-2025 Methenamine Hippurate (HIPREX) 1 gram tablet 04/14/2020 05/20/2025 Discontinued (Course of therapy completed) sulfamethoxazole 800 mg / trimethoprim 160 mg oral tablet (5 sources) Dihydrofolate Reductase Inhibitor Antibacterial, Sulfonamide Antimicrobial Start: 12-01-2018 End: 12-04-2018 take 1 tablet by mouth twice daily Sulfamethoxazole -Trimethoprim Discontinued 1 TABLET PO TWICE A DAY 6 3 December 01, 2018 1:00am December 04, 2018 1:09am tropicamide 5 mg/ml ophthalmic solution (4 sources) Anticholinergic Start: 03-07-2024 End: 03-08-2024 tropicamide 0.5 % 1 Drop (MYDRIACYL) Start: 09-07-2023 End: 09-08-2023 tropicamide 0.5 % 1 Drop (MY DRIACYL) Start: 08-31-2022 End: 08-31-2022 tropicamide 1 % 1 Drop (MYDR IACYL) Zinc (16 sources) Start: 12-24-2020 take 1 tablet by mouth once daily Zinc 50 mg tab Take 1 tablet by mouth once daily. 0 12/24/2020 Active Comment on above: Take 1 tablet by vera th once daily. Problems Active Problems Problem Classification Problem Date Documented Da te Episodic/Chronic Acquired foot deformities (3 sources) Hallux valgus (acquired), right foot; Translations: [Hallux valgus (acquired)] Onset: 06-20-2025 06-20-2025 Chronic Acquired foot deformities (3 sources) Hallux valgus (acquired), left foot; Translations: [Hallux valgus (acquired)] Onset: 06-20-2025 06-20-2025 Chronic Cataract (20 sources) Bilateral age-related nuclear cataracts; Translations: [Age-related nuclear cataract, bilateral] Onset: 08-14-2015 08-14-2015 Chronic Chronic kidney disease (20 sources) Chronic kidney disease stage 3; Translations: [CKD (chronic kidney disease) stage 3, GFR 30-59 ml/min] Onset: 10-20-2018 10-20-2018 Chronic Chronic kidney disease (1 source) Chronic kidney disease; Translations: [Stage 3b chronic kidney disease (HCC)] Onset: 08-25-2023 Chronic obstructive pulmonary disease and bronchiectasis (5 sources) Bronchitis; Translations: [Bronchitis, not specified as acute or chronic] 12-30-2013 Episodic Diabetes mellitus without complication (1 source) Increased glucose level; Translations: [Other abnormal glucose] Episodic Disorders of lipid metabolism (20 sources) Hyperlipidemia; Translations: [Hyperlipidemia, unspecified] Onset: 12-13-2017 12-13-2017 Chronic Essential hypertension (20 sources) Benign essential hypertension; Translations: [Essential (primary) hypertension] Onset: 08-29-2006 Chronic Genitourinary symptoms and ill-defined conditions (3 sources) Urinary incontinence; Translations: [Unspecified urinary incontinence] Onset: 08-06-2025 Chronic Genitourinary symptoms and ill-defined conditions (8 sources) Retention of urine; Translations: [Retention of urine, unspecified] Onset: 08-06-2025 Episodic Glaucoma (20 sources) Primary open angle glaucoma; Translations: [Primary open-angle glaucoma, bilateral, mild stage] Onset: 05-30-2017 05-30-2017 Chronic Glaucoma (1 source) Glaucoma Onset: 09-19-2024 Hypertension with complications and secondary hypertension (20 sources) Chronic kidney disease stage 3 due to hypertension; Translations: [Hypertensive chronic kidney disease with stage 1 through stage 4 chronic kidney disease, or unspecified chronic kidney disease] Onset: 08-20-2022 08-20-2022 Chronic Mood disorders (20 sources) Recurrent major depression; Translations: [Major depressive disorder, recurrent, unspecified] Onset: 08-29-2006 Chronic Nutritional deficiencies (20 sources) Vitamin D deficiency; Translations: [Vitamin D deficiency, unspecified] Onset: 10-15-2009 10-15-2009 Chronic Other connective tissue disease (1 source) Tendonitis of right wrist; Translations: [Other enthesopathies, not elsewhere classified] Episodic Other connective tissue disease (2 sources) Chronic pain of right upper limb; Translations: [Pain in right hand] 02-23-2024 Episodic Other connective tissue disease (2 sources) Ganglion cyst of right foot; Translations: [Ganglion, right ankle and foot] 05-20-2025 Episodic Other connective tissue disease (1 source) Ganglion, right ankle and foot; Translations: [Ganglion cyst of right foot] Onset: 05-20-2025 Episodic Other diseases of bladder and urethra (5 sources) Neurogenic bladder; Translations: [Neuromuscular dysfunction of bladder, unspecified] 12-01-2018 Chronic Other eye disorders (20 sources) Bilateral vitreous floaters; Translations: [Other vitreous opacities, bilateral] Onset: 08-14-2015 08-14-2015 Chronic Other eye disorders (20 sources) Optic cupping; Translations: [Glaucomatous optic atrophy, unspecified eye] Onset: 06-13-2017 06-13-2017 Chronic Other gastrointestinal disorders (1 source) Incontinence of feces; Translations: [Full incontinence of feces] Episodic Other inflammatory condition of skin (20 sources) Psoriasis; Translations: [Psoriasis, unspecified] Onset: 07-28-2015 07-28-2015 Chronic Other inflammatory condition of skin (1 source) Psoriasis, unspecified; Translations: [Psoriasis] Onset: 07-28-2015 Chronic Other non-traumatic joint disorders (1 source) Pain in right knee; Translations: [Pain in joint, lower leg] Episodic Other nutritional; endocrine; and metabolic disorders (6 sources) Morbid obesity; Translations: [Morbid (severe) obesity due to excess calories] Onset: 08-29-2006 01-10-2018 Chronic Other nutritional; endocrine; and metabolic disorders (20 sources) Body mass index 40+ - severely obese; Translations: [Morbid (severe) obesity due to excess calories] Onset: 08-29-2006 08-20-2022 Chronic Other skin disorders (3 sources) Nail deformity; Translations: [Other nail disorders] 05-20-2025 Episodic Other skin disorders (1 source) Dystrophia unguium; Translations: [Nail dystrophy] 06-20-2025 Episodic Other skin disorders (1 source) Nail dystrophy; Translations: [Onychodystrophy] Onset: 06-20-2025 Episodic Other skin disorders (1 source) Other nail disorders; Translations: [Nail deformity] Onset: 05-20-2025 Episodic Otitis media and related conditions (2 sources) Bilateral disorder of Eustachian tubes; Translations: [Unspecified Eustachian tube disorder, bilateral] Onset: 05-20-2025 05-20-2025 Episodic Screening and history of mental health and substance abuse codes (1 source) Encounter for screening examination for other mental health and behavioral disorders; Translations: [Encounter for screening examination for other mental health and behavioral disorders] Onset: 05-20-2025 Episodic Substance-related disorders (20 sources) Tobacco user; Translations: [Nicotine dependence, unspecified, uncomplicated] Onset: 08-29-2006 08-29-2006 Chronic Superficial injury; contusion (5 sources) Hematoma of rectus sheath; Translations: [Contusion of abdominal wall, initial encounter] 12-30-2013 Episodic Urinary tract infections (5 sources) Urinary tract infectious disease; Translations: [Urinary tract infection, site not specified] 12-01-2018 Episodic Past or Other Problems Problem Classification Problem Date Documented Da te Episodic/Chronic Blindness and vision defects (20 sources) Presbyopia; Translations: [Presbyopia] Onset: 08-14-2015 08-14-2015 Episodic Cancer of colon (20 sources) Malignant tumor of colon; Translations: [Malignant neoplasm of colon, unspecified] Onset: 01-22-2009 Resolved: 08-20-2022 09-08-2016 Chronic Cancer of colon (20 sources) History of malignant neoplasm of colon; Translations: [Personal history of other malignant neoplasm of large intestine] Onset: 08-14-2012 07-28-2015 Episodic Deficiency and other anemia (20 sources) Iron deficiency anemia; Translations: [Iron deficiency anemia, unspecified] Onset: 01-22-2009 01-22-2009 Episodic Deficiency and other anemia (1 source) Iron deficiency anemia, unspecified; Translations: [Iron deficiency anemia, unspecified iron deficiency anemia type] Onset: 01-22-2009 Episodic Fluid and electrolyte disorders (20 sources) Hypokalemia; Translations: [Hypokalemia] Onset: 04-03-2007 Resolved: 08-20-2022 04-03-2007 Episodic Gastrointestinal hemorrhage (20 sources) Rectal hemorrhage; Translations: [Hemorrhage of anus and rectum] Onset: 07-25-2012 Resolved: 08-20-2022 07-25-2012 Episodic Other and unspecified benign neoplasm (20 sources) Benign neoplasm of rectum and anal canal; Translations: [Benign neoplasm of rectum] Onset: 08-14-2012 08-14-2012 Episodic Other and unspecified benign neoplasm (20 sources) History of polyp of colon; Translations: [Personal history of colonic polyps] Onset: 08-11-2015 08-11-2015 Episodic Other and unspecified benign neoplasm (20 sources) Benign neoplasm of colon; Translations: [Benign neoplasm of colon, unspecified] Onset: 01-22-2009 Resolved: 06-09-2017 10-13-2010 Episodic Other eye disorders (9 sources) Excess skin of eyelid; Translations: [Dermatochalasis of right upper eyelid] Onset: 08-17-2016 08-17-2016 Episodic Other eye disorders (20 sources) Dermatochalasis of right upper eyelid; Translations: [Dermatochalasis] Onset: 08-17-2016 08-17-2016 Episodic Other screening for suspected conditions (not mental disorders or infectious disease) (7 sources) Patient encounter status; Translations: [Encounter for screening mammogram for malignant neoplasm of breast] Onset: 10-09-2024 Episodic Other skin disorders (20 sources) Disorder of skin and/or subcutaneous tissue; Translations: [Disorder of the skin and subcutaneous tissue, unspecified] Onset: 11-30-2006 Resolved: 04-03-2007 04-03-2007 Episodic Unclassified (1 source) Hallux valgus of right foot 06-20-2025 Unclassified (1 source) Hallux valgus of left foot 06-20-2025 Results Test Name Value Interpretation Reference Range Facility Basic Metabolic Profile (BMP )on 08-06-2025 BUN/CRE 29.9 RATIO High 08-12 [facility] Comment on above: Performed By: #### L 100.0100, L500.2500 #### [facility] [address] [place], [address] Calcium [Mass/Vol] 10.0 mg/dL Normal 7.6-11.0 [facility] Comment on above: Performed By: #### L 100.0100, L500.2500 #### [facility] [address] [place], [address] Chloride [Moles/Vol] 102 mmol/L Normal 98-108 [facility] Comment on above: Performed By: #### L 100.0100, L500.2500 #### [facility] [address] [place], [address] CO2 [Moles/Vol] 25.9 mmol/L Normal 21.0-32.0 [facility] Comment on above: Performed By: #### L 100.0100, L500.2500 #### [facility] [address] [place], [address] Creatinine [Mass/Vol] 0.99 mg/dL Normal 0.70-1.20 [facility] Comment on above: Performed By: #### L 100.0100, L500.2500 #### [facility] [address] [place], [address] GAP 13 Normal 5-15 [facility] Comment on above: Performed By: #### L 100.0100, L500.2500 #### [facility] [address] [place], [address] GFR/1.73 sq M.predicted among non-blacks MDRD (S/P/Bld) [Vol rate/Area] 59 mL/min/{1.73_m2} Low >60 [facility] Comment on above: Result Comment: mL/m in/1.73m2 CKD-EPI Creatinine Equation (2020) Performed By: #### L 100.0100, L500.2500 #### [facility] [address] [place], [address] Glucose [Mass/Vol] 94 mg/dL Normal 70-99 [facility] Comment on above: Performed By: #### L 100.0100, L500.2500 #### [facility] [address] [place], [address] Potassium [Moles/Vol] 4.1 mmol/L Normal 3.3-5.1 [facility] Comment on above: Performed By: #### L 100.0100, L500.2500 #### [facility] [address] [place], [address] Sodium [Moles/Vol] 140 mmol/L Normal 133-145 [facility] Comment on above: Performed By: #### L 100.0100, L500.2500 #### [facility] [address] [place], [address] Urea nitrogen [Mass/Vol] 30 mg/dL High 4-19 [facility] Comment on above: Performed By: #### L 100.0100, L500.2500 #### [facility] [address] [place], [address] CBC W/Diff, Automatedon 10-10 27-2024 Absolute Lymph 1.24 X10 3/uL Normal 0.83-4.51 [facility] Comment on above: Performed By: #### L 100.0100, L500.2500 #### [facility] [address] [place], [address] Absolute Neut 4.8 X10 3/uL Normal 2.0-7.7 [facility] Comment on above: Performed By: #### L 100.0100, L500.2500 #### [facility] [address] [place], [address] Basophils/100 WBC (Bld) 0.9 % Normal 0-1 [facility] Comment on above: Performed By: #### L 100.0100, L500.2500 #### [facility] [address] [place], [address] Eosinophils/100 WBC (Bld) 1.9 % Normal 0-5 [facility] Comment on above: Performed By: #### L 100.0100, L500.2500 #### [facility] [address] [place], [address] Erythrocyte distribution width (RBC) [Ratio] 13.8 % Normal 11.6-14.6 [facility] Comment on above: Performed By: #### L 100.0100, L500.2500 #### [facility] [address] [place], [address] Hematocrit (Bld) [Volume fraction] 42.8 % Normal 37-47 [facility] Comment on above: Performed By: #### L 100.0100, L500.2500 #### [facility] [address] [place], [address] Hemoglobin (Bld) [Mass/Vol] 14.2 g/dL Normal 12.0-15.0 [facility] Comment on above: Performed By: #### L 100.0100, L500.2500 #### [facility] [address] [place], [address] IG% 0.700 Normal 0.0-0.9 [facility] Comment on above: Result Comment: IG% - Immature Granulocytes (promyelocytes, myelocytes and metamyelocytes) > 1% indicates that a LEFT SHIFT is Present. Performed By: #### L 100.0100, L500.2500 #### [facility] [address] [place], [address] Lymphocytes/100 WBC (Bld) 18.3 % Low 19-41 [facility] Comment on above: Performed By: #### L 100.0100, L500.2500 #### [facility] [address] [place], [address] MCH (RBC) [Entitic mass] 30.9 pg Normal 27.0-32.0 [facility] Comment on above: Performed By: #### L 100.0100, L500.2500 #### [facility] [address] [place], [address] MCHC (RBC) [Mass/Vol] 33.2 g/dL Normal 32-36 [facility] Comment on above: Performed By: #### L 100.0100, L500.2500 #### [facility] [address] [place], [address] MCV (RBC) [Entitic vol] 93.2 fL Normal 81-99 [facility] Comment on above: Performed By: #### L 100.0100, L500.2500 #### [facility] [address] [place], [address] Monocytes/100 WBC (Bld) 6.8 % Normal 0-10 [facility] Comment on above: Performed By: #### L 100.0100, L500.2500 #### [facility] [address] [place], [address] Neutrophils/100 WBC (Bld) 71.4 % High 47-70 [facility] Comment on above: Performed By: #### L 100.0100, L500.2500 #### [facility] [address] [place], [address] Nucleated RBC (Bld) [#/Vol] 0 10*3/uL Normal 0-5 [facility] Comment on above: Performed By: #### L 100.0100, L500.2500 #### [facility] [address] [place], [address] Platelet mean volume (Bld) [Entitic vol] 10.7 fL Normal 6.2-12.0 [facility] Comment on above: Performed By: #### L 100.0100, L500.2500 #### [facility] [address] [place], [address] Platelets (Bld) [#/Vol] 141 10*3/uL Low 150-450 [facility] Comment on above: Performed By: #### L 100.0100, L500.2500 #### [facility] [address] [place], [address] RBC (Bld) [#/Vol] 4.59 10*6/uL Normal 4.2-5.4 [facility] Comment on above: Performed By: #### L 100.0100, L500.2500 #### [facility] [address] [place], [address] RDW SD 46.6 fl High 35.1-43.9 [facility] Comment on above: Performed By: #### L 100.0100, L500.2500 #### [facility] [address] [place], [address] WBC (Bld) [#/Vol] 6.8 10*3/uL Normal 4.4-11.0 [facility] Comment on above: Performed By: #### L 100.0100, L500.2500 #### [facility] [address] [place], [place], [address] MR/Carlee 08-06-2025 MR/JITENDRA [facility] [address], [address] [place], [place] [address] OFFICE VISIT Date of Service: 08/06/25 MR#: [id number] Acct: [id number] Name: VIANCA PEREZ Rep #: [id number] : 1950 Provider: Dr. Sylvia Cabrera i, MD Age/Sex: 74/F [place] [facility] [place]: Signed Intake Vital Signs 12/01/18 10:44 08/06/25 13:52 Height 5 ft 3 in 5 ft 3 in Weight: 250 lb BMI 44.2 BP 142/90 H Pulse 81 Intake Visit Reasons: reschedule interstim removal Chief Complaint: preop for reseceduled interstim removal Pharmacy Stock Clerk Required: No Accompanied by: self Is patient in pain?: No Allergies bee venom protein (honey bee) (bee sting) Allergy (Intermediate, Verified 08/06/25 13:50) Swelling adhesive tape Adverse Reaction (Verified 08/06/25 13:50) Rash Medications ???Medication ???Instructions ???Recorded ???Confirmed ???Type aspirin 81 mg chewable tablet (St 81 mg PO DAILY 12/28/13 08/06/25 History Mikey Aspirin) lisinopril 5 mg tablet 5 mg PO DAILY 12/28/13 08/06/25 Hi story loratadine 10 mg tablet (Allergy 10 mg PO DAILY PRN Allergies 12/2808/06/25 History Relief (loratadine)) potassium chloride 10 mEq 10 meq PO DAILY 12/28/13 08/06/25 History tablet,extended release (Klor-Con) sertraline 100 mg tablet 200 mg PO DAILY 12/28/13 08/06/25 History timolol maleate 0.5 % eye drops 1 drp BID 01/18/17 08/06/25 Histor y ascorbic acid (vitamin C) 250 mg 240 mg PO DAILY 11/07/18 08/06/25 History tablet (Vitamin C) cholecalciferol (vitamin D3) 50 2,000 unit PO DAILY 11/07/1808/06 History mcg (2,000 unit) capsule (Vitamin D3) cranberry 500 mg capsule 500 mg PO DAILY 11/07/18 08/06/25 History latanoprost 0.005 % eye drops 1 drp QHS 11/07/18 08/06/25 Histor y triamterene 37.5 1 tab PO DAILY 03/21/24 08/06/25 H istory mg-hydrochlorothiazide 25 mg tablet Have you fallen in the past year?: No Nurse's Note: wanting to get her interstim reschedule. last year she had trouble getting a ride for a while and that is why its been so long since first surgey date. [facility] Medical History Wears glasses Wears partial dentures Wears dentures Post-menopausal Cancer Anxiety Ambulates with cane Arthritis Bladder disease History of renal disease Anemia Back pain Injury of back Injury of head and neck Gastric reflux Former smoker Benign neoplasm of lung Shortness of breath on exertion Leg cramps History of edema Hypertension History of colon cancer Surgical History History of Hx of appendectomy History of esophagogastroduodenoscopy (EGD) Hx of colonoscopy Hx of total hysterectomy Hx laparoscopic cholecystectomy Hx of fusion of cervical spine History of tonsillectomy and adenoidectomy Hx of cystoscopy Social History Smoking Status: Former smoker [facility] Urology Chief Complaint: preop for reseceduled interstim removal Details: VIANCA PEREZ, is a 74 F. This is a preoperative visit for cystoscopy and removal of her Interstim lead and battery. She is cathing 5 times a day. She is not leaking in between cathing. No urinary tract infections. Occasionally she can notice a little blood in the urine. No pain with cathing. She has not passed any kidney stones. Sometimes she does have pain in her right flank/middle of her back, it does not cause nausea or vomiting, fever or chills. No new concerns. We did discuss the importance of annual renal ultrasound and cystoscopy. The procedure, recovery and expectations were explained. The risks, benefits and alternatives were discussed, including but not limited to, the risks of anesthesia, bleeding, infection, injury, pain and the need for further intervention. We have discussed the risk of exposure to and/or potential harm posed by the COVID-19 virus with having a surgery/procedure at this time. A joint decision was made at this time to proceed with the scheduled surgery/procedure as indicated on the consent form. ROS Const Constitutional: No chills, fatigue, fever(s), headache(s), night sweats, weakness, weight change, abnormal sleep pattern or change in appetite Eyes Eyes: No change in vision ENT ENT: No headache(s) or dry mouth Resp Respiratory: No cough, chest congestion, shortness of breath or wheezing Cardio Cardiology: Positive for other (No chest pain.); No shortness of breath, irregular heart rhythm or lightheadedness Gastro GI: Positive for other (No nausea.); No abdominal pain, change in bowel habits, constipation, diarrhea or vomiting Musc Musculoskeletal: Positive for Arthritis; No abnormal gait Skin Skin: No yellowing of the eye, les (more content not included)... Normal [facility] 06-20-2025 OV Office Visit (PODIWS ) VIANCA PEREZ ([id number]) 1950 F NFR Date Time Provider Department 06/20/25 9:45 AM LEONCIO ZARAGOZA PODIWS During your visit today, we recorded the following information about you: Joy Christianson LPN 06/20/2025 9:59 AM Signed AMB ROOMING INTAKE FLOWSHEET DATA Pain Description: Aching Duration Units: Hours Frequency: Intermittent Patient presents with: Right Foot - Ganglion Cyst, New, nail deformity Left Foot - Ganglion Cyst, New, nail deformity Joy ChristiansonGERARDO Leoncio Zaragoza 06/20/2025 9:57 AM Signed We discussed the swelling and cyst-like areas on your feet: - I suspect the swelling is related to a bunion deformity rather than ganglion cysts. A bunion occurs when the metatarsal bone shifts, causing the big toe to angle toward the second toe, which creates a prominent bump. - You should continue wearing wider shoes to reduce pressure on the area. - I provided you with a gel pad to help prevent rubbing and irritation. - I ordered x-rays of both feet to evaluate the soft tissue swelling and confirm the diagnosis. You can have these done today. We discussed the recurrent nail growth on your left great toe: - The nail regrowth is likely due to the chemical used during your previous toenail removal not being fully effective. This is not uncommon. - You have two options: - Continue trimming and filing the nail as needed to manage discomfort. - Allow the nail to grow out fully and consider repeating the toenail removal procedure if it becomes bothersome. - Avoid trimming the nail too short, as this can make it difficult to address if further treatment is needed. Next steps: - Get the x-rays of your feet as ordered. - Use the gel pad provided and continue wearing wider shoes to reduce discomfort. - Monitor the swelling and nail regrowth. If symptoms worsen or become painful, please contact our office for further evaluation. Leoncio Zaragoza 06/20/2025 9:59 AM Signed Consultation requested by Dr. Archibald for an opinion regarding foot pain. My final recommendations will be communicated back to the requesting physician by way of shared Medical record or letter to requesting physician via US mail. Subjective The patient is a 74-year-old female presenting for evaluation of bilateral foot swelling and recurrent left great toenail growth. The patient reports bilateral foot swelling, which she describes as "ganglion cysts" on the medial aspect of both great toes. The swelling on the right foot has been present for approximately 2 months, while the left foot swelling began about 1.5 months ago. She notes that the swelling is increasing in size and causes a stinging and burning sensation when expanding. She denies any attempts to drain the cysts and has not sought medical intervention for them. To accommodate the swelling, she wears wider shoes and slippers at home. Additionally, the patient reports recurrent growth of the left great toenail, which was removed several years ago. She is uncertain if the growth is a cuticle or nail but notes that it sometimes causes discomfort. She has been filing the growth and observes occasional swelling around the area. She denies significant pain or discomfort from the recurrent nail formation. She denies a history of diabetes mellitus and is a nonsmoker. Musculoskeletal: (-) foot pain PAST MEDICAL HISTORY Diagnosis Date Acute gastritis without mention of hemorrhage Benign essential HTN Benign neoplasm of colon Chronic kidney disease Stage 3 Depression Depressive disorder, not elsewhere classified Essential hypertension, benign Glaucoma History of colon cancer History of transfusion Hypertensive kidney disease Iron deficiency anemia, unspecified Malignant neoplasm of colon, unspecified site Mixed hyperlipidemia Myopia Obesity, unspecified Skin rash Snoring Stress headaches Tobacco use disorder Unspecified glaucoma(365.9) Glaucoma UTI (urinary tract infection) Vitamin D deficiency Current Outpatient Medications Medication Sig Dispense Refill sertraline (ZOLOFT) 100 mg tablet Take 2 tablets by mouth once daily. 180 tablet 3 triamcinolone acetonide topical 0.5 % ointment Apply to affected area two times a day. 30 g 3 Chlorhexidine Gluconate (PERIDEX) 0.12 % solution Use 15 mL as instructed two times a day. 473 mL 3 potassium chloride (K-TAB) 10 mEq tablet Take 1 tablet by mouth once daily. 90 tablet 3 lisinopril (ZESTRIL) 5 mg tablet Take 1 tablet by mouth once daily. 90 tablet 3 triamterene-hydroCHLOROthiazi de (MAXZIDE-25) 37.5-25 mg per tablet Take 1 tablet by mouth once daily. 90 tablet 3 dorzolamide-timolol (COSOPT) 22.3-6.8 mg/mL ophthalmic solution Use 1 Drop in both eyes two times a day. 20 mL 3 latanoprost (XALATAN) 0.005 % ophthalmic solution Use 1 Drop in both eyes lotus (more content not included)... Normal [facility] XR FOOT 3V AP/LAT/OBL BILon 06-20-2025 XR FOOT 3V AP/LAT/OBL ELVIRA * * *Final Report* * * DATE OF EXAM: Jun 20 2025 10:32AM [id number] - XR FOOT 3V AP/LAT/OBL ELVIRA / PROCEDURE REASON: multiple diagnoses * * * * Physician Interpretation * * * * EXAMINATION / TECHNIQUE: XR FOOT 3V AP/LAT/OBL ELVIRA HISTORY: PT STATES BILAT BUNION PAIN Hallux valgus of right foot Hallux valgus of left foot . COMPARISON: 08/16/2019 RESULT: Right foot: Mild hallux valgus with first metatarsophalangeal angle of 17 degrees. Degenerative changes at the first MTP joint. Degenerative changes throughout the interphalangeal joints. Generalized osteopenia. No acute fracture, malalignment, or erosive changes are identified. Calcific tendinosis at the distal Achilles tendon insertion. Degenerative changes at the midfoot. Left foot: Mild hallux valgus with first metatarsophalangeal angle of 20 degrees. Degenerative changes at the first MTP joint. Degenerative changes throughout the interphalangeal joints. Generalized osteopenia. No acute fracture, malalignment, or erosive changes are identified. Plantar calcaneal enthesophyte. Degenerative changes at the midfoot. IMPRESSION: Bilateral mild hallux valgus. Degenerative changes. Chimney Supervisor Brick: LAURIE Transcribe Date/Time: Jun 27 2025 3:48P Dictated by : SHYANNE CARDOSO MD This examination was interpreted and the report reviewed and electronically signed by: SHYANNE CARDOSO MD on Jun 27 2025 3:52PM EST [id number] Normal [facility] VIANCA [facility]ERE[facility] ([id number]) 1950 F NFR Date Time Provider Department 05/24/25 [facility] During your visit today, we recorded the following information about you: Mela Tejeda LPN 05/24/2025 4:44 PM Signed Patient calling [facility] shorted her 120 catheters when she got her shipment, they are telling her she uses 4 daily when she uses 5 daily. She was told [place] needs copy of office notes with discussion why she needs to use the urinary catheters and diagnosis information. Patient had appt on 05/20/2025 with Elliot Archibald nothing in office notes concerning catheter use. Not sure if notes could have addendum done? Patient said if she needs to have another appt let her know. Please advise Elliot Archibald APRN.CNP 05/26/2025 6:57 PM Signed I reviewed her chart, it looks like she follows with Dr. Olson with urology. Primary care doesn?t typically write for catheter supplies, etc. SAÚL Bowie Rilee, MA 05/27/2025 10:17 AM Signed See TE 12/31/24. PCP is signing forms. ELVIA Hudson Jesse, APRN.CNP 05/27/2025 12:56 PM Signed Office note was addended. Elliot Archibald APRN.Lupillo Knight RN 05/28/2025 9:22 AM Signed Faxed addended ov note to [facility]. . Confirmation received. Allergies As of Date: 05/24/2025 Noted Allergy Reaction ADHESIVE 11/07/2018 2 - Rash BEE STING 07/01/2014 7 - Swelling Comments: Very red and swollen Date Reviewed: 05/20/2025 Reviewed by: Mary Harmon MA - Fully Assessed Reason for Visit: Patient Question [9947] Prescriptions as of 05/28/2025 - sertraline (ZOLOFT) 100 mg tablet Take 2 tablets by mouth once daily. - triamcinolone acetonide topical 0.5 % ointment Apply to affected area two times a day. - Chlorhexidine Gluconate (PERIDEX) 0.12 % solution Use 15 mL as instructed two times a day. - potassium chloride (K-TAB) 10 mEq tablet Take 1 tablet by mouth once daily. - lisinopril (ZESTRIL) 5 mg tablet Take 1 tablet by mouth once daily. - triamterene-hydroCHLOROthiazi de (MAXZIDE-25) 37.5-25 mg per tablet Take 1 tablet by mouth once daily. - dorzolamide-timolol (COSOPT) 22.3-6.8 mg/mL ophthalmic solution Use 1 Drop in both eyes two times a day. - latanoprost (XALATAN) 0.005 % ophthalmic solution Use 1 Drop in both eyes daily at bedtime. - Catheter ([place] CATHETER) 14 Fr misc Use as directed 5 x per day - acetaminophen (TYLENOL EXTRA STRENGTH) 500 mg tablet Take 1 tablet by mouth every 6 hours as needed for pain. - Diaper,Brief, Adult,Disposable (PROTECTIVE UNDERWEAR LARGE) Use as directed for urinary incontinence - cranberry fruit extract (CRANBERRY CONCENTRATE ORAL) DAILY - ascorbic acid, vitamin C, (VITAMIN C) 250 mg tablet DAILY - naproxen (NAPROSYN) 500 mg tablet Take 1 tablet by mouth twice daily as needed (pain/inflammation, take with food.). - COMPOUNDED PRESCRIPTION vitamin D3 1,000mg tab take one daily - aspirin(ECOTRIN LOW STRENGTH 81 MG TAB) Take one(1) tablet daily. Problem List As Of Date 05/24/2025 Noted Resolved BENIGN HYPERTENSION [I10] 08/29/2006 Morbid obesity with BMI of 40.0-44.9, adult (HC*08/29/2006 TOBACCO USE DISORDER [F17.200] 08/29/2006 Recurrent major depressive disorder, in full re*08/29/2006 SKIN LESION [L98.9] 11/30/2006 04/03/2007 Hypopotassemia [E87.6] 04/03/2007 08/20/2022 IRON DEFIC ANEMIA NOS [D50.9] 01/22/2009 Malignant neoplasm of colon (HCC) [C18.9] 01/22/2009 08/20/2022 Benign neoplasm of colon [D12.6] 01/22/2009 10/13/2010 Vitamin D Deficiency [E55.9] 10/15/2009 Rectal bleeding [K62.5] 07/25/2012 08/20/2022 Benign neoplasm of rectum and anal canal [D12.8*08/14/2012 Benign neoplasm of colon [D12.6] 08/14/2012 06/09/2017 History of malignant neoplasm of large intestin*08/14/2012 Psoriasis [L40.9] 07/28/2015 Personal history of colon cancer [Z85.038] 08/11/2015 History of colonic polyps [Z86.0100] 08/11/2015 Age-related nuclear cataract, bilateral [H25.13]08/14/2015 Vitreous floaters of both eyes [H43.393] 08/14/2015 Presbyopia [H52.4] 08/14/2015 Myopia [H52.10] 08/14/2015 Regular astigmatism [H52.229] 08/14/2015 Dermatochalasis of both upper eyelids [H02.831,*08/17/2016 Primary open-angle glaucoma, bilateral, mild st*05/30/2017 Optic disc cupping [H47.239] 06/13/2017 Hyperlipidemia [E78.5] 12/13/2017 History of colon polyps [Z86.0100] 09/15/2018 Stage 3b chronic kidney disease (HCC) [N18.32] Medicare annual wellness visit, subsequent [Z00*12/24/2020 08/20/2022 Hypertensive kidney disease with stage 3 chroni*08/20/2022 Depression, recurrent (HCC) [F33.9] 08/25/2023 Encounter Status:Closed by Lupillo HARVEY on 05/28/25 Normal [facility] 25(OH)D3 [facility] 25-hydroxyvitamin D3 [Mass/Vol] 72.0 ng/mL Normal 31.0-80.0 [facility] Comment on above: Order Comment: Speci men Type: BLOOD SPECIMENOrdering Facility: [facility] Address: [address] [place] [address] Result Comment: Clas sification of 25 [place] Vitamin D status: Deficiency/Insufficiency: < or = 30 ng/ml. Sufficiency/Optimal Levels: 31-80 ng/mL Toxicity: > 100 ng/mL. Test performed by chemiluminescent immunoassay. Performed By: #### 1 989-3 ####[facility] LABCLIA [id number] [place] [address] [place] CBC W Auto Differential pane l (Bld)on 05-20-2025 Basophils (Bld) [#/Vol] 0.09 10*3/uL [facility] Basophils/100 WBC (Bld) 1.3 % [facility] Differential cell count method Nom (Bld) Auto [facility] Eosinophils (Bld) [#/Vol] 0.16 10*3/uL [facility] Eosinophils/100 WBC (Bld) 2.3 % [facility] Erythrocyte distribution width (RBC) [Ratio] 13.2 % 11.5 - 15.0 % [facility] Hematocrit (Bld) [Volume fraction] 46.1 % High 36.0 - 46.0 % [facility] Hemoglobin (Bld) [Mass/Vol] 15.5 g/dL 11.5 - 15.5 g/dL [facility] Immature granulocytes (Bld) [#/Vol] 0.07 10*3/uL [facility] Immature granulocytes/100 WBC (Bld) 1 % [facility] Interpretation and review of laboratory results Abnormal [facility] Lymphocytes (Bld) [#/Vol] 1.22 10*3/uL [facility] Lymphocytes/100 WBC (Bld) 17.3 % [facility] MCH (RBC) [Entitic mass] 31.3 pg 26.0 - 34.0 pg [facility] MCHC (RBC) [Mass/Vol] 33.6 g/dL 30.5 - 36.0 g/dL [facility] MCV (RBC) [Entitic vol] 92.9 fL 80.0 - 100.0 fL [facility] Monocytes (Bld) [#/Vol] 0.51 10*3/uL [facility] Monocytes/100 WBC (Bld) 7.2 % [facility] Neutrophils (Bld) [#/Vol] 5.01 10*3/uL [facility] Neutrophils/100 WBC (Bld) 70.9 % [facility] Nucleated RBC (Bld) [#/Vol] [facility] Nucleated RBC/100 WBC (Bld) [Ratio] 0 % /100 WBC [facility] Platelet mean volume (Bld) [Entitic vol] 11.4 fL 9.0 - 12.7 fL [facility] Platelets (Bld) [#/Vol] 179 10*3/uL [facility] RBC (Bld) [#/Vol] 4.96 10*6/uL 3.90 - 5.2 0 m/uL [facility] WBC (Bld) [#/Vol] 7.06 10*3/uL [facility] Basophils (Bld) [#/Vol] 0.09 10*3/uL Normal <0.11 [facility] Comment on above: Order Comment: Speci men Type: BLOOD SPECIMENOrdering Facility: [facility] Address: [address] [place] [address] Performed By: #### 5 7021-8 ####[facility] LABCLIA [id number] [facility]HER[facility] [place] [address] [place] Basophils/100 WBC (Bld) 1.3 % Normal [facility] Comment on above: Order Comment: Speci men Type: BLOOD SPECIMENOrdering Facility: [facility] Address: [address] [place] [address] Performed By: #### 5 7021-8 ####[facility] LABCLIA [id number] [facility] [place] [address] [place] Differential cell count method Nom (Bld) Auto Normal [facility] Comment on above: Order Comment: Speci men Type: BLOOD SPECIMENOrdering Facility: [facility] Address: [address] [place] [address] Performed By: #### 5 7021-8 ####[facility] LABCLIA [id number] [facility] [place] [address] [place] Eosinophils (Bld) [#/Vol] 0.16 10*3/uL Normal <0.46 [facility] Comment on above: Order Comment: Speci men Type: BLOOD SPECIMENOrdering Facility: [facility] Address: [address] [place] [address] Performed By: #### 5 7021-8 ####[facility] LABCLIA [id number] [facility] [place] [address] [place] Eosinophils/100 WBC (Bld) 2.3 % Normal [facility] Comment on above: Order Comment: Speci men Type: BLOOD SPECIMENOrdering Facility: [facility] Address: [address] [place] [address] Performed By: #### 5 7021-8 ####[facility] LABCLIA [id number] [place] [address] [place] Erythrocyte distribution width (RBC) [Ratio] 13.2 % Normal 11.5-15.0 [facility] Comment on above: Order Comment: Speci men Type: BLOOD SPECIMENOrdering Facility: [facility] Address: [address] [place] [address] Performed By: #### 5 7021-8 ####[facility] LABIA [id number] [address], [place] [address] [place] Hematocrit (Bld) [Volume fraction] 46.1 % High 36.0-46.0 [facility] Comment on above: Order Comment: Speci men Type: BLOOD SPECIMENOrdering Facility: [facility] Address: [address] [place] [address] Performed By: #### 5 7021-8 ####[facility] LABIA [id number] [place] [address] [place] Hemoglobin (Bld) [Mass/Vol] 15.5 g/dL Normal 11.5-15.5 [facility] Comment on above: Order Comment: Speci men Type: BLOOD SPECIMENOrdering Facility: [facility] Address: [address] [place] [address] Performed By: #### 5 7021-8 ####[facility] LABIA [id number] [address], [facility] [place] Immature granulocytes (Bld) [#/Vol] 0.07 10*3/uL Normal <0.10 [facility] Comment on above: Order Comment: Speci men Type: BLOOD SPECIMENOrdering Facility: [facility] Address: [address] [place] [address] Performed By: #### 5 7021-8 ####[facility] LABIA [id number] [place] [address] [place] Immature granulocytes/100 WBC (Bld) 1.0 % Normal [facility] Comment on above: Order Comment: Speci men Type: BLOOD SPECIMENOrdering Facility: [facility] Address: [address] [place] [address] Performed By: #### 5 7021-8 ####[facility] LABCLIA [id number] [place] [address] [place] Lymphocytes (Bld) [#/Vol] 1.22 10*3/uL Normal 1.00-4.00 [facility] Comment on above: Order Comment: Speci men Type: BLOOD SPECIMENOrdering Facility: [facility] Address: [address] [place] [address] Performed By: #### 5 7021-8 ####[facility] LABCLIA [id number] [place] [address] [place] Lymphocytes/100 WBC (Bld) 17.3 % Normal [facility] Comment on above: Order Comment: Speci men Type: BLOOD SPECIMENOrdering Facility: [facility] Address: [address] [place] [address] Performed By: #### 5 7021-8 ####[facility] LABCLIA [id number] [place] [address] [place] MCH (RBC) [Entitic mass] 31.3 pg Normal 26.0-34.0 [facility] Comment on above: Order Comment: Speci men Type: BLOOD SPECIMENOrdering Facility: [facility] Address: [address] [place] [address] Performed By: #### 5 7021-8 ####[facility] LABCLIA [id number] [place] [address] [place] MCHC (RBC) [Mass/Vol] 33.6 g/dL Normal 30.5-36.0 [facility] Comment on above: Order Comment: Speci men Type: BLOOD SPECIMENOrdering Facility: [facility] Address: [address] [place] [address] Performed By: #### 5 7021-8 ####[facility] LABCLIA [id number] [place] [address] [place] MCV (RBC) [Entitic vol] 92.9 fL Normal 80.0-100.0 [facility] Comment on above: Order Comment: Speci men Type: BLOOD SPECIMENOrdering Facility: [facility] Address: [address] [place] [address] Performed By: #### 5 7021-8 ####[facility] LABCLIA [id number] [place] [address] [place] Monocytes (Bld) [#/Vol] 0.51 10*3/uL Normal <0.87 [facility] Comment on above: Order Comment: Speci men Type: BLOOD SPECIMENOrdering Facility: [facility] Address: [address] [place] [address] Performed By: #### 5 7021-8 ####[facility] LABCLIA [id number] [place] [address] [place] Monocytes/100 WBC (Bld) 7.2 % Normal [facility] Comment on above: Order Comment: Speci men Type: BLOOD SPECIMENOrdering Facility: [facility] Address: [address] [place] [address] Performed By: #### 5 7021-8 ####[facility] LABCLIA [id number] [place] [id number] [place] Neutrophils (Bld) [#/Vol] 5.01 10*3/uL Normal 1.45-7.50 [facility] Comment on above: Order Comment: Speci men Type: BLOOD SPECIMENOrdering Facility: [facility] Address: [address] [place] [address] Performed By: #### 5 7021-8 ####[facility] LABCLIA [id number] [address], [facility] [place] Neutrophils/100 WBC (Bld) 70.9 % Normal [facility] Comment on above: Order Comment: Speci men Type: BLOOD SPECIMENOrdering Facility: [facility] Address: [address] [place] [address] Performed By: #### 5 7021-8 ####[facility] LABCLIA [id number] [address], [place] [address] [place] Nucleated RBC (Bld) [#/Vol] 10*3/uL Normal <0.01 [facility] Comment on above: Order Comment: Speci men Type: BLOOD SPECIMENOrdering Facility: [facility] Address: [address] [place] [address] Performed By: #### 5 7021-8 ####[facility] LABCLIA [id number] [address], [place] [address] [place] Nucleated RBC/100 WBC (Bld) [Ratio] 0.0 /100 WBC Normal [facility] Comment on above: Order Comment: Speci men Type: BLOOD SPECIMENOrdering Facility: [facility] Address: [address] [place] [address] Performed By: #### 5 7021-8 ####[facility] LABCLIA [id number] [address], [place] [address] [place] Platelet mean volume (Bld) [Entitic vol] 11.4 fL Normal 9.0-12.7 [facility] Comment on above: Order Comment: Speci men Type: BLOOD SPECIMENOrdering Facility: [facility] Address: [address] [place] [address] Performed By: #### 5 7021-8 ####[facility] LABCLIA [id number] [address] [place] [address] [place] Platelets (Bld) [#/Vol] 179 10*3/uL Normal 150-400 [facility] Comment on above: Order Comment: Speci men Type: BLOOD SPECIMENOrdering Facility: [facility] Address: [address] [place] [address] Performed By: #### 5 7021-8 ####[facility] LABIA [id number] [place] [address] [place] RBC (Bld) [#/Vol] 4.96 10*6/uL Normal 3.90-5.20 [facility] Comment on above: Order Comment: Speci men Type: BLOOD SPECIMENOrdering Facility: [facility] Address: [address] [place] [address] Performed By: #### 5 7021-8 ####[facility] LABIA [id number] [place] [address] [place] WBC (Bld) [#/Vol] 7.06 10*3/uL Normal 3.70-11.00 [facility] Comment on above: Order Comment: Speci men Type: BLOOD SPECIMENOrdering Facility: [facility] Address: [address] [place] [address] Performed By: #### 5 7021-8 ####[facility] LABIA [id number] [place] [address] [place] CNOVon 05-20-2025 CNOV Office Visit (GUILLAUMEWS ) VIANCA PEREZ ([id number]) 1950 F NFR Date Time Provider Department 05/20/25 10:00 AM ELLIOT ARCHIBALD During your visit today, we recorded the following information about you: Pulse Respiration Blood pressure Weight 74/minute 16/minute 126/72 108.4 kg Height 1.6 m Elliot Archibald APRN.FAST FOODS WORKER 05/27/2025 12:55 PM Addendum Vianca Perez is a 74 year old female here for a Medicare wellness visit. Medicare Health Risk Assessment General Health Good Exercise: Minutes/Day 20 min Exercise: Days/Week 2 days Alcohol: Daily Use Monthly or less Alcohol: Drinks/Day 1 or 2 Alcohol: 6 or more drinks Never Feel off balance No Concerns: Teeth/Dentures No Concerns: Sexual function No Troubled by feelings None of the above Frequency: Eating healthy diet Nearly every day ADLs requiring help None of the above Safety precautions in home/vehicle Yes Smoke, vape, chews tobacco No Difficulty hearing No Difficulty seeing No Current Providers Specialists: I have reviewed specialist-related care of the patient in the medical record. Current care team: Patient Care Team: Zahraa Ratliff MD as PCP - Elliot Scales APRN.CNP as Roll Grinder Operator (Family Medicine) Outside specialists seen: Dr. Shafer-Eye, urology-Dr. Olson Medical/Family history review Reviewed and updated problem list, medical/surgical/family/socia l history, medications, and allergies. Opioid use review Opioid Medications (last 90 days) No data to display Anxiety/Depression screening PHQ-9 Score: 0. SIERRA-7 Score: 2 (Minimal Anxiety) Recommendation: no further intervention at this time Cognitive screening Mini Cog Score: 5 Cognitive screening reviewed and No further action needed (score 3-5). Functional Observation Was the patient's Timed Up AND Go test unsteady or >= 12 seconds? No Advance Care Planning Surrogate decision maker and/or advance care plan documented Measurements BP 126/72 Pulse 74 Resp 16 Ht 160 cm (5' 3") Wt 108.4 kg (239 lb) BMI 42.34 kg/m? Vision Screening: Follows with optometry/ophthalmology Assessment/Plan Medicare annual wellness visit, subsequent (Z00.00) - Counseled on healthy diet and regular exercise - Fall avoidance information provided - Personalized prevention plan provided Elliot Archibald APRN.CNP Additional Concerns The following concerns were also discussed with the patient: Vianca Perez is a 74-year-old female with a history of HTN, chronic kidney disease stage 3, and eczema, presenting for a Medicare Annual Wellness Visit. She also has concerns about a cyst on her foot, toenail issues, and ear pain. Vianca reports a cyst on her foot that has been present for approximately 2 months. Initially, it was larger, purple, and painful to touch, but not with foot movement. The cyst has since decreased in size and is now described as "squishy" with a semi-hard consistency. She denies current pain or erythema associated with the cyst. She also notes a small dot on the same foot, which she believes may be related to the cyst. She mentions that she continues to follow with urology, Dr. Olson. History of Interstem Implant bladder surgery in 2019. She performs self-catherizations 5 times day and wears Depends briefs. She also reports issues with her toenails. One toenail was damaged many years ago while moving furniture, leading to a crack at the cuticle and eventual detachment. The toenail has since grown back but does not adhere properly, causing discomfort. She has been attempting to manage this by filing the nail down. On the other foot, she reports a similar issue with a toenail that was partially removed in the past but did not reattach properly, leading to debris accumulation underneath the nail. Vianca also reports intermittent left ear pain, which she describes as really, really bad" at times. 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 She also notes "funny noises" in the ear but denies any current discharge or hearing loss. She has a history of eczema, which she manages with a cream that she finds soothing. She also reports taking Zoloft, 1 tablet daily, and antihypertensive medication, including hydrochlorothiazide and a potassium supplement. She denies use of Premarin vaginal cream and methenamine. She uses a mouthwash occasionally to manage minor oral abrasions caused by her dentures. She denies any feelings of depression, anger, irritability, or loneliness, and has no thoughts of self-harm. She has an advanced directive on file and reports no changes to it. She is followed by multiple specialists, including a primary care physician, a urogynecologist, and an eye doctor. She has not received the shingles or RSV vaccines and does not wish to receive them in the future. PHYSICAL E (more content not included)... Normal [facility] metabolic 2000 panelon 05-20-2025 Albumin [Mass/Vol] 4.6 g/dL 3.9 - 4.9 g/dL [facility] ALP [Catalytic activity/Vol] 83 U/L 34 - 123 U/L [facility] ALT [Catalytic activity/Vol] 22 U/L 7 - 38 U/L [facility] Anion gap [Moles/Vol] 14 mmol/L 8 - 15 mmol/L [facility] AST [Catalytic activity/Vol] 21 U/L 13 - 35 U/L [facility] Bilirubin [Mass/Vol] 0.4 mg/dL 0.2 - 1.3 mg/dL [facility] Calcium [Mass/Vol] 10.3 mg/dL High 8.5 - 10.2 mg/dL [facility] Chloride [Moles/Vol] 102 mmol/L 98 - 107 mmol/L [facility] CO2 [Moles/Vol] 24 mmol/L 22 - 30 mmol/L [facility] Creatinine [Mass/Vol] 1.01 mg/dL High 0.58 - 0.96 mg/dL [facility] GFR/1.73 sq M.predicted among non-blacks MDRD (S/P/Bld) [Vol rate/Area] 58 mL/min/{1.73_m2} Low - PINF [facility] Comment on above: Estimated Glomerular Filtration Rate (eGFR) is calculated using the 2020 CKD-EPI creatinine equation. This equation utilizes serum creatinine, sex, and age as parameters. The creatinine assay has traceable calibration to isotope dilution-mass spectrometry. Refer to KDIGO guidelines for clinical interpretation. In patients with unstable renal function, e.g. those with acute kidney injury, the eGFR may not accurately reflect actual GFR. Glucose [Mass/Vol] 101 mg/dL High 74 - 99 mg/dL [facility] Comment on above: The [place] Di[employer] Association (ADA) provides guidance for cutoff values for fasting glucose and random glucose. The ADA defines fasting as no caloric intake for at least 8 hours. Fasting plasma glucose results between 100 to 125 [...] Standards of Medical Care in Diabetes 2016, [place] [employer]. Diabetes Care. 2016.39(Suppl 1). Potassium [Moles/Vol] 4 mmol/L 3.7 - 5.1 mmol/L [facility] Protein [Mass/Vol] 7.5 g/dL 6.3 - 8.0 g/dL [facility] Sodium [Moles/Vol] 140 mmol/L 136 - 144 mmol/L [facility] Urea nitrogen [Mass/Vol] 22 mg/dL High 7 - 21 mg/dL [facility] Albumin [Mass/Vol] 4.6 g/dL Normal 3.9-4.9 [facility] Comment on above: Order Comment: Speci men Type: BLOOD SPECIMENOrdering Facility: [facility] Address: [address] [place] [address] Performed By: #### 2 4323-8, 24080-5 ####[facility] LABCLIA [id number] [place] [address] [place] ALP [Catalytic activity/Vol] 83 U/L Normal 34-123 [facility] Comment on above: Order Comment: Speci men Type: BLOOD SPECIMENOrdering Facility: [facility] Address: [address] [place] [address] Performed By: #### 2 4323-8, 14071-6 ####[facility] LABIA [id number] [place] [address] [place] ALT [Catalytic activity/Vol] 22 U/L Normal 7-38 [facility] Comment on above: Order Comment: Speci men Type: BLOOD SPECIMENOrdering Facility: [facility] Address: [address] [place] [address] Performed By: #### 2 4323-8, 71521-8 ####[facility] LABCLIA [id number] [place] [address] [place] Anion gap [Moles/Vol] 14 mmol/L Normal 8-15 [facility] Comment on above: Order Comment: Speci men Type: BLOOD SPECIMENOrdering Facility: [facility] Address: [address] [place] [id number] Performed By: #### 2 4323-8, 21010-7 ####[facility] LABCLIA [id number] [place] [id number] [place] AST [Catalytic activity/Vol] 21 U/L Normal 13-35 [facility] Comment on above: Order Comment: Speci men Type: BLOOD SPECIMENOrdering Facility: [facility] Address: [address] [place] [address] Performed By: #### 2 4323-8, 16046-2 ####[facility] LABIA [id number] [place] [address] [place] Bilirubin [Mass/Vol] 0.4 mg/dL Normal 0.2-1.3 [facility] Comment on above: Order Comment: Speci men Type: BLOOD SPECIMENOrdering Facility: [facility] Address: [address] [place] [address] Performed By: #### 2 4323-8, 44731-0 ####[facility] LABIA [id number] [place] [address] [place] Calcium [Mass/Vol] 10.3 mg/dL High 8.5-10.2 [facility] Comment on above: Order Comment: Speci men Type: BLOOD SPECIMENOrdering Facility: [facility] Address: [address] [place] [address] Performed By: #### 2 4323-8, 00016-6 ####[facility] LABIA [id number] [place] [id number] [place] Chloride [Moles/Vol] 102 mmol/L Normal 98-107 [facility] Comment on above: Order Comment: Speci men Type: BLOOD SPECIMENOrdering Facility: [facility] Address: [address] [place], [place] [address] Performed By: #### 2 4323-8, 37781-5 ####[facility] LABCLIA [id number] [address] [address] [place] CO2 [Moles/Vol] 24 mmol/L Normal 22-30 [facility] Comment on above: Order Comment: Speci men Type: BLOOD SPECIMENOrdering Facility: [facility] Address: [address] [place] [address] Performed By: #### 2 4323-8, ####[facility] LABIA [id number] [address] [address] [place] Creatinine [Mass/Vol] 1.01 mg/dL High 0.58-0.96 [facility] Comment on above: Order Comment: Speci men Type: BLOOD SPECIMENOrdering Facility: [facility] Address: [address] [place] [address] Performed By: #### 2 4323-8, ####[facility] LABIA [id number] [place] [id number] [place] eGFRcr SerPlBld CKD-EPI 2020 58 mL/min/1.73m??? Low >=60 [facility] Comment on above: Order Comment: Speci men Type: BLOOD SPECIMENOrdering Facility: [facility] Address: [address] [place] [address] Result Comment: Liane mated Glomerular Filtration Rate (eGFR) is calculated using the 2020 CKD-EPI creatinine equation. This equation utilizes serum creatinine, sex, and age as parameters. The creatinine assay has traceable calibration to isotope dilution-mass spectrometry. Refer to KDIGO guidelines for clinical interpretation. In patients with unstable renal function, e.g. those with acute kidney injury, the eGFR may not accurately reflect actual GFR. Performed By: #### 2 4323-8, 89923-0 ####[facility] LABCLIA [id number] [address] [address] [place] Glucose [Mass/Vol] 101 mg/dL High 74-99 [facility] Comment on above: Order Comment: Speci men Type: BLOOD SPECIMENOrdering Facility: [facility] Address: [address] [place] [address] Result Comment: The [place] Diabetes Association (ADA) provides guidance for cutoff values for fasting glucose and random glucose. The ADA defines fasting as no caloric intake for at least 8 hours. Fasting plasma glucose results between 100 to 125 [...] Standards of Medical Care in Diabetes 2016, [place] [employer]. Diabetes Care. 2016.39(Suppl 1). Performed By: #### 2 4323-8, 59411-0 ####[facility] LABCLIA [id number] [place] [address] [place] Potassium [Moles/Vol] 4.0 mmol/L Normal 3.7-5.1 [facility] Comment on above: Order Comment: Peggy kolb Type: BLOOD SPECIMENOrdering Facility: [facility] Address: [address] [place] [address] Performed By: #### 2 4323-8, 37275-6 ####[facility] LABCLIA [id number] [place] [address] [place] Protein [Mass/Vol] 7.5 g/dL Normal 6.3-8.0 [facility] Comment on above: Order Comment: Peggy kolb Type: BLOOD SPECIMENOrdering Facility: [facility] Address: [address] [place] [address] Performed By: #### 2 4323-8, ####[facility] LABCLIA [id number] [address] [address] [place] Sodium [Moles/Vol] 140 mmol/L Normal 136-144 [facility] Comment on above: Order Comment: Speci men Type: BLOOD SPECIMENOrdering Facility: [facility] Address: [address] [place] [address] Performed By: #### 2 4323-8, 95708-0 ####[facility] LABCLIA [id number] [address] [place] Urea nitrogen [Mass/Vol] 22 mg/dL High 7-21 [facility] Comment on above: Order Comment: Speci men Type: BLOOD SPECIMENOrdering Facility: [facility] Address: [address] [place] [address] Performed By: #### 2 4323-8, 29742-1 ####[facility] LABCLIA [id number] [address] [place] Lipid 1996 panelon 5 Cholesterol [Mass/Vol] 185 mg/dL NINF - 200 mg/dL [facility] Comment on above: <200 mg/dL, Desirabl e 200-239 mg/dL, Borderline high >239 mg/dL, High Cholesterol in HDL [Mass/Vol] 36 mg/dL Low 39 - PINF mg/dL [facility] Comment on above: 40-59 mg/dL, Accepta ble >59 mg/dL, High: Negative risk factor for coronary heart disease <40 mg/dL, Low: Positive risk factor for coronary heart disease Cholesterol in LDL [Mass/Vol] 119 mg/dL High NINF - 100 mg/dL [facility] Comment on above: <100 mg/dL, Optimal 100-129 mg/dL, Near optimal/above optimal 130-159 mg/dL, Borderline high 160-189 mg/dL, High >189 mg/dL, Very high Secondary prevention optimal LDL Cholesterol levels are recommended to be <70 mg/dL LDL cholesterol is calculated using the Tian-NIH equation. Cholesterol in LDL/Cholesterol in HDL [Mass ratio] 3.31 {ratio} High NINF - 2.54 [facility] Comment on above: Reference: 1. National Cholesterol Education Program ATP III Guideline At-A-Glance Quick Desk Reference: National Heart, Lung, and Blood [place]. National Institutes of Health. 2001: NIH Publication No. 01-3305. 2. An International Atherosclerosis Society position paper: global recommendations for the management of dyslipidemia: executive summary, Atherosclerosis. 2014: 232(2):410-413. Cholesterol in VLDL [Mass/Vol] 29 mg/dL NINF - 30 mg/dL [facility] Cholesterol non HDL [Mass/Vol] 149 mg/dL High NINF - 130 mg/dL [facility] Comment on above: <130 mg/dL, Optimal 130-159 mg/dL, Near optimal/above optimal 160-189 mg/dL, Borderline high 190-219 mg/dL, High >219 mg/dL, Very high Secondary prevention optimal non HDL Cholesterol levels are recommended to be <100 mg/dL Cholesterol.total /Cholesterol in HDL [Mass ratio] 5.14 {ratio} High NINF - 5.10 [facility] Fasting Time 12 hrs [facility] Triglyceride [Mass/Vol] 167 mg/dL High NINF - 150 mg/dL [facility] Comment on above: <150 mg/dL, Normal 150-199 mg/dL, Borderline high 200-499 mg/dL, High >499 mg/dL, Very high Cholesterol [Mass/Vol] 185 mg/dL Normal <200 [facility] Comment on above: Order Comment: Speci men Type: BLOOD SPECIMENOrdering Facility: [facility] Address: [address] [place] [address] Result Comment: <200 mg/dL, Desirable 200-239 mg/dL, Borderline high >239 mg/dL, High Performed By: #### 2 4323-8, 18941-6 ####[facility] LABCLIA [id number] [address] [facility] Cholesterol in HDL [Mass/Vol] 36 mg/dL Low >39 [facility] Comment on above: Order Comment: Speci men Type: BLOOD SPECIMENOrdering Facility: [facility] Address: [address] [place] [address] Result Comment: 40-5 9 mg/dL, Acceptable >59 mg/dL, High: Negative risk factor for coronary heart disease <40 mg/dL, Low: Positive risk factor for coronary heart disease Performed By: #### 2 4323-8, 97401-3 ####[facility] LABCLIA [id number] [place] [address] [place] Cholesterol in LDL [Mass/Vol] 119 mg/dL High <100 [facility] Comment on above: Order Comment: Speci men Type: BLOOD SPECIMENOrdering Facility: [facility] Address: [address] [place] [address] Result Comment: <100 mg/dL, Optimal 100-129 mg/dL, Near optimal/above optimal 130-159 mg/dL, Borderline high 160-189 mg/dL, High >189 mg/dL, Very high Secondary prevention optimal LDL Cholesterol levels are recommended to be <70 mg/dL LDL cholesterol is calculated using the Tian-NIH equation. Performed By: #### 2 4323-8, 22065-3 ####[facility] [id number] [place] [address] [place] Cholesterol in LDL/Cholesterol in HDL [Mass ratio] 3.31 {ratio} High <2.54 [facility] Comment on above: Order Comment: Speci men Type: BLOOD SPECIMENOrdering Facility: [facility] Address: [address] [place] [address] Result Comment: Keesha paul: 1. National Cholesterol Education Program ATP III Guideline At-A-Glance Quick Desk Reference: National Heart, Lung, and Blood [place]. National Institutes of Health. 2001: NIH Publication No. 01-3305. 2. An International Atherosclerosis Society position paper: global recommendations for the management of dyslipidemia: executive summary, Atherosclerosis. 2014: 232(2):410-413. Performed By: #### 2 4323-8, 18285-9 ####[facility] LABIA [id number] [place] [address] [place] Cholesterol in VLDL [Mass/Vol] 29 mg/dL Normal <30 [facility] Comment on above: Order Comment: Peggy cortes Type: BLOOD SPECIMENOrdering Facility: [facility] Address: [address] [place] [address] Performed By: #### 2 4323-8, 14747-0 ####[facility] LABCLIA [id number] [place] [id number] [place] Cholesterol non HDL [Mass/Vol] 149 mg/dL High <130 [facility] Comment on above: Order Comment: Speci men Type: BLOOD SPECIMENOrdering Facility: [facility] Address: [address] [place] [address] Result Comment: <130 mg/dL, Optimal 130-159 mg/dL, Near optimal/above optimal 160-189 mg/dL, Borderline high 190-219 mg/dL, High >219 mg/dL, Very high Secondary prevention optimal non HDL Cholesterol levels are recommended to be <100 mg/dL Performed By: #### 2 4323-8, 86482-2 ####[facility] LABCLIA [id number] [place] [address] [place] Cholesterol.total /Cholesterol in HDL [Mass ratio] 5.14 {ratio} High <5.10 [facility] Comment on above: Order Comment: Speci men Type: BLOOD SPECIMENOrdering Facility: [facility] Address: [address] [place] [address] Performed By: #### 2 4323-8, 03430-7 ####[facility] LABCLIA [id number] [place] [address] [place] FASTING TIME 12 hrs Normal [facility] Comment on above: Order Comment: Speci men Type: BLOOD SPECIMENOrdering Facility: [facility] Address: [address] [place] [address] Performed By: #### 2 4323-8, 97223-1 ####[facility] LABCLIA [id number] [place] [address] [place] Triglyceride [Mass/Vol] 167 mg/dL High <150 [facility] Comment on above: Order Comment: Speci men Type: BLOOD SPECIMENOrdering Facility: [facility] Address: [address] [place] [id number] Result Comment: <150 mg/dL, Normal 150-199 mg/dL, Borderline high 200-499 mg/dL, High >499 mg/dL, Very high Performed By: #### 2 4323-8, 04413-4 ####[facility] LABCLIA [id number] [place] [address] [place] No Panel Informationon 05-20 Interpretation and review of laboratory results Abnormal [facility] CNPNon 12-31-2024 CNPN Telephone [facility] VIANCA PEREZ ([id number]) 1950 F NFR Date Time Provider Department 12/31/24 ZAHRAA RATLIFF [facility] During your visit today, we recorded the following information about you: Zaira Woodall MA 12/31/2024 3:43 PM Signed Type of form: Straight Tip Urine Catheter form from [employer]. Requesting most recent OV note/labs with form. Printed Medicare Wellness from 02/2024 (last OV). Was supposed to be seen in October. Form received via fax When form is completed, Fax form to [phone] Form has been forwarded to Physician Desk: ELVIA Zarate Kathryn, MA 01/01/2025 3:52 PM Signed Faxed. Mary Harmon MA Allergies As of Date: 12/31/2024 Noted Allergy Reaction ADHESIVE 11/07/2018 2 - Rash BEE STING 07/01/2014 7 - Swelling Comments: Very red and swollen Date Reviewed: 09/19/2024 Reviewed by: Jacoby Shafer II, OD - Fully Assessed Reason for Visit: Forms [913] Cmt: [employer] Prescriptions as of 01/01/2025 - dorzolamide-timolol (COSOPT) 22.3-6.8 mg/mL ophthalmic solution Use 1 Drop in both eyes two times a day. - latanoprost (XALATAN) 0.005 % ophthalmic solution Use 1 Drop in both eyes daily at bedtime. - sertraline (ZOLOFT) 100 mg tablet Take 1 tablet by mouth two times a day. - lisinopril (ZESTRIL) 5 mg tablet Take 1 tablet by mouth once daily. - potassium chloride (K-TAB) 10 mEq tablet Take 1 tablet by mouth once daily. - triamterene-hydroCHLOROthiazi de (MAXZIDE-25) 37.5-25 mg per tablet Take 1 tablet by mouth once daily. - triamcinolone acetonide topical 0.5 % ointment Apply to affected area two times a day. - Catheter (DAVENPORT CATHETER) 14 Fr misc Use as directed 5 x per day - fluocinonide (LIDEX) 0.05 % cream Apply to affected area two times a day. - acetaminophen (TYLENOL EXTRA STRENGTH) 500 mg tablet Take 1 tablet by mouth every 6 hours as needed for pain. - Chlorhexidine Gluconate (PERIDEX) 0.12 % solution Use 15 mL as instructed twice daily. - Diaper,Brief, Adult,Disposable (PROTECTIVE UNDERWEAR LARGE) Use as directed for urinary incontinence - PREMARIN vaginal cream - Methenamine Hippurate (HIPREX) 1 gram tablet - cranberry fruit extract (CRANBERRY CONCENTRATE ORAL) DAILY - ascorbic acid, vitamin C, (VITAMIN C) 250 mg tablet DAILY - naproxen (NAPROSYN) 500 mg tablet Take 1 tablet by mouth twice daily as needed (pain/inflammation, take with food.). - COMPOUNDED PRESCRIPTION vitamin D3 1,000mg tab take one daily - aspirin(ECOTRIN LOW STRENGTH 81 MG TAB) Take one(1) tablet daily. Problem List As Of Date 12/31/2024 Noted Resolved BENIGN HYPERTENSION [I10] 08/29/2006 Morbid obesity with BMI of 40.0-44.9, adult (HC*08/29/2006 TOBACCO USE DISORDER [F17.200] 08/29/2006 Recurrent major depressive disorder, in full re*08/29/2006 SKIN LESION [L98.9] 11/30/2006 04/03/2007 Hypopotassemia [E87.6] 04/03/2007 08/20/2022 IRON DEFIC ANEMIA NOS [D50.9] 01/22/2009 Malignant neoplasm of colon (HCC) [C18.9] 01/22/2009 08/20/2022 Benign neoplasm of colon [D12.6] 01/22/2009 10/13/2010 Vitamin D Deficiency [E55.9] 10/15/2009 Rectal bleeding [K62.5] 07/25/2012 08/20/2022 Benign neoplasm of rectum and anal canal [D12.8*08/14/2012 Benign neoplasm of colon [D12.6] 08/14/2012 06/09/2017 History of malignant neoplasm of large intestin*08/14/2012 Psoriasis [L40.9] 07/28/2015 Personal history of colon cancer [Z85.038] 08/11/2015 History of colonic polyps [Z86.0100] 08/11/2015 Age-related nuclear cataract, bilateral [H25.13]08/14/2015 Vitreous floaters of both eyes [H43.393] 08/14/2015 Presbyopia [H52.4] 08/14/2015 Myopia [H52.10] 08/14/2015 Regular astigmatism [H52.229] 08/14/2015 Dermatochalasis of both upper eyelids [H02.831,*08/17/2016 Primary open-angle glaucoma, bilateral, mild st*05/30/2017 Optic disc cupping [H47.239] 06/13/2017 Hyperlipidemia [E78.5] 12/13/2017 History of colon polyps [Z86.0100] 09/15/2018 Stage 3b chronic kidney disease (HCC) [N18.32] Medicare annual wellness visit, subsequent [Z00*12/24/2020 08/20/2022 Hypertensive kidney disease with stage 3 chroni*08/20/2022 Depression, recurrent (HCC) [F33.9] 08/25/2023 Encounter Status:Closed by MARY HARMON on 01/01/25 [facility] Shakira 10-18-2024 SAÚLN Telephone (FAMPWS) VIANCA PEREZ ([id number]) 1950 F NFR Date Time Provider Department 10/18/24 ZAHRAA RATLIFF During your visit today, we recorded the following information about you: Zaira Woodall MA 10/18/2024 9:06 AM Signed Type of form: [facility] Urine C[facility] Form received via fax When form is completed, Fax form to [phone] Form has been forwarded to Physician Desk: ELVIA Zarate Rilee, MA 10/18/2024 11:14 AM Signed Form completed and faxed back to information below. Zaira Woodall MA Allergies As of Date: 10/18/2024 Noted Allergy Reaction ADHESIVE 11/07/2018 2 - Rash BEE STING 07/01/2014 7 - Swelling Comments: Very red and swollen Date Reviewed: 09/19/2024 Reviewed by: Jacoby Shafer II OD - Fully Assessed Reason for Visit: Forms [913] Cmt: [facility] Prescriptions as of 10/18/2024 - dorzolamide-timolol (COSOPT) 22.3-6.8 mg/mL ophthalmic solution Use 1 Drop in both eyes two times a day. - latanoprost (XALATAN) 0.005 % ophthalmic solution Use 1 Drop in both eyes daily at bedtime. - sertraline (ZOLOFT) 100 mg tablet Take 1 tablet by mouth two times a day. - lisinopril (ZESTRIL) 5 mg tablet Take 1 tablet by mouth once daily. - potassium chloride (K-TAB) 10 mEq tablet Take 1 tablet by mouth once daily. - triamterene-hydroCHLOROthiazi de (MAXZIDE-25) 37.5-25 mg per tablet Take 1 tablet by mouth once daily. - triamcinolone acetonide topical 0.5 % ointment Apply to affected area two times a day. - Catheter (DAVENPORT CATHETER) 14 Fr misc Use as directed 5 x per day - fluocinonide (LIDEX) 0.05 % cream Apply to affected area two times a day. - acetaminophen (TYLENOL EXTRA STRENGTH) 500 mg tablet Take 1 tablet by mouth every 6 hours as needed for pain. - Chlorhexidine Gluconate (PERIDEX) 0.12 % solution Use 15 mL as instructed twice daily. - Diaper,Brief, Adult,Disposable (PROTECTIVE UNDERWEAR LARGE) Use as directed for urinary incontinence - PREMARIN vaginal cream - Methenamine Hippurate (HIPREX) 1 gram tablet - cranberry fruit extract (CRANBERRY CONCENTRATE ORAL) DAILY - ascorbic acid, vitamin C, (VITAMIN C) 250 mg tablet DAILY - naproxen (NAPROSYN) 500 mg tablet Take 1 tablet by mouth twice daily as needed (pain/inflammation, take with food.). - COMPOUNDED PRESCRIPTION vitamin D3 1,000mg tab take one daily - aspirin(ECOTRIN LOW STRENGTH 81 MG TAB) Take one(1) tablet daily. Problem List As Of Date 10/18/2024 Noted Resolved BENIGN HYPERTENSION [I10] 08/29/2006 Morbid obesity with BMI of 40.0-44.9, adult (HC*08/29/2006 TOBACCO USE DISORDER [F17.200] 08/29/2006 Recurrent major depressive disorder, in full re*08/29/2006 SKIN LESION [L98.9] 11/30/2006 04/03/2007 Hypopotassemia [E87.6] 04/03/2007 08/20/2022 IRON DEFIC ANEMIA NOS [D50.9] 01/22/2009 Malignant neoplasm of colon (HCC) [C18.9] 01/22/2009 08/20/2022 Benign neoplasm of colon [D12.6] 01/22/2009 10/13/2010 Vitamin D Deficiency [E55.9] 10/15/2009 Rectal bleeding [K62.5] 07/25/2012 08/20/2022 Benign neoplasm of rectum and anal canal [D12.8*08/14/2012 Benign neoplasm of colon [D12.6] 08/14/2012 06/09/2017 History of malignant neoplasm of large intestin*08/14/2012 Psoriasis [L40.9] 07/28/2015 Personal history of colon cancer [Z85.038] 08/11/2015 History of colonic polyps [Z86.0100] 08/11/2015 Age-related nuclear cataract, bilateral [H25.13]08/14/2015 Vitreous floaters of both eyes [H43.393] 08/14/2015 Presbyopia [H52.4] 08/14/2015 Myopia [H52.10] 08/14/2015 Regular astigmatism [H52.229] 08/14/2015 Dermatochalasis of both upper eyelids [H02.831,*08/17/2016 Primary open-angle glaucoma, bilateral, mild st*05/30/2017 Optic disc cupping [H47.239] 06/13/2017 Hyperlipidemia [E78.5] 12/13/2017 History of colon polyps [Z86.0100] 09/15/2018 Stage 3b chronic kidney disease (HCC) [N18.32] Medicare annual wellness visit, subsequent [Z00*12/24/2020 08/20/2022 Hypertensive kidney disease with stage 3 chroni*08/20/2022 Depression, recurrent (HCC) [F33.9] 08/25/2023 Encounter Status:Closed by ZAIRA WOODALL on 10/18/24 [facility]ira [facility] VIANCA PEREZ ([id number]) 1950 F NFR Date Time Provider Department 10/10/24 KIMBERLI HALL [facility] During your visit today, we recorded the following information about you: Kimberli Hall APRN.SAÚL 10/10/2024 7:12 PM Signed Can you please call the patient and let her know that I reviewed her mammogram. Mammogram showed dense breast tissue, however no malignancy is noted. Radiology recommending repeat screening in 1 year. Please let me know if she has any questions. Thank you. Kimberli Hall APRN.Lisy Dumont LPN 10/11/2024 8:44 AM Signed TC to ptRick LM to call office, ask for triage nurse to get results. GERARDO Hull Kathryn, MA 10/16/2024 11:37 AM Signed Pt notified of results via [employer]. Mary Harmon Ma Allergies As of Date: 10/10/2024 Noted Allergy Reaction ADHESIVE 11/07/2018 2 - Rash BEE STING 07/01/2014 7 - Swelling Comments: Very red and swollen Date Reviewed: 09/19/2024 Reviewed by: Jacoby Shafer II, OD - Fully Assessed Reason for Visit: Results [95] Cmt: Mammogram Prescriptions as of 10/16/2024 - dorzolamide-timolol (COSOPT) 22.3-6.8 mg/mL ophthalmic solution Use 1 Drop in both eyes two times a day. - latanoprost (XALATAN) 0.005 % ophthalmic solution Use 1 Drop in both eyes daily at bedtime. - sertraline (ZOLOFT) 100 mg tablet Take 1 tablet by mouth two times a day. - lisinopril (ZESTRIL) 5 mg tablet Take 1 tablet by mouth once daily. - potassium chloride (K-TAB) 10 mEq tablet Take 1 tablet by mouth once daily. - triamterene-hydroCHLOROthiazi de (MAXZIDE-25) 37.5-25 mg per tablet Take 1 tablet by mouth once daily. - triamcinolone acetonide topical 0.5 % ointment Apply to affected area two times a day. - Catheter (DAVENPORT CATHETER) 14 Fr misc Use as directed 5 x per day - fluocinonide (LIDEX) 0.05 % cream Apply to affected area two times a day. - acetaminophen (TYLENOL EXTRA STRENGTH) 500 mg tablet Take 1 tablet by mouth every 6 hours as needed for pain. - Chlorhexidine Gluconate (PERIDEX) 0.12 % solution Use 15 mL as instructed twice daily. - Diaper,Brief, Adult,Disposable (PROTECTIVE UNDERWEAR LARGE) Use as directed for urinary incontinence - PREMARIN vaginal cream - Methenamine Hippurate (HIPREX) 1 gram tablet - cranberry fruit extract (CRANBERRY CONCENTRATE ORAL) DAILY - ascorbic acid, vitamin C, (VITAMIN C) 250 mg tablet DAILY - naproxen (NAPROSYN) 500 mg tablet Take 1 tablet by mouth twice daily as needed (pain/inflammation, take with food.). - COMPOUNDED PRESCRIPTION vitamin D3 1,000mg tab take one daily - aspirin(ECOTRIN LOW STRENGTH 81 MG TAB) Take one(1) tablet daily. Problem List As Of Date 10/10/2024 Noted Resolved BENIGN HYPERTENSION [I10] 08/29/2006 Morbid obesity with BMI of 40.0-44.9, adult (HC*08/29/2006 TOBACCO USE DISORDER [F17.200] 08/29/2006 Recurrent major depressive disorder, in full re*08/29/2006 SKIN LESION [L98.9] 11/30/2006 04/03/2007 Hypopotassemia [E87.6] 04/03/2007 08/20/2022 IRON DEFIC ANEMIA NOS [D50.9] 01/22/2009 Malignant neoplasm of colon (HCC) [C18.9] 01/22/2009 08/20/2022 Benign neoplasm of colon [D12.6] 01/22/2009 10/13/2010 Vitamin D Deficiency [E55.9] 10/15/2009 Rectal bleeding [K62.5] 07/25/2012 08/20/2022 Benign neoplasm of rectum and anal canal [D12.8*08/14/2012 Benign neoplasm of colon [D12.6] 08/14/2012 06/09/2017 History of malignant neoplasm of large intestin*08/14/2012 Psoriasis [L40.9] 07/28/2015 Personal history of colon cancer [Z85.038] 08/11/2015 History of colonic polyps [Z86.0100] 08/11/2015 Age-related nuclear cataract, bilateral [H25.13]08/14/2015 Vitreous floaters of both eyes [H43.393] 08/14/2015 Presbyopia [H52.4] 08/14/2015 Myopia [H52.10] 08/14/2015 Regular astigmatism [H52.229] 08/14/2015 Dermatochalasis of both upper eyelids [H02.831,*08/17/2016 Primary open-angle glaucoma, bilateral, mild st*05/30/2017 Optic disc cupping [H47.239] 06/13/2017 Hyperlipidemia [E78.5] 12/13/2017 History of colon polyps [Z86.0100] 09/15/2018 Stage 3b chronic kidney disease (HCC) [N18.32] Medicare annual wellness visit, subsequent [Z00*12/24/2020 08/20/2022 Hypertensive kidney disease with stage 3 chroni*08/20/2022 Depression, recurrent (HCC) [F33.9] 08/25/2023 Encounter Status:Closed by MARY HARMON on 10/16/24 Normal [facility] SCREENINGon 10-09-2024 [facility] * * *Final Report* * * DATE OF EXAM: Oct 09 2024 1:48PM [id number] - [facility] [place] PROCEDURE REASON: Screening mammogram for breast cancer * * * * Physician Interpretation * * * * RESULT: [facility] [address] [place] [address] #[id number] - [facility] [place] HISTORY: Patient is 74 years old and is seen for screening and is asymptomatic in both breasts. The patient has a history of cervical cancer more than 10 years ago and colon cancer more than 10 years ago. COMPARISON STUDIES: The present examination has been compared to prior imaging studies dated 12/29/2018 (mammogram), 05/05/2020 (mammogram), 04/06/2022 (mammogram) and 09/06/2023 (mammogram). MAMMOGRAM TECHNIQUE: The study was acquired using full field digital technology and interpreted from soft copy. Computer-aided detection was utilized by the radiologist in the interpretation of this examination. MAMMOGRAM FINDINGS: There are scattered areas of fibroglandular density. No suspicious masses, calcifications or other abnormalities are seen in either breast. There are no significant interval changes. IMPRESSION: There is no mammographic evidence of malignancy in either breast. Routine screening mammogram is recommended. Annual mammogram will be due in 1 year. BI-RADS Category 1: Negative RISK: Based on the Tyrer-Cuzick (TC) risk assessment model, this patient has a 4.2% lifetime risk of developing breast cancer, meaning they are at average risk for developing breast cancer. However, this is only an estimate based on available history provided on the patient's questionnaire. We encourage all patients to talk with their providers about these results, further recommendations for managing breast health, and appropriate supplemental screening options if the patient has dense breast tissue. Interpreting Radiologist: Krystin Saldana M.D. Electronically signed on: 10/10/2024 Chimney Supervisor Brick: CASANDRA Transcribe Date/Time: Oct 09 2024 1:35P Dictated by: KRYSTIN SALDANA MD This examination was interpreted and the report reviewed and electronically signed by: KRYSTIN SALDANA MD on Oct 10 2024 2:56PM EST [id number] Normal [facility] 09-27-2024 CNPN Telephone (FAMWS) VIANCA PEREZ ([id number]) 1950 F NFR Date Time Provider Department 09/27/24 [facility]IMBERLI [facility]ALL [facility] During your visit today, we recorded the following information about you: Kimberli Hall APRN.CNP 09/27/2024 8:23 AM Signed Can you please call the patient and let her know that I reviewed her lab results. Glucose was mildly elevated. Kidney function is stable but still decreased. I would recommend being mindful of processed foods and salt in the diet. Try to avoid NSAIDs if possible. LDL cholesterol was elevated. Her cardiac risk is 20%. She may consider starting a cholesterol-lowering medication. I would like her to work on lifestyle changes at home, try to increase lean protein, vegetables, get some form of exercise. Please let me know what she prefers. Vitamin D was low normal. I would recommend taking vitamin D3 2000 to 4000 IUs daily. She will be due for a 6-month follow-up in October. The 10-year ASCVD risk score (Shawn CHANDLER, et al., 2019) is: 20.4% Values used to calculate the score: Age: 74 years Sex: Female Is Non- : No Diabetic: No Tobacco smoker: No Systolic Blood Pressure: 126 mmHg Is BP treated: Yes HDL Cholesterol: 36 mg/dL Total Cholesterol: 212 mg/dL Kimberli Hall APRN.Mela Cisneros LPN 09/27/2024 9:44 AM Signed Phoned patient went over results, notes from Kimberli Hall LAND ACQUISITION ANALYST with understanding. Scheduled appt for 11/12/2024 with LAND ACQUISITION ANALYST at 220 pm. Patient does not want to take cholesterol medication. Kimberli Hall APRN.SAÚL 09/27/2024 9:52 AM Signed Noted, thank you. Kimberli Hall APRN.FAST FOODS WORKER Allergies As of Date: 09/27/2024 Noted Allergy Reaction ADHESIVE 11/07/2018 2 - Rash BEE STING 07/01/2014 7 - Swelling Comments: Very red and swollen Date Reviewed: 09/19/2024 Reviewed by: Jacoby Shafer II, OD - Fully Assessed Reason for Visit: Results [95] Cmt: Labs Prescriptions as of 09/27/2024 - dorzolamide-timolol (COSOPT) 22.3-6.8 mg/mL ophthalmic solution Use 1 Drop in both eyes two times a day. - latanoprost (XALATAN) 0.005 % ophthalmic solution Use 1 Drop in both eyes daily at bedtime. - sertraline (ZOLOFT) 100 mg tablet Take 1 tablet by mouth two times a day. - lisinopril (ZESTRIL) 5 mg tablet Take 1 tablet by mouth once daily. - potassium chloride (K-TAB) 10 mEq tablet Take 1 tablet by mouth once daily. - triamterene-hydroCHLOROthiazi de (MAXZIDE-25) 37.5-25 mg per tablet Take 1 tablet by mouth once daily. - triamcinolone acetonide topical 0.5 % ointment Apply to affected area two times a day. - Catheter (DAVENPORT CATHETER) 14 Fr misc Use as directed 5 x per day - fluocinonide (LIDEX) 0.05 % cream Apply to affected area two times a day. - acetaminophen (TYLENOL EXTRA STRENGTH) 500 mg tablet Take 1 tablet by mouth every 6 hours as needed for pain. - Chlorhexidine Gluconate (PERIDEX) 0.12 % solution Use 15 mL as instructed twice daily. - Diaper,Brief, Adult,Disposable (PROTECTIVE UNDERWEAR LARGE) Use as directed for urinary incontinence - PREMARIN vaginal cream - Methenamine Hippurate (HIPREX) 1 gram tablet - cranberry fruit extract (CRANBERRY CONCENTRATE ORAL) DAILY - ascorbic acid, vitamin C, (VITAMIN C) 250 mg tablet DAILY - naproxen (NAPROSYN) 500 mg tablet Take 1 tablet by mouth twice daily as needed (pain/inflammation, take with food.). - COMPOUNDED PRESCRIPTION vitamin D3 1,000mg tab take one daily - aspirin(ECOTRIN LOW STRENGTH 81 MG TAB) Take one(1) tablet daily. Problem List As Of Date 09/27/2024 Noted Resolved BENIGN HYPERTENSION [I10] 08/29/2006 Morbid obesity with BMI of 40.0-44.9, adult (HC*08/29/2006 TOBACCO USE DISORDER [F17.200] 08/29/2006 Recurrent major depressive disorder, in full re*08/29/2006 SKIN LESION [L98.9] 11/30/2006 04/03/2007 Hypopotassemia [E87.6] 04/03/2007 08/20/2022 IRON DEFIC ANEMIA NOS [D50.9] 01/22/2009 Malignant neoplasm of colon (HCC) [C18.9] 01/22/2009 08/20/2022 Benign neoplasm of colon [D12.6] 01/22/2009 10/13/2010 Vitamin D Deficiency [E55.9] 10/15/2009 Rectal bleeding [K62.5] 07/25/2012 08/20/2022 Benign neoplasm of rectum and anal canal [D12.8*08/14/2012 Benign neoplasm of colon [D12.6] 08/14/2012 06/09/2017 History of malignant neoplasm of large intestin*08/14/2012 Psoriasis [L40.9] 07/28/2015 Personal history of colon cancer [Z85.038] 08/11/2015 History of colonic polyps [Z86.0100] 08/11/2015 Age-related nuclear cataract, bilateral [H25.13]08/14/2015 Vitreous floaters of both eyes [H43.393] 08/14/2015 Presbyopia [H52.4] 08/14/2015 Myopia [H52.10] 08/14/2015 Regular astigmatism [H52.229] 08/14/2015 Dermatochalasis of both upper eyelids [H02.831,*08/17/2016 Primary open-angle glaucoma, bilateral, mild st*05/30/2017 Optic disc cupping [H47.239] 06/13/2017 Hyperlipidemia [E78.5] 12/13/2017 History of colon (more content not included)... [facility] (FAMPWS) VIANCA PEREZ ([id number]) 1950 F NFR Date Time Provider Department 09/26/24 ZAHRAA RATLIFF [facility] During your visit today, we recorded the following information about you: Mela Tejeda LPN 09/26/2024 2:24 PM Signed Patient calling she forgot to ask for her yearly mamm order. Last one was done 09/06/2023. Pending order to file. Please let patient know when order is ready for her to schedule appt. Please advise Kimberli Hall APRN.FAST FOODS WORKER 09/27/2024 7:28 AM Signed Can you please let the patient know that mammogram order has been placed. Thank you Kimberli Hall APRN.Mary Campuzano MA 09/27/2024 10:37 AM Signed Pt notified. Transferred to [facility] to set up appt Mary Harmon MA Allergies As of Date: 09/26/2024 Noted Allergy Reaction ADHESIVE 11/07/2018 2 - Rash BEE STING 07/01/2014 7 - Swelling Comments: Very red and swollen Date Reviewed: 09/19/2024 Reviewed by: Jacoby Shafer II, OD - Fully Assessed Reason for Visit: Orders [681] Primary Visit Diagnosis:Screening mammogram for breast cancer [Z12.31] Order(s):[facility] [[id number]] Order #: [id number] FUTURE Prescriptions as of 09/27/2024 - dorzolamide-timolol (COSOPT) 22.3-6.8 mg/mL ophthalmic solution Use 1 Drop in both eyes two times a day. - latanoprost (XALATAN) 0.005 % ophthalmic solution Use 1 Drop in both eyes daily at bedtime. - sertraline (ZOLOFT) 100 mg tablet Take 1 tablet by mouth two times a day. - lisinopril (ZESTRIL) 5 mg tablet Take 1 tablet by mouth once daily. - potassium chloride (K-TAB) 10 mEq tablet Take 1 tablet by mouth once daily. - triamterene-hydroCHLOROthiazi de (MAXZIDE-25) 37.5-25 mg per tablet Take 1 tablet by mouth once daily. - triamcinolone acetonide topical 0.5 % ointment Apply to affected area two times a day. - Catheter (DAVENPORT CATHETER) 14 Fr misc Use as directed 5 x per day - fluocinonide (LIDEX) 0.05 % cream Apply to affected area two times a day. - acetaminophen (TYLENOL EXTRA STRENGTH) 500 mg tablet Take 1 tablet by mouth every 6 hours as needed for pain. - Chlorhexidine Gluconate (PERIDEX) 0.12 % solution Use 15 mL as instructed twice daily. - Diaper,Brief, Adult,Disposable (PROTECTIVE UNDERWEAR LARGE) Use as directed for urinary incontinence - PREMARIN vaginal cream - Methenamine Hippurate (HIPREX) 1 gram tablet - cranberry fruit extract (CRANBERRY CONCENTRATE ORAL) DAILY - ascorbic acid, vitamin C, (VITAMIN C) 250 mg tablet DAILY - naproxen (NAPROSYN) 500 mg tablet Take 1 tablet by mouth twice daily as needed (pain/inflammation, take with food.). - COMPOUNDED PRESCRIPTION vitamin D3 1,000mg tab take one daily - aspirin(ECOTRIN LOW STRENGTH 81 MG TAB) Take one(1) tablet daily. Problem List As Of Date 09/26/2024 Noted Resolved BENIGN HYPERTENSION [I10] 08/29/2006 Morbid obesity with BMI of 40.0-44.9, adult (HC*08/29/2006 TOBACCO USE DISORDER [F17.200] 08/29/2006 Recurrent major depressive disorder, in full re*08/29/2006 SKIN LESION [L98.9] 11/30/2006 04/03/2007 Hypopotassemia [E87.6] 04/03/2007 08/20/2022 IRON DEFIC ANEMIA NOS [D50.9] 01/22/2009 Malignant neoplasm of colon (HCC) [C18.9] 01/22/2009 08/20/2022 Benign neoplasm of colon [D12.6] 01/22/2009 10/13/2010 Vitamin D Deficiency [E55.9] 10/15/2009 Rectal bleeding [K62.5] 07/25/2012 08/20/2022 Benign neoplasm of rectum and anal canal [D12.8*08/14/2012 Benign neoplasm of colon [D12.6] 08/14/2012 06/09/2017 History of malignant neoplasm of large intestin*08/14/2012 Psoriasis [L40.9] 07/28/2015 Personal history of colon cancer [Z85.038] 08/11/2015 History of colonic polyps [Z86.0100] 08/11/2015 Age-related nuclear cataract, bilateral [H25.13]08/14/2015 Vitreous floaters of both eyes [H43.393] 08/14/2015 Presbyopia [H52.4] 08/14/2015 Myopia [H52.10] 08/14/2015 Regular astigmatism [H52.229] 08/14/2015 Dermatochalasis of both upper eyelids [H02.831,*08/17/2016 Primary open-angle glaucoma, bilateral, mild st*05/30/2017 Optic disc cupping [H47.239] 06/13/2017 Hyperlipidemia [E78.5] 12/13/2017 History of colon polyps [Z86.0100] 09/15/2018 Stage 3b chronic kidney disease (HCC) [N18.32] Medicare annual wellness visit, subsequent [Z00*12/24/2020 08/20/2022 Hypertensive kidney disease with stage 3 chroni*08/20/2022 Depression, recurrent (HCC) [F33.9] 08/25/2023 Encounter Status:Closed by MARY HARMON on 09/27/24 Normal [facility] 25-hydroxyvitamin D3 [Mass/Vol] 36.2 ng/mL Normal 31.0-80.0 [facility] Comment on above: Order Comment: Speci men Type: BLOOD SPECIMENOrdering Facility: [facility] Address: [address] [place] [address] Result Comment: Clas sification of 25 OH Vitamin D status: Deficiency/Insufficiency: < or = 30 ng/ml. Sufficiency/Optimal Levels: 31-80 ng/mL Toxicity: > 100 ng/mL. Test performed by chemiluminescent immunoassay. Performed By: #### 1 989-3 ####[facility] LABCLIA [id number] [place] [address] [place] CBC W Auto Differential pane l (Bld)on 09-19-2024 Basophils (Bld) [#/Vol] 0.08 10*3/uL Normal <0.11 [facility] Comment on above: Order Comment: Speci men Type: BLOOD SPECIMENOrdering Facility: [facility] Address: [address] [place] [address] Performed By: #### 5 7021-8 ####[facility] LABIA [id number] [place] [address] [place] Basophils/100 WBC (Bld) 1.2 % Normal [facility] Comment on above: Order Comment: Speci men Type: BLOOD SPECIMENOrdering Facility: [facility] Address: [address] [place] [address] Performed By: #### 5 7021-8 ####[facility] LABIA [id number] [place] [address] [place] Differential cell count method Nom (Bld) Auto Normal [facility] Comment on above: Order Comment: Speci men Type: BLOOD SPECIMENOrdering Facility: [facility] Address: [address] [place] [address] Performed By: #### 5 7021-8 ####[facility] LABIA [id number] [place] [address] [place] Eosinophils (Bld) [#/Vol] 0.11 10*3/uL Normal <0.46 [facility] Comment on above: Order Comment: Speci men Type: BLOOD SPECIMENOrdering Facility: [facility] Address: [address] [place] [address] Performed By: #### 5 7021-8 ####[facility] LABCLIA [id number] [place] [address] [place] Eosinophils/100 WBC (Bld) 1.7 % Normal [facility] Comment on above: Order Comment: Speci men Type: BLOOD SPECIMENOrdering Facility: [facility] Address: [address] [place] [address] Performed By: #### 5 7021-8 ####[facility] LABCLIA [id number] [place] [address] [place] Erythrocyte distribution width (RBC) [Ratio] 13.5 % Normal 11.5-15.0 [facility] Comment on above: Order Comment: Speci men Type: BLOOD SPECIMENOrdering Facility: [facility] Address: [address] [place] [address] Performed By: #### 5 7021-8 ####[facility] LABCLIA [id number] [place] [address] [place] Hematocrit (Bld) [Volume fraction] 47.1 % High 36.0-46.0 [facility] Comment on above: Order Comment: Speci men Type: BLOOD SPECIMENOrdering Facility: [facility] Address: [address] [place] [address] Performed By: #### 5 7021-8 ####[facility] LABCLIA [id number] [place] [address] [place] Hemoglobin (Bld) [Mass/Vol] 15.6 g/dL High 11.5-15.5 [facility] Comment on above: Order Comment: Speci men Type: BLOOD SPECIMENOrdering Facility: [facility] Address: [address] [place] [address] Performed By: #### 5 7021-8 ####[facility] LABCLIA [id number] [place] [address] [place] Immature granulocytes (Bld) [#/Vol] 0.04 10*3/uL Normal <0.10 [facility] Comment on above: Order Comment: Speci men Type: BLOOD SPECIMENOrdering Facility: [facility] Address: [address] [place] [address] Performed By: #### 5 7021-8 ####[facility] LABCLIA [id number] [place] [address] [place] Immature granulocytes/100 WBC (Bld) 0.6 % Normal [facility] Comment on above: Order Comment: Speci men Type: BLOOD SPECIMENOrdering Facility: [facility] Address: [address] [place] [address] Performed By: #### 5 7021-8 ####[facility] LABCLIA [id number] [place] [address] [place] Lymphocytes (Bld) [#/Vol] 1.17 10*3/uL Normal 1.00-4.00 [facility] Comment on above: Order Comment: Speci men Type: BLOOD SPECIMENOrdering Facility: [facility] Address: [address] [place] [address] Performed By: #### 5 7021-8 ####[facility] LABCLIA [id number] [place] [address] [place] Lymphocytes/100 WBC (Bld) 17.6 % Normal [facility] Comment on above: Order Comment: Speci men Type: BLOOD SPECIMENOrdering Facility: [facility] Address: [address] [place] [address] Performed By: #### 5 7021-8 ####[facility] LABCLIA [id number] [place] [address] [place] MCH (RBC) [Entitic mass] 31.4 pg Normal 26.0-34.0 [facility] Comment on above: Order Comment: Speci men Type: BLOOD SPECIMENOrdering Facility: [facility] Address: [address] [place] [address] Performed By: #### 5 7021-8 ####[facility] LABCLIA [id number] [place] [address] [place] MCHC (RBC) [Mass/Vol] 33.1 g/dL Normal 30.5-36.0 [facility] Comment on above: Order Comment: Speci men Type: BLOOD SPECIMENOrdering Facility: [facility] Address: [address] [place] [address] Performed By: #### 5 7021-8 ####[facility] LABIA [id number] [place] [address] [place] MCV (RBC) [Entitic vol] 94.8 fL Normal 80.0-100.0 [facility] Comment on above: Order Comment: Speci men Type: BLOOD SPECIMENOrdering Facility: [facility] Address: [address] [place] [address] Performed By: #### 5 7021-8 ####[facility] LABIA [id number] [place] [address] [place] Monocytes (Bld) [#/Vol] 0.43 10*3/uL Normal <0.87 [facility] Comment on above: Order Comment: Speci men Type: BLOOD SPECIMENOrdering Facility: [facility] Address: [address] [place] [address] Performed By: #### 5 7021-8 ####[facility] LABIA [id number] [place] [address] [place] Monocytes/100 WBC (Bld) 6.5 % Normal [facility] Comment on above: Order Comment: Speci men Type: BLOOD SPECIMENOrdering Facility: [facility] Address: [address] [place] [address] Performed By: #### 5 7021-8 ####[facility] LABIA [id number] [place] [address] [place] Neutrophils (Bld) [#/Vol] 4.81 10*3/uL Normal 1.45-7.50 [facility] Comment on above: Order Comment: Speci men Type: BLOOD SPECIMENOrdering Facility: [facility] Address: [address] [place] [address] Performed By: #### 5 7021-8 ####[facility] LABCLIA [id number] [place] [address] [place] Neutrophils/100 WBC (Bld) 72.4 % Normal [facility] Comment on above: Order Comment: Speci men Type: BLOOD SPECIMENOrdering Facility: [facility] Address: [address] [place] [address] Performed By: #### 5 7021-8 ####[facility] LABCLIA [id number] [place] [address] [place] Nucleated RBC (Bld) [#/Vol] 10*3/uL Normal <0.01 [facility] Comment on above: Order Comment: Speci men Type: BLOOD SPECIMENOrdering Facility: [facility] Address: [address] [place] [address] Performed By: #### 5 7021-8 ####[facility] LABCLIA [id number] [place] [address] [place] Nucleated RBC/100 WBC (Bld) [Ratio] 0.0 /100 WBC Normal [facility] Comment on above: Order Comment: Speci men Type: BLOOD SPECIMENOrdering Facility: [facility] Address: [address] [place] [address] Performed By: #### 5 7021-8 ####[facility] LABIA [id number] [place] [address] [place] Platelet mean volume (Bld) [Entitic vol] 11.0 fL Normal 9.0-12.7 [facility] Comment on above: Order Comment: Speci men Type: BLOOD SPECIMENOrdering Facility: [facility] Address: [address] [place] [address] Performed By: #### 5 7021-8 ####[facility] LABCLIA [id number] [address] [address] [place] Platelets (Bld) [#/Vol] 161 10*3/uL Normal 150-400 [facility] Comment on above: Order Comment: Speci men Type: BLOOD SPECIMENOrdering Facility: [facility] Address: [address] [place] [address] Performed By: #### 5 7021-8 ####[facility] LABIA [id number] [place] [address] [place] RBC (Bld) [#/Vol] 4.97 10*6/uL Normal 3.90-5.20 [facility] Comment on above: Order Comment: Speci men Type: BLOOD SPECIMENOrdering Facility: [facility] Address: [address] [place] [address] Performed By: #### 5 7021-8 ####[facility] LABIA [id number] [place] [address] [place] WBC (Bld) [#/Vol] 6.64 10*3/uL Normal 3.70-11.00 [facility] Comment on above: Order Comment: Speci men Type: BLOOD SPECIMENOrdering Facility: [facility] Address: [address] [place] [address] Performed By: #### 5 7021-8 ####[facility] LABIA [id number] [place] [id number] [place] Comprehensive metabolic 2000 panelon 09-19-2024 Albumin [Mass/Vol] 4.6 g/dL Normal 3.9-4.9 [facility] Comment on above: Order Comment: Speci men Type: BLOOD SPECIMENOrdering Facility: [facility] Address: [address] [place] [address] Performed By: #### 2 4331-1, 02203-6 ####[facility] LABCLIA [id number] [place] [id number] [place] ALP [Catalytic activity/Vol] 95 U/L Normal 34-123 [facility] Comment on above: Order Comment: Speci men Type: BLOOD SPECIMENOrdering Facility: [facility] Address: [address] [place] [address] Performed By: #### 2 4331-1, 37969-9 ####[facility] LABCLIA [id number] [place] [address] [place] ALT [Catalytic activity/Vol] 16 U/L Normal 7-38 [facility] Comment on above: Order Comment: Speci men Type: BLOOD SPECIMENOrdering Facility: [facility] Address: [address] [place] [address] Performed By: #### 2 4331-1, 32065-5 ####[facility] LABCLIA [id number] [place] [address] [place] Anion gap [Moles/Vol] 15 mmol/L Normal 8-15 [facility] Comment on above: Order Comment: Speci men Type: BLOOD SPECIMENOrdering Facility: [facility] Address: [address] [place] [address] Performed By: #### 2 4331-1, 71582-0 ####[facility] LABCLIA [id number] [place] [address] [place] AST [Catalytic activity/Vol] 15 U/L Normal 13-35 [facility] Comment on above: Order Comment: Speci men Type: BLOOD SPECIMENOrdering Facility: [facility] Address: [address] [place] [address] Performed By: #### 2 4331-1, 90003-1 ####[facility] LABCLIA [id number] [place] [id number] [place] Bilirubin [Mass/Vol] 0.3 mg/dL Normal 0.2-1.3 [facility] Comment on above: Order Comment: Speci men Type: BLOOD SPECIMENOrdering Facility: [facility] Address: [address] [place] [id number] Performed By: #### 2 4331-1, ####[facility] LABCLIA [id number] [place] [address] [place] Calcium [Mass/Vol] 9.8 mg/dL Normal 8.5-10.2 [facility] Comment on above: Order Comment: Speci men Type: BLOOD SPECIMENOrdering Facility: [facility] Address: [address] [place] [address] Performed By: #### 2 4331-1, ####[facility] LABCLIA [id number] [place] [address] [place] Chloride [Moles/Vol] 104 mmol/L Normal 98-107 [facility] Comment on above: Order Comment: Speci men Type: BLOOD SPECIMENOrdering Facility: [facility] Address: [address] [place] [address] Performed By: #### 2 4331-1, ####[facility] LABCLIA [id number] [place] [address] [place] CO2 [Moles/Vol] 23 mmol/L Normal 22-30 [facility] Comment on above: Order Comment: Speci men Type: BLOOD SPECIMENOrdering Facility: [facility] Address: [address] [place] [id number] Performed By: #### 2 4331-1, ####[facility] LABCLIA [id number] [place] [address] [place] Creatinine [Mass/Vol] 1.15 mg/dL High 0.58-0.96 [facility] Comment on above: Order Comment: Speci men Type: BLOOD SPECIMENOrdering Facility: [facility] Address: [address] [place], [place] [address] Performed By: #### 2 4331-1, 50254-1 ####[facility] LABIA [id number] [place] [address] [place] Creatinine and Glomerular filtration rate.predicted panel (S/P/Bld) 50 mL/min/1.73m??? Low >=60 [facility] Comment on above: Order Comment: Peggy kolb Type: BLOOD SPECIMENOrdering Facility: [facility] Address: [address] [place] [address] Result Comment: Liane mated Glomerular Filtration Rate (eGFR) is calculated using the 2020 CKD-EPI creatinine equation. This equation utilizes serum creatinine, sex, and age as parameters. The creatinine assay has traceable calibration to isotope dilution-mass spectrometry. Refer to KDIGO guidelines for clinical interpretation. In patients with unstable renal function, e.g. those with acute kidney injury, the eGFR may not accurately reflect actual GFR. Performed By: #### 2 4331-1, 36799-7 ####[facility] LABIA [id number] [place] [address] [place] Glucose [Mass/Vol] 112 mg/dL High 74-99 [facility] Comment on above: Order Comment: Peggy kolb Type: BLOOD SPECIMENOrdering Facility: [facility] Address: [address] [place] [address] Result Comment: The [place] Diabetes Association (ADA) provides guidance for cutoff values for fasting glucose and random glucose. The ADA defines fasting as no caloric intake for at least 8 hours. Fasting plasma glucose results between 100 to 125 [...] Standards of Medical Care in Diabetes 2016, [place] [employer] Association. Diabetes Care. 2016.39(Suppl 1). Performed By: #### 2 4331-1, ####[facility] LABCLIA [id number] [address] [address] [place] Potassium [Moles/Vol] 4.3 mmol/L Normal 3.7-5.1 [facility] Comment on above: Order Comment: Speci men Type: BLOOD SPECIMENOrdering Facility: [facility] Address: [address] [place] [address] Performed By: #### 2 4331-1, ####[facility] LABCLIA [id number] [place] [address] [place] Protein [Mass/Vol] 7.5 g/dL Normal 6.3-8.0 [facility] Comment on above: Order Comment: Speci men Type: BLOOD SPECIMENOrdering Facility: [facility] Address: [address] [place] [address] Performed By: #### 2 4331-, ####[facility] LABCLIA [id number] [place] [address] [place] Sodium [Moles/Vol] 142 mmol/L Normal 136-144 [facility] Comment on above: Order Comment: Speci men Type: BLOOD SPECIMENOrdering Facility: [facility] Address: [address] [place] [address] Performed By: #### 2 4331-1, ####[facility] LABCLIA [id number] [place] [id number] [place] Urea nitrogen [Mass/Vol] 30 mg/dL High 7-21 [facility] Comment on above: Order Comment: Speci men Type: BLOOD SPECIMENOrdering Facility: [facility] Address: [address] [place] [address] Performed By: #### 2 4331-1, ####[facility] LABCLIA [id number] [place] [id number] [place] Lipid 1996 panelon 4 Cholesterol [Mass/Vol] 212 mg/dL High <200 [facility] Comment on above: Order Comment: Speci men Type: BLOOD SPECIMENOrdering Facility: [facility] Address: [address] [place] [address] Result Comment: <200 mg/dL, Desirable 200-239 mg/dL, Borderline high >239 mg/dL, High Performed By: #### 2 4331-1, 78515-4 ####[facility] LABCLIA [id number] [place] [address] [place] Cholesterol in HDL [Mass/Vol] 36 mg/dL Low >39 [facility] Comment on above: Order Comment: Speci men Type: BLOOD SPECIMENOrdering Facility: [facility] Address: [address] [place] [address] Result Comment: 40-5 9 mg/dL, Acceptable >59 mg/dL, High: Negative risk factor for coronary heart disease <40 mg/dL, Low: Positive risk factor for coronary heart disease Performed By: #### 2 4331-1, 32675-8 ####[facility] LABCLIA [id number] [place] [address] [place] Cholesterol in LDL [Mass/Vol] 149 mg/dL High <100 [facility] Comment on above: Order Comment: Speci men Type: BLOOD SPECIMENOrdering Facility: [facility] Address: [address] [place] [address] Result Comment: <100 mg/dL, Optimal 100-129 mg/dL, Near optimal/above optimal 130-159 mg/dL, Borderline high 160-189 mg/dL, High >189 mg/dL, Very high Secondary prevention optimal LDL Cholesterol levels are recommended to be < 70 mg/dL Performed By: #### 2 4331-1, 68533-8 ####[facility] LABCLIA [id number] [address] [address] [place] Cholesterol in LDL/Cholesterol in HDL [Mass ratio] 4.14 {ratio} High <2.54 [facility] Comment on above: Order Comment: Peggy men Type: BLOOD SPECIMENOrdering Facility: [facility] Address: [address] [place] [address] Result Comment: Keesha paul: 1. National Cholesterol Education Program ATP III Guideline At-A-Glance Quick Desk Reference: National Heart, Lung, and Blood [place]. National Institutes of Health. 2001: NIH Publication No. 01-3305. 2. An International Atherosclerosis Society position paper: global recommendations for the management of dyslipidemia: executive summary, Atherosclerosis. 2014: 232(2):410-413. Performed By: #### 2 4331-1, ####[facility] LABCLIA [id number] [place] [address] [place] Cholesterol in VLDL [Mass/Vol] 27 mg/dL Normal <30 [facility] Comment on above: Order Comment: Yuriyi men Type: BLOOD SPECIMENOrdering Facility: [facility] Address: [address] [place] [address] Performed By: #### 2 4331-, ####[facility] LABCLIA [id number] [place] [address] [place] Cholesterol non HDL [Mass/Vol] 176 mg/dL High <130 [facility] Comment on above: Order Comment: Peggy kolb Type: BLOOD SPECIMENOrdering Facility: [facility] Address: [address] [place] [address] Result Comment: <130 mg/dL, Optimal 130-159 mg/dL, Near optimal/above optimal 160-189 mg/dL, Borderline high 190-219 mg/dL, High >219 mg/dL, Very high Secondary prevention optimal non HDL Cholesterol levels are recommended to be <100 mg/dL Performed By: #### 2 4331-1, ####[facility] LABCLIA [id number] [place] [address] [place] Cholesterol.total /Cholesterol in HDL [Mass ratio] 5.89 {ratio} High <5.10 [facility] Comment on above: Order Comment: Speci men Type: BLOOD SPECIMENOrdering Facility: [facility] Address: [address] [place] [id number] Performed By: #### 2 4331-1, 33542-0 ####[facility] LABCLIA [id number] [address] [address] [place] FASTING TIME 13 hrs Normal [facility] Comment on above: Order Comment: Speci men Type: BLOOD SPECIMENOrdering Facility: [facility] Address: [address] [place] [address] Performed By: #### 2 4331-1, 79868-3 ####[facility] LABCLIA [id number] [place] [address] [place] Triglyceride [Mass/Vol] 135 mg/dL Normal <150 [facility] Comment on above: Order Comment: Speci men Type: BLOOD SPECIMENOrdering Facility: [facility] Address: [address] [place] [address] Result Comment: <150 mg/dL, Normal 150-199 mg/dL, Borderline high 200-499 mg/dL, High >499 mg/dL, Very high Performed By: #### 2 4331-1, 79871-7 ####[facility] LABCLIA [id number] [place] [address] [place] OCT OPTIC NERVE CIRRUS OU (B OTH EYES)on 09-19-2024 [facility] Radiology Study observation (narrative) [facility] VISUAL FIELD 24-2 OU (BOTH E YES)on 09-19-2024 [facility] Radiology Study observation (narrative) [facility] XR Hand - right PA and Later al and Obliqueon 02-27-2024 IMPRESSION: No acute fracture. Degenerative disease of the right hand. Chimney Supervisor Brick: PSCB Transcribe Date/Time: Feb 27 2024 4:59P Dictated by : GIL MULLIGAN MD This examination was interpreted and the report reviewed and electronically signed by: GIL MULLIGAN MD on Feb 27 2024 5:01PM [facility] DIVISION OF RADIOLOGY * * *Final Report* * * DATE OF EXAM: Feb 23 2024 2:22PM WOX 5346 - XR HAND 3V PA/LAT/OBL RT / PROCEDURE REASON: multiple diagnoses * * * * Physician Interpretation * * * * EXAMINATION: XR HAND 3V PA/LAT/OBL RT CLINICAL HISTORY: Chronic right hand pain Technique: XR HAND 3V PA/LAT/OBL RT -- RIGHT with 3 views on 3 images Comparison: None RESULT: No acute fracture or dislocation. Right first carpometacarpal joint space narrowing with subchondral sclerosis and marginal osteophytes. Mild narrowing of multiple interphalangeal joints of the right hand. DIVISION OF RADIOLOGY Provider, [facility] - 02/27/2024 * * *Final Report* * * DATE OF EXAM: Feb 23 2024 2:22PM WOX 5346 - XR HAND 3V PA/LAT/OBL RT / PROCEDURE REASON: multiple diagnoses * * * * Physician Interpretation * * * * EXAMINATION: XR HAND 3V PA/LAT/OBL RT CLINICAL HISTORY: Chronic right hand pain Technique: XR HAND 3V PA/LAT/OBL RT -- RIGHT with 3 views on 3 images Comparison: None RESULT: No acute fracture or dislocation. Right first carpometacarpal joint space narrowing with subchondral sclerosis and marginal osteophytes. Mild narrowing of multiple interphalangeal joints of the right hand. IMPRESSION IMPRESSION: No acute fracture. Degenerative disease of the right hand. Chimney Supervisor Brick: LAURIE Transcribe Date/Time: Feb 27 2024 4:59P Dictated by : GIL MULLIGAN MD This examination was interpreted and the report reviewed and electronically signed by: GIL MULLIGAN MD on Feb 27 2024 5:01PM EST [facility] XR Hand - right PA and Later al and ObliqueOrdered By: [facility] Provider on 02-27-2024 [facility] XR Hand - right PA and Later al and Obliqueon 02-23-2024 Radiology Study observation (narrative) [facility] JAMES SCREENINGon 04-06-2022 [facility] Absolute lymphocyte counton 02-24-2022 Lymphocytes Auto (Unsp spec) [#/Vol] 0.99 10*3/uL 0.83-4.51 [facility] Work Phone: Basophil percentageon 2021 Basophils/100 WBC (Bld) 0.8 % 0-1 [facility] Work Phone: Eosinophils/100 WBC (Bld) 1.8 % 0-5 [facility] Work Phone: Neutrophils (Bld) [#/Vol] 9.2 10*3/uL 2.0-7.7 [facility] Work Phone: [phone] Neutrophils/100 WBC (Bld) 79.7 % 47-70 [facility] Work Phone: WBC (Bld) [#/Vol] 11.6 10*3/uL 4.4-11.0 [facility] Work Phone: Blood erythrocytes count (nu mber/volume)on 02-24-2022 RBC (Bld) [#/Vol] 5.48 10*6/uL 4.2-5.4 [facility] Work Phone: Blood hemoglobin measurement (mass/volume)on 02-24-2022 Hemoglobin (Bld) [Mass/Vol] 16.2 g/dL 12.0-15.0 [facility] Work Phone: Blood lymphocytes/100 leukoc yteson 02-24-2022 Lymphocytes/100 WBC (Bld) 8.6 % 19-41 [facility] Work Phone: Blood monocytes/100 leukocyt eson 02-24-2022 Monocytes/100 WBC (Bld) 8.6 % 0-10 [facility] Work Phone: Blood platelet mean volumeon 02-24-2022 Platelet mean volume (Bld) [Entitic vol] 10.8 fL 6.2-12.0 [facility] Work Phone: Determination of erythrocyte mean corpuscular volume (MCV)on 02-24-2022 MCV (RBC) [Entitic vol] 90.3 fL 81-99 [facility] Work Phone: Hematocrit Auto (Bld) [Volum e fraction]on 02-24-2022 Hematocrit (Bld) [Volume fraction] 49.5 % 37-47 [facility] Work Phone: Laboratory - Hematology and Cell countson 02-24-2022 Erythrocyte distribution width (RBC) [Entitic vol] 47.5 fL 35.1-43.9 [facility] Work Phone: [phone] Erythrocyte distribution width (RBC) [Ratio] 14.4 % 11.6-14.6 [facility] Work Phone: Immature granulocytes/100 WBC (Bld) 0.500 % 0.0-0.9 [facility] Work Phone: Comment on above: IG% - Immature Granu locytes (promyelocytes, myelocytes and metamyelocytes) > 1% indicates that a LEFT SHIFT is Present. MCH (RBC) [Entitic mass] 29.6 pg 27.0-32.0 [facility] Work Phone: Nucleated RBC/100 WBC (Bld) [Ratio] 0 % 0-5 [facility] Work Phone: MCHC Auto (RBC) [Mass/Vol]on 02-24-2022 MCHC (RBC) [Mass/Vol] 32.7 g/dL 32-36 [facility] Work Phone: Platelets bldon 02-24-2022 Platelets (Bld) [#/Vol] 218 10*3/uL 150-450 [facility] Work Phone: No Panel Information [facility] Vital Signs Date Time Vital Sign Value Performing Clinician Tahir gutierrez 05-20-2025 09:56-0400 Body height 160 cm Elliot Archibald APRN.CNP Work Phone: [facility] 05-20-2025 09:56-0400 Body mass index (BMI) [Ratio] 42.34 kg/m2 Elliot Archibald APRN.CNP Work Phone: [facility] 05-20-2025 09:56-0400 Body weight 108.41 kg Elliot Archibald APRN.CNP Work Phone: [facility] 05-20-2025 09:56-0400 Diastolic blood pressure 72 mm[Hg] Elliot Billy SYSTEM DISPATCHER.FAST FOODS WORKER Work Phone: [facility] 05-20-2025 09:56-0400 Heart rate 74 /min Elliot Billy SYSTEM DISPATCHER.FAST FOODS WORKER Work Phone: [facility] 05-20-2025 09:56-0400 Respiratory rate 16 /min Elliot Billy SYSTEM DISPATCHER.FAST FOODS WORKER Work Phone: [facility] 05-20-2025 09:56-0400 Systolic blood pressure 126 mm[Hg] Elliot Billy SYSTEM DISPATCHER.FAST FOODS WORKER Work Phone: [facility] 02-23-2024 13:19-0400 Body height 160 cm Kimberli Wilkinsf SYSTEM DISPATCHER.FAST FOODS WORKER Work Phone: [facility] 02-23-2024 13:19-0400 Body mass index (BMI) [Ratio] 41.11 kg/m2 Kimberli Thomashof SYSTEM DISPATCHER.FAST FOODS WORKER Work Phone: [facility] 02-23-2024 13:19-0400 Body weight 105.23 kg Kimberli Wilkinsf SYSTEM DISPATCHER.FAST FOODS WORKER Work Phone: [facility] 02-23-2024 13:19-0400 Diastolic blood pressure 72 mm[Hg] Kimberli Thomashof SYSTEM DISPATCHER.FAST FOODS WORKER Work Phone: [facility] 02-23-2024 13:19-0400 Heart rate 75 /min Kimberli Thomashof SYSTEM DISPATCHER.FAST FOODS WORKER Work Phone: [facility] 02-23-2024 13:19-0400 Respiratory rate 16 /min Kimberli Thomashof SYSTEM DISPATCHER.FAST FOODS WORKER Work Phone: [facility] 02-23-2024 13:19-0400 SaO2% (BldA) [Mass fraction] 95 % Kimberli Thomashof SYSTEM DISPATCHER.FAST FOODS WORKER Work Phone: [facility] 02-23-2024 13:19-0400 Systolic blood pressure 126 mm[Hg] Kimberli Thomashof SYSTEM DISPATCHER.FAST FOODS WORKER Work Phone: [facility] 02-22-2023 08:11-0400 Body weight 110.68 kg Zahraa Ratliff MD Work Phone: [facility] 02-22-2023 08:11-0400 Diastolic blood pressure 82 mm[Hg] Zahraa Ratliff MD Work Phone: [facility] 02-22-2023 08:11-0400 Heart rate 64 /min Zahraa Ratliff MD Work Phone: [facility] 02-22-2023 08:11-0400 Respiratory rate 16 /min Zahraa Ratliff MD Work Phone: [facility] 02-22-2023 08:11-0400 Systolic blood pressure 124 mm[Hg] Zahraa Ratliff MD Work Phone: [facility] 03-30-2022 12:54-0400 Body weight 107.05 kg Elliot Billy SYSTEM DISPATCHER.FAST FOODS WORKER Work Phone: [facility] 03-30-2022 12:54-0400 Diastolic blood pressure 76 mm[Hg] Elliot Billy SYSTEM DISPATCHER.FAST FOODS WORKER Work Phone: [facility] 03-30-2022 12:54-0400 Heart rate 74 /min Elliot Billy SYSTEM DISPATCHER.FAST FOODS WORKER Work Phone: [facility] 03-30-2022 12:54-0400 Respiratory rate 16 /min Elliot Billy SYSTEM DISPATCHER.FAST FOODS WORKER Work Phone: [facility] 03-30-2022 12:54-0400 Systolic blood pressure 128 mm[Hg] Elliot Billy SYSTEM DISPATCHER.FAST FOODS WORKER Work Phone: [facility] Encounters Encounter Date Encounter Type Care Provider Facility Start: 08-15-[address] [facility] Facility: [facility] Start: 08-06-[address] [facility] Facility: [facility] Start: 08-06-2025 End: 08-06-[address] [facility] [place] [place]: 06-20-2025 End: 06-20-2025 Subsequent hospital visit by physician [facility] Work Phone: Radiology Comment on above: Hallux valgus of rig ht foot [M20.11] Start: 06-20-2025 End: 06-20-2025 Patient encounter procedure Leoncio Zaragoza Work Phone: Podiatry Comment on above: Hallux valgus of rig ht foot (Primary Dx); Nail deformity; Hallux valgus of left foot; Onychodystrophy Start: 06-20-2025 End: 06-20-2025 ambulatory LEONCIO ZARAGOZA Facility:[facility] Start: 05-24-2025 End: 05-28-2025 Telephone encounter Elliot Archibald APRN.FAST FOODS WORKER Work Phone: [facility] Comment on above: Patient Question Start: 05-21-2025 End: 05-22-2025 Get Medical Advice Elliot Archibald APRN.CNP Work Phone: [facility] Comment on above: refills Start: 05-20-2025 End: 05-20-2025 ambulatory ELLIOT ARCHIBALD Facility:[facility] Start: 05-20-2025 End: 05-20-2025 Patient encounter procedure Elliot Archibald APRN.FAST FOODS WORKER Work Phone: [facility] Comment on above: Medicare annual well ness visit, subsequent (Primary Dx); Essential hypertension, benign; Iron deficiency anemia, unspecified iron deficiency anemia type; Vitamin D deficiency; Hyperlipidemia, unspecified hyperlipidemia type; Stage 3b chronic kidney disease (HCC); Encounter for screening examination for other mental health and behavioral disorders; Recurrent major depressive disorder, remission status unspecified; Psoriasis; Ganglion cyst of right foot; Nail deformity; Eustachian tube disorder, bilateral Start: 05-13-2025 End: 05-16-2025 ambulatory Zahraa Ratliff MD Work Phone: [facility] Comment on above: labs Refill Request Start: 03-27-2025 End: 03-27-2025 ambulatory JACOBY SHAFER II Facility:[facility] Start: 03-27-2025 End: 03-27-2025 Patient encounter procedure Jacoby Shafer OD Work Phone: Optometry Comment on above: Primary open-angle g laucoma, bilateral, mild stage (Primary Dx); Combined form of senile cataract of both eyes Start: 12-31-2024 End: 01-01-2025 Telephone encounter Zahraa Ratliff MD Work Phone: [facility] Comment on above: Forms ([facility] are) Start: 10-18-2024 End: 10-18-2024 Telephone encounter Zahraa Ratliff MD Work Phone: [facility] Comment on above: Forms ([employer] are) Start: 10-10-2024 End: 10-16-2024 Telephone encounter Kimberli Hall APRN.FAST FOODS WORKER Work Phone: [facility] Comment on above: Results (Mammogram ) Start: 10-09-2024 End: 10-09-2024 ambulatory [facility] Facility:[facility] Start: 10-09-2024 End: 10-09-2024 Subsequent hospital visit by physician Screen Mammo [facility] Comment on above: Screening mammogram for breast cancer [Z12.31] Start: 09-27-2024 End: 09-27-2024 Telephone encounter Kimberli Hall APRN.FAST FOODS WORKER Work Phone: [facility] Comment on above: Results (Labs) Start: 09-26-2024 End: 09-27-2024 Telephone encounter Zahraa Ratliff MD Work Phone: [facility] Comment on above: Orders Start: 09-19-2024 End: 09-19-2024 Patient encounter procedure Jacoby Shafer OD Work Phone: Optometry Comment on above: Primary open-angle g laucoma, bilateral, mild stage (Primary Dx); Combined form of senile cataract of both eyes; Myopia of both eyes; Regular astigmatism of both eyes; Presbyopia Start: 09-19-2024 End: 09-19-2024 ambulatory [facility] Facility:[facility] Start: 08-08-2024 End: 08-09-2024 Refill Zahraa Ratliff MD Work Phone: [facility] Comment on above: Refill Request Start: 05-24-2024 ambulatory [facility] Arenas [facility] [place] Start: 05-24-2024 [facility] on above: Population Health Na [facility] Outreach ([facility]) Start: 05-23-2024 Refill Elliot CHIN RN.FAST FOODS WORKER Work Phone: [facility] Comment on above: Refill Request Start: 04-29-2024 Refill Elliot CHIN RN.FAST FOODS WORKER Work Phone: [facility] Comment on above: Refill Request Start: 04-26-2024 Refill Elliot CHIN RN.FAST FOODS WORKER Work Phone: [facility] Comment on above: Refill Request Start: 04-12-2024 ambulatory Catherine Arenas [facility] [place] Start: 04-12-2024 Patient encounter procedure Catherine Arenas MA [facility] Comment on above: Population Health Na vigation Outreach ([facility] ) Start: 03-07-2024 ambulatory Zahraa zhou MD Work Phone: [facility] Comment on above: Recent Lab test resu lts. Start: 03-07-2024 End: 03-07-2024 Patient encounter procedure Jacoby Shafer OD Work Phone: Optometry Comment on above: Primary open-angle g laucoma, bilateral, mild stage (Primary Dx); Combined form of senile cataract of both eyes; Vitreous floaters of both eyes Start: 03-01-2024 Telephone encounter Kimberli quintero SYSTEM DISPATCHER.FAST FOODS WORKER Work Phone: [facility] Comment on above: Results (Right Hand xray ) Start: 02-23-2024 End: 02-23-2024 Subsequent hospital visit by physician Xr [facility] Work Phone: Radiology Comment on above: Chronic pain of righ t hand [M79.641, G89.29] Start: 02-23-2024 End: 02-23-2024 Patient encounter procedure Kimberli Isabel CALDERONFAST FOODS WORKER Work Phone: [facility] Comment on above: Medicare annual well ness visit, subsequent (Primary Dx); Chronic pain of right hand; Essential hypertension, benign; Hyperlipidemia, unspecified hyperlipidemia type; Recurrent major depressive disorder, in full remission (HCC); Psoriasis; Stage 3b chronic kidney disease (HCC); Vitamin D deficiency Start: 02-22-2024 End: 02-22-2024 ambulatory [facility] Work Phone: Start: 02-22-2024 End: 02-22-2024 Patient encounter procedure [facility] Work Phone: Start: 09-07-2023 End: 08-28-2024 Telephone encounter Allen Rivero MD Work Phone: General Surgery Comment on above: 11/07/2023 [facility] Start: 09-07-2023 End: 09-07-2023 Patient encounter procedure Jacoby Shafer OD Work Phone: Optometry Comment on above: Primary open-angle g laucoma, bilateral, mild stage (Primary Dx); Combined form of senile cataract of both eyes; Vitreous floaters of both eyes; Myopia of both eyes; Presbyopia Start: 09-06-2023 End: 09-06-2023 Subsequent hospital visit by physician Screen Mammo [facility] Comment on above: Encounter for screen ing mammogram for malignant neoplasm of breast [Z12.31] Start: 07-14-2023 Telephone encounter Zahraa ulloa MD Work Phone: [facility] Comment on above: Forms (Javier/) Start: 05-04-2023 End: 05-04-2023 Patient encounter procedure Jacoby Shafer OD Work Phone: Optometry Comment on above: Primary open-angle g laucoma, bilateral, mild stage (Primary Dx); Combined form of senile cataract of both eyes Start: 05-03-2023 ambulatory Mimi Shipley RN [facility] [place] Comment on above: GEMA GUAJARDO RN ( Medication Adherence review per request of payer) Start: 04-15-2023 Refill Elliot CHIN RN.[facility] Work Phone: [facility] Comment on above: Refill Request Start: 02-24-2023 End: 02-24-2023 ambulatory [facility] Work Phone: Start: 02-24-2023 End: 02-24-2023 Patient encounter procedure [facility], [facility] Start: 02-22-2023 End: 02-22-2023 Patient encounter procedure Zahraa Ratliff MD Work Phone: [facility] Comment on above: Wellness examination (Primary Dx); Essential hypertension, benign; Stage 3 chronic kidney disease, unspecified whether stage 3a or 3b CKD (HCC); Hyperlipidemia, unspecified hyperlipidemia type; Elevated glucose; Recurrent major depressive disorder, in full remission (HCC); Bilateral chronic knee pain; Urinary retention; Urinary incontinence, unspecified type; Right wrist tendonitis; Morbid obesity with BMI of 40.0-44.9, adult (HCC) Start: 02-22-2023 End: 02-22-2023 Patient encounter status Zahraa Ratliff MD Work Phone: [facility] Start: 01-03-2023 Telephone encounter Zahraa ulloa MD Work Phone: [facility] Comment on above: Forms Start: 12-29-2022 End: 12-29-2022 Patient encounter procedure Jacoby Shafer OD Work Phone: Optometry Comment on above: Primary open-angle g laucoma, bilateral, mild stage (Primary Dx); Combined form of senile cataract of both eyes Start: 08-31-2022 End: 08-31-2022 Patient encounter procedure Jacoby Shafer OD Work Phone: Optometry Comment on above: Primary open-angle g laucoma, bilateral, mild stage (Primary Dx); Combined form of senile cataract of both eyes; Myopia of both eyes; Regular astigmatism of both eyes; Presbyopia Start: 08-25-2022 Telephone encounter Zahraa ulloa MD Work Phone: [facility] [place] Comment on above: Forms ([employer] are-cath supplies) Start: 08-15-2022 ambulatory Zahraa zhou MD Work Phone: [facility] [place] Comment on above: Blood tests Start: 08-09-2022 Telephone encounter Zahraa ulloa MD Work Phone: [facility] Comment on above: Orders (Adult pull u ps and cath supplies ) Start: 05-28-2022 Telephone encounter Zahraa ulloa MD Work Phone: [facility] [place] Comment on above: Patient Update Start: 04-06-2022 Documentation procedure Mammog alber Coordinator [facility] Start: 04-06-2022 Letter encounter Mammography Coordinator [facility] Department Start: 04-06-2022 End: 04-06-2022 Subsequent hospital visit by physician Screen Mammo [facility] Mammogram Comment on above: Screening mammogram for breast cancer [Z12.31] Start: 03-30-2022 End: 03-30-2022 Patient encounter procedure Elliot Archibald APRN.FAST FOODS WORKER Work Phone: [facility] Comment on above: Essential hypertensi on, benign (Primary Dx); Recurrent major depressive disorder, remission status unspecified (HCC); Hyperlipidemia, unspecified hyperlipidemia type; Stage 3 chronic kidney disease, unspecified whether stage 3a or 3b CKD (HCC); Screening mammogram for breast cancer Start: 03-23-2022 Refill Elliot CHIN RN.FAST FOODS WORKER Work Phone: [facility] Comment on above: Refill Request Start: 03-18-2022 End: 03-18-2022 Patient encounter procedure [facility]Cat Scan, [facility] Start: 02-24-2022 End: 02-24-2022 Patient encounter procedure [facility]-Laboratory, [place] Start: 02-03-2022 End: 02-03-2022 Patient encounter procedure [facility]-Ultrasound, [facility] Start: 12-24-2020 End: 08-20-2022 Patient encounter procedure Elliot Archibald APRN.FAST FOODS WORKER Work Phone: [facility] Work Phone: Start: 05-30-2017 End: 07-12-2017 Ambulatory Jenifer Neal Facility:[facility] Procedures Date Procedure Procedure Detail Performing Clinician Start: 05-20-2025 Lipid 1996 panel - S trino or Plasma Elliot Archibald SYSTEM DISPATCHER.FAST FOODS WORKER Work Phone: Start: 09-19-2024 End: 09-19-2024 Visual field xm uni/bi w/interp extended exam Jacoby Shafer OD Work Phone: Start: 09-19-2024 Lipid 1996 panel - S trino or Plasma Kimberli Wilkinsf SYSTEM DISPATCHER.FAST FOODS WORKER Work Phone: Start: 02-23-2024 Radex hand minimum 3 views Kimberli Thomashof SYSTEM DISPATCHER.FAST FOODS WORKER Work Phone: Start: 02-22-2024 US urinary tract Start: 02-22-2024 Lipid 1996 panel - S trino or Plasma Kimberli Thomashof SYSTEM DISPATCHER.FAST FOODS WORKER Work Phone: Start: 11-07-2023 Colonoscopy Kimberli Ritchie nhof SYSTEM DISPATCHER.FAST FOODS WORKER Work Phone: Start: 09-07-2023 End: 09-07-2023 Visual field xm uni/bi w/interp extended exam Jacoby Shafer OD Work Phone: Start: 08-22-2023 Lipid 1996 panel - S trino or Plasma Screen Wstr Start: 02-24-2023 US urinary tract Start: 02-18-2023 Lipid 1996 panel - S trino or Plasma Zahraa Ratliff MD Work Phone: Start: 04-06-2022 End: 04-06-2022 Screening mammography bi 2-view breast inc cad Elliot Archibald SYSTEM DISPATCHER.FAST FOODS WORKER Work Phone: Start: 03-18-2022 CT of abdomen and pe lvis without contrast Start: 02-03-2022 US urinary tract Start: 05-05-2020 Mammography Elliot Esqiuveli laurel SYSTEM DISPATCHER.FAST FOODS WORKER Work Phone: Start: 09-27-2018 Colonoscopy Elliot Esquiveli laurel SYSTEM DISPATCHER.FAST FOODS WORKER Work Phone: Plan of Treatment Date Care Activity Detail Author Start: 05-20-2030 Lipid panel [facility] Start: 09-19-2029 Lipid panel [facility] Start: 02-21-2029 Lipid panel [facility] Start: 11-07-2028 Screening for malign ant neoplasm of colon [facility] Start: 08-22-2028 Lipid 1996 panel - Serum or Plasma Lipid Screening [facility] Start: 05-20-2028 Diabetes Screening Diabetes Screenin g [facility] Start: 02-19-2028 Lipid 1996 panel - Serum or Plasma Lipid Screening [facility] Start: 02-19-2028 LIPID SCREEN LIPID SCREEN [facility] Start: 09-19-2027 Diabetes Screening Diabetes Screenin g [facility] Start: 04-06-2027 LIPID SCREEN LIPID SCREEN [facility] Start: 03-17-2027 OCT OPTIC NERVE CIRR US OU (BOTH EYES) OCT OPTIC NERVE CIRRUS OU (BOTH EYES) [facility] Imaging Routine Primary open-angle glaucoma, bilateral, mild stage Expected: 03/17/2027 [facility] Comment on above: Expected: 03/17/2027 Start: 03-17-2027 VISUAL FIELD 24-2 OU (BOTH EYES) VISUAL FIELD 24-2 OU (BOTH EYES) [facility] Imaging Routine Primary open-angle glaucoma, bilateral, mild stage Expected: 03/17/2027 [facility] Work Phone: Comment on above: Expected: 03/17/2027 Start: 02-21-2027 Diabetes Screening Diabetes Screenin g [facility] Start: 09-08-2026 Urine microalbumin profile [facility] Start: 08-22-2026 Diabetes Screening Diabetes Screenin g [facility] Start: 06-26-2026 LIPID SCREEN LIPID SCREEN [facility] Start: 05-21-2026 End: 05-21-2026 Patient encounter procedure 05/21/2026 4:20 PM EDT Office Visit [facility] [address] [place] [id number] Qing Cartagena MD [address] [place] [phone] Evy duffy-establish care. Medicare wellness [facility] [place] Comment on above: Evy duffy-establaurel [facility] care. Medicare wellness Start: 05-20-2026 Annual PCP Team Field Marketer latia Disease Visit Annual PCP Team Chronic Disease Visit [facility] Start: 05-20-2026 Anxiety Screening Anxiety Screening [facility] Start: 05-20-2026 Complete blood count Hemoglobin/Abdulaziz [facility] Start: 05-20-2026 Creatinine measurement Serum Creatin ine [facility] Start: 02-25-2026 OCT OPTIC NERVE CIRR US OU (BOTH EYES) OCT OPTIC NERVE CIRRUS OU (BOTH EYES) [facility] Imaging Routine Primary open-angle glaucoma, bilateral, mild stage Expected: 02/25/2026 [facility] Comment on above: Expected: 02/25/2026 Start: 02-25-2026 VISUAL FIELD 24-2 OU (BOTH EYES) VISUAL FIELD 24-2 OU (BOTH EYES) [facility] Imaging Routine Primary open-angle glaucoma, bilateral, mild stage Expected: 02/25/2026 [facility] Work Phone: Comment on above: Expected: 02/25/2026 Start: 02-18-2026 DIABETES SCREEN DIABETES SCREEN [facility] Start: 02-18-2026 Diabetes Screening Diabetes Screenin g [facility] Start: 09-25-2025 End: 09-25-2025 Patient encounter procedure 09/25/2025 1:00 PM EST Office Visit [facility] [address] [place] [address] Jacoby Shafer II, OD [address] [place] [address] 6 month pressure check/[facility] Dual [facility] Comment on above: 6 month pressure israel ck/[facility] Dual Start: 09-19-2025 Complete blood [facility] Start: 09-19-2025 Creatinine measurement Serum Creatin ine [facility] Start: 08-23-2025 DIABETES SCREEN DIABETES SCREEN [facility] Start: 08-02-2025 End: 11-01-2025 25-hydroxyvitamin D3 [Mass/volume] in Serum or Plasma VITAMIN D 25 HYDROXY Lab Routine Vitamin D deficiency Expected: 08/02/2025 (Approximate), Expires: 11/01/2025 [facility] Comment on above: Expected: 08/02/2025 (Approximate), Expires: 11/01/2025 Start: 08-02-2025 End: 11-01-2025 CBC panel - Blood by Automated count COMPLETE BLOOD COUNT Lab Routine Essential hypertension, benign Iron deficiency anemia, unspecified iron deficiency anemia type Stage 3b chronic kidney disease (HCC) Expected: 08/02/2025 (Approximate), Expires: 11/01/2025 [facility] Work Phone: Comment on above: Expected: 08/02/2025 (Approximate), Expires: 11/01/2025 Start: 08-02-2025 End: 11-01-2025 Comprehensive metabolic 2000 panel - Serum or Plasma COMPREHENSIVE METABOLIC PANEL Lab Routine Essential hypertension, benign Hyperlipidemia, unspecified hyperlipidemia type Stage 3b chronic kidney disease (HCC) Expected: 08/02/2025 (Approximate), Expires: 11/01/2025 [facility] Comment on above: Expected: 08/02/2025 (Approximate), Expires: 11/01/2025 Start: 08-02-2025 End: 11-01-2025 Lipid 1996 panel - Serum or Plasma LIPID PANEL, FASTING Lab Routine Essential hypertension, benign Hyperlipidemia, unspecified hyperlipidemia type Expected: 08/02/2025 (Approximate), Expires: 11/01/2025 [facility] Comment on above: Expected: 08/02/2025 (Approximate), Expires: 11/01/2025 Start: 06-24-[address] [facility] Start: 06-20-2025 End: 06-20-2025 Patient encounter procedure 06/20/2025 9:45 AM EDT Office Visit Podiatry [address] [place] [phone] Leoncio Zaragoza [address] [place] [phone] Ganglion cyst of right foot [M67.471]; Nail deformity [L60.8] Podiatry Comment on above: Ganglion cyst of rig ht foot [M67.471]; Nail deformity [L60.8] Start: 05-20-2025 End: 08-19-2025 25-hydroxyvitamin D3 [Mass/volume] in Serum or Plasma [facility] Work Phone: Comment on above: Expected: 05/20/2025 , Expires: 08/19/2025 Start: 05-20-2025 End: 05-20-2025 Patient encounter procedure 05/20/2025 10:00 AM EDT Office Visit [facility] [address] [place], [place] [phone] Elliot Archibald APRN.FAST FOODS WORKER [address] [place] [address] Wellness-patient needs med refills [facility] Comment on above: Wellness-patient nee ds med refills Start: 04-23-2025 OCT OPTIC NERVE CIRR US OU (BOTH EYES) OCT OPTIC NERVE CIRRUS OU (BOTH EYES) [facility] Imaging Routine Primary open-angle glaucoma, bilateral, mild stage Expected: 04/23/2025 [facility] Work Phone: Comment on above: Expected: 04/23/2025 Start: 04-23-2025 VISUAL FIELD 24-2 OU (BOTH EYES) VISUAL FIELD 24-2 OU (BOTH EYES) [facility] Imaging Routine Primary open-angle glaucoma, bilateral, mild stage Expected: 04/23/2025 [facility] Work Phone: Comment on above: Expected: 04/23/2025 Start: 04-06-2025 DIABETES SCREEN DIABETES SCREEN [facility] Start: 03-27-2025 End: 03-27-2025 Patient encounter procedure 03/27/2025 3:00 PM EDT Office Visit [facility] [address] [place] [address] Jacoby Shafer II, OD [address] [place] [address] Exam/ [facility] Comment on above: Exam/ [facility] Dual Start: 02-22-2025 Annual PCP Team Field Marketer latia Disease Visit Annual PCP Team Chronic Disease Visit [facility] Start: 02-22-2025 BP Controlled (<130/80) BP Controlle d (<130/80) [facility] Start: 02-21-2025 Complete blood count Hemoglobin/Abdulaziz tocrit [facility] Start: 02-21-2025 Creatinine measurement Serum Creatin ine [facility] Start: 11-12-2024 End: 11-12-2024 Patient encounter procedure 11/12/2024 2:20 PM EST Office Visit [facility] [place] [address] [place] [address] Kimberli Hall APRN.FAST FOODS WORKER [address] [place] [address] follow up Family [facility] Comment on above: follow up Start: 10-24-2024 Advance Directive Discussion Advance Directive Discussion [facility] Start: 10-24-2024 Medicare Advantage Annual Wellness Visit Medicare Advantage Annual Wellness Visit [facility] Start: 10-09-2024 End: 10-09-2024 Patient encounter procedure 10/09/2024 1:30 PM EST Appointment Mammogram [address] [place] [address] SCREENING MAMMOGRAM Mammogram Comment on above: SCREENING MAMMOGRAM Start: 09-19-2024 End: 09-19-2024 Patient encounter procedure 09/19/2024 1:00 PM EST Office Visit [facility] [address] [place] [address] Jacoby Shafer II, OD [address] [place] [address] pressure check/[facility] Dual [facility] Comment on above: pressure check/[facility]HC D ual Start: 09-06-2024 BP Controlled (<130/80) BP Controlle d (<130/80) [facility] Start: 09-06-2024 Mammography Mammogram Screening [facility] Start: 09-06-2024 Screening for malign ant neoplasm of breast Mammogram Screening [facility] Start: 2024 RSV Vaccine (1 - 1-d ose 75+ series) RSV Vaccine (1 - 1-dose 75+ series) [facility] Start: 08-25-2024 End: 11-24-2024 25-hydroxyvitamin D3 [Mass/volume] in Serum or Plasma VITAMIN D 25 HYDROXY Lab Routine Vitamin D deficiency Expected: 08/25/2024, Expires: 11/24/2024 [facility] Comment on above: Expected: 08/25/2024 , Expires: 11/24/2024 Start: 08-25-2024 Annual PCP Team Field Marketer latia Disease Visit Annual PCP Team Chronic Disease Visit [facility] Start: 08-25-2024 End: 11-24-2024 CBC W Auto Differential panel - Blood COMPLETE BLOOD COUNT AND DIFFERENTIAL Lab Routine Essential hypertension, benign Expected: 08/25/2024, Expires: 11/24/2024 [facility] Work Phone: Comment on above: Expected: 08/25/2024 , Expires: 11/24/2024 Start: 08-25-2024 End: 11-24-2024 Comprehensive metabolic 2000 panel - Serum or Plasma COMPREHENSIVE METABOLIC PANEL Lab Routine Hyperlipidemia, unspecified hyperlipidemia type Expected: 08/25/2024, Expires: 11/24/2024 [facility] Comment on above: Expected: 08/25/2024 , Expires: 11/24/2024 Start: 08-25-2024 Covid-19 Vaccine (#1) Covid-19 Vacci ne (#1) [facility] Comment on above: Postponed from 03/01 (Declined at this time) Start: 08-25-2024 Covid-19 Vaccine ( season) Covid-19 Vaccine ( season) [facility] Comment on above: Postponed from 06/24 (Declined at this time) Start: 08-25-2024 End: 11-24-2024 Lipid 1996 panel - Serum or Plasma LIPID PANEL BASIC Lab Routine Hyperlipidemia, unspecified hyperlipidemia type Expected: 08/25/2024, Expires: 11/24/2024 [facility] Comment on above: Expected: 08/25/2024 , Expires: 11/24/2024 Start: 08-25-2024 RSV Vaccine (1 - 1-d ose 60+ series) RSV Vaccine (1 - 1-dose 60+ series) [facility] Comment on above: Postponed from 09/01 (Declined at this time) Start: 08-25-2024 RSV Vaccine (1 - Ris k 60-74 years 1-dose series) RSV Vaccine (1 - Risk 60-74 years 1-dose series) [facility] Comment on above: Postponed from 09/01 (Declined at this time) Start: 08-22-2024 Hemoglobin/Hematocrit Hemoglobin/Hem atocrit [facility] Start: 08-22-2024 Serum Creatinine Serum Creatinine [facility] Start: 06-26-2024 DIABETES SCREEN DIABETES SCREEN [facility] Start: 06-24-2024 Covid-19 Vaccine ( season) Covid-19 Vaccine ( season) [facility] Start: 06-24-2024 Covid-19 Vaccine () Covid-19 Vaccine () [facility] Start: 06-24-2024 Influenza vaccination [facility] Start: 04-22-2024 Influenza vaccination Influenza Vacc ine (#1) [facility] Comment on above: Postponed from 06/24 (Declined at this time) Start: 03-07-2024 End: 03-07-2024 Patient encounter procedure Optometry Comment on above: 6 month pressure is[place] ck/UHC/Medicaid 6 month pressure israel ck/UHC Dual Start: 02-23-2024 ANNUAL PCP TEAM IT ARCHITECTURE CONSULTANT [place] DISEASE VISIT ANNUAL PCP TEAM CHRONIC DISEASE VISIT [facility] Start: 02-23-2024 Mammography [facility] Comment on above: Postponed from 04/06 (Declined at this time) Start: 02-23-2024 SHINGRIX VACCINE (1 of 2) SHINGRIX VACCINE (1 of 2) [facility] Comment on above: Postponed from 09/01 (Declined at this time) Start: 02-19-2024 SERUM CREATININE SERUM CREATININE Cl [facility] Start: 09-27-2023 Colonoscopy COLONOSCOPY [facility] Start: 09-27-2023 COLORECTAL CANCER SCREENING COLORECTAL CANCER SCREENING [facility] Start: 08-25-2023 End: 10-25-2023 CBC panel - Blood by Automated count CBC Lab Routine Essential hypertension, benign Stage 3 chronic kidney disease, unspecified whether stage 3a or 3b CKD (HCC) Expected: 08/25/2023 (Approximate), Expires: 10/25/2023 [facility] Work Phone: Comment on above: Expected: 08/25/2023 (Approximate), Expires: 10/25/2023 Start: 08-25-2023 End: 10-25-2023 Comprehensive metabolic 2000 panel - Serum or Plasma COMP METABOLIC PANEL Lab Routine Essential hypertension, benign Hyperlipidemia, unspecified hyperlipidemia type Elevated glucose Stage 3 chronic kidney disease, unspecified whether stage 3a or 3b CKD (HCC) Expected: 08/25/2023 (Approximate), Expires: 10/25/2023 [facility] Work Phone: Comment on above: Expected: 08/25/2023 (Approximate), Expires: 10/25/2023 Start: 08-25-2023 End: 10-25-2023 Lipid 1996 panel - Serum or Plasma LIPID PANEL BASIC Lab Routine Essential hypertension, benign Hyperlipidemia, unspecified hyperlipidemia type Expected: 08/25/2023 (Approximate), Expires: 10/25/2023 [facility] Work Phone: Comment on above: Expected: 08/25/2023 (Approximate), Expires: 10/25/2023 Start: 08-24-2023 ANNUAL PCP TEAM IT ARCHITECTURE CONSULTANT [place] DISEASE VISIT ANNUAL PCP TEAM CHRONIC DISEASE VISIT [facility] Start: 08-24-2023 BP CONTROLLED (<130/80) BP CONTROLLE D (<130/80) [facility] Start: 08-24-2023 COVID-19 VACCINE (#1) COVID-19 VACCI NE (#1) [facility] Comment on above: Postponed from 03/01 (Declined at this time) Start: 08-23-2023 HEMOGLOBIN/HEMATOCRIT HEMOGLOBIN/HEM ATOCRIT [facility] Start: 08-23-2023 SERUM CREATININE SERUM CREATININE Cl [facility] Start: 06-24-2023 Influenza vaccination [facility] Start: 04-22-2023 Influenza vaccination INFLUENZA (#1) [facility] Comment on above: Postponed from 06/24 (Declined at this time) Start: 04-06-2023 Mammography MAMMOGRAM [facility] Start: 04-06-2023 SERUM CREATININE SERUM CREATININE Cl [facility] Start: 03-30-2023 ANNUAL PCP TEAM IT ARCHITECTURE CONSULTANT [place] DISEASE VISIT ANNUAL PCP TEAM CHRONIC DISEASE VISIT [facility] Start: 03-30-2023 BP CONTROLLED (<130/80) BP CONTROLLE D (<130/80) [facility] Start: 10-24-2022 ADVANCE DIRECTIVE DISCUSSION ADVANCE DIRECTIVE DISCUSSION [facility] Start: 08-19-2022 End: 10-19-2022 Basic metabolic 2000 panel - Serum or Plasma BASIC METABOLIC PNL Lab Routine Essential hypertension, benign Iron deficiency anemia, unspecified iron deficiency anemia type Stage 3 chronic kidney disease, unspecified whether stage 3a or 3b CKD (HCC) Expected: 08/19/2022, Expires: 10/19/2022 [facility] Work Phone: Comment on above: Expected: 08/19/2022 , Expires: 10/19/2022 Start: 08-19-2022 End: 10-19-2022 CBC panel - Blood by Automated count CBC Lab Routine Essential hypertension, benign Iron deficiency anemia, unspecified iron deficiency anemia type Stage 3 chronic kidney disease, unspecified whether stage 3a or 3b CKD (HCC) Expected: 08/19/2022, Expires: 10/19/2022 [facility] Work Phone: Comment on above: Expected: 08/19/2022 , Expires: 10/19/2022 Start: 06-26-2022 ANNUAL PCP TEAM IT ARCHITECTURE CONSULTANT [place] DISEASE VISIT ANNUAL PCP TEAM CHRONIC DISEASE VISIT [facility] Start: 06-26-2022 COVID-19 VACCINE (#1) COVID-19 VACCI NE (#1) [facility] Comment on above: Postponed from 09/01 (Declined at this time) Postponed from 03/01 (Declined at this time) Start: 06-26-2022 HEMOGLOBIN/HEMATOCRIT HEMOGLOBIN/HEM ATOCRIT [facility] Start: 06-26-2022 SERUM CREATININE SERUM CREATININE Cl [facility] Start: 06-24-2022 Influenza vaccination [facility] Start: 10-24-2021 ADVANCE DIRECTIVE DISCUSSION ADVANCE DIRECTIVE DISCUSSION [facility] Start: 05-05-2021 Mammography MAMMOGRAM [facility] Start: 2009 RSV Vaccine (1 - Ris k 60-74 years 1-dose series) RSV Vaccine (1 - Risk 60-74 years 1-dose series) [facility] Start: 1999 Influenza vaccination LUNG CANCER SC REENING [facility] Start: 1999 SHINGRIX VACCINE (1 of 2) SHINGRIX VACCINE (1 of 2) [facility] Start: 1994 COLOGUARD (FIT-DNA) COLOGUARD (FIT-D NA) [facility] Start: [address] COLONOGRAPHY [facility] Start: 1994 FECAL OCCULT BLOOD FECAL OCCULT BLOO D [facility] Start: 1994 Screening for malign ant neoplasm of colon [facility] Start: 1994 SIGMOIDOSCOPY SIGMOIDOSCOPY [facility] Start: 1968 SHINGRIX VACCINE (1 of 2) SHINGRIX VACCINE (1 of 2) [facility] Start: 1967 Anxiety Screening Anxiety Screening [facility] Start: 1967 BP CONTROLLED (<130/80) BP CONTROLLE D (<130/80) [facility] Start: [birth year]-01-1950 COVID-19 VACCINE (#1) COVID-19 VACCI NE (#1) [facility] JAMES SCREENING JAMES SCREENING Ra diology Routine Encounter for screening mammogram for malignant neoplasm of breast 09/06/2023 3:02 PM EST [facility] Work Phone: End: 10-26-2025 MG Breast Screening JAMES SCREENING Radiology Routine Screening mammogram for breast cancer 1 Occurrences starting 09/27/2024 until 10/26/2025 [facility] Work Phone: Comment on above: 1 Occurrences starti ng 09/27/2024 until 10/26/2025 MG Breast Screening JAMES SCREENIN G Radiology Routine Screening mammogram for breast cancer 10/09/2024 1:48 PM EST [facility] Work Phone: End: 04-29-2023 Screening mammography bi 2-view breast inc cad JAMES SCREENING Radiology Routine Screening mammogram for breast cancer 1 Occurrences starting 03/30/2022 until 04/29/2023 [facility] Work Phone: Comment on above: 1 Occurrences starti ng 03/30/2022 until 04/29/2023 End: 07-20-2026 XR Foot - bilateral AP and Lateral and oblique XR FOOT GENERAL 3V AP/LAT/OBL BILATERAL Radiology Routine Hallux valgus of right foot Hallux valgus of left foot 1 Occurrences starting 06/20/2025 until 07/20/2026 [facility] Work Phone: Comment on above: 1 Occurrences starti ng 06/20/2025 until 07/20/2026 XR Foot - bilateral AP and Lateral and oblique XR FOOT GENERAL 3V AP/LAT/OBL BILATERAL Radiology Routine Hallux valgus of right foot Hallux valgus of left foot 06/20/2025 10:32 AM EDT [facility] End: 03-24-2025 XR Hand - right PA and Lateral and Oblique XR HAND GENERAL 3V PA/LAT/OBL RIGHT Radiology Routine Chronic pain of right hand 1 Occurrences starting 02/23/2024 until 03/24/2025 [facility] Comment on above: 1 Occurrences starti ng 02/23/2024 until 03/24/2025 XR Hand - right PA a nd Lateral and Oblique XR HAND GENERAL 3V PA/LAT/OBL RIGHT Radiology Routine Chronic pain of right hand 02/23/2024 2:22 PM EDT [facility] Immunizations Immunization Date Immunization Notes Care Provider Fidel stone 12-19-2018 influenza virus vacc ine, unspecified formulation Zahraa Ratliff MD Work Phone: [facility] 09-08-2016 pneumococcal polysaccharide vaccine, 23 valent Elliot Archibald SYSTEM DISPATCHER.FAST FOODS WORKER Work Phone: [facility] 09-08-2016 tetanus toxoid, redu clarke diphtheria toxoid, and acellular pertussis vaccine, adsorbed Elliot Archibald SYSTEM DISPATCHER.FAST FOODS WORKER Work Phone: [facility] 07-28-2015 influenza, high dose seasonal, preservative-free Elliot Archibald SYSTEM DISPATCHER.FAST FOODS WORKER Work Phone: [facility] 07-28-2015 pneumococcal conjuga te vaccine, 13 valent Elliot Archibald SYSTEM DISPATCHER.FAST FOODS WORKER Work Phone: [facility] 07-09-2014 influenza, seasonal, injectable Elliot Archibald APRN.FAST FOODS WORKER Work Phone: [facility] Work Phone: 08-10-2008 influenza virus vacc ine, whole virus Elliot Archibald APRN.FAST FOODS WORKER Work Phone: [facility] Work Phone: 02-09-2008 pneumococcal polysaccharide vaccine, 23 valent Elliot Archibald APRN.FAST FOODS WORKER Work Phone: [facility] Work Phone: 08-24-2006 influenza virus vacc ine, unspecified formulation Elliot Archibald SYSTEM DISPATCHER.FAST FOODS WORKER Work Phone: [facility] Work Phone: 01-22-2005 tetanus and diphther ia toxoids, adsorbed, preservative free, for adult use (2 Lf of tetanus toxoid and 2 Lf of diphtheria toxoid) Elliot Archibald APRN.FAST FOODS WORKER Work Phone: [facility] Work Phone: Payers Date Payer Category Payer Self-pay [id number] 2025 Medicaid [id number] 2023 Medicare (Managed Care) [id number]. [id number] 2023 Unknown [id number] 2022 Medicare [id number] 2021 Unknown ANTHEM BLUE CROS S AND BLUE SHIELD ANTHEM MEDIBLUE O [id number] 2021-Present [phone] [id number] [place] [address] HMO [id number] 2020 Medicaid MEDICAID [facility] MEDICAID [id number] 2020-Present [phone] [address] [place] [address] Medicaid [id number] 2020 Medicaid [id number] 2014 Unknown Medicare [id number] Medicare [id number] Unknown [id number] Unknown [id number] Unknown [id number] Social History Date Type Detail Facility Start: 11-07-2018 Tobacco smoking stat [facility] Unknown if ever smoked [facility] Start: 11-07-2018 Non-smoker [facility] Start: 1950 Sex Assigned At Female W [facility] Start: 07-11-2012 End: 05-20-2025 Tobacco smoking status NHIS Ex-smoker [facility] Start: 05-24-1978 End: 05-24-2008 History of tobacco use Current smoker [facility] Start: 05-24-1978 End: 05-24-2008 History of tobacco use Cigarette Smoker [facility] End: 05-24-2008 History of tobacco use Pipe Smoker [facility] End: 05-24-2008 History of tobacco use Cigar Smoker [facility] Start: 01-05-2022 End: 06-20-2025 Alcohol intake Current drinker of alcohol (finding) [facility] Start: 03-23-2022 End: 02-18-2023 History SDOH Alcohol Frequency 2 [facility] Start: 03-23-2022 End: 08-17-2022 History SDOH Alcohol Std Drinks 1 [facility] Start: 03-23-2022 End: 02-18-2023 History SDOH Social Connections Meetings 3 [facility] Start: 03-23-2022 End: 02-18-2023 History SDOH Social Connections Living 5 [facility] Start: 03-23-2022 History SDOH Physica l Activity DPW 0 [facility] Start: 12-17-2020 Education 15 [facility] Start: 1950 Sex Assigned At Not on file [facility] Start: 03-27-2022 End: 08-31-2022 Exposure to SARS-CoV-2 (event) Not sure [facility] Start: 07-11-2012 End: 05-04-2023 Cigarettes smoked current (pack per day) - Reported 1 [facility] Start: 07-11-2012 End: 05-20-2025 Tobacco use and exposure Smokeless tobacco non-user [facility] Work Phone: Start: 02-18-2023 History SDOH Social Connections Get Together 4 [facility] Start: 02-18-2023 History SDOH Social Connections Living 98 [facility] Start: 02-18-2023 End: 05-04-2023 Social connection and isolation panel [facility] Start: 09-24-2012 Active Member of [facility] bs or Organizations Not on file [facility] Are you now , , , , never or living with a partner? Refused [facility] How often to you hav e a drink containing alcohol? 2-4 times a month [facility] How many standard dr inks containing alcohol do you have on a typical day? 1 or 2 [facility] How often do you hav e 6 or more drinks on 1 occasion? Never [facility] Do you feel stress - tense, restless, nervous, or anxious, or unable to sleep at night because your mind is troubled all the time - these days [OSQ] Only a little [facility] (I/We) worried wherahul er (my/our) food would run out before (I/we) got money to buy more. Never true [facility] In the past 12 month s, was there a time when you were not able to pay the mortgage or rent on time? No [facility] How often to you hav e a drink containing alcohol? Monthly or less [facility] Do you belong to any clubs or organizations such as latter-day groups, unions, fraternal or athletic groups, or school groups? Yes [facility] Are you now , , , , never or living with a partner? [facility] How hard is it for y ou to pay for the very basics like food, housing, medical care, and heating Not very hard [facility] Medical Equipment Procedure Code Equipment Code Equipment Origin al Text Equipment Identifier Dates LEAD KIT 28CM BLADDER STIM FDA Start: 11-14-2018 GENERATOR,BLADDE R STIM FDA Start: 12-01-2018 LEAD KIT 28CM BLADDER STIM FDA Start: 11-14-2018 GENERATOR,BLADDE R STIM FDA Start: 12-01-2018 LEAD KIT 28CM BLADDER STIM FDA Start: 11-14-2018 GENERATOR,BLADDE R STIM FDA Start: 12-01-2018 LEAD KIT 28CM BLADDER STIM FDA Start: 11-14-2018 GENERATOR,BLADDE R STIM FDA Start: 12-01-2018 LEAD KIT 28CM BLADDER STIM FDA Start: 11-14-2018 GENERATOR,BLADDE R STIM FDA Start: 12-01-2018 Functional Status Date Assessment Result Facility 05-15-2025 Total score [AUDIT-C] 1 05/15/20 25 4:22 PM EDT User, Olena [facility] 05-15-2025 How often to you hav e a drink containing alcohol? Monthly or less 05/15/2025 4:22 PM EDT User, Olena Monthly or less [facility] 05-15-[address] inks containing alcohol do you have on a typical day? 1 or 2 05/15/2025 4:22 PM EDT User, Olena 1 or 2 [facility] 05-15-2025 How often do you hav e 6 or more drinks on 1 occasion? Never 05/15/2025 4:22 PM EDT UserOlena Never [facility] 07-09-2014 Are you deaf, or do you have serious difficulty hearing No 07/09/2014 8:55 AM EDT Berta Patton LPN No [facility] 07-09-2014 Are you blind, or do you have serious difficulty seeing, even when wearing glasses No 07/09/2014 8:55 AM ELIAT Berta Patton LPN No [facility] 07-09-2014 Do you have serious difficulty walking or climbing stairs Yes 07/09/2014 8:55 AM EDT Berta Patton LPN Yes [facility] 07-09-2014 Do you have difficul ty dressing or bathing No 07/09/2014 8:55 AM EDT Berta Patton LPN No [facility] 07-09-2014 Because of a physica l, mental, or emotional condition, do you have difficulty doing errands alone such as visiting a physician's office or shopping No 07/09/2014 8:55 AM EDT Berta Patton LPN No [facility] Mental Status Date Assessment Result Facility 07-09-2014 Because of a physica l, mental, or emotional condition, do you have serious difficulty concentrating, remembering, or making decisions No 07/09/2014 8:[address] LPN No [facility] Clinical Notes 08-14-2012 to 06-20-2025 Key Vega RT(R) - 06/20/2025 10:10 AM Joy Almonte LPN - 06/20/2025 10:03 AM Leoncio Alvarado - 06/20/2025 9:59 AM Joy Almonte LPN - 06/20/2025 9:34 AM EDTPatient Instructions Note Date & Type Note Facility 06-20-2025 History of Present illness Narrative Radiology Service Progress Note PATIENT NAME: Vianca Perez DATE OF SERVICE: June 20, 2025 TIME: 11:23 AM PATIENT IDENTITY VERIFICATION COMPLETED USING TWO (2) IDENTIFIERS: Name and Date of confirmed by patient verbally. FALL SCREENING: Has the patient had 2 falls in the last year or 1 fall with injury or currently using an Ambulatory Assistive Device (Walker, Cane, Wheelchair, Crutches, etc.)? Yes, Patient High Risk for Falls What interventions were put in place to prevent falls during this visit? Increased Observations by Caregivers PATIENT GENDER DATA: Assigned female at . status: : No status: NO. PATIENT RELEVANT IMPLANT DATA REVIEWED: Not Applicable PATIENT PRESENTS WITH AN IMPLANTABLE OR ATTACHED OIL TANKER CAPTAIN: No RADIOLOGY DEPARTMENT: General X-ray: Exam(s) Completed: Lower Extremity X-Ray(s): Feet, Bilateral and Wt. Bearing PERIPHERAL IV DATA: Not applicable SIGNED BY: RT José Miguel(Mick) June 20, 2025 11:23 AM documented in this encounter [facility] 06-20-2025 Note HNO ID: [id number] Author: KEY VEGA RT(R) Service: ? Author Type: Technologist Type: Progress Notes Filed: 06/20/2025 11:23 Note Text: Radiology Service Progress Note PATIENT NAME: Vianca Perez DATE OF SERVICE: June 20, 2025 TIME: 11:23 AM PATIENT IDENTITY VERIFICATION COMPLETED USING TWO (2) IDENTIFIERS: Name and Date of confirmed by patient verbally. FALL SCREENING: Has the patient had 2 falls in the last year or 1 fall with injury or currently using an Ambulatory Assistive Device (Walker, Cane, Wheelchair, Crutches, etc.)? Yes, Patient High Risk for Falls What interventions were put in place to prevent falls during this visit? Increased Observations by Caregivers PATIENT GENDER DATA: Assigned female at . status: : No status: NO. PATIENT RELEVANT IMPLANT DATA REVIEWED: Not Applicable PATIENT PRESENTS WITH AN IMPLANTABLE OR ATTACHED OIL TANKER CAPTAIN: No RADIOLOGY DEPARTMENT: General X-ray: Exam(s) Completed: Lower Extremity X-Ray(s): Feet, Bilateral and Wt. Bearing PERIPHERAL IV DATA: Not applicable SIGNED BY: RT José Miguel(Mick) June 20, 2025 11:23 AM [facility] 06-20-2025 Note HNO ID: [id number] Author: JOY CHRISTIANSON LPN Service: ? Author Type: Licensed Nurse Type: Progress Notes Filed: 06/20/2025 10:04 Note Text: Per Dr. Zaragoza, Vianca was provided with 2 bunion gel sleeve , size L/XL, and instructed/educated in its application, wear, and care. All questions were answered, and patient was able to demonstrate competence with the necessary skills to utilize the above equipment. Joy Christianson LPN [facility] 06-20-2025 History of Present illness Narrative Per Dr. Zaragoza, Vianca was provided with 2 bunion gel sleeve , size L/XL, and instructed/educated in its application, wear, and care. All questions were answered, and patient was able to demonstrate competence with the necessary skills to utilize the above equipment. Joy Christianson LPN Consultation requested by Dr. Archibald for an opinion regarding foot pain. My final recommendations will be communicated back to the requesting physician by way of shared Medical record or letter to requesting physician via [place] mail. Subjective The patient is a 74-year-old female presenting for evaluation of bilateral foot swelling and recurrent left great toenail growth. The patient reports bilateral foot swelling, which she describes as "ganglion cysts" on the medial aspect of both great toes. The swelling on the right foot has been present for approximately 2 months, while the left foot swelling began about 1.5 months ago. She notes that the swelling is increasing in size and causes a stinging and burning sensation when expanding. She denies any attempts to drain the cysts and has not sought medical intervention for them. To accommodate the swelling, she wears wider shoes and slippers at home. Additionally, the patient reports recurrent growth of the left great toenail, which was removed several years ago. She is uncertain if the growth is a cuticle or nail but notes that it sometimes causes discomfort. She has been filing the growth and observes occasional swelling around the area. She denies significant pain or discomfort from the recurrent nail formation. She denies a history of diabetes mellitus and is a nonsmoker. Musculoskeletal: (-) foot pain PAST MEDICAL HISTORY Diagnosis Date Acute gastritis without mention of hemorrhage Benign essential HTN Benign neoplasm of colon Chronic kidney disease Stage 3 Depression Depressive disorder, not elsewhere classified Essential hypertension, benign Glaucoma History of colon cancer History of transfusion Hypertensive kidney disease Iron deficiency anemia, unspecified Malignant neoplasm of colon, unspecified site Mixed hyperlipidemia Myopia Obesity, unspecified Skin rash Snoring Stress headaches Tobacco use disorder Unspecified glaucoma(365.9) Glaucoma UTI (urinary tract infection) Vitamin D deficiency Current Outpatient Medications Medication Sig Dispense Refill sertraline (ZOLOFT) 100 mg tablet Take 2 tablets by mouth once daily. 180 tablet 3 triamcinolone acetonide topical 0.5 % ointment Apply to affected area two times a day. 30 g 3 Chlorhexidine Gluconate (PERIDEX) 0.12 % solution Use 15 mL as instructed two times a day. 473 mL 3 potassium chloride (K-TAB) 10 mEq tablet Take 1 tablet by mouth once daily. 90 tablet 3 lisinopril (ZESTRIL) 5 mg tablet Take 1 tablet by mouth once daily. 90 tablet 3 triamterene-hydroCHLOROthiazide (MAXZIDE-25) 37.5-25 mg per tablet Take 1 tablet by mouth once daily. 90 tablet 3 dorzolamide-timolol (COSOPT) 22.3-6.8 mg/mL ophthalmic solution Use 1 Drop in both eyes two times a day. 20 mL 3 latanoprost (XALATAN) 0.005 % ophthalmic solution Use 1 Drop in both eyes daily at bedtime. 7.5 mL 3 Catheter (DAVENPORT CATHETER) 14 Fr misc Use as directed 5 x per day 450 Each 11 acetaminophen (TYLENOL EXTRA STRENGTH) 500 mg tablet Take 1 tablet by mouth every 6 hours as needed for pain. Diaper,Brief, Adult,Disposable (PROTECTIVE UNDERWEAR LARGE) Use as directed for urinary incontinence 360 Each 3 cranberry fruit extract (CRANBERRY CONCENTRATE ORAL) DAILY ascorbic acid, vitamin C, (VITAMIN C) 250 mg tablet DAILY naproxen (NAPROSYN) 500 mg tablet Take 1 tablet by mouth twice daily as needed (pain/inflammation, take with food.). 0 COMPOUNDED PRESCRIPTION vitamin D3 1,000mg tab take one daily 0 aspirin(ECOTRIN LOW STRENGTH 81 MG TAB) Take one(1) tablet daily. 0 No current facility-administered medications for this visit. Family History Problem Relation Age of Onset Diabetes Father Diabetes Brother CABG 12/27 Diabetes Maternal Grandmother Diabetes Other cousin Coronary Artery Disease Maternal Grandfather Objective There were no vitals taken for this visit. - Cardiovascular: Dorsalis pedis and posterior tibial pulses palpable bilaterally; capillary refill <5 seconds; skin warm from proximal to distal. - Skin: - Right Foot: Toenails 1-5 normal in length and thickness. - Left Foot: Toenails 2-5 normal in length and thickness; left great toenail removed with evidence of recurrent nail formation along the medial nail border; no signs of infection. - Neurological: Protective sensation intact bilaterally. - Musculoskeletal: - Bilateral Feet: Firm exostosis vs. nodular appearance on the medial aspect of the first metatarsal head; slight valgus formation of the great toes. Assessment & Plan # Nail deformity (L60.8) # Onychodystrophy (L60.3) Recurrent nail formation along the medial nail border of the left great toe following prior nail removal; no signs of infection present. - Advised patient to allow the recurrent nail to grow out without trimming to facilitate potential repeat removal procedure if necessary. other options include periodic debridement - Discussed that chemical matrixectomy is not always 100% effective and recurrence is possible. # Hallux valgus of right foot (M20.11) # Hallux valgus of left foot (M20.12) Bilateral bunion deformities with associated soft tissue swelling; differential includes ganglion cyst, but clinical suspicion favors bunion-related changes. - Ordered bilateral foot X-rays to further evaluate soft tissue swelling and rule out ganglion cyst. - Provided gel bunion pad to reduce friction and advised continued use of wider footwear. - Discussed surgical options for bunion correction if pain or functional limitation develops; patient currently prefers conservative management. Recording using [employer] software for draft documentation of the visit was discussed with the patient/authorized printing supplies sales representative; all questions welcomed and answered. Patient/authorized printing supplies sales representative agreed to proceed Leoncio Zaragoza DPM AMB ROOMING INTAKE FLOWSHEET DATA Pain Description: Aching Duration Units: Hours Frequency: Intermittent Patient presents with: Right Foot - Ganglion Cyst, New, nail deformity Left Foot - Ganglion Cyst, New, nail deformity Joy Christianson LPN documented in this encounter [facility] 06-20-2025 Note HNO ID: [id number] Author: LEONCIO ZARAGOZA, ? Service: ? Author Type: Physician Type: Progress Notes Filed: 06/20/2025 09:59 Note Text: Consultation requested by Dr. Archibald for an opinion regarding foot pain. My final recommendations will be communicated back to the requesting physician by way of shared Medical record or letter to requesting physician via [place] mail. Subjective The patient is a 74-year-old female presenting for evaluation of bilateral foot swelling and recurrent left great toenail growth. The patient reports bilateral foot swelling, which she describes as "ganglion cysts" on the medial aspect of both great toes. The swelling on the right foot has been present for approximately 2 months, while the left foot swelling began about 1.5 months ago. She notes that the swelling is increasing in size and causes a stinging and burning sensation when expanding. She denies any attempts to drain the cysts andhas not sought medical intervention for them. To accommodate the swelling, she wears wider shoes and slippers at home. Additionally, the patient reports recurrent growth of the left great toenail, which was removed several years ago. She is uncertain if the growth is a cuticle or nail but notes that it sometimes causes discomfort. She has been filing the growth and observes occasional swelling around the area. She denies significant pain or discomfort from the recurrent nail formation. She denies a history of diabetes mellitus and is a nonsmoker. Musculoskeletal: (-) foot pain PAST MEDICAL HISTORY Diagnosis Date Acute gastritis without mention of hemorrhage Benign essential HTN Benign neoplasm of colon Chronic kidney disease Stage 3 Depression Depressive disorder, not elsewhere classified Essential hypertension, benign Glaucoma History of colon cancer History of transfusion Hypertensive kidney disease Iron deficiency anemia, unspecified Malignant neoplasm of colon, unspecified site Mixed hyperlipidemia Myopia Obesity, unspecified Skin rash Snoring Stress headaches Tobacco use disorder Unspecified glaucoma(365.9) Glaucoma UTI (urinary tract infection) Vitamin D deficiency Current Outpatient Medications Medication Sig Dispense Refill sertraline (ZOLOFT) 100 mg tablet Take 2 tablets by mouth once daily. 180 tablet 3 triamcinolone acetonide topical 0.5 % ointment Apply to affected area two times a day. 30 g 3 Chlorhexidine Gluconate (PERIDEX) 0.12 % solution Use 15 mL as instructed two times a day. 473 mL 3 potassium chloride (K-TAB) 10 mEq tablet Take 1 tablet by mouth once daily. 90 tablet 3 lisinopril (ZESTRIL) 5 mg tablet Take 1 tablet by mouth once daily. 90 tablet 3 triamterene-hydroCHLOROthiazide (MAXZIDE-25) 37.5-25 mg per tablet Take 1 tablet by mouth once daily. 90 tablet 3 dorzolamide-timolol (COSOPT) 22.3-6.8 mg/mL ophthalmic solution Use 1 Drop in both eyes two times a day. 20 mL 3 latanoprost (XALATAN) 0.005 % ophthalmic solution Use 1 Drop in both eyes daily at bedtime. 7.5 mL 3 Catheter (DAVENPORT CATHETER) 14 Fr misc Use as directed 5 x per day 450 Each 11 acetaminophen (TYLENOL EXTRA STRENGTH) 500 mg tablet Take 1 tablet by mouth every 6 hours as needed for pain. Diaper,Brief, Adult,Disposable (PROTECTIVE UNDERWEAR LARGE) Use as directed for urinary incontinence 360 Each 3 cranberry fruit extract (CRANBERRY CONCENTRATE ORAL) DAILY ascorbic acid, vitamin C, (VITAMIN C) 250 mg tablet DAILY naproxen (NAPROSYN) 500 mg tablet Take 1 tablet by mouth twice daily as needed (pain/inflammation, take with food.). 0 COMPOUNDED PRESCRIPTION vitamin D3 1,000mg tab take one daily 0 aspirin(ECOTRIN LOW STRENGTH 81 MG TAB) Take one(1) tablet daily. 0 No current facility-administered medications for this visit. Family History Problem Relation Age of Onset Diabetes Father Diabetes Brother CABG 12/27 Diabetes Maternal Grandmother Diabetes Other cousin Coronary Artery Disease Maternal Grandfather Objective There were no vitals taken for this visit. - Cardiovascular: Dorsalis pedis and posterior tibial pulses palpable bilaterally; capillary refill <5 seconds; skin warm from proximal to distal. - Skin: - Right Foot: Toenails 1-5 normal in length and thickness. - Left Foot: Toenails 2-5 normal in length and thickness; left great toenail removed with evidence of recurrent nail formation along the medial nail border; no signs of infection. - Neurological: Protective sensation intact bilaterally. - Musculoskeletal: - Bilateral Feet: Firm exostosis vs. nodular appearance on the medial aspect of the first metatarsal head; slight valgus formation of the great toes. Assessment AND Plan # Nail deformity (L60.8) # Onychodystrophy (L60.3) Recurrent nail formation along the medial nail border of the left great toe following prior nail removal; no signs of infection present. - Advised patient to allow the recur (more content not included)... [facility] 06-20-2025 Instructions Leoncio Zaragoza - 06/20/2025 9:57 AM EDT We discussed the swelling and cyst-like areas on your feet: - I suspect the swelling is related to a bunion deformity rather than ganglion cysts. A bunion occurs when the metatarsal bone shifts, causing the big toe to angle toward the second toe, which creates a prominent bump. - You should continue wearing wider shoes to reduce pressure on the area. - I provided you with a gel pad to help prevent rubbing and irritation. - I ordered x-rays of both feet to evaluate the soft tissue swelling and confirm the diagnosis. You can have these done today. We discussed the recurrent nail growth on your left great toe: - The nail regrowth is likely due to the chemical used during your previous toenail removal not being fully effective. This is not uncommon. - You have two options: - Continue trimming and filing the nail as needed to manage discomfort. - Allow the nail to grow out fully and consider repeating the toenail removal procedure if it becomes bothersome. - Avoid trimming the nail too short, as this can make it difficult to address if further treatment is needed. Next steps: - Get the x-rays of your feet as ordered. - Use the gel pad provided and continue wearing wider shoes to reduce discomfort. - Monitor the swelling and nail regrowth. If symptoms worsen or become painful, please contact our office for further evaluation. documented in this encounter [facility] 06-20-2025 Note HNO ID: [id number] Author: JOY CHRISTIANSON LPN Service: ? Author Type: Licensed Nurse Type: Progress Notes Filed: 06/20/2025 09:59 Note Text: AMB ROOMING INTAKE FLOWSHEET DATA Pain Description: Aching Duration Units: Hours Frequency: Intermittent Patient presents with: Right Foot - Ganglion Cyst, New, nail deformity Left Foot - Ganglion Cyst, New, nail deformity Joy Christianson LPN [facility] 05-28-2025 Telephone encounter Note Faxed addended ov note to [facility]. . Confirmation received. [facility] 05-28-2025 Miscellaneous Notes Faxed addended ov note to [facility]. . Confirmation received. Office note was addended. Elliot Archibald APRN.CNP See TE 12/31/24. PCP is signing forms. Zaira Woodall MA I reviewed her chart, it looks like she follows with Dr. Olson with urology. Primary care doesn t typically write for catheter supplies, etc. Elliot Archibald CNP Patient calling [facility] shorted her 120 catheters when she got her shipment, they are telling her she uses 4 daily when she uses 5 daily. She was told [place] needs copy of office notes with discussion why she needs to use the urinary catheters and diagnosis information. Patient had appt on 05/20/2025 with Elliot Archibald nothing in office notes concerning catheter use. Not sure if notes could have addendum done? Patient said if she needs to have another appt let her know. Please advise documented in this encounter [facility] 05-27-2025 Telephone encounter Note Office note was addended. Elliot Archibald APRN.CNP [facility] 05-27-2025 Telephone encounter Note See TE 12/31/24. PCP is signing forms. Zaira Woodall MA [facility] 05-26-2025 Telephone encounter Note I reviewed her chart, it looks like she follows with Dr. Olson with urology. Primary care doesn t typically write for catheter supplies, etc. Elliot Archibald CNP [facility] 05-24-2025 Telephone encounter Note Patient calling [facility] shorted her 120 catheters when she got her shipment, they are telling her she uses 4 daily when she uses 5 daily. She was told [facility] needs copy of office notes with discussion why she needs to use the urinary catheters and diagnosis information. Patient had appt on 05/20/2025 with Elliot Archibald nothing in office notes concerning catheter use. Not sure if notes could have addendum done? Patient said if she needs to have another appt let her know. Please advise T [facility] 05-22-2025 Telephone encounter Note Sent. The following approved medication requests have been transmitted electronically. Requested Prescriptions Signed Prescriptions Disp Refills sertraline (ZOLOFT) 100 mg tablet 180 tablet 3 Sig: Take 2 tablets by mouth once daily. triamcinolone acetonide topical 0.5 % ointment 30 g 3 Sig: Apply to affected area two times a day. Elliot Archibald APRN.CNP T [facility] 05-22-2025 Miscellaneous Notes Sent. The following approved medication requests have been transmitted electronically. Requested Prescriptions Signed Prescriptions Disp Refills sertraline (ZOLOFT) 100 mg tablet 180 tablet 3 Sig: Take 2 tablets by mouth once daily. triamcinolone acetonide topical 0.5 % ointment 30 g 3 Sig: Apply to affected area two times a day. Elliot Archibald APRN.CNP Pt states she spoke with Elliot Archibald at her appt today about her 100 mg Sertraline tablets that have directions to take 1 tablet twice daily. Pt actually takes both 100 mg tablets at the same time every day in the morning with her other pills. She had asked Elliot to change it on the prescription but it appears he misunderstood and sent in a script for Sertraline 100 mg take 1 tablet daily. Pt states she will run out and asking for a new script to be sent in for Sertraline 100 mg tablets take 2 daily. Also she had asked for a refill on her ointment for her psoriasis. States Elliot sent in Fluocinonide and she doesn't use that as it didn't work. She is requesting the Triamcinolone topical 0.5% ointment. Both pended and pt requests to go to [facility] in [place]. documented in this encounter [facility] 05-21-2025 Telephone encounter Note Pt states she spoke with Elliot Archibald at her appt today about her 100 mg Sertraline tablets that have directions to take 1 tablet twice daily. Pt actually takes both 100 mg tablets at the same time every day in the morning with her other pills. She had asked Elliot to change it on the prescription but it appears he misunderstood and sent in a script for Sertraline 100 mg take 1 tablet daily. Pt states she will run out and asking for a new script to be sent in for Sertraline 100 mg tablets take 2 daily. Also she had asked for a refill on her ointment for her psoriasis. States Elliot sent in Fluocinonide and she doesn't use that as it didn't work. She is requesting the Triamcinolone topical 0.5% ointment. Both pended and pt requests to go to [facility] in [place]. [facility] 05-20-2025 Instructions Elliot Archibald, BALDEV.FAST FOODS WORKER - 05/20/2025 10:05 AM EDT Screening schedule The following prevention plan is recommended: Anxiety Screening Never done Shingrix Vaccine(1 of 2) Never done RSV Vaccine(1 - 1-dose 75+ series) Never done Advance Directive Discussion due on 10/24/2024 Medicare Advantage Annual Wellness Visit due on 10/24/2024 Annual PCP Team Chronic Disease Visit due on 02/22/2025 WHAT YOU CAN DO TO PREVENT FALLS Many falls can be prevented. By making some changes, you can lower your chances of falling. Four things YOU can do to prevent falls for you* and your caregiver 1. Begin a regular exercise program Exercise is one of the most important ways to lower your chances of falling. It makes you stronger and helps you feel better. Exercises that improve balance and coordination (like Floyd Chi) are the most helpful. Lack of exercise leads to weakness and increases your chances of falling. Ask your doctor or health care provider about the best type of exercise program for you. 2. Have your health care provider review your medicines Have your doctor or pharmacist review all the medicines you take, even [id number] medicines. As you get older, the way medicines work in your body can change. Some medicines, or combinations of medicines, can make you sleepy or dizzy and can cause you to fall. 3. Have your vision checked Have your eyes checked by an eye doctor at least once a year. You may be wearing the wrong glasses or have a condition like glaucoma or cataracts that limits your vision. Poor vision can increase your chances of falling. 4. Make your home safer About half of all falls happen at home. To make your home safer: Remove things you can trip over (like papers, books, clothes, and shoes) from stairs and places where you walk. Remove small throw rugs or use double-sided tape to keep the rugs from slipping. Keep items you use often in cabinets you can reach easily without using a step stool. Have grab bars put in next to your toilet and in the tub or shower. Use non-slip mats in the bathtub and on shower floors. Improve the lighting in your home. As you get older, you need brighter lights to see well. Hang light-weight curtains or shades to reduce glare. Have handrails and lights put in on all staircases. Wear shoes both inside and outside the house. Avoid going barefoot or wearing slippers. For more information, contact: Centers for Disease Control and Prevention www.cdc.gov/injury * This information may not apply if you have certain medical conditions. documented in this encounter [facility] 05-20-2025 History of Present illness Narrative Images from the original note were not included. Vianca Perez is a 74 year old female here for a Medicare wellness visit. Medicare Health Risk Assessment General Health Good Exercise: Minutes/Day 20 min Exercise: Days/Week 2 days Alcohol: Daily Use Monthly or less Alcohol: Drinks/Day 1 or 2 Alcohol: 6 or more drinks Never Feel off balance No Concerns: Teeth/Dentures No Concerns: Sexual function No Troubled by feelings None of the above Frequency: Eating healthy diet Nearly every day ADLs requiring help None of the above Safety precautions in home/vehicle Yes Smoke, vape, chews tobacco No Difficulty hearing No Difficulty seeing No Current Providers Specialists: I have reviewed specialist-related care of the patient in the medical record. Current care team: Patient Care Team: Zahraa Ratliff MD as PCP - General Elliot Archibald APRN.CNP as Roll Grinder Operator (Family Medicine) Outside specialists seen: Dr. Shafer-Eye, urology-Dr. Olson Medical/Family history review Reviewed and updated problem list, medical/surgical/family/social history, medications, and allergies. Opioid use review Opioid Medications (last 90 days) No data to display Anxiety/Depression screening PHQ-9 Score: 0. SIERRA-7 Score: 2 (Minimal Anxiety) Recommendation: no further intervention at this time Cognitive screening Mini Cog Score: 5 Cognitive screening reviewed and No further action needed (score 3-5). Functional Observation Was the patient's Timed Up & Go test unsteady or >= 12 seconds? No Advance Care Planning Surrogate decision maker and/or advance care plan documented Measurements BP 126/72 Pulse 74 Resp 16 Ht 160 cm (5' 3") Wt 108.4 kg (239 lb) BMI 42.34 kg/m Vision Screening: Follows with optometry/ophthalmology Assessment/Plan Medicare annual wellness visit, subsequent (Z00.00) - Counseled on healthy diet and regular exercise - Fall avoidance information provided - Personalized prevention plan provided Elliot Archibald APRN.FAST FOODS WORKER Additional Concerns The following concerns were also discussed with the patient: Vianca Perez is a 74-year-old female with a history of HTN, chronic kidney disease stage 3, and eczema, presenting for a Medicare Annual Wellness Visit. She also has concerns about a cyst on her foot, toenail issues, and ear pain. Vianca reports a cyst on her foot that has been present for approximately 2 months. Initially, it was larger, purple, and painful to touch, but not with foot movement. The cyst has since decreased in size and is now described as "squishy" with a semi-hard consistency. She denies current pain or erythema associated with the cyst. She also notes a small dot on the same foot, which she believes may be related to the cyst. She also reports issues with her toenails. One toenail was damaged many years ago while moving furniture, leading to a crack at the cuticle and eventual detachment. The toenail has since grown back but does not adhere properly, causing discomfort. She has been attempting to manage this by filing the nail down. On the other foot, she reports a similar issue with a toenail that was partially removed in the past but did not reattach properly, leading to debris accumulation underneath the nail. Vianca also reports intermittent left ear pain, which she describes as "really, really bad" at times. 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 She also notes "funny noises" in the ear but denies any current discharge or hearing loss. She has a history of eczema, which she manages with a cream that she finds soothing. She also reports taking Zoloft, 1 tablet daily, and antihypertensive medication, including hydrochlorothiazide and a potassium supplement. She denies use of Premarin vaginal cream and methenamine. She uses a mouthwash occasionally to manage minor oral abrasions caused by her dentures. She denies any feelings of depression, anger, irritability, or loneliness, and has no thoughts of self-harm. She has an advanced directive on file and reports no changes to it. She is followed by multiple specialists, including a primary care physician, a urogynecologist, and an eye doctor. She has not received the shingles or RSV vaccines and does not wish to receive them in the future. PHYSICAL EXAM BP 126/72 Pulse 74 Resp 16 Ht 160 cm (5' 3") Wt 108.4 kg (239 lb) BMI 42.34 kg/m GENERAL: well appearing, alert, in no acute distress CARDIOVASCULAR: regular rate and rhythm. No murmur, rubs or gallops. PULMONARY: clear to auscultation, no wheezing, rhonchi, or crackles ABDOMEN: soft, non-tender, non-distended, no masses or organomegaly EXTREMITY: Right foot: there is a chapo-solid cyst formation on the medial aspect of the first metatarsal, non-tender, no erythema or warmth; nail is discolored; :Left foot: very small cyst formation on the medial aspect of the 1st metatarsal without erythema, warmth; nail bed is fragmented Ears: Canals clear, TM normal bilaterally 1. Medicare annual wellness visit, subsequent (Z00.00) Completed Medicare annual wellness visit. No changes to advanced directive. Cognitive screening was normal. - Follow-up in one year for the next annual wellness visit. 2. Essential hypertension, benign (I10) Blood pressure well-controlled at 126/72 mmHg. Currently managed with Triamterene-HCTZ. - Continue current medication regimen. - Refilled Triamterene-HCTZ prescription. 3. Iron deficiency anemia, unspecified iron deficiency anemia type (D50.9) - Ordered lab work to be drawn today to monitor CBC levels. 4. Vitamin D deficiency (E55.9) Patient is taking Vitamin D supplements. - Continue Vitamin D supplementation. 5. Hyperlipidemia, unspecified hyperlipidemia type (E78.5) - Monitor lipid levels with upcoming lab work. 6. Stage 3b chronic kidney disease (HCC) (N18.32) Chronic kidney disease stage 3b with eGFR in the 50s. - Monitor kidney function with upcoming lab work. 7. Encounter for screening examination for other mental health and behavioral disorders (Z13.39) No signs of anger, irritability, loneliness, or thoughts of self-harm. 8. Recurrent major depressive disorder, remission status unspecified (F33.9) Currently managed with Zoloft, taking two tablets daily. - Continue Zoloft as prescribed. 9. Psoriasis (L40.9) Patient uses a cream to soothe symptoms. - Refilled prescription for topical cream. 10. Ganglion cyst of right foot (M67.471) Present for about two months, previously larger and purple, now reduced in size and non-tender. - Referred to Dr. Zaragoza for further evaluation and management. 11. Nail deformity (L60.8) Deformity noted on the big toenail, history of trauma. - Referred to Dr. Zaragoza for evaluation and management. RTO in [address] Cartagena to establish care. Get labs today. documented in this encounter [facility] 05-20-2025 Note HNO ID: [id number] Author: ELLIOT ARCHIBALD APRN.CNP Service: ? Author Type: Nurse Practitioner Type: Progress Notes Filed: 05/27/2025 12:55 Note Text: Vianca Perez is a 74 year old female here for a Medicare wellness visit. Medicare Health Risk Assessment General Health Good Exercise: Minutes/Day 20 min Exercise: Days/Week 2 days Alcohol: Daily Use Monthly or less Alcohol: Drinks/Day 1 or 2 Alcohol: 6 or more drinks Never Feel off balance No Concerns: Teeth/Dentures No Concerns: Sexual function No Troubled by feelings None of the above Frequency: Eating healthy diet Nearly every day ADLs requiring help None of the above Safety precautions in home/vehicle Yes Smoke, vape, chews tobacco No Difficulty hearing No Difficulty seeing No Current Providers Specialists: I have reviewed specialist-related care of the patient in the medical record. Current care team: Patient Care Team: Zahraa Ratliff MD as PCP - General Elliot Archibald APRN.CNP as Roll Grinder Operator (Family Medicine) Outside specialists seen: Dr. Shafer-Eye, urology-Dr. Olson Medical/Family history review Reviewed and updated problem list, medical/surgical/family/social history, medications, and allergies. Opioid use review Opioid Medications (last 90 days) No data to display Anxiety/Depression screening PHQ-9 Score: 0. SIERRA-7 Score: 2 (Minimal Anxiety) Recommendation: no further intervention at this time Cognitive screening Mini Cog Score: 5 Cognitive screening reviewed and No further action needed (score 3-5). Functional Observation Was the patient's Timed Up AND Go test unsteady or >= 12 seconds? No Advance Care Planning Surrogate decision maker and/or advance care plan documented Measurements BP 126/72 Pulse 74 Resp 16 Ht 160 cm (5' 3") Wt 108.4 kg (239 lb) BMI 42.34 kg/m? Vision Screening: Follows with optometry/ophthalmology Assessment/Plan Medicare annual wellness visit, subsequent (Z00.00) - Counseled on healthy diet and regular exercise - Fall avoidance information provided - Personalized prevention plan provided Elliot Archibald APRN.CNP Additional Concerns The following concerns were also discussed with the patient: Vianca Perez is a 74-year-old female with a history of HTN, chronic kidney disease stage 3, and eczema, presenting for a Medicare Annual Wellness Visit. She also has concerns about a cyst on her foot, toenail issues, and ear pain. Vianca reports a cyst on her foot that has been present for approximately 2 months. Initially, it was larger, purple, and painful to touch, but not with foot movement. The cyst has since decreased in size and is now described as "squishy" with a semi-hard consistency. She denies current pain or erythema associated with the cyst. She also notes a small dot on the same foot, which she believes may be related to the cyst. She mentions that she continues to follow with urology, Dr. Olson. History of Interstem Implant bladder surgery in 2019. She performs self-catherizations 5 times day and wears Depends briefs. She also reports issues with her toenails. One toenail was damaged many years ago while moving furniture, leading to a crack at the cuticle and eventual detachment. The toenail has since grown back but does not adhere properly, causing discomfort. She has been attempting to manage this by filing the nail down. On the other foot, she reports a similar issue with a toenail that was partially removed in the past but did not reattach properly, leading to debris accumulation underneath the nail. Vianca also reports intermittent left ear pain, which she describes as "really, really bad" at times. 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 She also notes "funny noises" in the ear but denies any current discharge or hearing loss. She has a history of eczema, which she manages with a cream that she finds soothing. She also reports taking Zoloft, 1 tablet daily, and antihypertensive medication, including hydrochlorothiazide and a potassium supplement. She denies use of Premarin vaginal cream and methenamine. She uses a mouthwash occasionally to manage minor oral abrasions caused by her dentures. She denies any feelings of depression, anger, irritability, or loneliness, and has no thoughts of self-harm. She has an advanced directive on file and reports no changes to it. She is followed by multiple specialists, including a primary care physician, a urogynecologist, and an eye doctor. She has not received the shingles or RSV vaccines and does not wish to receive them in the future. PHYSICAL EXAM BP 126/72 Pulse 74 Resp 16 Ht 160 cm (5' 3") Wt 108.4 kg (239 lb) BMI 42.34 kg/m? GENERAL: well appearing, alert, in no acute distress CARDIOVASCULAR: regular rate and rhythm. No murmur, rubs or gallops. PULMONARY: clear to auscultation, no wheezing, rhonchi, (more content not included)... [facility] 05-16-2025 Telephone encounter Note Sent The following approved medication requests have been transmitted electronically. Requested Prescriptions Pending Prescriptions Disp Refills potassium chloride (K-TAB) 10 mEq tablet 90 tablet 3 Sig: Take 1 tablet by mouth once daily. Signed Prescriptions Disp Refills lisinopril (ZESTRIL) 5 mg tablet 90 tablet 3 Sig: Take 1 tablet by mouth once daily. Authorizing Provider: ZAHRAA RATLIFF triamterene-hydroCHLOROthiazide (MAXZIDE-25) 37.5-25 mg per tablet 90 tablet 3 Sig: Take 1 tablet by mouth once daily. Authorizing Provider: ZAHRAA RATLIFF Refused Prescriptions Disp Refills sertraline (ZOLOFT) 100 mg tablet 180 tablet 3 Sig: Take 1 tablet by mouth two times a day. Refused By: SARAH MORRISON Reason for Refusal: Records indicate that there is a valid prescription at the pharmacy Elliot Archibald APRN.SAÚL [facility] 05-16-2025 Miscellaneous Notes Sent The following approved medication requests have been transmitted electronically. Requested Prescriptions Pending Prescriptions Disp Refills potassium chloride (K-TAB) 10 mEq tablet 90 tablet 3 Sig: Take 1 tablet by mouth once daily. Signed Prescriptions Disp Refills lisinopril (ZESTRIL) 5 mg tablet 90 tablet 3 Sig: Take 1 tablet by mouth once daily. Authorizing Provider: ZAHRAA RATLIFF triamterene-hydroCHLOROthiazide (MAXZIDE-25) 37.5-25 mg per tablet 90 tablet 3 Sig: Take 1 tablet by mouth once daily. Authorizing Provider: ZAHRAA RATLIFF Refused Prescriptions Disp Refills sertraline (ZOLOFT) 100 mg tablet 180 tablet 3 Sig: Take 1 tablet by mouth two times a day. Refused By: SARAH MORRISON Reason for Refusal: Records indicate that there is a valid prescription at the pharmacy Elliot Archibald APRN.SAÚL Call placed to patient to notify of below. She also needs potassium chloride sent to [facility]'s. Pended. Heidi Claudio, RN OK to refill as ordered Zahraa Ratliff MD Prescription Refill Information The patient has been identified by name and date of : Yes Caregiver verified no other encounters exist for this prescription request: Yes Caregiver confirmed with patient/requestor that no other refills are due, in the near future, with this provider at this time: Yes The last office visit in the department: 05/20/2025 Does the patient have a future office visit with this provider/department: Yes Requested Prescriptions Pending Prescriptions Disp Refills sertraline (ZOLOFT) 100 mg tablet 180 tablet 3 Sig: Take 1 tablet by mouth two times a day. lisinopril (ZESTRIL) 5 mg tablet 90 tablet 3 Sig: Take 1 tablet by mouth once daily. triamterene-hydroCHLOROthiazide (MAXZIDE-25) 37.5-25 mg per tablet 90 tablet 3 Sig: Take 1 tablet by mouth once daily. Marylin Chavez May 13, 2025 5:58 PM documented in this encounter [facility] 05-15-2025 Telephone encounter Note Nothing further needed. Closing MC message. See TE from 05/13/2025 as well. Heidi Claudio RN [facility] 05-15-2025 Miscellaneous Notes Nothing further needed. Closing MC message. See TE from 05/13/2025 as well. Heidi Claudio RN documented in this encounter [facility] 05-15-2025 Telephone encounter Note Call placed to patient to notify of below. She also needs potassium chloride sent to [facility]. Pended. Heidi Claudio RN [facility] 05-13-2025 Telephone encounter Note OK to refill as ordered Zahraa Ratliff MD [facility] 05-13-2025 Telephone encounter Note Prescription Refill Information The patient has been identified by name and date of : Yes Caregiver verified no other encounters exist for this prescription request: Yes Caregiver confirmed with patient/requestor that no other refills are due, in the near future, with this provider at this time: Yes The last office visit in the department: 05/20/2025 Does the patient have a future office visit with this provider/department: Yes Requested Prescriptions Pending Prescriptions Disp Refills sertraline (ZOLOFT) 100 mg tablet 180 tablet 3 Sig: Take 1 tablet by mouth two times a day. lisinopril (ZESTRIL) 5 mg tablet 90 tablet 3 Sig: Take 1 tablet by mouth once daily. triamterene-hydroCHLOROthiazide (MAXZIDE-25) 37.5-25 mg per tablet 90 tablet 3 Sig: Take 1 tablet by mouth once daily. Marylin Chavez May 13, 2025 5:58 PM [facility] 03-27-2025 Note HNO ID: [id number] Author: JACOBY SHAFER II, OD Service: ? Author Type: DIVISION SALES MANAGER Type: Progress Notes Filed: 03/27/2025 15:58 Note Text: Assessment and Plan H40.1131 Primary open-angle glaucoma, bilateral, mild stage (primary encounter diagnosis) Comment: Intraocular pressures appear stable with current treatment. Advise patient as to the risks of blindness with glaucoma. Advise patient as to status of condition and necessity of close monitoring as directed. Continue use of Latanoprost 0.005% 1 gt both eyes qhs and Cosopt 1 gt both eyes bid. Recheck glaucoma control in 6 months at Dilated fundus exam with update of OCT NFA and Visual field. H25.813 Combined form of senile cataract of both eyes Comment: Slow progression noted L>R. Patient tolerates. Monitor. I have confirmed and edited as necessary the relevant HPI, ophthalmic history, ROS, and the neuro exam findings as obtained by others. I have seen and examined Vianca Perez. I have discussed the case and the management of this patient's care with the Resident/Fellow, if applicable. I also have reviewed and agree with the assessment and plan as stated above and agree with all of its relevant components. [facility] 03-27-2025 History of Present illness Narrative Assessment and Plan H40.1131 Primary open-angle glaucoma, bilateral, mild stage (primary encounter diagnosis) Comment: Intraocular pressures appear stable with current treatment. Advise patient as to the risks of blindness with glaucoma. Advise patient as to status of condition and necessity of close monitoring as directed. Continue use of Latanoprost 0.005% 1 gt both eyes qhs and Cosopt 1 gt both eyes bid. Recheck glaucoma control in 6 months at Dilated fundus exam with update of OCT NFA and Visual field. H25.813 Combined form of senile cataract of both eyes Comment: Slow progression noted L>R. Patient tolerates. Monitor. I have confirmed and edited as necessary the relevant HPI, ophthalmic history, ROS, and the neuro exam findings as obtained by others. I have seen and examined Vianca Perez. I have discussed the case and the management of this patient's care with the Resident/Fellow, if applicable. I also have reviewed and agree with the assessment and plan as stated above and agree with all of its relevant components. documented in this encounter [facility] 01-01-2025 Telephone encounter Note Faxed. Mary Harmon MA [facility] 01-01-2025 Miscellaneous Notes Faxed. Mary Harmon MA Type of form: Straight Tip Urine Catheter form from [employer]. Requesting most recent OV note/labs with form. Printed Medicare Wellness from 02/2024 (last OV). Was supposed to be seen in October. Form received via fax When form is completed, Fax form to [phone] Form has been forwarded to Physician Desk: Dr. Evy Woodall MA documented in this encounter [facility] 12-31-2024 Telephone encounter Note Type of form: Straight Tip Urine Catheter form from [employer]. Requesting most recent OV note/labs with form. Printed Medicare Wellness from 02/2024 (last OV). Was supposed to be seen in October. Form received via fax When form is completed, Fax form to [phone] Form has been forwarded to Physician Desk: Dr. Evy Woodall MA [facility] 10-18-2024 Telephone encounter Note Form completed and faxed back to information below. Zaira Woodall MA [facility] 10-18-2024 Miscellaneous Notes Form completed and faxed back to information below. Zaira Woodall MA Type of form: Written Order from [employer] for Straight Tip Urine Catheters Form received via fax When form is completed, Fax form to [phone] Form has been forwarded to Physician Desk: Dr. Evy Woodall MA documented in this encounter [facility] 10-18-2024 Telephone encounter Note Type of form: Written Order from [employer] for Straight Tip Urine Catheters Form received via fax When form is completed, Fax form to [phone] Form has been forwarded to Physician Desk: Dr. Evy Woodall MA [facility] 10-16-2024 Telephone encounter Note Pt notified of results via mychart. Mary Harmon Ma [facility] 10-16-2024 Miscellaneous Notes Pt notified of results via mychart. Mary Harmon Ma TC to pt. LM to call office, ask for triage nurse to get results. Lisy Ross LPN Can you please call the patient and let her know that I reviewed her mammogram. Mammogram showed dense breast tissue, however no malignancy is noted. Radiology recommending repeat screening in 1 year. Please let me know if she has any questions. Thank you. Kimberli aHll APRN.FAST FOODS WORKER documented in this encounter [facility] 10-11-2024 Telephone encounter Note TC to pt. LM to call office, ask for triage nurse to get results. Lisy Ross LPN [facility] 10-10-2024 Telephone encounter Note Can you please call the patient and let her know that I reviewed her mammogram. Mammogram showed dense breast tissue, however no malignancy is noted. Radiology recommending repeat screening in 1 year. Please let me know if she has any questions. Thank you. Kimberli Hall APRN.FAST FOODS WORKER [facility] 10-09-2024 History of Present illness Narrative Radiology Service Progress Note PATIENT NAME: Vianca Perez DATE OF SERVICE: October 09, 2024 TIME: 1:27 PM PATIENT IDENTITY VERIFICATION COMPLETED USING TWO (2) IDENTIFIERS: Name and Date of confirmed by patient verbally. FALL SCREENING: Has the patient had 2 falls in the last year or 1 fall with injury or currently using an Ambulatory Assistive Device (Walker, Cane, Wheelchair, Crutches, etc.)? No PATIENT GENDER DATA: Female. status: : No status: NO. PATIENT RELEVANT IMPLANT DATA REVIEWED: Not Applicable PATIENT PRESENTS WITH AN IMPLANTABLE OR ATTACHED OIL TANKER CAPTAIN: No RADIOLOGY DEPARTMENT: Mammography PERIPHERAL IV DATA: Not applicable SIGNED BY: RT Presley(Mick) October 09, 2024 1:27 PM documented in this encounter [facility] 10-09-2024 Note HNO ID: [id number] Author: MARISSA TREJO RT(R) Service: ? Author Type: Technologist Type: Progress Notes Filed: 10/09/2024 13:27 Note Text: Radiology Service Progress Note PATIENT NAME: Vianca Perez DATE OF SERVICE: October 09, 2024 TIME: 1:27 PM PATIENT IDENTITY VERIFICATION COMPLETED USING TWO (2) IDENTIFIERS: Name and Date of confirmed by patient verbally. FALL SCREENING: Has the patient had 2 falls in the last year or 1 fall with injury or currently using an Ambulatory Assistive Device (Walker, Cane, Wheelchair, Crutches, etc.)? No PATIENT GENDER DATA: Female. status: : No status: NO. PATIENT RELEVANT IMPLANT DATA REVIEWED: Not Applicable PATIENT PRESENTS WITH AN IMPLANTABLE OR ATTACHED OIL TANKER CAPTAIN: No RADIOLOGY DEPARTMENT: Mammography PERIPHERAL IV DATA: Not applicable SIGNED BY: RT Presley(Mick) October 09, 2024 1:27 PM [facility] 09-27-2024 Telephone encounter Note Pt notified. Transferred to PSS to set up appt Mary Harmon MA [facility] 09-27-2024 Miscellaneous Notes Pt notified. Transferred to PSS to set up appt Mary Harmon MA Can you please let the patient know that mammogram order has been placed. Thank you Kimberli Hall APRN.CNP Patient calling she forgot to ask for her yearly mamm order. Last one was done 09/06/2023. Pending order to file. Please let patient know when order is ready for her to schedule appt. Please advise documented in this encounter [facility] 09-27-2024 Telephone encounter Note Noted, thank you. Kimberli Hall APRN.FAST FOODS WORKER [facility] 09-27-2024 Miscellaneous Notes Noted, thank you. Kimberli Hall APRN.FAST FOODS WORKER Phoned patient went over results, notes from Kimberli Hall LAND ACQUISITION ANALYST with understanding. Scheduled appt for 11/12/2024 with LAND ACQUISITION ANALYST at 220 pm. Patient does not want to take cholesterol medication. Can you please call the patient and let her know that I reviewed her lab results. Glucose was mildly elevated. Kidney function is stable but still decreased. I would recommend being mindful of processed foods and salt in the diet. Try to avoid NSAIDs if possible. LDL cholesterol was elevated. Her cardiac risk is 20%. She may consider starting a cholesterol-lowering medication. I would like her to work on lifestyle changes at home, try to increase lean protein, vegetables, get some form of exercise. Please let me know what she prefers. Vitamin D was low normal. I would recommend taking vitamin D3 2000 to 4000 IUs daily. She will be due for a 6-month follow-up in October. The 10-year ASCVD risk score (Shawn CHANDLER, et al., 2019) is: 20.4% Values used to calculate the score: Age: 74 years Sex: Female Is Non- : No Diabetic: No Tobacco smoker: No Systolic Blood Pressure: 126 mmHg Is BP treated: Yes HDL Cholesterol: 36 mg/dL Total Cholesterol: 212 mg/dL Kimberli Hall APRN.FAST FOODS WORKER documented in this encounter [facility] 09-27-2024 Telephone encounter Note Phoned patient went over results, notes from Kimberli Hall LAND ACQUISITION ANALYST with understanding. Scheduled appt for 11/12/2024 with LAND ACQUISITION ANALYST at 220 pm. Patient does not want to take cholesterol medication. [facility] 09-27-2024 Telephone encounter Note Can you please call the patient and let her know that I reviewed her lab results. Glucose was mildly elevated. Kidney function is stable but still decreased. I would recommend being mindful of processed foods and salt in the diet. Try to avoid NSAIDs if possible. LDL cholesterol was elevated. Her cardiac risk is 20%. She may consider starting a cholesterol-lowering medication. I would like her to work on lifestyle changes at home, try to increase lean protein, vegetables, get some form of exercise. Please let me know what she prefers. Vitamin D was low normal. I would recommend taking vitamin D3 2000 to 4000 IUs daily. She will be due for a 6-month follow-up in October. The 10-year ASCVD risk score (Shawn CHANDLER, et al., 2019) is: 20.4% Values used to calculate the score: Age: 74 years Sex: Female Is Non- : No Diabetic: No Tobacco smoker: No Systolic Blood Pressure: 126 mmHg Is BP treated: Yes HDL Cholesterol: 36 mg/dL Total Cholesterol: 212 mg/dL Kimberli Hall APRN.FAST FOODS WORKER [facility] 09-27-2024 Telephone encounter Note Can you please let the patient know that mammogram order has been placed. Thank you Kimberli Hall APRN.FAST FOODS WORKER [facility] 09-26-2024 Telephone encounter Note Patient calling she forgot to ask for her yearly mamm order. Last one was done 09/06/2023. Pending order to file. Please let patient know when order is ready for her to schedule appt. Please advise [facility] 09-19-2024 Note Date of Procedure 09/19/2024. Pesticide Use Medical Coordinator Information Dishing Machine Operator: lynette. Start time: 1:12 PM. Quality Right Eye Good. Left Eye Good. NFL Interpretation Right Eye Superior loss. Left Eye Superior loss, Temporal loss. Ganglion Cell Layer Thickness Right Eye Inferior loss. Left Eye Inferior loss. Interval Change Right Eye Stable. Left Eye Stable. Notes Continue present treatment and repeat test in one year. Advised of need for ongoing observation. [facility] 09-19-2024 Note Date of Procedure 09/19/2024. Pesticide Use Medical Coordinator Information Dishing Machine Operator: lynette. Start time: 1:12 PM. Reliability Right Eye Good. Left Eye Good. Interpretation Right Eye Normal. Left Eye Normal. Interval Change Right Eye Stable. Left Eye Stable. Notes Continue present treatment and repeat test in one year. Advised of need for ongoing observation. [facility] 09-19-2024 Instructions Jacoby Shafer II, OD - 09/19/2024 1:40 PM EST Assessment and Plan H40.1131 Primary open-angle glaucoma, bilateral, mild stage (primary encounter diagnosis) Comment: Intraocular pressures appear stable with current treatment. Advise patient as to the risks of blindness with glaucoma. Advise patient as to status of condition and necessity of close monitoring as directed. Continue use of Latanoprost 0.005% 1 gt both eyes qhs and Cosopt 1 gt both eyes bid. Recheck glaucoma control in 6 months at [facility]. H25.813 Combined form of senile cataract of both eyes Comment: Slow progression both eyes. Tolerated. Monitor. 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 I have confirmed and edited as necessary the relevant HPI, ophthalmic history, ROS, and the neuro exam findings as obtained by others. I have seen and examined Vianca Perez. I have discussed the case and the management of this patient's care with the Resident/Fellow, if applicable. I also have reviewed and agree with the assessment and plan as stated above and agree with all of its relevant components. documented in this encounter [facility] 09-19-2024 Note HNO ID: [id number] Author: JACOBY SHAFER II, BETTY Service: ? Author Type: DIVISION SALES MANAGER Type: Progress Notes Filed: 09/19/2024 13:42 Note Text: Assessment and Plan H40.1131 Primary open-angle glaucoma, bilateral, mild stage (primary encounter diagnosis) Comment: Intraocular pressures appear stable with current treatment. Advise patient as to the risks of blindness with glaucoma. Advise patient as to status of condition and necessity of close monitoring as directed. Continue use of Latanoprost 0.005% 1 gt both eyes qhs and Cosopt 1 gt both eyes bid. Recheck glaucoma control in 6 months at [facility]. H25.813 Combined form of senile cataract of both eyes Comment: Slow progression both eyes. Tolerated. Monitor. 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 I have confirmed and edited as necessary the relevant HPI, ophthalmic history, ROS, and the neuro exam findings as obtained by others. I have seen and examined Vianca Toussaint Abelino. I have discussed the case and the management of this patient's care with the Resident/Fellow, if applicable. I also have reviewed and agree with the assessment and plan as stated above and agree with all of its relevant components. [facility] 09-19-2024 History of Present illness Narrative Assessment and Plan H40.1131 Primary open-angle glaucoma, bilateral, mild stage (primary encounter diagnosis) Comment: Intraocular pressures appear stable with current treatment. Advise patient as to the risks of blindness with glaucoma. Advise patient as to status of condition and necessity of close monitoring as directed. Continue use of Latanoprost 0.005% 1 gt both eyes qhs and Cosopt 1 gt both eyes bid. Recheck glaucoma control in 6 months at E. H25.813 Combined form of senile cataract of both eyes Comment: Slow progression both eyes. Tolerated. Monitor. 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 I have confirmed and edited as necessary the relevant HPI, ophthalmic history, ROS, and the neuro exam findings as obtained by others. I have seen and examined Vianca Toussaint Abelino. I have discussed the case and the management of this patient's care with the Resident/Fellow, if applicable. I also have reviewed and agree with the assessment and plan as stated above and agree with all of its relevant components. documented in this encounter [facility] 08-09-2024 Telephone encounter Note Prescription Refill Information The patient has been identified by name and date of : Yes Caregiver verified no other encounters exist for this prescription request: Yes Caregiver confirmed with patient/requestor that no other refills are due, in the near future, with this provider at this time: Yes The last office visit in the department: 02/23/24 Does the patient have a future office visit with this provider/department: No Medicare wellness due February 2025 Requested Prescriptions Pending Prescriptions Disp Refills sertraline (ZOLOFT) 100 mg tablet 180 tablet 3 Sig: Take 1 tablet by mouth two times a day. Lisy Ross LPN August 09, 2024 7:06 AM [facility] 08-09-2024 Miscellaneous Notes Prescription Refill Information The patient has been identified by name and date of : Yes Caregiver verified no other encounters exist for this prescription request: Yes Caregiver confirmed with patient/requestor that no other refills are due, in the near future, with this provider at this time: Yes The last office visit in the department: 02/23/24 Does the patient have a future office visit with this provider/department: No Medicare wellness due February 2025 Requested Prescriptions Pending Prescriptions Disp Refills sertraline (ZOLOFT) 100 mg tablet 180 tablet 3 Sig: Take 1 tablet by mouth two times a day. Lisy Ross LPN August 09, 2024 7:06 AM documented in this encounter [facility] 05-24-2024 History of Present illness Narrative POPULATION HEALTH NAVIGATION OUTREACH Action/[facility] MESSAGE SENT MAMMOGRAMS due after 09-06-24 Reason for Outreach Care Gap/HCC or Scheduling Wellness Visits Care Gaps due: Breast Cancer Screening Patient Contacted: Unable or unnecessary to reach patient: Left message [employer] message sent Navigation Signature: Catherine Arenas MA May 24, 2024 7:52 AM documented in this encounter [facility] 05-23-2024 Telephone encounter Note The following approved medication requests have been transmitted electronically. Requested Prescriptions Pending Prescriptions Disp Refills lisinopril (ZESTRIL) 5 mg tablet 90 tablet 3 Sig: Take 1 tablet by mouth once daily. potassium chloride (K-TAB) 10 mEq tablet 90 tablet 3 Sig: Take 1 tablet by mouth once daily. triamterene-hydroCHLOROthiazide (MAXZIDE-25) 37.5-25 mg per tablet 90 tablet 3 Sig: Take 1 tablet by mouth once daily. Kimberli Hall APRN.SAÚL [facility] 05-23-2024 Miscellaneous Notes The following approved medication requests have been transmitted electronically. Requested Prescriptions Pending Prescriptions Disp Refills lisinopril (ZESTRIL) 5 mg tablet 90 tablet 3 Sig: Take 1 tablet by mouth once daily. potassium chloride (K-TAB) 10 mEq tablet 90 tablet 3 Sig: Take 1 tablet by mouth once daily. triamterene-hydroCHLOROthiazide (MAXZIDE-25) 37.5-25 mg per tablet 90 tablet 3 Sig: Take 1 tablet by mouth once daily. Kimberli Hall APRN.CNP NANCY-02/23/24 Labs-02/22/24 NOV- Not due for yearly till February 2025 Lisy Ross LPN documented in this encounter [facility] 05-23-2024 Telephone encounter Note NANCY-02/23/24 Labs-02/22/24 NOV- Not due for yearly till February 2025 Lisy Ross LPN [facility] 04-12-2024 History of Present illness Narrative POPULATION HEALTH NAVIGATION OUTREACH Action/FYI NO ANSWER [facility] MESSAGE SENT MAMMOGRAMS due after 09-06-24 HCC CLOSURE Reason for Outreach Care Gap/HCC or Scheduling Wellness Visits Care Gaps due: Breast Cancer Screening Patient Contacted: Unable or unnecessary to reach patient: Unable to leave message [employer] message sent Navigation Signature: Catherine Arenas MA April 12, 2024 9:01 AM documented in this encounter [facility] 03-08-2024 Telephone encounter Note Most recent labs faxed to Dr. Olson's office per patient request. Faxed too [phone]. Pt notified via [employer]. Zaira Woodall MA [facility] 03-08-2024 Miscellaneous Notes Most recent labs faxed to Dr. Olson's office per patient request. Faxed too [phone]. Pt notified via [employer]. Zaira Woodall MA documented in this encounter [facility] 03-07-2024 Instructions Jacoby Shafer II, OD - 03/07/2024 1:18 PM EDT Assessment and Plan H40.1131 Primary open-angle glaucoma, bilateral, mild stage (primary encounter diagnosis) Comment: Intraocular pressures appear in previously demonstrated range with current treatment. Advise patient as to the risks of blindness with glaucoma. Advise patient as to status of condition and necessity of close monitoring as directed. Continue use of Latanoprost 0.005% 1 gt both eyes qhs and Cosopt 1 gt both eyes bid. 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 Monitor. H43.393 Vitreous floaters of both eyes Comment: Vitreal floaters stable both eyes. Retinas flat and intact with no apparent retinal tear or traction. Monitor yearly. I have confirmed and edited as necessary the relevant HPI, ophthalmic history, ROS, and the neuro exam findings as obtained by others. I have seen and examined Vianca Toussaint Abelino. I have discussed the case and the management of this patient's care with the Resident/Fellow, if applicable. I also have reviewed and agree with the assessment and plan as stated above and agree with all of its relevant components. documented in this encounter [facility] 03-07-2024 History of Present illness Narrative Assessment and Plan H40.1131 Primary open-angle glaucoma, bilateral, mild stage (primary encounter diagnosis) Comment: Intraocular pressures appear in previously demonstrated range with current treatment. Advise patient as to the risks of blindness with glaucoma. Advise patient as to status of condition and necessity of close monitoring as directed. Continue use of Latanoprost 0.005% 1 gt both eyes qhs and Cosopt 1 gt both eyes bid. 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 Monitor. H43.393 Vitreous floaters of both eyes Comment: Vitreal floaters stable both eyes. Retinas flat and intact with no apparent retinal tear or traction. Monitor yearly. I have confirmed and edited as necessary the relevant HPI, ophthalmic history, ROS, and the neuro exam findings as obtained by others. I have seen and examined Vianca Toussaint Abelino. I have discussed the case and the management of this patient's care with the Resident/Fellow, if applicable. I also have reviewed and agree with the assessment and plan as stated above and agree with all of its relevant components. documented in this encounter [facility] 03-01-2024 Telephone encounter Note Phoned patient and went over results, notes from Kimberli Hall LAND ACQUISITION ANALYST with understanding. [facility] 03-01-2024 Miscellaneous Notes Phoned patient and went over results, notes from Kimberli Hall LAND ACQUISITION ANALYST with understanding. Can you please call the patient and let her know that I reviewed her hand x-ray results. X-ray showed no fracture, however arthritis is noted. I would recommend taking an anti-inflammatory, however due to her decreased kidney function I would recommend using Tylenol arthritis at this time. If pain does not improve I would recommend a consult with orthopedics. Please let me know if she has any questions. Thank you. Kimberli Hall APRN.CNP documented in this encounter [facility] 03-01-2024 Telephone encounter Note Can you please call the patient and let her know that I reviewed her hand x-ray results. X-ray showed no fracture, however arthritis is noted. I would recommend taking an anti-inflammatory, however due to her decreased kidney function I would recommend using Tylenol arthritis at this time. If pain does not improve I would recommend a consult with orthopedics. Please let me know if she has any questions. Thank you. Kimberli Hall APRN.CNP [facility] 02-23-2024 History of Present illness Narrative Radiology Service Progress Note PATIENT NAME: Vianca Perez DATE OF SERVICE: February 23, 2024 TIME: 2:10 PM PATIENT IDENTITY VERIFICATION COMPLETED USING TWO (2) IDENTIFIERS: Name and Date of confirmed by patient verbally. FALL SCREENING: Has the patient had 2 falls in the last year or 1 fall with injury or currently using an Ambulatory Assistive Device (Walker, Cane, Wheelchair, Crutches, etc.)? No PATIENT GENDER DATA: Female. status: : No status: NO. PATIENT RELEVANT IMPLANT DATA REVIEWED: Yes PATIENT PRESENTS WITH AN IMPLANTABLE OR ATTACHED OIL TANKER CAPTAIN: No RADIOLOGY DEPARTMENT: General X-ray: Exam(s) Completed: Upper Extremity X-Ray(s): Hand, right PERIPHERAL IV DATA: Not applicable SIGNED BY: RT Servando(R) February 23, 2024 2:10 PM documented in this encounter [facility] 02-23-2024 Instructions Kimberli Hall APRN.FAST FOODS WORKER - 02/23/2024 1:36 PM EDT Get repeat fasting labs in 6 months prior to next visit Get xray completed May use Tylenol and ice as needed for hand pain. May trial a wrist brace. Apply steroid ointment to rash Follow up in 6 months or sooner as needed. Screening schedule The following prevention plan is recommended: Advance Directive Discussion due on 10/24/2023 WHAT YOU CAN DO TO PREVENT FALLS Many falls can be prevented. By making some changes, you can lower your chances of falling. Four things YOU can do to prevent falls for you* and your caregiver 1. Begin a regular exercise program Exercise is one of the most important ways to lower your chances of falling. It makes you stronger and helps you feel better. Exercises that improve balance and coordination (like Floyd Chi) are the most helpful. Lack of exercise leads to weakness and increases your chances of falling. Ask your doctor or health care provider about the best type of exercise program for you. 2. Have your health care provider review your medicines Have your doctor or pharmacist review all the medicines you take, even [id number] medicines. As you get older, the way medicines work in your body can change. Some medicines, or combinations of medicines, can make you sleepy or dizzy and can cause you to fall. 3. Have your vision checked Have your eyes checked by an eye doctor at least once a year. You may be wearing the wrong glasses or have a condition like glaucoma or cataracts that limits your vision. Poor vision can increase your chances of falling. 4. Make your home safer About half of all falls happen at home. To make your home safer: Remove things you can trip over (like papers, books, clothes, and shoes) from stairs and places where you walk. Remove small throw rugs or use double-sided tape to keep the rugs from slipping. Keep items you use often in cabinets you can reach easily without using a step stool. Have grab bars put in next to your toilet and in the tub or shower. Use non-slip mats in the bathtub and on shower floors. Improve the lighting in your home. As you get older, you need brighter lights to see well. Hang light-weight curtains or shades to reduce glare. Have handrails and lights put in on all staircases. Wear shoes both inside and outside the house. Avoid going barefoot or wearing slippers. For more information, contact: Centers for Disease Control and Prevention www.cdc.gov/injury * This information may not apply if you have certain medical conditions. documented in this encounter [facility] 02-23-2024 History of Present illness Narrative Images from the original note were not included. Vianca Perez is a 73 year old female here for a Medicare wellness visit. Medicare Health Risk Assessment General Health Good Exercise: Minutes/Day 20 min Exercise: Days/Week 2 days Alcohol: Daily Use Monthly or less Alcohol: Drinks/Day 1 or 2 Alcohol: 6 or more drinks Never Feel off balance No Concerns: Teeth/Dentures No Concerns: Sexual function No Troubled by feelings Anxious; Stressed Frequency: Eating healthy diet More than half the days ADLs requiring help None of the above Safety precautions in home/vehicle Yes Smoke, vape, chews tobacco No Difficulty hearing No Difficulty seeing No Current Providers Specialists: I have reviewed specialist-related care of the patient in the medical record. Dr. Olson: Urology Medical/Family history review Reviewed and updated problem list, medical/surgical/family/social history, medications, and allergies. Opioid use review Opioid Medications (last 90 days) No data to display Depression screening Depression Screening PHQ-2 Score 02/23/2024 2 Depression screening tool completed and reviewed. Based on score and interview, patient is already diagnosed with depression. Screening tool discussed with patient, and I recommended continuing current plan of care. Cognitive screening Mini Cog Score: 4 Cognitive screening reviewed and No further action needed (score 3-5). Functional Observation Was the patient's Timed Up & Go test unsteady or ? 12 seconds? No Advance Care Planning Patient did not wish or was not able to name a surrogate decision maker or provide an advance care plan Measurements BP 126/72 Pulse 75 Resp 16 Ht 5' 2.992" (1.60m) Wt 232 lb (105.2kg) SpO2 95% BMI 41.11 kg/(m^2). Vision Screening: Follows with optometry/ophthalmology, Dr. Bill, wearing glasses, history of Glaucoma. Assessment/Plan Medicare annual wellness visit, subsequent (Z00.00) - Counseled on healthy diet and regular exercise - Fall avoidance information provided - Personalized prevention plan provided - Discussed need for and benefit of weight loss. BMI 41.11 kg/(m^2) his is a 73 year old female who presents today with: Patient presents with: Medicare Wellness Exam HISTORY OF PRESENT ILLNESS: Vianca Perez is a 73 year old female. Patient presents with: Medicare Wellness Exam Here in the office for extensive exam. Depression/SIERRA: Doing well with Zoloft 100 mg 1 pill BID. Has a therapy dog, Amaya. Tries to not place herself into big crowds that can cause panic attacks. Symptoms well controlled for the most part. Psoriasis: At last office visit switched from Kenalog cream to Lidex. Hands get flared up. Refers that the lidex was not very helpful. Palms will get dry skin Lipid: Trying to watch diet. Not on any medications. Was eating Carnivore, refers she started incorporating other foods. HTN: Denies any chest pains, dizziness, or SOB. Taking Lisinopril 5 mg daily, Maxzide 37.5-25 mg daily and Potassium 10 mEq daily. Right Thumb Pain: Has been on going, increase pain with daily activity. Pain is constant dull and sharp at times with certain movements. No numbness/tingling. History of Carpal tunnel repair in the past. PAST MEDICAL HISTORY: PAST MEDICAL HISTORY Diagnosis Date Acute gastritis without mention of hemorrhage Benign essential HTN Benign neoplasm of colon Chronic kidney disease Stage 3 Depression Depressive disorder, not elsewhere classified Essential hypertension, benign Glaucoma History of colon cancer History of transfusion Hypertensive kidney disease Iron deficiency anemia, unspecified Malignant neoplasm of colon, unspecified site Mixed hyperlipidemia Myopia Obesity, unspecified Skin rash Snoring Stress headaches Tobacco use disorder Unspecified glaucoma(365.9) Glaucoma UTI (urinary tract infection) Vitamin D deficiency PAST SURGICAL HISTORY Procedure Laterality Date APPENDECTOMY 1962 ARTHRD ANT NTRBD MIN DSC EA ADDL INTERSPACE 1982 C1-C2 BLADDER SURGERY HX 10/2018 Interstem implant DELIVERY ONLY , low cervical CHOLECYSTECTOMY 1977 Cholecystectomy COLONOSCOPY 09/12/2015 Repeat 3-5 years COLONOSCOPY FLX DX W/COLLJ SPEC WHEN PFRMD 09/27/2018 Colonoscopy COLSC FLX W/RMVL OF TUMOR POLYP LESION SNARE TQ 01/22/2009 EGD 01/22/2009 EYE SURGERY HX LAPS COLECTOMY PRTL W/RMVL TERMINAL ILEUM 02/19/2009 RIGHT LASER TRABECULOPLASTY OS (LEFT EYE) 05/30/2017 NEUROPLASTY &/TRANSPOS MEDIAN NRV CARPAL TUNNE 1983 Carpal tunnel decomp Right OMNTC EPIPLOECTOMY RESCJ OMENTUM SPX 03/08/2009 SALPINGO-OOPHORECTOMY COMPL/PRTL UNI/BI SPX 1998 Salpingo-oophorectomy, bilat. TONSILLECTOMY & ADENOIDECTOMY <AGE 12 1956 T/A (under age 12 years) TOTAL ABDOMINAL HYSTERECT W/WO RMVL TUBE OVARY 1998 Hysterectomy, EMILY TRABECULOPLASTY BY LASER SURGERY 2004 Glaucoma both eyes ALLERGIES Adhesive and Bee Sting MEDICATIONS Current Outpatient Medications Medication Sig Catheter (DAVENPORT CATHETER) 14 Fr misc Use as directed 5 x per day latanoprost (XALATAN) 0.005 % ophthalmic solution Use 1 Drop in both eyes daily at bedtime. dorzolamide-timolol (COSOPT) 22.3-6.8 mg/mL ophthalmic solution Use 1 Drop in both eyes two times a day. sertraline (ZOLOFT) 100 mg tablet Take 1 tablet by mouth two times a day. fluocinonide (LIDEX) 0.05 % cream Apply to affected area two times a day. lisinopril (ZESTRIL) 5 mg tablet Take 1 tablet by mouth once daily. potassium chloride (K-TAB) 10 mEq tablet Take 1 tablet by mouth once daily. triamterene-hydroCHLOROthiazide (MAXZIDE-25) 37.5-25 mg per tablet Take 1 tablet by mouth once daily. acetaminophen (TYLENOL EXTRA STRENGTH) 500 mg tablet Take 1 tablet by mouth every 6 hours as needed for pain. Chlorhexidine Gluconate (PERIDEX) 0.12 % solution Use 15 mL as instructed twice daily. triamcinolone acetonide (KENALOG) 0.1 % ointment Apply 1 application to affected area twice daily. Diaper,Brief, Adult,Disposable (PROTECTIVE UNDERWEAR LARGE) Use as directed for urinary incontinence PREMARIN vaginal cream Methenamine Hippurate (HIPREX) 1 gram tablet cranberry fruit extract (CRANBERRY CONCENTRATE ORAL) DAILY ascorbic acid, vitamin C, (VITAMIN C) 250 mg tablet DAILY naproxen (NAPROSYN) 500 mg tablet Take 1 tablet by mouth twice daily as needed (pain/inflammation, take with food.). COMPOUNDED PRESCRIPTION vitamin D3 1,000mg tab take one daily aspirin(ECOTRIN LOW STRENGTH 81 MG TAB) Take one(1) tablet daily. No current facility-administered medications for this visit. FAMILY HISTORY Problem Relation Age of Onset Diabetes Father Diabetes Brother CABG 12/27 Diabetes Maternal Grandmother Diabetes Other cousin Coronary Artery Disease Maternal Grandfather Social History Tobacco Use Smoking status: Former Packs/day: 1.00 Years: 30.00 Additional pack years: 0.00 Total pack years: 30.00 Types: Cigarettes, Cigars, Pipe Quit date: 05/24/2008 Years since quittin.7 Smokeless tobacco: Never Vaping Use Vaping Use: Never used Substance Use Topics Alcohol use: Yes Comment: socially Drug use: No REVIEW OF SYSTEMS GENERAL: No weight loss, malaise or fevers/chills HEENT: Negative for frequent or significant headaches, No changes in hearing or vision. NECK: Negative for lumps, goiter, pain and significant neck swelling RESPIRATORY: Negative for cough, hemoptysis, wheezing, dyspnea or shortness of breath CARDIOVASCULAR: Negative for chest pain, leg swelling, orthopnea, or palpitations GI: No nausea, vomiting, or diarrhea/constipation. No hematochezia/melena. No heartburn or reflux symptoms. : No history of dysuria, frequency or incontinence MUSCULOSKELETAL: + Right Hand/Thumb Pain SKIN: Negative for lesions, rash, and itching ENDOCRINE: Negative for cold or heat intolerance, polyuria, polydipsia and goiter NEURO: No history of headaches, syncope, paralysis, seizures or tremors MOOD: Negative for depression, anxiety, or suicidal ideation. EXAM: BP 126/72 Pulse 75 Resp 16 Ht 160 cm (5' 2.99") Wt 105.2 kg (232 lb) SpO2 95% BMI 41.11 kg/m PHYSICAL EXAM: General Appearance: Well appearing, alert, in no acute distress, well-hydrated, well nourished. Skin: Skin color, texture, turgor normal, no suspicious rashes or lesions. Head: Normocephalic, no masses, lesions, tenderness or abnormalities. Eyes: Anicteric sclera. Extraocular movements are intact. Lungs: Lungs clear to auscultation. No wheezing, rhonchi, rales. Heart: RRR without murmur, gallop, or rubs. No ectopy. Extremities: No deformities, edema, skin discoloration, clubbing or cyanosis. Good capillary refill. Musculoskeletal: Full ROM of right hand, tenderness with inversion. Tender along the thumb with palpation, no swelling or color change. Peripheral Pulses: Normal, Capillary refill <2secs, strong peripheral pulses, Pulses palpable. Neurologic: Gait normal. Reflexes normal and symmetric. Sensation grossly intact.. ASSESSMENT/PLAN: 1. Medicare annual wellness visit, subsequent - ICD9: V70.0, ICD10: Z00.00 (primary diagnosis) - Counseled on healthy diet and regular exercise - Follow up for annual exam in one year 2. Chronic pain of right hand - ICD9: 729.5, 338.29, ICD10: M79.641, G89.29 - Get xray completed - Continue supportive care at home - May use Tylenol as needed - May trial with a wrist brace - XR HAND GENERAL 3V PA/LAT/OBL RIGHT 3. Essential hypertension, benign - ICD9: 401.1, ICD10: I10 - Controlled - Continue current medications - Recommend home blood pressure monitoring, to bring results to next visit - Encouraged sodium restriction, DASH or Mediterranean diet - Recommend regular aerobic exercise - Discussed need for and benefit of weight loss. BMI 41.11 kg/(m^2) - COMPLETE BLOOD COUNT AND DIFFERENTIAL 4. Hyperlipidemia, unspecified hyperlipidemia type - ICD9: 272.4, ICD10: E78.5 - Improving control - Counseled on healthy diet and regular exercise - Denied wanting to start medication at this time. - Decrease processed foods in the diet, increase lean protein, vegetables, get some form exercise. - Get repeat labs in 6 months. - COMPREHENSIVE METABOLIC PANEL - LIPID PANEL BASIC 5. Recurrent major depressive disorder, in full remission (HCC) - ICD9: 296.36, ICD10: F33.42 - Stable, continue to take current medication. 6. Psoriasis - ICD9: 696.1, ICD10: L40.9 - TRIAMCINOLONE ACETONIDE 0.5 % TOPICAL OINTMENT 7. Stage 3b chronic kidney disease (HCC) - ICD9: 585.3, ICD10: N18.32 - eGFR: 53 Stable - Counseled on avoiding NSAIDs, adequate hydration - Counseled on low sodium diet 8. Vitamin D deficiency - ICD9: 268.9, ICD10: E55.9 - VITAMIN D 25 HYDROXY Follow-up in 6 months or sooner as needed. Discussed treatment plan and patient voices understanding. Patient's questions answered appropriately. Medications and potential side effects were discussed and patient voices understanding. Kimberli Hall APRN.FAST FOODS WORKER This note was partially generated using [employer] voice recognition system. Note was reviewed for accuracy. There may be minor misspellings or grammar miscues with [employer] voice recognition. documented in this encounter [facility] 09-07-2023 Instructions Jacoby Shafer II, OD - 09/07/2023 1:59 PM EST Assessment and Plan H40.1131 Primary open-angle glaucoma, bilateral, mild stage (primary encounter diagnosis) Comment: Intraocular pressures appear in previously demonstrated range with current treatment. Advise patient as to the risks of blindness with glaucoma. Advise patient as to status of condition and necessity of close monitoring as directed. Continue use of Latanoprost 0.005% 1 gt both eyes qhs and Cosopt 1 gt both eyes bid. Recheck glaucoma control in 6 months H25.813 Combined form of senile cataract of both eyes Comment: L>R. Slow progression both eyes. Tolerated. Monitor. H43.393 Vitreous floaters of both eyes Comment: Retinas stable. Monitor for change. H52.13 Myopia of both eyes H52.4 Presbyopia Comment: Small shift in glasses power. Update glasses as desired. I have confirmed and edited as necessary the relevant ophthalmic history, ROS, and the neuro exam findings as obtained by others. I have seen and examined Vianca Perez. I have discussed the case and the management of this patient's care with the Resident/Fellow, if applicable. I also have reviewed and agree with the assessment and plan as stated above and agree with all of its relevant components. Jacoby Shafer II, OD documented in this encounter [facility] 09-07-2023 History of Present illness Narrative Assessment and Plan H40.1131 Primary open-angle glaucoma, bilateral, mild stage (primary encounter diagnosis) Comment: Intraocular pressures appear in previously demonstrated range with current treatment. Advise patient as to the risks of blindness with glaucoma. Advise patient as to status of condition and necessity of close monitoring as directed. Continue use of Latanoprost 0.005% 1 gt both eyes qhs and Cosopt 1 gt both eyes bid. Recheck glaucoma control in 6 months H25.813 Combined form of senile cataract of both eyes Comment: L>R. Slow progression both eyes. Tolerated. Monitor. H43.393 Vitreous floaters of both eyes Comment: Retinas stable. Monitor for change. H52.13 Myopia of both eyes H52.4 Presbyopia Comment: Small shift in glasses power. Update glasses as desired. I have confirmed and edited as necessary the relevant ophthalmic history, ROS, and the neuro exam findings as obtained by others. I have seen and examined Vianca Perez. I have discussed the case and the management of this patient's care with the Resident/Fellow, if applicable. I also have reviewed and agree with the assessment and plan as stated above and agree with all of its relevant components. Jacoby Shafer II, OD documented in this encounter [facility] 09-07-2023 Telephone encounter Note 11/07/2023 COLON ASC [facility] 09-07-2023 Miscellaneous Notes 11/07/2023 COLON ASC documented in this encounter [facility] 09-06-2023 History of Present illness Narrative Radiology Service Progress Note PATIENT NAME: Vianca Perez DATE OF SERVICE: September 06, 2023 TIME: 1:45 PM PATIENT IDENTITY VERIFICATION COMPLETED USING TWO (2) IDENTIFIERS: Name and Date of confirmed by patient verbally. FALL SCREENING: Has the patient had 2 falls in the last year or 1 fall with injury or currently using an Ambulatory Assistive Device (Walker, Cane, Wheelchair, Crutches, etc.)? No PATIENT GENDER DATA: Female. status: : No status: NO. PATIENT RELEVANT IMPLANT DATA REVIEWED: Not Applicable RADIOLOGY DEPARTMENT: Mammography PERIPHERAL IV DATA: Not applicable SIGNED BY: RT Presley(R) September 06, 2023 1:45 PM documented in this encounter [facility] 07-14-2023 Miscellaneous Notes Form signed and completed. Faxed to number below. Zaira Woodall Ma Type of form: Medical Necessity from [place] for straight tip urine catheter Form received via fax When form is completed, Fax form to [phone] Form has been forwarded to Physician Desk: Dr. Evy Woodall Ma documented in this encounter [facility] 05-04-2023 Instructions Jacoby Shafer II, OD - 05/04/2023 1:35 PM EDT Assessment and Plan H40.1131 Primary open-angle glaucoma, bilateral, mild stage (primary encounter diagnosis) Comment: Intraocular pressures appear in previously demonstrated range with current treatment. Advise patient as to the risks of blindness with glaucoma. Advise patient as to status of condition and necessity of close monitoring as directed. Continue use of Latanoprost 0.005% 1 gt both eyes qhs and Cosopt 1 gt both eyes bid. Recheck glaucoma control in 4 months at Dilated fundus exam with update of OCT NFA and VF. H25.813 Combined form of senile cataract of both eyes Comment: Slow progression both eyes. Monitor. I have confirmed and edited as necessary the relevant ophthalmic history, ROS, and the neuro exam findings as obtained by others. I have seen and examined Vianca Toussaint Abelino. I have discussed the case and the management of this patient's care with the Resident/Fellow, if applicable. I also have reviewed and agree with the assessment and plan as stated above and agree with all of its relevant components. Jacoby Shafer II, OD documented in this encounter [facility] 05-04-2023 History of Present illness Narrative Assessment and Plan H40.1131 Primary open-angle glaucoma, bilateral, mild stage (primary encounter diagnosis) Comment: Intraocular pressures appear in previously demonstrated range with current treatment. Advise patient as to the risks of blindness with glaucoma. Advise patient as to status of condition and necessity of close monitoring as directed. Continue use of Latanoprost 0.005% 1 gt both eyes qhs and Cosopt 1 gt both eyes bid. Recheck glaucoma control in 4 months at Dilated fundus exam with update of OCT NFA and VF. H25.813 Combined form of senile cataract of both eyes Comment: Slow progression both eyes. Monitor. I have confirmed and edited as necessary the relevant ophthalmic history, ROS, and the neuro exam findings as obtained by others. I have seen and examined Vianca Toussaint Abelino. I have discussed the case and the management of this patient's care with the Resident/Fellow, if applicable. I also have reviewed and agree with the assessment and plan as stated above and agree with all of its relevant components. Jacoby Shafer II, OD documented in this encounter [facility] 05-03-2023 History of Present illness Narrative ACM BENNETT RN Action/FYI: Medication Adherence review completed per request of payer. NO PROVIDER ACTION REQUIRED Please see requests in the Summary/Findings section below Patient identified by name and date of . Patient Attributed To: QAE Payer: [facility] Reason for review or outreach: Medication Adherence Medication Adherence Review Details: Hypertension Summary / Findings: Lisinopril was due for a refill on 04/07/[address] [facility] 05/03/23-Patient refilled Lisinopril 04/18/23 Action Taken: Data submitted to Payer Other Contact made with patient: No, Chart review only. Signature: Mimi Shipley RN documented in this encounter [facility] 04-18-2023 Miscellaneous Notes The following approved medication requests have been transmitted electronically. Requested Prescriptions Pending Prescriptions Disp Refills sertraline (ZOLOFT) 100 mg tablet 120 tablet 3 Sig: Take 1 tablet by mouth twice daily. lisinopril (ZESTRIL) 5 mg tablet 90 tablet 3 Sig: Take 1 tablet by mouth once daily. potassium chloride (K-TAB) 10 mEq tablet 90 tablet 3 Sig: Take 1 tablet by mouth once daily. triamterene-hydroCHLOROthiazide (MAXZIDE-25) 37.5-25 mg per tablet 90 tablet 3 Sig: Take 1 tablet by mouth once daily. Elliot Archibald APRN.CNP Last office visit: 02/22/23 F/u scheduled: 08/25/23 Mary Harmon Ma documented in this encounter [facility] 02-22-2023 History of Present illness Narrative Chief Complaint Patient presents with: F/U 6 Month HPI Vianca Perez is a 72 year old female who presents here today for a 6 month follow up and routine wellness visit. Pt here today for her routine follow up. States her new insurance called her and said she's due for her Wellness exam. Notes she's having some Pharmacy issues and getting #90 day scripts. GI/Uro - Denies any stomach or bowel issues. Takes probiotic. Has urinary incontinence, uses straight cath up to 5 x per day. Wears adult depends. Takes Keflex daily. Follows with Urologist, Dr. Olson but requests PCP to send in supplies to [facility]. Pt needs to make appt with Urology as she believes she is due for CT scan. HTN - Occasionally will check BP at home, generally 118/68. Denies having any chest pain, sob or dizziness. On current regimen of Lisinopril 5 mg daily, Maxzide 37.5-25 mg daily and Potassium 10 meq daily. CKD managed through labs. Lipids - States her diet could improve, at times will watch it other times not as much. Denies any exercise other then when she walks around in the store. Currently on no statin medication. Depression/SIERRA - States she's doing great. On current regimen of Zoloft 100 mg bid. Has therapy dog, had letter written for this in the past. Pain - Chronic b/l knee pain. States that it comes and goes. Previously took Mobic, but not anymore. Will use Tylenol prn. 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 This seems to be getting worse. In the past she thought she has Parkinson's or Tremor due to her hand shaking when writing. She was filling out a bunch of paperwork and experienced pain in her thumb that started clicking up into her wrist. Balance - Uses a cane for balance issues, has for a long time. She denies any falls in the past year. Ophth - Has glaucoma and is on eye drops. Follows with Dr. Shafer. Pt had some concern about her liver acting up. States that she was at a birthday libertarian over the weekend and everyone thought she looked really ritchie. HM - Adv Dir/Living Will on file, pt would like to complete new papers, given in office. Pt does Mammogram every other year. Declines Shingrix at this time. Lung Cancer Screening discussed. Pt states that she has a hx of lung nodule that has been looked at in the past. Past medical history, appointments, medications, allergies reviewed. Previous Medical History PAST MEDICAL HISTORY Diagnosis Date Acute gastritis without mention of hemorrhage Benign neoplasm of colon Chronic kidney disease Stage 3 Depressive disorder, not elsewhere classified Essential hypertension, benign Glaucoma Iron deficiency anemia, unspecified Malignant neoplasm of colon, unspecified site Obesity, unspecified Skin rash Snoring Stress headaches Tobacco use disorder Unspecified glaucoma(365.9) Glaucoma UTI (urinary tract infection) Previous Surgical History PAST SURGICAL HISTORY Procedure Laterality Date APPENDECTOMY 1962 ARTHRD ANT NTRBD MIN DSC EA ADDL INTERSPACE 1982 C1-C2 BLADDER SURGERY HX 10/2018 Interstem implant DELIVERY ONLY , low cervical CHOLECYSTECTOMY 1977 Cholecystectomy COLONOSCOPY 09/12/15 Repeat 3-5 years COLONOSCOPY FLX DX W/COLLJ SPEC WHEN PFRMD 09/27/2018 Colonoscopy COLSC FLX W/RMVL OF TUMOR POLYP LESION SNARE TQ 01/22/09 EGD 01/22/09 LAPS COLECTOMY PRTL W/RMVL TERMINAL ILEUM 02/19/09 RIGHT LASER TRABECULOPLASTY OS (LEFT EYE) 05/30/2017 NEUROPLASTY &/TRANSPOS MEDIAN NRV CARPAL TUNNE 1983 Carpal tunnel decomp Right OMNTC EPIPLOECTOMY RESCJ OMENTUM SPX 03-08-09 SALPINGO-OOPHORECTOMY COMPL/PRTL UNI/BI SPX 1998 Salpingo-oophorectomy, bilat. TONSILLECTOMY & ADENOIDECTOMY <AGE 11 1955 T/A (under age 11 years) TOTAL ABDOMINAL HYSTERECT W/WO RMVL TUBE OVARY 1998 Hysterectomy, EMILY TRABECULOPLASTY BY LASER SURGERY 2004 Glaucoma both eyes Family History FAMILY HISTORY Problem Relation Age of Onset Diabetes Father Diabetes Brother CABG 12/27 Diabetes Maternal Grandmother Diabetes Other cousin Coronary Artery Disease Maternal Grandfather Patient Allergies ALLERGIES Allergen Reactions Adhesive Rash Bee Sting Swelling Very red and swollen Current Medications Current Outpatient Medications on File Prior to Visit Medication Sig latanoprost (XALATAN) 0.005 % ophthalmic solution Use 1 Drop in both eyes daily at bedtime. dorzolamide-timolol (COSOPT) 22.3-6.8 mg/mL ophthalmic solution Use 1 Drop in both eyes twice daily. acetaminophen (TYLENOL EXTRA STRENGTH) 500 mg tablet Take 1 tablet by mouth every 6 hours as needed for pain. Chlorhexidine Gluconate (PERIDEX) 0.12 % solution Use 15 mL as instructed twice daily. triamcinolone acetonide (KENALOG) 0.1 % ointment Apply 1 application to affected area twice daily. Catheter (DAVENPORT CATHETER) 14 Fr misc Use as directed 5 x per day Diaper,Brief, Adult,Disposable (PROTECTIVE UNDERWEAR LARGE) Use as directed for urinary incontinence sertraline (ZOLOFT) 100 mg tablet TAKE 1 TABLET BY MOUTH TWICE DAILY. lisinopril (ZESTRIL, PRINIVIL) 5 mg tablet TAKE 1 TABLET BY MOUTH ONCE DAILY. potassium chloride (K-TAB) 10 mEq tablet TAKE 1 TABLET BY MOUTH ONCE DAILY. triamterene-hydroCHLOROthiazide (MAXZIDE-25) 37.5-25 mg per tablet TAKE 1 TABLET BY MOUTH ONCE DAILY. meloxicam (MOBIC) 15 mg tablet Take 1 tablet by mouth once daily. Take with food. Zinc 50 mg tab Take 1 tablet by mouth once daily. cephALEXin (KEFLEX) 250 mg capsule PREMARIN vaginal cream Methenamine Hippurate (HIPREX) 1 gram tablet bifidobacteri bifid.and longum (FLORAJEN BIFIDOBLEND) 460 mg (9-1 bill.cell) cap Take 1 capsule by mouth once daily. cranberry fruit extract (CRANBERRY CONCENTRATE ORAL) DAILY ascorbic acid, vitamin C, (VITAMIN C) 250 mg tablet DAILY naproxen (NAPROSYN) 500 mg tablet Take 1 tablet by mouth twice daily as needed (pain/inflammation, take with food.). Lactobacillus acidophilus (BACID) cap Take one(1) tablet daily. COMPOUNDED PRESCRIPTION vitamin D3 1,000mg tab take one daily aspirin(ECOTRIN LOW STRENGTH 81 MG TAB) Take one(1) tablet daily. loratadine(CLARITIN 10 MG TAB) TAKE PRESCRIBED No current facility-administered medications on file prior to visit. Social History Social History Tobacco Use Smoking status: Former Packs/day: 1.00 Years: 30.00 Pack years: 30.00 Types: Cigarettes, Pipe, Cigars Quit date: 05/24/2008 Years since quittin.7 Smokeless tobacco: Never Vaping Use Vaping Use: Never used Substance Use Topics Alcohol use: Yes Comment: socially Drug use: No EXAM: BP 124/82 (BP Site: Left Arm, BP Position: Sitting, BP Cuff Size: Regular Adult) Pulse 64 Resp 16 Wt 110.7 kg (244 lb) BMI 43.22 kg/m General Appearance: Well appearing, alert, in no acute distress, well-hydrated, well nourished. and Obese. Lungs: Lungs clear to auscultation. No wheezing, rhonchi, rales.. Heart: RRR without murmur, gallop, or rubs. No ectopy. Extremities: Right thumb examined. No swelling felt on exam, no real pain to palpitate. Possible tendonitis. Health Maintenance List LUNG CANCER SCREENING Never done SHINGRIX VACCINE(1 of 2) Never done ADVANCE DIRECTIVE DISCUSSION due on 10/24/2022 MAMMOGRAM due on 04/06/2023 COVID-19 VACCINE(1) due on 08/24/2023 INFLUENZA(Season Ended) due on 06/24/2023 SERUM CREATININE due on 08/23/2023 HEMOGLOBIN/HEMATOCRIT due on 08/23/2023 ANNUAL PCP TEAM CHRONIC DISEASE VISIT due on 08/24/2023 BP CONTROLLED (<130/80) due on 08/24/2023 COLORECTAL CANCER SCREENING due on 09/27/2023 DIABETES SCREEN due on 08/23/2025 DTAP,TDAP,TD(2 - Td or Tdap) due on 09/08/2026 LIPID SCREEN due on 04/06/2027 BONE DENSITY Completed HEPATITIS C SCREENING Completed PNEUMOCOCCAL: 65+ Completed Data reviewed Appointment on 02/18/2023 Component Date Value Cholesterol, Total 02/18/2023 218 (A) Triglyceride 02/18/2023 174 (A) HDL Cholesterol 02/18/2023 38 (A) Non HDL Cholesterol 02/18/2023 180 (A) Fasting Time 02/18/2023 10 VLDL Cholesterol 02/18/2023 35 (A) TC:HDL Ratio 02/18/2023 5.74 (A) LDL Cholesterol 02/18/2023 145 (A) LDL:HDL Ratio 02/18/2023 3.82 (A) Protein, Total 02/18/2023 7.5 Albumin 02/18/2023 4.6 Calcium, Total 02/18/2023 10.2 Bilirubin, Total 02/18/2023 0.2 Alkaline Phosphatase 02/18/2023 101 AST 02/18/2023 17 ALT 02/18/2023 18 Glucose 02/18/2023 116 (A) BUN 02/18/2023 19 Creatinine 02/18/2023 1.25 (A) Sodium 02/18/2023 144 Potassium 02/18/2023 4.8 Chloride 02/18/2023 103 CO2 02/18/2023 28 Anion Gap 02/18/2023 13 Estimated Glomerular Kwabena* 02/18/2023 46 (A) ASSESSMENT/PLAN: 1. Wellness examination - ICD9: V70.0, ICD10: Z00.00 (primary diagnosis) - Counseled on healthy diet and regular exercise - Calcium intake with supplements or by diet of 1000 mg/day for under 50, 0225-3400 mg/day for 50+ 2. Essential hypertension, benign - ICD9: 401.1, ICD10: I10 - good control - Continue current medication(s) - Recommended regular aerobic exercise. - Recommend home blood pressure monitoring, to bring results in on next visit - Goal of BP <130/80 3. Stage 3 chronic kidney disease, unspecified whether stage 3a or 3b CKD (HCC) - ICD9: 585.3, ICD10: N18.30 - Stable 4. Hyperlipidemia, unspecified hyperlipidemia type - ICD9: 272.4, ICD10: E78.5 - suboptimal control - Encouraged following a low fat, low cholesterol diet. - Discussed the benefits of regular aerobic exercise and weight loss. 5. Elevated glucose - ICD9: 790.29, ICD10: R73.09 - Stable - Cont diet/exercise 6. Recurrent major depressive disorder, in full remission (HCC) - ICD9: 296.36, ICD10: F33.42 - Stable - Continue current medication regimen. 7. Bilateral chronic knee pain - ICD9: 719.46, 338.29, ICD10: M25.561, M25.562, G89.29 - Stable 8. Urinary retention - ICD9: 788.20, ICD10: R33.9 - Cont f/u with Dr. Olson 9. Urinary incontinence, unspecified type - ICD9: 788.30, ICD10: R32 - Cont f/u with Dr. Olson 10. Right wrist tendonitis - ICD9: 727.05, ICD10: M77.8 - Discussed heat, NSAIDs and use of wrist splint I agree with the Chief Complaint, ROS, and Past Histories independently gathered by the clinical clerical and office support workers and the remaining scribed note accurately describes my personal service to the patient. Zahraa Ratliff MD The documentation for this note was completed by Zaira Woodall Ma acting as scribe for Zahraa Ratliff MD. February 22, 2023 8:14 AM. Zaira Woodall Ma documented in this encounter [facility] 01-04-2023 Miscellaneous Notes Faxed. Mary Harmon Ma Office received request for incontinence supplies from [employer]. They requested form to be completed and fax OV notes from the last 6 months to [phone]. Routed to PCP to complete with attached OV notes available. Zaira Woodall Ma documented in this encounter [facility] 12-29-2022 Instructions Jacoby Shafer II, OD - 12/29/2022 9:08 AM EST Assessment and Plan H40.1131 Primary open-angle glaucoma, bilateral, mild stage (primary encounter diagnosis) Comment: Intraocular pressures appear stable with current treatment. Advise patient as to the risks of blindness with glaucoma. Advise patient as to status of condition and necessity of close monitoring as directed. Continue use of Latanoprost 0.005% 1 gt both eyes qhs and Cosopt 1 gt both eyes bid. Recheck glaucoma control in 4 months. H25.813 Combined form of senile cataract of both eyes Comment: Slow progression but patient tolerates. Monitor. I have confirmed and edited as necessary the relevant ophthalmic history, ROS, and the neuro exam findings as obtained by others. I have seen and examined Vianca Perez. I have discussed the case and the management of this patient's care with the Resident/Fellow, if applicable. I also have reviewed and agree with the assessment and plan as stated above and agree with all of its relevant components. Jacoby Shafer II, OD documented in this encounter [facility] 12-29-2022 History of Present illness Narrative Assessment and Plan H40.1131 Primary open-angle glaucoma, bilateral, mild stage (primary encounter diagnosis) Comment: Intraocular pressures appear stable with current treatment. Advise patient as to the risks of blindness with glaucoma. Advise patient as to status of condition and necessity of close monitoring as directed. Continue use of Latanoprost 0.005% 1 gt both eyes qhs and Cosopt 1 gt both eyes bid. Recheck glaucoma control in 4 months. H25.813 Combined form of senile cataract of both eyes Comment: Slow progression but patient tolerates. Monitor. I have confirmed and edited as necessary the relevant ophthalmic history, ROS, and the neuro exam findings as obtained by others. I have seen and examined Vianca Perez. I have discussed the case and the management of this patient's care with the Resident/Fellow, if applicable. I also have reviewed and agree with the assessment and plan as stated above and agree with all of its relevant components. Jacoby Shafer II, OD documented in this encounter [facility] 08-31-2022 Instructions Jacoby Shafer II, OD - 08/31/2022 9:05 AM EST Assessment and Plan H40.1131 Primary open-angle glaucoma, bilateral, mild stage (primary encounter diagnosis) Comment: Intraocular pressures appear stable with current treatment. Advise patient as to the risks of blindness with glaucoma. Advise patient as to status of condition and necessity of close monitoring as directed. Continue use of Cosopt 1 gt both eyes twice a day and Latanoprost 0.005% 1 gt both eyes qhs. Recheck glaucoma control in 4 months. H25.813 Combined form of senile cataract of both eyes Comment: Slow progression both eyes. Patient tolerates for now. Monitor. H52.13 Myopia of both eyes H52.223 Regular astigmatism of both eyes H52.4 Presbyopia Comment: Shift in glasses power. Update glasses to maximize visual performance. I have confirmed and edited as necessary the relevant ophthalmic history, ROS, and the neuro exam findings as obtained by others. I have seen and examined Vianca Perez. I have discussed the case and the management of this patient's care with the Resident/Fellow, if applicable. I also have reviewed and agree with the assessment and plan as stated above and agree with all of its relevant components. Jacoby Shafer II, OD documented in this encounter [facility] 08-31-2022 History of Present illness Narrative Assessment and Plan H40.1131 Primary open-angle glaucoma, bilateral, mild stage (primary encounter diagnosis) Comment: Intraocular pressures appear stable with current treatment. Advise patient as to the risks of blindness with glaucoma. Advise patient as to status of condition and necessity of close monitoring as directed. Continue use of Cosopt 1 gt both eyes twice a day and Latanoprost 0.005% 1 gt both eyes qhs. Recheck glaucoma control in 4 months. H25.813 Combined form of senile cataract of both eyes Comment: Slow progression both eyes. Patient tolerates for now. Monitor. H52.13 Myopia of both eyes H52.223 Regular astigmatism of both eyes H52.4 Presbyopia Comment: Shift in glasses power. Update glasses to maximize visual performance. I have confirmed and edited as necessary [...] with all of its relevant components. Jacoby Shafer II, OD documented in this encounter [facility] 08-26-2022 Miscellaneous Notes Faxed. Mary Harmon Ma Patient has been identified by name and date of : Yes Type of form: Medical Necessity- cath supplies Form received via: Fax When form is completed, fax form to fax number provided-[employer] [phone] Form has been forwarded to: Provider's desk. Provider name: Evy Harmon Ma documented in this encounter [facility] 08-16-2022 Miscellaneous Notes No labs pending. Please place labs for patient to complete prior to appointment. documented in this encounter [facility] 08-11-2022 Miscellaneous Notes Call to [employer] to obtain fax number. On hold for 10 minutes. F#: [phone]. Pt sent [employer] message notifying her that this has been completed and to update office if there's any issues. Zaira Woodall Ma Rxs printed Zahraa Ratliff MD Pt saw Dr. Olson, Urologist who wrote her a new rx stating to increase cathing to 5x per day, dispense 5 caths/day #90 day supply. Pt states her insurance only accepts scripts written from PCP. Pt asking for order for cath and pull ups size large be faxed to [employer]. Uses the pull ups for bowel and urinary incontinence. Mary Harmon Ma documented in this encounter [facility] 05-31-2022 Miscellaneous Notes Noted Zahraa Ratliff MD Pt called in and reports she has a new insurance, [employer]. She goes to Dr Olson for urology and reports that she straight caths 4 times a day. Per Urology her new insurance will get a hold of Pts PCP because they will need approval from them for Pts cath supplies. Pt reports she uses 6 inch caths. Pt was sent through to Scheduling to update insurance information in system. documented in this encounter [facility] 04-06-2022 Miscellaneous Notes April 06, 2022 PID: [id number] Vianca Perez [address] [id number] Dear Ms. Perez, We are pleased to inform you that the results of your recent breast imaging exam on 04/06/2022 are normal. Early detection of cancer is very important. We also understand recommendations regarding breast cancer screening are controversial. Please discuss with your primary care provider which strategy is best for you and whether a mammogram is right for you. Your imaging studies and report will be kept on file at [facility] as part of your permanent medical record and are available for your continuing care. Thank you for allowing us to help in meeting your health care needs. Sincerely, Dr. Valenzuela Interpreting Radiologist [facility] (Normal over 40) documented in this encounter [facility] 04-06-2022 History of Present illness Narrative Radiology Service Progress Note PATIENT NAME: Vianca Perez DATE OF SERVICE: April 06, 2022 TIME: 9:34 AM PATIENT IDENTITY VERIFICATION COMPLETED USING TWO (2) IDENTIFIERS: Name and Date of confirmed by patient verbally. FALL SCREENING: Has the patient had 2 falls in the last year or 1 fall with injury or currently using an Ambulatory Assistive Device (Walker, Cane, Wheelchair, Crutches, etc.)? No PATIENT GENDER DATA: Female. status: : No status: NO. PATIENT RELEVANT IMPLANT DATA REVIEWED: Not Applicable RADIOLOGY DEPARTMENT: Mammography PERIPHERAL IV DATA: Not applicable SIGNED BY: RT Randy(R) April 06, 2022 9:34 AM documented in this encounter [facility] 03-30-2022 History of Present illness Narrative Chief Complaint Patient presents with: 6 Month Exam HPI Vianca Perez is a 71 year old female who presents here today for Chronic Medical Conditions. HTN: Patient is compliant with meds Yes Monitors bp at home: No. Denies side effects: Yes. Chest pain: No. Dyspnea: No. Edema: No. Palpitations: No. Syncope: No. Headache: No. Dizziness: No. Depression: Taking Prescribed Zoloft 200 mg daily. No side effects from medications. Would like a note for an emotional support animal today. Requesting a letter. CKD Stage III: Monitoring GFR. Due for blood work. Following with Dr. Rachel for recurrent UTIs. Getting further work up for this problem. Past medical history, appointments, medications, allergies reviewed. Previous Medical History PAST MEDICAL HISTORY Diagnosis Date Acute gastritis without mention of hemorrhage Benign neoplasm of colon Chronic kidney disease Stage 3 Depressive disorder, not elsewhere classified Essential hypertension, benign Glaucoma Iron deficiency anemia, unspecified Malignant neoplasm of colon, unspecified site Obesity, unspecified Skin rash Snoring Stress headaches Tobacco use disorder Unspecified glaucoma(365.9) Glaucoma UTI (urinary tract infection) Previous Surgical History PAST SURGICAL HISTORY Procedure Laterality Date APPENDECTOMY 1962 ARTHRD ANT NTRBD MIN DSC EA ADDL INTERSPACE 1982 C1-C2 BLADDER SURGERY HX 10/2018 Interstem implant DELIVERY ONLY , low cervical CHOLECYSTECTOMY 1977 Cholecystectomy COLONOSCOPY 09/12/15 Repeat 3-5 years COLONOSCOPY FLX DX W/COLLJ SPEC WHEN PFRMD 09/27/2018 Colonoscopy COLSC FLX W/RMVL OF TUMOR POLYP LESION SNARE TQ 01/22/09 EGD 01/22/09 LAPS COLECTOMY PRTL W/RMVL TERMINAL ILEUM 02/19/09 RIGHT LASER TRABECULOPLASTY OS (LEFT EYE) 05/30/2017 NEUROPLASTY &/TRANSPOS MEDIAN NRV CARPAL TUNNE 1983 Carpal tunnel decomp Right OMNTC EPIPLOECTOMY RESCJ OMENTUM SPX 03-08-09 SALPINGO-OOPHORECTOMY COMPL/PRTL UNI/BI SPX 1998 Salpingo-oophorectomy, bilat. TONSILLECTOMY & ADENOIDECTOMY <AGE 11 1955 T/A (under age 11 years) TOTAL ABDOMINAL HYSTERECT W/WO RMVL TUBE OVARY 1998 Hysterectomy, EMILY TRABECULOPLASTY BY LASER SURGERY 2004 Glaucoma both eyes Family History FAMILY HISTORY Problem Relation Age of Onset Diabetes Father Diabetes Brother CABG 12/27 Diabetes Maternal Grandmother Diabetes Other cousin Coronary Artery Disease Maternal Grandfather Patient Allergies ALLERGIES Allergen Reactions Adhesive Rash Bee Sting Swelling Very red and swollen Current Medications Current Outpatient Medications on File Prior to Visit Medication Sig latanoprost (XALATAN) 0.005 % ophthalmic solution Use 1 Drop in both eyes daily at bedtime. dorzolamide-timolol (COSOPT) 22.3-6.8 mg/mL ophthalmic solution Use 1 Drop in both eyes twice daily. Chlorhexidine Gluconate (PERIDEX) 0.12 % solution Use 15 mL as instructed twice daily. triamcinolone acetonide (KENALOG) 0.1 % ointment Apply 1 application to affected area twice daily. sertraline (ZOLOFT) 100 mg tablet Take 1 tablet by mouth twice daily. potassium chloride ER (K-DUR, KLOR-CON) 10 mEq tablet Take 1 tablet by mouth once daily. lisinopril (PRINIVIL) 5 mg tablet Take 1 tablet by mouth once daily. triamterene-hydroCHLOROthiazide (MAXZIDE-25) 37.5-25 mg per tablet Take 1 tablet by mouth once daily. meloxicam (MOBIC) 15 mg tablet Take 1 tablet by mouth once daily. Take with food. Zinc 50 mg tab Take 1 tablet by mouth once daily. cephALEXin (KEFLEX) 250 mg capsule PREMARIN vaginal cream Methenamine Hippurate (HIPREX) 1 gram tablet bifidobacteri bifid.and longum (FLORAJEN BIFIDOBLEND) 460 mg (9-1 bill.cell) cap Take 1 capsule by mouth once daily. cranberry fruit extract (CRANBERRY CONCENTRATE ORAL) DAILY ascorbic acid, vitamin C, (VITAMIN C) 250 mg tablet DAILY naproxen (NAPROSYN) 500 mg tablet Take 1 [...] prior to visit. Social History Social History Tobacco Use Smoking status: Former Smoker Packs/day: 1.00 Years: 30.00 Pack years: 30.00 Types: Cigarettes, Pipe, Cigars Quit date: 05/24/2008 Years since quittin.8 Smokeless tobacco: Never Used Vaping Use Vaping Use: Never used Substance Use Topics Alcohol use: Yes Comment: socially Drug use: No REVIEW OF SYSTEMS: as above Reviewed relevant PMHx, PSHx, Social Hx, current medications and allergies. EXAM: BP 128/76 Pulse 74 Resp 16 Wt 107 kg (236 lb) BMI 41.81 kg/m General Appearance: Well appearing, alert, in no acute distress, well-hydrated, well nourished.. Lungs: Lungs clear to auscultation. No wheezing, rhonchi, rales.. Heart: RRR without murmur, gallop, or rubs. No ectopy. Abdomen: Normal abdominal exam, Abdomen soft, non-tender. Bowel sounds normal. No masses, organomegaly. Extremities: No deformities, edema. Health Maintenance List BP CONTROLLED (<130/80) Never done SHINGRIX VACCINE(1 of 2) Never done LUNG CANCER SCREENING Never done MAMMOGRAM due on 05/05/2021 ADVANCE DIRECTIVE DISCUSSION Never done COVID-19 VACCINE(1) due on 06/26/2022 INFLUENZA(Season Ended) due on 06/24/2022 ANNUAL PCP TEAM CHRONIC DISEASE VISIT due on 06/26/2022 SERUM CREATININE due on 06/26/2022 HEMOGLOBIN/HEMATOCRIT due on 06/26/2022 COLORECTAL CANCER SCREENING due on 09/27/2023 DIABETES SCREEN due on 06/26/2024 LIPID SCREEN due on 06/26/2026 DTAP,TDAP,TD(2 - Td or Tdap) due on 09/08/2026 BONE DENSITY Completed HEPATITIS C SCREENING Completed PNEUMOCOCCAL: 65+ Completed Data reviewed External CBC reviewed. ASSESSMENT/PLAN: 1. Essential hypertension, benign - ICD9: 401.1, ICD10: I10 (primary diagnosis) - good control - Continue current medication(s) - Recommended regular aerobic exercise. - Recommend home blood pressure monitoring, to bring results in on next visit - Goal of BP <130/80 2. Recurrent major depressive disorder, remission status unspecified (HCC) - ICD9: 296.30, ICD10: F33.9 - Stable on Zoloft 200 mg daily. Emotional support animal letter written and given to patient. 3. Hyperlipidemia, unspecified hyperlipidemia type - ICD9: 272.4, ICD10: E78.5 - to be determined upon return of lab results - Encouraged following a low fat, low cholesterol diet. - Discussed the benefits of regular aerobic exercise and weight loss. 4. Stage 3 chronic kidney disease, unspecified whether stage 3a or 3b CKD (HCC) - ICD9: 585.3, ICD10: N18.30 - Check CMP Elliot Archibald APRN.CNP RTO in 6 months, sooner if needed. This note was partly generated using [employer] voice recognition dictation and may contain some misspelled or inaccurate words missed on review. documented in this encounter [facility] 03-30-2022 Instructions Elliot Archibald APRN.CNP - 03/30/2022 12:59 PM EDT 1. Get blood work completed that Dr. Ratliff ordered 2. Schedule mammogram. 3. Emotional support animal letter written. 4. Follow up in 6 months, continue current medications. Elliot Archibald APRN.CNP documented in this encounter [facility] 03-23-2022 Miscellaneous Notes Last OV: 06/26/21 Next OV; None None of these medications are due for refills until 09/14. Called pt and discussed, does not refills currently. Wants to schedule overdue 6 month follow up. Schedule to see Elliot Archibald CNP. Zaira Woodall Ma documented in this encounter [facility] 12-24-2020 History of Past i llness Narrative Problem Noted Date Resolved Date Medicare annual wellness visit, subsequent 12/2408/20/2022 Benign neoplasm of colon 08/14/2012 017 Rectal bleeding 07/25/2012 08/20/2022 Malignant neoplasm of colon 01/22/200907/25 Benign neoplasm of colon 01/22/2009 010 Hypopotassemia 04/03/2007 08/20/2022 Overview: See lab 08/29 SKIN LESION 11/30/2006 04/03/2007 documented as of this encounter (statuses as of 08/20/2022) [facility] History of Past illness Narrative* Problem Noted Date Resolved Date Medicare annual wellness visit, subsequent 12/2408/20/2022 Benign neoplasm of colon 08/14/2012 017 Rectal bleeding 07/25/2012 08/20/2022 Malignant neoplasm of colon 01/22/200907/25 Benign neoplasm of colon 01/22/2009 010 Hypopotassemia 04/03/2007 08/20/2022 Overview: See lab 08/29 SKIN LESION 11/30/2006 04/03/2007 documented as of this encounter (statuses as of 08/26/2022) [facility] History of Past illness Narrative* Problem Noted Date Resolved Date Medicare annual wellness visit, subsequent 12/2408/20/2022 Benign neoplasm of colon 08/14/2012 017 Rectal bleeding 07/25/2012 08/20/2022 Malignant neoplasm of colon 01/22/200907/25 Benign neoplasm of colon 01/22/2009 010 Hypopotassemia 04/03/2007 08/20/2022 Overview: See lab 08/29 SKIN LESION 11/30/2006 04/03/2007 documented as of this encounter (statuses as of 08/31/2022) [facility] History of Past illness Narrative* Problem Noted Date Resolved Date Medicare annual wellness visit, subsequent 12/2408/20/2022 Benign neoplasm of colon 08/14/2012 017 Rectal bleeding 07/25/2012 08/20/2022 Malignant neoplasm of colon 01/22/200907/25 Benign neoplasm of colon 01/22/2009 010 Hypopotassemia 04/03/2007 08/20/2022 Overview: See lab 08/29 SKIN LESION 11/30/2006 04/03/2007 documented as of this encounter (statuses as of 12/29/2022) [facility] History of Past illness Narrative* Problem Noted Date Resolved Date Medicare annual wellness visit, subsequent 12/2408/20/2022 Benign neoplasm of colon 08/14/2012 017 Rectal bleeding 07/25/2012 08/20/2022 Malignant neoplasm of colon 01/22/200907/25 Benign neoplasm of colon 01/22/2009 010 Hypopotassemia 04/03/2007 08/20/2022 Overview: See lab 08/29 SKIN LESION 11/30/2006 04/03/2007 documented as of this encounter (statuses as of 01/04/2023) [facility] History of Past illness Narrative* Problem Noted Date Resolved Date Medicare annual wellness visit, subsequent 12/2408/20/2022 Benign neoplasm of colon 08/14/2012 017 Rectal bleeding 07/25/2012 08/20/2022 Malignant neoplasm of colon 01/22/200907/25 Benign neoplasm of colon 01/22/2009 010 Hypopotassemia 04/03/2007 08/20/2022 Overview: See lab 08/29 SKIN LESION 11/30/2006 04/03/2007 documented as of this encounter (statuses as of 02/22/2023) [facility] History of Past illness Narrative* Problem Noted Date Resolved Date Medicare annual wellness visit, subsequent 12/2408/20/2022 Benign neoplasm of colon 08/14/2012 017 Rectal bleeding 07/25/2012 08/20/2022 Malignant neoplasm of colon 01/22/200907/25 Benign neoplasm of colon 01/22/2009 010 Hypopotassemia 04/03/2007 08/20/2022 Overview: See lab 08/29 SKIN LESION 11/30/2006 04/03/2007 documented as of this encounter (statuses as of 04/18/2023) [facility] History of Past illness Narrative* Problem Noted Date Diagnosed Date Resolved Date Medicare annual wellness visit, subsequent 12/24/2020 08/20/2022 Benign neoplasm of colon 08/14/2012 Rectal bleeding 07/25/2012 08/20/2022 Malignant neoplasm of colon 01/22/2009 08/20/2022 Benign neoplasm of colon 01/22/2009 Hypopotassemia 04/03/2007 08/20/2022 Overview: See lab 08/29 SKIN LESION 11/30/2006 04/03/2007 documented as of this encounter (statuses as of 05/03/2023) [facility] History of Past illness Narrative* Problem Noted Date Diagnosed Date Resolved Date Medicare annual wellness visit, subsequent 12/24/2020 08/20/2022 Benign neoplasm of colon 08/14/2012 Rectal bleeding 07/25/2012 08/20/2022 Malignant neoplasm of colon 01/22/2009 08/20/2022 Benign neoplasm of colon 01/22/2009 Hypopotassemia 04/03/2007 08/20/2022 Overview: See lab 08/29 SKIN LESION 11/30/2006 04/03/2007 documented as of this encounter (statuses as of 05/05/2023) [facility] History of Past illness Narrative* Problem Noted Date Diagnosed Date Resolved Date Medicare annual wellness visit, subsequent 12/24/2020 08/20/2022 Benign neoplasm of colon 08/14/2012 Rectal bleeding 07/25/2012 08/20/2022 Malignant neoplasm of colon 01/22/2009 08/20/2022 Benign neoplasm of colon 01/22/2009 Hypopotassemia 04/03/2007 08/20/2022 Overview: See lab 08/29 SKIN LESION 11/30/2006 04/03/2007 documented as of this encounter (statuses as of 07/14/2023) [facility] History of Past illness Narrative* Problem Noted Date Diagnosed Date Resolved Date Medicare annual wellness visit, subsequent 12/24/2020 08/20/2022 Benign neoplasm of colon 08/14/2012 Rectal bleeding 07/25/2012 08/20/2022 Malignant neoplasm of colon 01/22/2009 08/20/2022 Benign neoplasm of colon 01/22/2009 Hypopotassemia 04/03/2007 08/20/2022 Overview: See lab 08/29 SKIN LESION 11/30/2006 04/03/2007 documented as of this encounter (statuses as of 09/07/2023) [facility] History of Past illness Narrative* Problem Noted Date Diagnosed Date Resolved Date Medicare annual wellness visit, subsequent 12/24/2020 08/20/2022 Benign neoplasm of colon 08/14/2012 Rectal bleeding 07/25/2012 08/20/2022 Malignant neoplasm of colon 01/22/2009 08/20/2022 Benign neoplasm of colon 01/22/2009 Hypopotassemia 04/03/2007 08/20/2022 Overview: See lab 08/29 SKIN LESION 11/30/2006 04/03/2007 documented as of this encounter (statuses as of 09/07/2023) [facility] History of Past illness Narrative* Problem Noted Date Resolved Date Benign neoplasm of colon 08/14/2012 017 Benign neoplasm of colon 01/22/2009 010 SKIN LESION 11/30/2006 04/03/2007 documented as of this encounter (statuses as of 03/23/2022) [facility] History of Past illness Narrative* Problem Noted Date Resolved Date Benign neoplasm of colon 08/14/2012 017 Benign neoplasm of colon 01/22/2009 010 SKIN LESION 11/30/2006 04/03/2007 documented as of this encounter (statuses as of 03/30/2022) [facility] History of Past illness Narrative* Problem Noted Date Resolved Date Benign neoplasm of colon 08/14/2012 017 Benign neoplasm of colon 01/22/2009 010 SKIN LESION 11/30/2006 04/03/2007 documented as of this encounter (statuses as of 04/07/2022) [facility] History of Past illness Narrative* Problem Noted Date Resolved Date Benign neoplasm of colon 08/14/2012 017 Benign neoplasm of colon 01/22/2009 010 SKIN LESION 11/30/2006 04/03/2007 documented as of this encounter (statuses as of 04/08/2022) [facility] History of Past illness Narrative* Problem Noted Date Resolved Date Benign neoplasm of colon 08/14/2012 017 Benign neoplasm of colon 01/22/2009 010 SKIN LESION 11/30/2006 04/03/2007 documented as of this encounter (statuses as of 05/31/2022) [facility] History of Past illness Narrative* Problem Noted Date Resolved Date Benign neoplasm of colon 08/14/2012 017 Benign neoplasm of colon 01/22/2009 010 SKIN LESION 11/30/2006 04/03/2007 documented as of this encounter (statuses as of 08/11/2022) [facility] noteNo assessment information availableWMer[facility] Work Phone: Evaluation note* Diagnosis Essential hypertension, benign Recurrent major depressive disorder, remission status unspecified (HCC) [facility] Diagnosis Essential hypertension, benign- Primary Recurrent major depressive disorder, remission status unspecified (HCC) Hyperlipidemia, unspecified hyperlipidemia type Stage 3 chronic kidney disease, unspecified whether stage 3a or 3b CKD (HCC) Screening mammogram for breast cancer [facility] Diagnosis Screening mammogram for breast cancer [facility] Diagnosis Urinary incontinence, unspecified type- Primary Incontinence of feces, unspecified fecal incontinence type Urinary retention Retention of urine, unspecified [facility]* Diagnosis Essential hypertension, benign- Primary Iron deficiency anemia, unspecified iron deficiency anemia type Stage 3 chronic kidney disease, unspecified whether stage 3a or 3b CKD (HCC) [facility] Diagnosis Primary open-angle glaucoma, bilateral, mild stage- Primary Combined form of senile cataract of both eyes Myopia of both eyes Myopia Regular astigmatism of both eyes Regular astigmatism Presbyopia [facility] Diagnosis Primary open-angle glaucoma, bilateral, mild stage- Primary Combined form of senile cataract of both eyes [facility] Diagnosis Wellness examination- Primary Essential hypertension, benign Stage 3 chronic kidney disease, unspecified whether stage 3a or 3b CKD (HCC) Hyperlipidemia, unspecified hyperlipidemia type Elevated glucose Other abnormal glucose Recurrent major depressive disorder, in full remission (HCC) Bilateral chronic knee pain Pain in joint, lower leg Urinary retention Retention of urine, unspecified Urinary incontinence, unspecified type Right wrist tendonitis Morbid obesity with BMI of 40.0-44.9, adult (HCC) Morbid obesity [facility] Diagnosis Recurrent major depressive disorder, remission status unspecified (HCC) Essential hypertension, benign [facility] Diagnosis Primary open-angle glaucoma, bilateral, mild stage- Primary Combined form of senile cataract of both eyes [facility] Diagnosis Encounter for screening mammogram for malignant neoplasm of breast Other screening mammogram [facility] Diagnosis Primary open-angle glaucoma, bilateral, mild stage- Primary Combined form of senile cataract of both eyes Vitreous floaters of both eyes Myopia of both eyes Myopia Presbyopia [facility] Diagnosis Medicare annual wellness visit, subsequent- Primary Routine general medical examination at a health care facility Chronic pain of right hand Essential hypertension, benign Hyperlipidemia, unspecified hyperlipidemia type Recurrent major depressive disorder, in full remission (HCC) Psoriasis Other psoriasis Stage 3b chronic kidney disease (HCC) Vitamin D deficiency Unspecified vitamin D deficiency [facility] Diagnosis Primary open-angle glaucoma, bilateral, mild stage- Primary Combined form of senile cataract of both eyes Vitreous floaters of both eyes [facility]* Diagnosis Essential hypertension, benign [facility] Diagnosis Essential hypertension, benign [facility] Chronic pain of right hand [facility] Diagnosis Recurrent major depressive disorder, remission status unspecified (HCC) [facility] Diagnosis Primary open-angle glaucoma, bilateral, mild stage- Primary Combined form of senile cataract of both eyes Myopia of both eyes Myopia Regular astigmatism of both eyes Regular astigmatism Presbyopia [facility] Diagnosis Screening mammogram for breast cancer- Primary [facility] Diagnosis Screening mammogram for breast cancer [facility] Diagnosis Primary open-angle glaucoma, bilateral, mild stage- Primary Combined form of senile cataract of both eyes [facility] Diagnosis Essential hypertension, benign- Primary Iron deficiency anemia, unspecified iron deficiency anemia type Vitamin D deficiency Unspecified vitamin D deficiency Hyperlipidemia, unspecified hyperlipidemia type Stage 3b chronic kidney disease (HCC) [facility] Diagnosis Recurrent major depressive disorder, remission status unspecified Essential hypertension, benign [facility] Diagnosis Medicare annual wellness visit, subsequent- Primary Routine general medical examination at a health care facility Essential hypertension, benign Iron deficiency anemia, unspecified iron deficiency anemia type Vitamin D deficiency Unspecified vitamin D deficiency Hyperlipidemia, unspecified hyperlipidemia type Stage 3b chronic kidney disease (HCC) Encounter for screening examination for other mental health and behavioral disorders Recurrent major depressive disorder, remission status unspecified Psoriasis Other psoriasis Ganglion cyst of right foot Nail deformity Unspecified disease of nail Eustachian tube disorder, bilateral [facility] Diagnosis Recurrent major depressive disorder, remission status unspecified Psoriasis Other psoriasis [facility] Diagnosis Hallux valgus of right foot- Primary Nail deformity Unspecified disease of nail Hallux valgus of left foot Onychodystrophy Other specified disease of nail [facility] Diagnosis Hallux valgus of right foot Hallux valgus of left foot documented in this encounter [facility] for referral (narrative)* Diagnostic Procedure Only (Routine) - Authorized Specialty Diagnoses / Procedures Referred By Dotty t Referred To Contact [facility] Diagnoses Screening mammogram for breast cancer Procedures JAMES SCREENING SCREENING MAMMOGRAPHY BI 2-VIEW BREAST INC CAD Billy, Elliot, SYSTEM DISPATCHER.FAST FOODS WORKER [address] [place] [address] [facility] [address] [place] [address] Referral ID Status Reason Start Date Expiration Date Visits Requested Visits Authorized [id number] Authorized Auto-Generat ed Referral 03/30/2022 04/29/2023 1 1 [facility] for referral (narrative)* Diagnostic Procedure Only (Routine) - Closed Specialty Diagnoses / Procedures Referred By Contac t Referred To Contact [facility] Diagnoses Screening mammogram for breast cancer Procedures JAMES SCREENING SCREENING MAMMOGRAPHY BI 2-VIEW BREAST INC [facility] Elliot Archibald APRN.FAST FOODS WORKER [address] [place] [address] [facility] [address] [place] [address] Referral ID Status Reason Start Date Expiration Date V isits Requested Visits Authorized [id number] Closed Auto-Generate d Referral 03/30/2022 04/29/2023 1 1 [facility] for referral (narrative)* Diagnostic Procedure Only (Routine) - Closed Specialty Diagnoses / Procedures Referred By Contac t Referred To Contact [facility] Diagnoses Chronic pain of right hand Procedures XR HAND GENERAL 3V PA/LAT/OBL RIGHT RADEX HAND MINIMUM 3 VIEWS Kimberli Hall APRN.FAST FOODS WORKER [address] [place] [address] [place] [address] Referral ID Status Reason Start Date Expiration Date V isits Requested Visits Authorized [id number] Closed Auto-Generate d Referral 02/23/2024 03/24/2025 1 1 [facility] for referral (narrative)* Diagnostic Procedure Only (Routine) - Closed Specialty Diagnoses / Procedures Referred By Contac t Referred To Contact [facility] Diagnoses Chronic pain of right hand Procedures XR HAND GENERAL 3V PA/LAT/OBL RIGHT RADEX HAND MINIMUM 3 VIEWS Kimberli Hall APRN.FAST FOODS WORKER [address] [place] [address] [place] [address] Referral ID Status Reason Start Date Expiration Date V isits Requested Visits Authorized [id number] Closed Auto-Generate d Referral 02/23/2024 03/24/2025 1 1 [facility] for referral (narrative)* Diagnostic Procedure Only (Routine) - Authorized Specialty Diagnoses / Procedures Referred By Contac t Referred To Contact [facility] Diagnoses Screening mammogram for breast cancer Procedures JAMES SCREENING SCREENING MAMMOGRAPHY BI 2-VIEW BREAST INC CAD Kimberli Hall APRN.FAST FOODS WORKER [address] [place] [address] [facility] [address] [place] [address] Referral ID Status Reason Start Date Expiration Date Visits Requested Visits Authorized [id number] Authorized Auto-Generat ed Referral 09/27/2024 10/26/2025 1 1 [facility] for visit Narrative* Diagnostic Procedure Only (Routine) - Closed Specialty Diagnoses / Procedures Referred By Contac t Referred To Contact [facility] Diagnoses Screening mammogram for breast cancer Procedures JAMES SCREENING SCREENING MAMMOGRAPHY BI 2-VIEW BREAST INC CAD Elliot Archibald, SYSTEM DISPATCHER.FAST FOODS WORKER [address] [place] [address] [facility] [address] [place] [address] Referral ID Status Reason Start Date Expiration Date V isits Requested Visits Authorized [id number] Closed Auto-Generate d Referral 03/30/2022 04/29/2023 1 1 [facility] for visit Narrative* Diagnostic Procedure Only (Routine) - Closed Specialty Diagnoses / Procedures Referred By Contac t Referred To Contact [facility] Diagnoses Encounter for screening mammogram for malignant neoplasm of breast Procedures JAMES SCREENING SCREENING MAMMOGRAPHY BI 2-VIEW BREAST INC CAD Zahraa Ratliff MD [address] [place] [address] [facility] [address] [place] [address] Referral ID Status Reason Start Date Expiration Date V isits Requested Visits Authorized [id number] Closed Auto-Generate d Referral 08/25/2023 09/23/2024 1 1 [facility] for visit Narrative* Diagnostic Procedure Only (Routine) - Closed Specialty Diagnoses / Procedures Referred By Contac t Referred To Contact [facility] Diagnoses Chronic pain of right hand Procedures XR HAND GENERAL 3V PA/LAT/OBL RIGHT RADEX HAND MINIMUM 3 VIEWS Kimberli Hall, BALDEV.FAST FOODS WORKER [address] [place] [address] [place] [address] Referral ID Status Reason Start Date Expiration Date V isits Requested Visits Authorized [id number] Closed Auto-Generate d Referral 02/23/2024 03/24/2025 1 1 [facility] for visit Narrative* Diagnostic Procedure Only (Routine) - Closed Specialty Diagnoses / Procedures Referred By Contac t Referred To Contact [facility] Diagnoses Screening mammogram for breast cancer Procedures JAMES SCREENING SCREENING MAMMOGRAPHY BI 2-VIEW BREAST INC CAD Kimberli Hall, BALDEV.FAST FOODS WORKER [address] [place] [address] [facility] [address] [place] [address] Referral ID Status Reason Start Date Expiration Date V isits Requested Visits Authorized [id number] Closed Auto-Generate d Referral 09/27/2024 10/26/2025 1 1 [facility] for visit Narrative* Diagnostic Procedure Only (Routine) - Closed Specialty Diagnoses / Procedures Referred By Contac t Referred To Contact [facility] Diagnoses Hallux valgus of right foot Hallux valgus of left foot Procedures XR FOOT GENERAL 3V AP/LAT/OBL BILATERAL RADEX FOOT COMPLETE MINIMUM 3 [place] [address] Phone: tel: fax: [place] [address] Referral ID Status Reason Start Date Expiration Date V isits Requested Visits Authorized [id number] Closed Auto-Generate d Referral 06/20/2025 07/20/2026 1 1 [facility] Summary Purpose Family History No Family History Records FoundNo Family History Records FoundNo Family History Records Found Advance Directives No Advanced Directives Records Found Advance Directive Response Recorded Date/ Time Living Will Yes November 07 12:52pm Power of Manager Landscape Yes November 07, 2018 12:52pm Documents on File Type Date Recorded Patient Transportation Engineering Technician Expl anation Advance Directive(s) 09/27/2018 9:45 AM Advance Directive(s) 12/14/2017 10:10 AM Documents on File Type Date Recorded Patient Transportation Engineering Technician Expl anation Advance Directive(s) 09/27/2018 9:45 AM Advance Directive(s) 12/14/2017 10:10 AM Documents on File Type Date Recorded Patient Transportation Engineering Technician Expl anation Advance Directive(s) 12/14/2017 10:10 AM Documents on File Type Date Recorded Patient Transportation Engineering Technician Expl anation Advance Directive(s) 12/14/2017 10:10 AM Chief Complaint and Reason for Visit Chief Complaint Retention of urine, unspecified Chief Complaint Retention of urine, unspecified BACK PAIN,UTI Chief Complaint Retention of urine, unspecified BACK PAIN,UTI HYDRONEPHROSIS, BACK PAIN Chief Complaint UTI RETENTION Chief Complaint UTI Medications Administered Section Active Administered Medications - up to 3 most recent administrations Medication Order MAR Action Action Date Dose Rate Site fluorescein-benoxinate 0.25-0.4 % 1 Drop (FLURESS) 1 Drop, BOTH EYES, DIRECTED, Starting on Tue08/31/22 at 0930, Until Tue08/31/22 at 2128, Administer for applanation tonometry. In the event of a Fluress shortage, administer Brina-Fluor 1 drop into both eyes as directed for applanation tonometry Given 08/31/2022 9:30 AM EST 1 Drop tropicamide 1 % 1 Drop (MYDRIACYL) 1 Drop, BOTH EYES, DIRECTED, Starting on Tue08/31/22 at 0930, Until Tue08/31/22 at 2128, Administer for dilation Given 08/31/2022 9:30 AM EST 1 Drop Active Administered Medications - up to 3 most recent administrations Medication Order MAR Action Action Date Dose Rate Site fluorescein-benoxinate 0.25-0.4 % 1 Drop (FLURESS) 1 Drop, BOTH EYES, DIRECTED, Starting on Tue12/29/22 at 0930, Until Tue12/29/22 at 2129, Administer for applanation tonometry. In the event of a Fluress shortage, administer [place]-Fluor 1 drop into both eyes as directed for applanation tonometry Given 12/29/2022 9:30 AM EST 1 Drop Active Administered Medications - up to 3 most recent administrations Medication Order MAR Action Action Date Dose Rate Site fluorescein-benoxinate 0.25-0.4 % 1 Drop (FLURESS) 1 Drop, BOTH EYES, DIRECTED, Starting on Tue05/04/23 at 1400, Until Symone 05/05/23 at 0159, Administer for applanation tonometry. In the event of a Fluress shortage, administer Brina-Fluor 1 drop into both eyes as directed for applanation tonometry Given 05/04/2023 2:00 PM EDT 1 Drop Active Administered Medications - up to 3 most recent administrations Medication Order MAR Action Action Date Dose Rate Site fluorescein-benoxinate 0.3-0.4 % 1 Drop (FLURESS) 1 Drop, BOTH EYES, DIRECTED, Starting on Tue09/07/23 at 1400, Until Symone 09/08/23 at 0159, Administer for applanation tonometry. In the event of a Fluress shortage, administer Brina-Fluor 1 drop into both eyes as directed for applanation tonometry Given 09/07/2023 2:00 PM EST 1 Drop tropicamide 0.5 % 1 Drop (MYDRIACYL) 1 Drop, BOTH EYES, DIRECTED, Starting on Tue09/07/23 at 1400, Until Symone 09/08/23 at 0159, Administer for dilation Given 09/07/2023 2:00 PM EST 1 Drop Additional Source Comments INFORMATION SOURCE (unrecogn ized section and content) DATE CREATED AUTHOR 04/21/2018 [facility] DATE CREATED AUTHOR AUTHOR'S ORGANIZ ATION 06/30/2025 [facility] DATE CREATED AUTHOR AUTHOR'S ORGANIZ ATION 08/08/2025 [facility] Goals (unrecognized section and content) Goals may be documented in a n alternate sectionGoals may be documented in an alternate sectionGoals may be documented in an alternate sectionGoals may be documented in an alternate sectionGoals may be documented in an alternate section Source Comments (unrecognize d section and content) In the event this informatio n is protected by the Federal Confidentiality of Alcohol and Drug Abuse Patient Records regulations: The Federal rules restrict any use of the information to criminally investigate or prosecute any alcohol or drug abuse patient.[facility] CenterIn the event this information is protected by the Federal Confidentiality of Alcohol and Drug Abuse Patient Records regulations: The Federal rules restrict any use of the information to criminally investigate or prosecute any alcohol or drug abuse patient.[facility] CenterIn the event this information is protected by the Federal Confidentiality of Alcohol and Drug Abuse Patient Records regulations: The Federal rules restrict any use of the information to criminally investigate or prosecute any alcohol or drug abuse patient.[facility] CenterIn the event this information is protected by the Federal Confidentiality of Alcohol and Drug Abuse Patient Records regulations: The Federal rules restrict any use of the information to criminally investigate or prosecute any alcohol or drug abuse patient.[facility] CenterIn the event this information is protected by the Federal Confidentiality of Alcohol and Drug Abuse Patient Records regulations: The Federal rules restrict any use of the information to criminally investigate or prosecute any alcohol or drug abuse patient.[facility] CenterIn the event this information is protected by the Federal Confidentiality of Alcohol and Drug Abuse Patient Records regulations: The Federal rules restrict any use of the information to criminally investigate or prosecute any alcohol or drug abuse patient.[facility] CenterIn the event this information is protected by the Federal Confidentiality of Alcohol and Drug Abuse Patient Records regulations: The Federal rules restrict any use of the information to criminally investigate or prosecute any alcohol or drug abuse patient.[facility] CenterIn the event this information is protected by the Federal Confidentiality of Alcohol and Drug Abuse Patient Records regulations: The Federal rules restrict any use of the information to criminally investigate or prosecute any alcohol or drug abuse patient.[facility] CenterIn the event this information is protected by the Federal Confidentiality of Alcohol and Drug Abuse Patient Records regulations: The Federal rules restrict any use of the information to criminally investigate or prosecute any alcohol or drug abuse patient.[facility] CenterIn the event this information is protected by the Federal Confidentiality of Alcohol and Drug Abuse Patient Records regulations: The Federal rules restrict any use of the information to criminally investigate or prosecute any alcohol or drug abuse patient.[facility] CenterIn the event this information is protected by the Federal Confidentiality of Alcohol and Drug Abuse Patient Records regulations: The Federal rules restrict any use of the information to criminally investigate or prosecute any alcohol or drug abuse patient.[facility] CenterIn the event this information is protected by the Federal Confidentiality of Alcohol and Drug Abuse Patient Records regulations: The Federal rules restrict any use of the information to criminally investigate or prosecute any alcohol or drug abuse patient.[facility] CenterIn the event this information is protected by the Federal Confidentiality of Alcohol and Drug Abuse Patient Records regulations: The Federal rules restrict any use of the information to criminally investigate or prosecute any alcohol or drug abuse patient.[facility] CenterIn the event this information is protected by the Federal Confidentiality of Alcohol and Drug Abuse Patient Records regulations: The Federal rules restrict any use of the information to criminally investigate or prosecute any alcohol or drug abuse patient.[facility] CenterIn the event this information is protected by the Federal Confidentiality of Alcohol and Drug Abuse Patient Records regulations: The Federal rules restrict any use of the information to criminally investigate or prosecute any alcohol or drug abuse patient.[facility] CenterIn the event this information is protected by the Federal Confidentiality of Alcohol and Drug Abuse Patient Records regulations: The Federal rules restrict any use of the information to criminally investigate or prosecute any alcohol or drug abuse patient.[facility] CenterIn the event this information is protected by the Federal Confidentiality of Alcohol and Drug Abuse Patient Records regulations: The Federal rules restrict any use of the information to criminally investigate or prosecute any alcohol or drug abuse patient.[facility] CenterIn the event this information is protected by the Federal Confidentiality of Alcohol and Drug Abuse Patient Records regulations: The Federal rules restrict any use of the information to criminally investigate or prosecute any alcohol or drug abuse patient.[facility] CenterIn the event this information is protected by the Federal Confidentiality of Alcohol and Drug Abuse Patient Records regulations: The Federal rules restrict any use of the information to criminally investigate or prosecute any alcohol or drug abuse patient.[facility] CenterIn the event this information is protected by the Federal Confidentiality of Alcohol and Drug Abuse Patient Records regulations: The Federal rules restrict any use of the information to criminally investigate or prosecute any alcohol or drug abuse patient.[facility] CenterIn the event this information is protected by the Federal Confidentiality of Alcohol and Drug Abuse Patient Records regulations: The Federal rules restrict any use of the information to criminally investigate or prosecute any alcohol or drug abuse patient.[facility] CenterIn the event this information is protected by the Federal Confidentiality of Alcohol and Drug Abuse Patient Records regulations: The Federal rules restrict any use of the information to criminally investigate or prosecute any alcohol or drug abuse patient.[facility] CenterIn the event this information is protected by the Federal Confidentiality of Alcohol and Drug Abuse Patient Records regulations: The Federal rules restrict any use of the information to criminally investigate or prosecute any alcohol or drug abuse patient.[facility] CenterIn the event this information is protected by the Federal Confidentiality of Alcohol and Drug Abuse Patient Records regulations: The Federal rules restrict any use of the information to criminally investigate or prosecute any alcohol or drug abuse patient.[facility] CenterIn the event this information is protected by the Federal Confidentiality of Alcohol and Drug Abuse Patient Records regulations: The Federal rules restrict any use of the information to criminally investigate or prosecute any alcohol or drug abuse patient.[facility] CenterIn the event this information is protected by the Federal Confidentiality of Alcohol and Drug Abuse Patient Records regulations: The Federal rules restrict any use of the information to criminally investigate or prosecute any alcohol or drug abuse patient.[facility] CenterIn the event this information is protected by the Federal Confidentiality of Alcohol and Drug Abuse Patient Records regulations: The Federal rules restrict any use of the information to criminally investigate or prosecute any alcohol or drug abuse patient.[facility] CenterIn the event this information is protected by the Federal Confidentiality of Alcohol and Drug Abuse Patient Records regulations: The Federal rules restrict any use of the information to criminally investigate or prosecute any alcohol or drug abuse patient.[facility] CenterIn the event this information is protected by the Federal Confidentiality of Alcohol and Drug Abuse Patient Records regulations: The Federal rules restrict any use of the information to criminally investigate or prosecute any alcohol or drug abuse patient.[facility] CenterIn the event this information is protected by the Federal Confidentiality of Alcohol and Drug Abuse Patient Records regulations: The Federal rules restrict any use of the information to criminally investigate or prosecute any alcohol or drug abuse patient.[facility] CenterIn the event this information is protected by the Federal Confidentiality of Alcohol and Drug Abuse Patient Records regulations: The Federal rules restrict any use of the information to criminally investigate or prosecute any alcohol or drug abuse patient.[facility] CenterIn the event this information is protected by the Federal Confidentiality of Alcohol and Drug Abuse Patient Records regulations: The Federal rules restrict any use of the information to criminally investigate or prosecute any alcohol or drug abuse patient.[facility] CenterIn the event this information is protected by the Federal Confidentiality of Alcohol and Drug Abuse Patient Records regulations: The Federal rules restrict any use of the information to criminally investigate or prosecute any alcohol or drug abuse patient.[facility] CenterIn the event this information is protected by the Federal Confidentiality of Alcohol and Drug Abuse Patient Records regulations: The Federal rules restrict any use of the information to criminally investigate or prosecute any alcohol or drug abuse patient.[facility] CenterIn the event this information is protected by the Federal Confidentiality of Alcohol and Drug Abuse Patient Records regulations: The Federal rules restrict any use of the information to criminally investigate or prosecute any alcohol or drug abuse patient.[facility] CenterIn the event this information is protected by the Federal Confidentiality of Alcohol and Drug Abuse Patient Records regulations: The Federal rules restrict any use of the information to criminally investigate or prosecute any alcohol or drug abuse patient.[facility] CenterIn the event this information is protected by the Federal Confidentiality of Alcohol and Drug Abuse Patient Records regulations: The Federal rules restrict any use of the information to criminally investigate or prosecute any alcohol or drug abuse patient.[facility] CenterIn the event this information is protected by the Federal Confidentiality of Alcohol and Drug Abuse Patient Records regulations: The Federal rules restrict any use of the information to criminally investigate or prosecute any alcohol or drug abuse patient.[facility] CenterIn the event this information is protected by the Federal Confidentiality of Alcohol and Drug Abuse Patient Records regulations: The Federal rules restrict any use of the information to criminally investigate or prosecute any alcohol or drug abuse patient.[facility] CenterIn the event this information is protected by the Federal Confidentiality of Alcohol and Drug Abuse Patient Records regulations: The Federal rules restrict any use of the information to criminally investigate or prosecute any alcohol or drug abuse patient.[facility] CenterIn the event this information is protected by the Federal Confidentiality of Alcohol and Drug Abuse Patient Records regulations: The Federal rules restrict any use of the information to criminally investigate or prosecute any alcohol or drug abuse patient.[facility] CenterIn the event this information is protected by the Federal Confidentiality of Alcohol and Drug Abuse Patient Records regulations: The Federal rules restrict any use of the information to criminally investigate or prosecute any alcohol or drug abuse patient.[facility] CenterIn the event this information is protected by the Federal Confidentiality of Alcohol and Drug Abuse Patient Records regulations: The Federal rules restrict any use of the information to criminally investigate or prosecute any alcohol or drug abuse patient.[facility] CenterIn the event this information is protected by the Federal Confidentiality of Alcohol and Drug Abuse Patient Records regulations: The Federal rules restrict any use of the information to criminally investigate or prosecute any alcohol or drug abuse patient.[facility] CenterIn the event this information is protected by the Federal Confidentiality of Alcohol and Drug Abuse Patient Records regulations: The Federal rules restrict any use of the information to criminally investigate or prosecute any alcohol or drug abuse patient.[facility] Reason for Visit (unrecogniz ed section and content) Reason Comments Refill Request Reason Comments 6 Month Exam Reason Comments Patient Update Reason Comments Orders Adult pull ups and c ath supplies Reason Comments Forms [facility] Reason Comments Glaucoma Evaluation Reason Comments Primary Open Angle Glaucoma Evaluation Reason Comments Forms Reason Comments F/U 6 Month Reason Onset Date Comments Refill Request 04/15/2023 Reason Onset Date Comments ACM BENNETT RN 05/03/2023 Medication Ad herence review per request of payer Reason Comments Forms [facility] Reason Comments Medicare Wellness Exam Reason Comments Results Right Hand xray Reason Onset Date Comments Population Health Navigation Outreach 04/12/2024 [facility] Reason Onset Date Comments Refill Request 05/23/2024 Reason Onset Date Comments Population Health Navigation Outreach 05/24/2024 [facility] Reason Onset Date Comments Refill Request 08/08/2024 Reason Comments 11/07/2023 [facility] Reason Comments Results Labs Reason Comments Orders Reason Comments Results Mammogram Reason Comments Forms [facility] Reason Onset Date Comments Refill Request 05/13/2025 Reason Comments Patient Question Reason Comments Ganglion Cyst New nail deformity Specialty Diagnoses / Procedures Referred By Dotty ballard Referred To Contact Podiatry Diagnoses Ganglion cyst of right foot Nail deformity Procedures OFFICE/OUTPATIENT [facility] 60 MINUTES Elliot Archibald, SYSTEM DISPATCHER.FAST FOODS WORKER [address] [place] [address] Phone: tel: fax: Referral ID Status Reason Start Date Expiration Date V isits Requested Visits Authorized [id number] Closed PCP Requested Referral 05/20/2025 05/20/2026 1 1 Care Teams (unrecognized sec tion and content) Song And Dance Performer Relationship Specialty Start Date End Date Zahraa Ratliff MD [address] [place] [address] PCP - General 04/15/09 Song And Dance Performer Relationship Specialty Start Date End Date Zahraa Ratliff MD [address] [place] [address] PCP - General 04/15/09 Song And Dance Performer Relationship Specialty Start Date End Date Zahraa Ratliff MD [address] [place] [address] PCP - General 04/15/09 Song And Dance Performer Relationship Specialty Start Date End Date Zahraa Ratliff MD [address] [place] [address] PCP - General 04/15/09 Song And Dance Performer Relationship Specialty [place] [address] [place] [id number] PCP - General 04/15/09 Song And Dance Performer Relationship Specialty Start Date End Date Zahraa Ratliff MD [address] [facility] [place] [address] PCP - General 04/15/09 Song And Dance Performer Relationship Specialty Start Date End Date Zahraa Ratliff MD [address] [place] [address] PCP - General 04/15/09 Song And Dance Performer Relationship Specialty Start Date End Date Zahraa Ratliff MD [address] [place] [address] PCP - General 04/15/09 Song And Dance Performer Relationship Specialty Start Date End Date Zahraa Ratliff MD [address] [place] [address] PCP - General 04/15/09 Song And Dance Performer Relationship Specialty Start Date End Date Zahraa Ratliff MD [address] [place] [address] PCP - General 04/15/09 Song And Dance Performer Relationship Specialty Start Date End Date Zahraa Ratliff MD [address] [place] [address] PCP - General 04/15/09 Team Status: Active Member Role Status Dates Dr. Zahraa Ratliff MD Family Provider Active Dr. Zahraa Ratliff MD Primary Care Provider Active Team Status: Inactive Member Role Status Dates Dr. Zahraa Ratliff MD Primary Care Provider Active Dr. Sylvia Olson MD Attending Provider, Stephen elkins Active Song And Dance Performer Relationship Specialty Start Date End Date Zahraa Ratliff MD [address] [place] [address] PCP - General 04/15/09 Song And Dance Performer Relationship Specialty Start Date End Date Zahraa Ratliff MD [address] [place] [address] PCP - General 04/15/09 Song And Dance Performer Relationship Specialty Start Date End Date Zahraa Ratliff MD [address] [place] [address] PCP - General 04/15/09 Song And Dance Performer Relationship Specialty Start Date End Date Zahraa Ratliff MD [address] [place] [address] PCP - General 04/15/09 Song And Dance Performer Relationship Specialty Start Date End Date Zahraa Ratliff MD [address] [place] [address] PCP - General 04/15/09 Song And Dance Performer Relationship Specialty Start Date End Date Zahraa Ratliff MD [address] [place] [address] PCP - General 04/15/09 Song And Dance Performer Relationship Specialty Start Date End Date Zahraa Ratliff MD [address] [place] [address] PCP - General 04/15/09 Song And Dance Performer Relationship Specialty Start Date End Date Zahraa Ratliff MD [address] [place] [address] PCP - General 04/15/09 Song And Dance Performer Relationship Specialty Start Date End Date Zahraa Ratliff MD [address] [place] [address] PCP - General 04/15/09 Song And Dance Performer Relationship Specialty Start Date End Date Zahraa Ratliff MD [address] [place] [address] PCP - General 04/15/09 Song And Dance Performer Relationship Specialty Start Date End Date Zahraa Ratliff MD [address] [place] [address] PCP - General 04/15/09 Song And Dance Performer Relationship Specialty Start Date End Date Zahraa Ratliff MD [address] [place] [address] PCP - General 04/15/09 Song And Dance Performer Relationship Specialty Start Date End Date Zahraa Ratliff MD [address] [place] [address] PCP - General 04/15/09 Song And Dance Performer Relationship Specialty Start Date End Date Zahraa Ratliff MD [address] [place] [address] PCP - General 04/15/09 Song And Dance Performer Relationship Specialty Start Date End Date Zahraa Ratliff MD [address] [place] [address] PCP - General 04/15/09 Song And Dance Performer Relationship Specialty Start Date End Date Zahraa Ratliff MD [address] [place] [address] PCP - General 04/15/09 Song And Dance Performer Relationship Specialty Start Date End Date Zahraa Ratliff MD [address] [place] [address] PCP - General 04/15/09 Song And Dance Performer Relationship Specialty Start Date End Date Zahraa Ratliff MD [address] [place] [address] PCP - General 04/15/09 Kimberli Hall APRN.FAST FOODS WORKER [address] [place] [address] Roll Grinder Operator Family Medicine 09/30/24 Song And Dance Performer Relationship Specialty Start Date End Date Zahraa Ratliff MD [address] [place] [address] PCP - General 04/15/09 Kimberli Hall APRN.FAST FOODS WORKER [address] [place] [address] Roll Grinder Operator Family Medicine 09/30/24 Elliot Archibald APRN.FAST FOODS WORKER [address] [place] [address] Roll Grinder Operator [facility] Medicine 10/09/24 Song And Dance Performer Relationship Specialty Start Date End Date Zahraa Ratliff MD [address] [place] [address] PCP - General 04/15/09 Kimberli Hall APRN.FAST FOODS WORKER [address] [place] [address] Roll Grinder Operator Family Medicine 09/30/24 Elliot Archibald APRN.FAST FOODS WORKER [address] [place] [address] Roll Grinder Operator Family Medicine 10/09/24 Song And Dance Performer Relationship Specialty Start Date End Date Zahraa Ratliff MD [address] [place] [address] PCP - General 04/15/09 Kimberli Hall APRN.FAST FOODS WORKER [address] [place] [address] [facility] 09/30/24 Elliot Archibald APRN.FAST FOODS WORKER [address] [place] [address] [facility] Song And Dance Performer Relationship Specialty Start Date End Date Zahraa Ratliff MD [address] [place] [address] PCP - General 04/15/09 Elliot Archibald APRN.FAST FOODS WORKER [address] [place] [address] [facility] 10/09/24 Song And Dance Performer Relationship Specialty Start Date End Date Zahraa Ratliff MD [address] [place] [address] PCP - General 04/15/09 Elliot Archibald, SYSTEM DISPATCHER.FAST FOODS WORKER [address] [place] [address] [facility] 10/09/24 Song And Dance Performer Relationship Specialty Start Date End Date Zahraa Ratliff MD [address] [place] [address] PCP - General 04/15/09 Elliot Archibald SYSTEM DISPATCHER.FAST FOODS WORKER [address] [place] [address] [facility] Song And Dance Performer Relationship Specialty Start Date End Date Zahraa Ratlfif MD [address] [place] [address] PCP - General 04/15/09 Elliot Archibald APRN.FAST FOODS WORKER [address] [place] [address] [facility] 10/09/24 Song And Dance Performer Relationship Specialty Start Date End Date Zahraa Ratliff MD [address] [place] [address] PCP - General 04/15/09 Elliot Archibald APRN.FAST FOODS WORKER [address] [place] [address] [facility]/24 Song And Dance Performer Relationship Specialty Start Date End Date Zahraa Ratliff MD [address] [place] [address] PCP - General 04/15/09 Elliot Archibald APRN.FAST FOODS WORKER [address] [place] [address] [facility] 10/[facility]/24 Song And Dance Performer Relationship Specialty Start Date End Date Zahraa Ratliff MD [address] [place] [address] PCP - General 04/15/09 Elliot Archibald SYSTEM DISPATCHER.FAST FOODS WORKER [address] [place] [address] [facility] 10/[facility]/24 Song And Dance Performer Relationship Specialty Start Date End Date Zahraa Ratliff MD [address] [place], [place] [id number] PCP - General 04/15/09 Elliot Archibald APRN.[facility] [address] [place], [place] [address] Roll Grinder Operator [facility] 10/09/24 FOR RECORDS PERTAINING TO PATIENTS WHO ARE OR HAVE BEEN ENROLLED IN A CHEMICAL DEPENDENCY/SUBSTANCEABUSE PROGRAM, SOME INFORMATION MAY BE OMITTED. This clinical summary was aggregated from multiple sources. Caution should be exercised in using it in the provision of clinical care. This summary normalizes information from multiple sources, and as a consequence, information in this document may materially change the coding, format and clinical context of patient data. In addition, data may be omitted in some cases. CLINICAL DECISIONS SHOULD BE BASED ON THE PRIMARY CLINICAL RECORDS. [employer] provides no warranty or guarantee of the accuracy or completeness of information in this document.
== END | disposition home or self-care (01) ==
LOC: US 14:20
PROVIDERS: PCP Family Medicine; Referring Provider Urology; Visit Provider Urology
DX: R33.9 Retention of urine, unspecified (principal)
CPT/HCPCS: 76770

== ENCOUNTER 2025-08-15 07:56 | Day surgery (SDC) | payer MEDICARE, MEDICAID, SELFPAY ==
[2025-08-15] VITALS (8 sets, daily range): BP systolic 142–163; BP diastolic 84–110; PULSE 90–121; RESP 16–18; TEMP 36.1–36.5; O2SAT 91–94; BMI 43.2
[2025-08-15] MEDS: Lactated Ringers 1,000 ML 15 ML IV (08:39)
[2025-08-15] MEDS: Lidocaine 1% /Epi 1:100 (20ml) 20 ML Vial (09:40)
[2025-08-15] MEDS: Cefazolin 1 GM/5 ML Vial 2 GM IV (09:42)
[2025-08-15] MEDS: Lidocaine 1% (5 ml sdv) 5 ML Vial IV (09:43)
[2025-08-15] MEDS: fentaNYL 100 MCG/2 ML Ampul IV (09:47)
== END 2025-08-15 11:50 | disposition home or self-care (01) ==
LOC: SDC 07:57 → AC 07:58
PROVIDERS: PCP Family Medicine; Referring Provider Urology; Visit Provider Urology
PROC: (CPT 64595; principal; 2025-08-15 09:35)
PROC: 0TJB8ZZ Inspection of Bladder, Via Natural or Artificial Opening Endoscopic (ICD-10-PCS; CPT 52000; 2025-08-15 09:35)
DX: Z45.42 Encounter for adjustment and management of neurostimulator (principal); R33.9 Retention of urine, unspecified; I10 Essential (primary) hypertension; Z87.891 Personal history of nicotine dependence; N31.9 Neuromuscular dysfunction of bladder, unspecified; R35.1 Nocturia; K21.9 Gastro-esophageal reflux disease without esophagitis
CPT/HCPCS: 64595; 64585; 52000; 00400; 93005; J2405